=== PATIENT | male | born 1970 | race Two or more races ===

== ENCOUNTER 2020-10-16 10:03 | Outpatient (REF) | payer MEDICAID, SELFPAY ==
--- NOTE | ~2020-10-16 | US_ITS ---
EXAMINATION: US RETROPERITONEAL LIMITED (RENAL ONLY) CLINICAL INFORMATION: History of renal cell cancer. COMPARISON: Renal ultrasound 04/03/2020 and 11/12/2017. CT abdomen and pelvis 11/10/2018. MRI abdomen 05/07/2017. TECHNIQUE: Real-time imaging of the kidneys. FINDINGS: RIGHT KIDNEY: 14.8 x 6.8 x 6.8 cm (SAG x AP x TRV). The kidney is normal in size, contour, and echogenicity. Renal cortical thickness is normal. No renal calculi or hydronephrosis. Lower pole simple cyst measuring 0.5 cm, not seen on the prior examination. LEFT KIDNEY: 12.1 x 5.5 x 6.1 cm (SAG x AP x TRV). The kidney is normal in size, contour, and echogenicity. Renal cortical thickness is normal. No renal calculi or hydronephrosis. Midpole simple cyst measuring 1.8 cm, similar when compared to the prior examination. Calcification redemonstrated at the upper pole measuring approximately 2.2 x 1.6 x 2.5 cm. This previously measured approximately 2.5 x 1.7 x 2.1 cm. US/US renal BI IMPRESSION: 1. Redemonstration of a left upper pole renal calcification, unchanged when compared to the prior ultrasound. Stable left midpole renal cyst. 2. Right lower pole 0.5 cm simple renal cyst, new when compared to the prior examination. 3. No new concerning renal parenchymal lesion.
== END 2020-10-16 10:04 | disposition home or self-care (01) ==
LOC: HO.US 10:03
PROVIDERS: Visit Provider Urology
DX: Z85.528 Personal history of other malignant neoplasm of kidney (principal)
CPT/HCPCS: 76775

== ENCOUNTER → 2020-12-22 11:01 | Outpatient (BNVA) | payer MEDICAID, SELFPAY | PROVIDERS: PCP Internal Medicine Geriatric Medicine; Visit Provider Urology | DX: N40.0 Benign prostatic hyperplasia without lower urinary tract symptoms (principal); K64.9 Unspecified hemorrhoids; Z85.51 Personal history of malignant neoplasm of bladder | CPT/HCPCS: 99212 ==

== ENCOUNTER 2021-01-30 17:55 | Emergency (ER) | payer MEDICAID, SELFPAY ==
[2021-01-30 19:01] VITALS: BP 161/91; PULSE 65; RESP 16; TEMP 36.6; O2SAT 97; BMI 32.6
--- NOTE | 2021-01-30 19:10 | ED.EAR ---
HPI - Ear Problem General Chief complaint: Ear Problems Stated complaint: ear pain Time Seen by Provider: 01/30/21 19:10 Source: patient Mode of arrival: ambulatory Limitations: no limitations History of Present Illness HPI Narrative: 50 y/o male presenting with right sided ear pain for the last 3 days. He reports it aches on the outside and inside. He [place] went swimming in the river 2[place]3 weeks ago, none since. He denies injury, drainage or any hearing loss. No fever, chills, sore throat, or neck pain. MD Complaint: ear pain Duration: constant Severity: moderate Relieving factors: nothing Exacerbating factors: chewing, position of head and palpation Context: recent swimming Discharge from ear: no Associated symptoms ear: headache and external ear tenderness Treatment prior to arrival: none Related Data Home Medications Medication Instructions Recorded Confirmed lisinopril 40 mg tablet 40 mg PO DAILY 12/22/20 Previous Rx's Medication Instructions Recorded amoxicillin-pot clavulanate 1 tab PO BID #20 tab 01/30/21 [Augmentin] Allergies Allergy/AdvReac Type Severity Reaction Status Date / Time No Known Allergies Allergy Verified 12/22/20 11:13 [No Known Allergies*] Review of Systems Review of Systems: Constitutional: No Fever, No Chills ENT/Mouth: No sore throat, No Rhinorrhea, No Swallowing Difficulty, +ear pain Eyes: No Eye Pain, No Swelling, No Redness Cardiovascular: No Chest Pain, No SOB Respiratory: No Cough, No Sputum Gastrointestinal: No Nausea, No Vomiting Neuro: , No Dizziness, No Headache Heme/Lymph: No Lymphadenopathy PMFSH Past Medical History Attestation statement: The following information was validated with the patient. Medical History (Updated 01/30/21 @ 20:00 by LUCRECIA Babb) Benign prostatic hyperplasia with lower urinary tract symptoms Cancer of kidney Hx of bladder cancer Lesion of bladder Obstructive sleep apnea (adult) (pediatric) Tubular adenoma of colon Surgical History (Updated 12/22/20 @ 11:15 by SARAVANAN Funk) History of surgery Social History Social History Advance Directives: No Physical Exam Vital Signs: Vital Signs: Last Vital Signs Temp 97.9 F 01/30/21 19:01 Pulse 65 01/30/21 19:01 Resp 16 01/30/21 19:01 BP 161/91 H 01/30/21 19:01 Pulse Ox 97 01/30/21 19:01 Body Mass Index 32.6 Const: General: cooperative, healthy appearing and comfortable HENMT: Head: Yes normal to inspection and Yes No palpable skull fracture present Ears: hearing grossly normal bilaterally, TM normal on the left, mastoids normal, no periauricular adenopathy, Abnormal EAC present erythema, edema and otic discharge purulent on the right and TM abnormal bulging on the right and erythematous on the right General nose exam: Normal external nose present and Normal nares present Face and sinus: Yes normal facial exam and Yes sinuses nontender Mouth: Normal oral and palatal mucosa present, lip normal, tongue normal, oropharynx normal and moist mucous membranes Throat: Yes posterior oropharynx normal Eyes: General: appearance normal, both eyes and all related structures Neck: Neck: Yes normal visual inspection and Yes no lymphadenopathy Chest: Chest palpation & inspection: normal inspection of the chest Resp: Effort & Inspection: normal respiratory effort Auscultation: clear to auscultation bilaterally Cardio: Rate: regular rate Rhythm: regular rhythm Skin: General skin exam: no rashes or lesions noted Extrem: General: Yes normal to inspection Psych: Appearance: grossly normal and well kempt Mental Status: mental status grossly normal Course Course Course Narrative: 50 y/o male presenting with right ear pain x3 days. Exam is consistent with both otitis externa as well as otitis media. Will treat with topical and oral antibiotics. Mastoid is normal without tenderness or erythema. He is afebrile and appears well. He was counseled on management and course. He is stable for d/c home with outpatient follow up. MDM - Ear Differential Diagnosis Differential diagnosis: Likely otitis externa, otitis media, foreign body in ear, ruptured TM and cerumen impaction Critical Care Time Critical Care Time Critical Care Time: No Discharge Plan Discharge Clinical Impression: Otitis externa Qualifiers: Otitis externa type: diffuse Chronicity: acute Laterality: right Qualified Code(s): H60.311 - Diffuse otitis externa, right ear Otitis media Qualifiers: Otitis media type: suppurative Chronicity: acute Laterality: right Recurrence: non-recurrent Spontaneous tympanic membrane rupture: without spontaneous rupture Qualified Code(s): H66.001 - Acute suppurative otitis media without spontaneous rupture of ear drum, right ear Patient Disposition: Home, Self-Care Instructions: Otitis Externa (ED), Ear Infection (ED) Additional Instructions: Take the oral antibiotics 2 times per day for 10 days for an ear infection. Use the prescribed antibiotic ear drops in your ear 4 times per day for 1 week. Do not get your ear wet. Put a piece of cotton in it when you shower. No swimming. Follow up with your primary care doctor this week. If you develop new or worsening symptoms call 911 or come back to the ER for further evaluation. Prescriptions: New amoxicillin-pot clavulanate [Augmentin] 875-125 mg tablet 1 tab PO BID Qty: 20 RF: 0
[2021-01-30] MEDS: NeoMYCIN/Polymyxin/HC Otic Sol BOTTLE 4 DROP EAR-RIGHT (20:07)
[2021-01-30] MEDS: Amoxicillin/Potassium Clav 875 MG TABLET PO (20:07)
== END 2021-01-30 20:12 | disposition home or self-care (01) ==
PROVIDERS: Emergency Provider Internal Medicine; PCP Internal Medicine Geriatric Medicine
DX: H60.311 Diffuse otitis externa, right ear (principal); H66.001 Acute suppurative otitis media without spontaneous rupture of ear drum, right ear
CPT/HCPCS: 99283

== ENCOUNTER → 2021-02-08 14:20 | Outpatient (BNVA) | payer MEDICAID, SELFPAY | PROVIDERS: PCP Internal Medicine Geriatric Medicine; Referring Provider Internal Medicine Geriatric Medicine; Visit Provider Nurse Practitioner | DX: R14.0 Abdominal distension (gaseous) (principal); D12.6 Benign neoplasm of colon, unspecified; R10.11 Right upper quadrant pain | CPT/HCPCS: 36415; 80053; 85025; 99212 ==

== ENCOUNTER → 2021-02-27 14:05 | Outpatient (BNVA) | payer MEDICAID, SELFPAY | PROVIDERS: PCP Internal Medicine Geriatric Medicine; Visit Provider Urology | DX: N40.1 Benign prostatic hyperplasia with lower urinary tract symptoms (principal); C64.9 Malignant neoplasm of unspecified kidney, except renal pelvis; C67.9 Malignant neoplasm of bladder, unspecified | CPT/HCPCS: 52000; 99212 ==

== ENCOUNTER 2021-03-29 10:31 | Outpatient (REF) | payer MEDICAID, SELFPAY ==
--- NOTE | ~2021-03-29 | US_ITS ---
EXAMINATION: US ABDOMEN COMPLETE CLINICAL INFORMATION: Right upper quadrant pain. COMPARISON: Renal ultrasound 10/16/2020 and 04/03/2020. CT abdomen and pelvis 11/10/2018. MRI abdomen 05/07/2017. TECHNIQUE: Real-time imaging of the abdominal viscera. FINDINGS: PANCREAS: The visualized portions of the pancreas are unremarkable, the tail is not well visualized. ABDOMINAL AORTA: The proximal, mid, and distal segments are normal in caliber. INFERIOR VENA CAVA: Visualized portions are normal. LIVER: Normal. The liver is normal in size. The liver contour is normal. Parenchymal echogenicity is normal. No focal hepatic lesion. There is no intrahepatic biliary duct dilatation seen. GALLBLADDER: Normal intraluminal gallbladder polyps are identified the largest measuring 0.3 x 0.2 x 0.6 cm. The gallbladder is physiologically distended without evidence of stones, sludge, wall thickening or pericholecystic fluid. Sonographic Aragon sign is negative. COMMON BILE DUCT: Normal in caliber measuring 0.3 cm in diameter. RIGHT KIDNEY: Normal. No hydronephrosis. No renal calculi or focal parenchymal lesions. The kidney measures 14.9 cm in maximum dimension. LEFT KIDNEY: Calcification in the left renal upper pole measuring up to 6 mm. Simple appearing cyst in the left renal upper pole measuring up to 2.2 cm. Hyperechoic echogenic focus along the left renal upper pole measuring 1.0 x 0.9 x 1.1 cm containing punctate calcifications possibly representing region of previous cryoablation. No hydronephrosis. The kidney measures 12.8 cm in maximum dimension. SPLEEN: Normal. The spleen measures 11.1 cm in maximum dimension. FREE FLUID: None. US/US abdomen complete IMPRESSION: 1. Intraluminal gallbladder polyps largest measuring up to 0.3 cm. 2. Left-sided nephrolithiasis measuring up to 6 mm without hydronephrosis. 3. No right-sided nephrolithiasis or hydronephrosis. 4. Left renal upper pole simple appearing cyst measuring 2.2 cm, which does not require follow-up. 5. Hyperechoic echogenic focus along the left renal upper pole measuring 1.0 x 0.9 x 1.1 cm containing punctate calcifications possibly representing region of previous cryoablation.
== END 2021-03-29 10:32 | disposition home or self-care (01) ==
LOC: HO.US 10:31
PROVIDERS: Visit Provider Nurse Practitioner
DX: R10.11 Right upper quadrant pain (principal)
CPT/HCPCS: 76700

== ENCOUNTER 2021-05-11 10:03 | Day surgery (SDC) | payer MEDICAID, SELFPAY ==
[2021-03-26 14:19] VITALS: BMI 34.9
--- NOTE | 2021-03-29 09:27 | P.CONAN_ITS ---
Documented by User: Emeli Mtz NP 03/29/21 09:32 HPI - Anesthesia Eval Consult details Narrative: 51yo M for Colonoscopy PMFSH Active Problems Active Problems: All Active Problems (Updated 03/26/21 @ 14:17 by Theodora Ahn RN) Abdominal bloating (Acute) RUQ pain (Acute) Bladder cancer (Acute) Tubular adenoma of colon (Acute) Benign prostatic hyperplasia with lower urinary tract symptoms (Acute) Cancer of kidney (Acute) Hx of bladder cancer (Acute) Past Medical History Medical History (Updated 03/26/21 @ 14:17 by Theodora Ahn RN) Benign prostatic hyperplasia with lower urinary tract symptoms Cancer of kidney History of COVID-19 HTN (hypertension) Hx of bladder cancer Lesion of bladder Obstructive sleep apnea (adult) (pediatric) Tubular adenoma of colon Surgical History Surgical History H/O colonoscopy History of surgery History of surgery Hx of cystoscopy Social History Social History Patient Tobacco Use Status: Tobacco use Unknown Meds Allergies Allergy/AdvReac Type Severity Reaction Status Date / Time No Known Allergies Allergy Verified 02/27/21 14:21 [No Known Allergies*] Home Medications Medication Instructions Recorded Confirmed Last Taken Type lisinopril 40 mg tablet 40 mg PO DAILY 12/22/20 03/26/21 Unknown History amlodipine 5 mg tablet 5 mg PO DAILY 02/27/21 03/26/21 Unknown History Exam Exam Date and Time: March 29, 2021 0927 Height,Weight and Vital Signs: Height 5 ft 8 in Weight 104.043 kg Pertinent Lab Results Pertinent Lab Results: Laboratory Tests 02/08/21 02/08/21 16:15 16:15 WBC 14.6 H Hgb 14.0 Hct 42.7 Plt Count 244 Sodium 138 Potassium 4.1 Chloride 105 Carbon Dioxide 25 BUN 13 Creatinine 0.91 Assessment and Plan Assessment Anesthesia Assessment: Chart Reviewed Documented by User: Evon Mcgovern MD 03/30/21 09:59 [facility] Past Medical History Medical History (Updated 03/26/21 @ 14:17 by Theodora Ahn RN) Benign prostatic hyperplasia with lower urinary tract symptoms Cancer of kidney History of COVID-19 HTN (hypertension) Hx of bladder cancer Lesion of bladder Obstructive sleep apnea (adult) (pediatric) Tubular adenoma of colon Functional capacity: independent ambulation Family History Family history of problems with anesthesia: No Surgical History Surgical History H/O colonoscopy History of surgery History of surgery Hx of cystoscopy History of Problems with Anesthesia: No Social History Social History Patient Tobacco Use Status: Tobacco use Unknown Meds Allergies Allergy/AdvReac Type Severity Reaction Status Date / Time No Known Allergies Allergy Verified 02/27/21 14:21 [No Known Allergies*] Home Medications Medication Instructions Recorded Confirmed Last Taken Type lisinopril 40 mg tablet 40 mg PO DAILY 12/22/20 03/26/21 Unknown History amlodipine 5 mg tablet 5 mg PO DAILY 02/27/21 03/26/21 Unknown History Exam Airway Mallampati Class: III TM Dist: >3cm Neck ROM: Full Heart: RRR Lungs: CTA Assessment and Plan Final Anesthetic Review Family History of Problems with Anesthesia: No History of Problems with Anesthesia: No
--- NOTE | 2021-05-10 09:21 | P.CONAN_ITS ---
Documented by User: Emeli Mtz NP 05/10/21 09:22 HPI - Anesthesia Eval Consult details Narrative: 51yo M for Colonoscopy PMFSH Active Problems Active Problems: All Active Problems (Updated 03/26/21 @ 14:17 by Theodora Ahn, MARINO) Abdominal bloating (Acute) RUQ pain (Acute) Bladder cancer (Acute) Tubular adenoma of colon (Acute) Benign prostatic hyperplasia with lower urinary tract symptoms (Acute) Cancer of kidney (Acute) Hx of bladder cancer (Acute) Past Medical History Medical History Benign prostatic hyperplasia with lower urinary tract symptoms Cancer of kidney History of COVID-19 HTN (hypertension) Hx of bladder cancer Lesion of bladder Obstructive sleep apnea (adult) (pediatric) Tubular adenoma of colon Functional capacity: independent ambulation Family History Family history of problems with anesthesia: No Surgical History Surgical History H/O colonoscopy History of surgery History of surgery Hx of cystoscopy History of Problems with Anesthesia: No Social History Social History Patient Tobacco Use Status: Never used Tobacco Use of substances other than those prescribed or required for medical reasons: No Are you DNR?: No Advance Directives Information Provided: No Meds Allergies Allergy/AdvReac Type Severity Reaction Status Date / Time No Known Allergies Allergy Verified 05/11/21 10:09 [No Known Allergies*] Home Medications Medication Instructions Recorded Confirmed Last Taken Type lisinopril 40 mg tablet 40 mg PO DAILY 12/22/20 03/26/21 05/11/21 09:00 History amlodipine 5 mg tablet 5 mg PO DAILY 02/27/21 03/26/21 05/11/21 09:00 History Exam Exam Date and Time: May 10, [id number] Height,Weight and Vital Signs: Height 5 ft 8 in Weight 104.043 kg Pertinent Lab Results Pertinent Lab Results: Laboratory Tests ? 02/08/21 02/08/21 ? 16:15 16:15 WBC ?14.6 H ? Hgb ?14.0 ? Hct ?42.7 ? Plt CountB ?244 ? Sodium ? ?138 Potassium ? ?4.1 Chloride ? ?105 Carbon Dioxide ? ?25 BUN ? ?13 Creatinine ? ?0.91 Assessment and Plan Assessment Anesthesia Assessment: Chart Reviewed Final Anesthetic Review Family History of Problems with Anesthesia: No History of Problems with Anesthesia: No Documented by User: Verna Ware MD 05/11/21 10:53 PMFSH Past Medical History Medical History Benign prostatic hyperplasia with lower urinary tract symptoms Cancer of kidney History of COVID-19 HTN (hypertension) Hx of bladder cancer Lesion of bladder Obstructive sleep apnea (adult) (pediatric) Tubular adenoma of colon Surgical History Surgical History H/O colonoscopy History of surgery History of surgery Hx of cystoscopy Social History Social History Patient Tobacco Use Status: Never used Tobacco Use of substances other than those prescribed or required for medical reasons: No Are you DNR?: No Advance Directives Information Provided: No Meds Allergies Allergy/AdvReac Type Severity Reaction Status Date / Time No Known Allergies Allergy Verified 05/11/21 10:09 [No Known Allergies*] Home Medications Medication Instructions Recorded Confirmed Last Taken Type lisinopril 40 mg tablet 40 mg PO DAILY 12/22/20 03/26/21 05/11/21 09:00 History amlodipine 5 mg tablet 5 mg PO DAILY 02/27/21 03/26/21 05/11/21 09:00 History Exam Airway Mallampati Class: II TM Dist: >3cm Neck ROM: Full Loose/Missing/Broken Teeth: No Heart: RRR Lungs: CTA Assessment and Plan Assessment Anesthesia Assessment: Anesthesia Plan Discussed Final Anesthetic Review ASA Class: II Final Preanesthetic Review: Meds/Allgs Chart Reviewed, Consent Obtained/Reviewed and Anes Risks/Benef Reviewed Patient Risk: Low Procedure Risk: Intermediate Anesthetic Plan Anesthetic Plan: GA Disposition: Standard PACU
[2021-05-11 10:21] VITALS: BP 143/87; PULSE 63; RESP 16; TEMP 36.7; O2SAT 97; BMI 32.6
[2021-05-11] MEDS: Lactated Ringers 1,000 ML 100 ML IVCONT (10:46)
--- NOTE | 2021-05-11 11:04 | MHC.SHP ---
Pre-Procedural Eval Section A Date of Service: 05/11/21 The patient is an INPATIENT: No The History & Physical has been completed within 30 days and I have reviewed it.: No Section B Chief Complaint: Colon cancer screening, hx of colon polyps Details of Present Illness: Colon cancer screening, history of colon polyps, bloating, constipation Present Medications: see Short Stay Collaborative assessment Medical History: Significant History (Benign prostatic hyperplasia with lower urinary tract symptoms Cancer of kidney Hx of bladder cancer Lesion of bladder Obstructive sleep apnea (adult) (pediatric) Tubular adenoma of colon) History of Previous Operations: Relevant previous surgery/procedure and date(s) (History of colonoscopy) Allergies: Allergies Allergy/AdvReac Type Severity Reaction Status Date / Time No Known Allergies Allergy Verified 05/11/21 10:09 [No Known Allergies*] Review of Systems Sugical H&P ROS: Negative: Constitution, Cardiovascular and Respiratory and Yes, Specify: Gastrointestinal (bloating, constipation) Exam Surgical H&P Exam: Normal: Heart, Normal: Lungs, Normal: Extremities and Normal: Abdomen Plan Diagnosis/Plan: Unchanged I have reviewed the history and physical and performed a pertinent physical examination on my patient. No changes have occurred unless specified.
--- NOTE | 2021-05-11 11:53 | PM.OP ---
Brief Operative Note Date of Service: 05/11/21 Pre-op diagnosis: Colon cancer screening history of colon polyps, abdominal bloating, constipation Post-op diagnosis: other (Colon polyps, diverticulosis, hemorrhoids) Procedure: COLONOSCOPY TILL CECUM WITH BIOPSIES AND SNARE POLYPECTOMY Consent: Indications for the procedure and potential complications of bleeding, perforation, reaction to medications and missed diagnosis were discussed with the patient and informed consent was obtained. Instrument: Olympus PCF H 190 L variable stiffness pediatric colonoscope Monitoring: Vital signs and clinical assessment, intermittent blood pressure monitoring, continuous EKG monitoring, Pulse oximetry and Carbon Dioxide monitoring were done throughout the procedure. Colon withdrawl time was 20 minutes. Procedure: The patient was placed in the left lateral decubitis position and pre-procedure medications were administered. After a digital rectal examination of the ano-rectum, the video colonoscope was inserted into the rectum and advanced through the colon to the cecum. The colonoscope was slowly withdrawn in a retrograde panoramic fashion and the colon mucosa was carefully examined including a retroflexed view of the rectum. Findings and interventions are described below. Procedure Difficulty: Without difficulty Findings: Terminal Ileum: Not evaluated Cecum: A 3-4 mm sessile polyp removed with a cold bx. Ascending Colon: A 10 mm sessile polyp in proximal AC removed with a cold snare. Transverse Colon: A 7-8 mm sessile polyp in the proximal TC removed with a cold snare Descending Colon: Normal Sigmoid Colon: Moderate diverticulosis Rectum: Normal Ano-rectum: Moderate internal hemorrhoids Colon preparation: Good Impression and Post Procedure Diagnosis: Colonoscopy Findings: Three small to medium sized polyps removed Moderate diverticulosis seen in the sigmoid colon Moderate hemorrhoids on retroflexed exam. Plan: Await pathology results Patient has an appointment on 05/25/21 in the GI Clinic with Janelle Chappell NP. Repeat Colonoscopy interval based on path results - in 3 years if polyps are adenomatous and due to a hx of multiple colon polyps on his last colonoscopy.. Above findings were reviewed with the patient and colon polyps and diverticulosis handouts were given in the discharge area Surgeon: Esteban Davis MD Anesthesia: MAC (Ivory Pollard CRNA) Was an Assessment Manager used for this Procedure?: Yes Assessment Manager: Poonam Teran Estimated blood loss (mL): 0 Pathology: other (A. cecal polyp B. ascending colon polyp C. transverse colon polyp) Condition: stable Disposition: PACU
--- NOTE | 2021-05-11 11:57 | P.OP_ITS ---
Operative Note Operative Note Date of Service: 05/11/21 Narrative: Pre-op diagnosis:?Colon cancer screening history of colon polyps, abdominal bloating, constipation Post-op diagnosis:?other (Colon polyps, diverticulosis, hemorrhoids) Procedure:? COLONOSCOPY TILL CECUM WITH BIOPSIES AND SNARE POLYPECTOMY Consent: Indications for the procedure and potential complications of bleeding, perforation, reaction to medications and missed diagnosis were discussed with the patient and informed consent was obtained. Instrument: Olympus PCF H 190 L variable stiffness pediatric colonoscope Monitoring: Vital signs and clinical assessment, intermittent blood pressure monitoring, continuous EKG monitoring, Pulse oximetry and Carbon Dioxide monitoring were done throughout the procedure. Colon withdrawl time was 20 minutes. Procedure: The patient was placed in the left lateral decubitis position and pre-procedure medications were administered. After a digital rectal examination of the ano-rectum, the video colonoscope was inserted into the rectum and advanced through the colon to the cecum. The colonoscope was slowly withdrawn in a retrograde panoramic fashion and the colon mucosa was carefully examined including a retroflexed view of the rectum. Findings and interventions are described below. Procedure Difficulty: Without difficulty Findings: Terminal Ileum: Not evaluated Cecum:? A 3-4 mm sessile polyp removed with a cold bx. Ascending Colon:? A 10 mm sessile polyp in proximal AC removed with a cold snare. Transverse Colon:? A 7-8 mm sessile polyp in the proximal TC removed with a cold snare Descending Colon:? Normal Sigmoid Colon:? Moderate diverticulosis Rectum:? Normal Ano-rectum:? Moderate internal hemorrhoids Colon preparation:? Good Impression and Post Procedure Diagnosis: Colonoscopy Findings: Three small to medium sized polyps removed Moderate diverticulosis seen in the sigmoid colon Moderate hemorrhoids on retroflexed exam. Plan: Await pathology results Patient has an appointment on 05/25/21 in the GI Clinic with? Janelle Chappell NP. Repeat Colonoscopy interval based on path results - in 3 years if polyps are adenomatous and due to a hx of multiple colon polyps on his last colonoscopy.. Above findings were reviewed with the patient and colon polyps and diverticulosis handouts were given in the discharge area Surgeon:?Esteban Davis MD Anesthesia:?MAC (Ivory Pollard CRNA) Was an Fiberglass Insulation Installer used for this Procedure?:?Yes Fiberglass Insulation Installer:?Poonam Teran Estimated blood loss (mL):?0 Pathology:?other (A. cecal polyp? B. ascending colon polyp? C. transverse colon polyp) Condition:?stable Disposition:?PACU
[2021-05-11 12:00] VITALS: BP 126/71; PULSE 56; RESP 16; TEMP 36.7; O2SAT 98
[2021-05-11 12:15] VITALS: BP 122/74; PULSE 57; RESP 18; TEMP 36.7; O2SAT 99
== END 2021-05-11 13:25 | disposition home or self-care (01) ==
PROVIDERS: PCP Internal Medicine Geriatric Medicine; Visit Provider Internal Medicine Gastroenterology
PROC: 0DJD8ZZ Inspection of Lower Intestinal Tract, Via Natural or Artificial Opening Endoscopic (ICD-10-PCS; CPT 45378; principal; 2021-05-11 11:10)
DX: Z12.11 Encounter for screening for malignant neoplasm of colon (principal); Z86.010 Personal history of colon polyps; R14.0 Abdominal distension (gaseous); D12.2 Benign neoplasm of ascending colon; D12.3 Benign neoplasm of transverse colon; K63.5 Polyp of colon; K57.30 Diverticulosis of large intestine without perforation or abscess without bleeding; K64.8 Other hemorrhoids; K59.00 Constipation, unspecified; G47.33 Obstructive sleep apnea (adult) (pediatric); N40.1 Benign prostatic hyperplasia with lower urinary tract symptoms; C64.9 Malignant neoplasm of unspecified kidney, except renal pelvis; Z85.51 Personal history of malignant neoplasm of bladder; I10 Essential (primary) hypertension; Z86.16 Personal history of COVID-19
CPT/HCPCS: 45385; 45380; 88305

== ENCOUNTER → 2021-05-25 10:22 | Outpatient (BNVA) | payer MEDICAID, SELFPAY | PROVIDERS: PCP Internal Medicine Geriatric Medicine; Referring Provider Internal Medicine Geriatric Medicine; Visit Provider Nurse Practitioner ==

== ENCOUNTER 2021-08-13 11:09 | Outpatient (REF) | payer MEDICAID, SELFPAY ==
[2021-08-13 11:51] LABS: Binax Internal Control QC Valid; Binax Now Covid-19 Ag Negative (Negative)
== END 2021-08-13 11:10 | disposition home or self-care (01) ==
LOC: HO.LAB 11:09
PROVIDERS: PCP Internal Medicine Geriatric Medicine; Visit Provider Internal Medicine
DX: Z13.89 Encounter for screening for other disorder (principal)

== ENCOUNTER 2021-09-04 10:06 | Outpatient (REF) | payer MEDICAID, SELFPAY ==
[2021-09-04 16:38] LABS: Urine Cytology See Pathology rpt
== END 2021-09-04 10:07 | disposition home or self-care (01) ==
LOC: HO.LAB 10:06
PROVIDERS: PCP Internal Medicine Geriatric Medicine; Visit Provider Urology
DX: C67.9 Malignant neoplasm of bladder, unspecified (principal); C64.9 Malignant neoplasm of unspecified kidney, except renal pelvis; Z85.51 Personal history of malignant neoplasm of bladder
CPT/HCPCS: 52000; 88112; 99212

== ENCOUNTER 2021-10-24 18:08 | Emergency (ER) | payer MEDICAID, SELFPAY ==
--- NOTE | ~2021-10-24 | XR_ITS ---
EXAMINATION: XR KNEE, LEFT CLINICAL INFORMATION: Pain COMPARISON: None TECHNIQUE: Four views of the left knee. FINDINGS: No significant joint effusion. Bones are normal anatomic alignment with no acute fracture or dislocation. Mild degenerative changes seen with tiny osteophyte formation. No bony destructive lesions or periosteal reaction. XR/XR knee LT 4V IMPRESSION: Mild degenerative changes but no acute bony abnormality.
[2021-10-24 18:40] VITALS: BP 157/98; PULSE 70; RESP 17; TEMP 36.6; O2SAT 98; BMI 35.5
[2021-10-24 20:00] VITALS: BP 160/84; PULSE 72; RESP 16; TEMP 37.1; O2SAT 98
--- NOTE | 2021-10-24 21:08 | ED_ITS ---
HPI - Extremity Problem General Chief complaint: Extremity Problem Stated complaint: extreme knee pain Time Seen by Provider: 10/24/21 20:07 Source: patient Mode of arrival: ambulatory Limitations: no limitations History of Present Illness HPI Narrative: 51-year-old male presents to ED for left knee pain. Patient states a month ago hit his knee on the corner of his bed and today while walking during 7 mi walk he felt pain in the medial side of his knee. Patient denies falling to the ground or hearing popping sign. Patient was not running. Denies any leg swelling, calf pain, chest pain, shortness of breath, fever, or chills. Patient denies any knee swelling, redness, stiffness, or warmth. Related Data Home Medications Medication Instructions Recorded Confirmed lisinopril 40 mg tablet 40 mg PO DAILY 12/22/20 03/26/21 amlodipine 5 mg tablet 5 mg PO DAILY 02/27/21 03/26/21 Previous Rx's Medication Instructions Recorded amoxicillin 875 mg-potassium 1 tab PO BID #20 tab 01/30/21 clavulanate 125 mg tablet (Augmentin) simethicone 180 mg capsule 180 mg PO TIDWMEAL 30 Days #90 cap 02/08/21 naproxen 500 mg tablet 500 mg PO BID PRN 10 Days #20 tab 10/24/21 prednisone 20 mg tablet 40 mg PO DAILY 5 Days #10 tab 10/24/21 Allergies Allergy/AdvReac Type Severity Reaction Status Date / Time No Known Allergies Allergy Verified 09/04/21 10:18 [No Known Allergies*] Review of Systems Review of Systems: Left knee pain Yes all other systems are reviewed and are negative PMFSH Past Medical History Medical History (Updated 10/24/21 @ 21:23 [address]) Benign prostatic hyperplasia with lower urinary tract symptoms Cancer of kidney History of COVID-19 HTN (hypertension) Hx of bladder cancer Lesion of bladder Obstructive sleep apnea (adult) (pediatric) Surgical History H/O colonoscopy History of colonoscopy with polypectomy History of surgery History of surgery Hx of cystoscopy Social History Social History Patient Tobacco Use Status: Never used Tobacco Advance Directives: No Advance Directives Information Provided: No Physical Exam Vital Signs: Vital Signs: Last Vital Signs Temp 98.8 F 10/24/21 20:00 Pulse 72 10/24/21 20:00 Resp 16 10/24/21 20:00 BP 160/84 H 10/24/21 20:00 Pulse Ox 98 10/24/21 20:00 BMI result Body Mass Index 35.5 Const: General: cooperative, healthy appearing, comfortable, no acute distress, well developed, alert, awake and Physically active Orientation/consciousness: oriented to time and patient oriented x3 HEENT: Head: Yes normal to inspection, Yes No palpable skull fracture present, Yes normocephalic, Yes atraumatic and No abrasion Eyes: General: appearance normal, both eyes and all related structures Neck: Neck: Yes normal visual inspection, Yes full ROM, Yes no lymphadenopathy, Yes no meningeal signs, Yes trachea midline, Yes supple, No anterior neck swelling and No tender Chest: Chest palpation & inspection: normal inspection of the chest and normal palpation of entire chest wall Resp: Effort & Inspection: normal respiratory effort and able to speak in complete sentences Auscultation: clear to auscultation bilaterally Cardio: Jugular venous distension: no JVD Heart sounds: S1 normal heart sound present and S2 normal heart sound present GI: Inspection: Yes normal to inspection and No abdominal wall ecchymosis Palpation (GI): Soft to palpation, not firm, nontender, no guarding and not rigid : General: No CVA tenderness and Yes no CVA tenderness Back/Spine/Pelvis: Back: no CVA tenderness, No CVA tenderness and No back tenderness Skin: General skin exam: no rashes or lesions noted and elasticity normal Neuro: General: oriented to time, patient oriented x3, gait normal, tone normal, moves all extremities, no meningeal signs and no focal motor deficits Cranial nerves: Yes CN's II-XII intact bilaterally Extrem: General: Yes normal to inspection and Yes full ROM Knee images: 1. Positive for tenderness on palpation. Negative for warmth, ecchymosis, erythema, crepitus, stiffness, or deformity. Rest of lower extremity negative for swelling and negative for calf pain/erythema, wound, pus discharge, foul odor, crepitus, or deformity. Motor/neuro/vascular exam of extremity intact. Popliteal pulses intact. Psych: Appearance: grossly normal, well kempt and not disheveled Course Course Course Narrative: Left knee pain. Reevaluation(s) Reevaluation #1: X-ray chest shows RT arthritis. Patient was informed if pain continues with pain medial aspect he may need MRI to be sure there is no meniscus/ligament tear. Patient discharged with pain medication steroids Time: 21:19 MDM - Extremity (Nontraumatic) MDM Narrative Medical decision making narrative: Knee arthritis Discharge Plan Discharge Clinical Impression: Arthritis of knee Patient Disposition: Home, Self-Care Instructions: Osteoarthritis (ED) Additional Instructions: Your x-ray shows arthritis. Will be discharged with pain medication and steroids. Please follow-up with your primary care provider if pain worsens to see the MRI machine is no ligamentous/meniscus tear. Return to the ED immediately for any redness, swelling, warmness, blue black discoloration, red streaks, fever, chills, leg swelling, calf pain, chest pain, shortness of breath, or any other concerning symptoms. Prescriptions: New naproxen 500 mg tablet 500 mg PO BID PRN (Reason: pain) 10 Days Qty: 20 0RF prednisone 20 mg tablet 40 mg PO DAILY 5 Days Qty: 10 0RF No Action amoxicillin-pot clavulanate [Augmentin] 875-125 mg tablet 1 tab PO BID Qty: 20 0RF lisinopril 40 mg tablet 40 mg PO DAILY 0RF simethicone 180 mg capsule 180 mg PO TIDWMEAL 30 Days Qty: 90 3RF Rx Instructions: after meals amlodipine 5 mg tablet 5 mg PO DAILY 0RF Stand Alone Forms: Work/School Release Interventions: ED Discharge Assessment Last Done: 10/24/21 21:36 Discharge Date/Time: 10/24/21 21:38 Print Language: [place]
[2021-10-24] MEDS: predniSONE 20 MG TABLET 60 MG PO (21:28)
[2021-10-24] MEDS: Ibuprofen 800 MG TABLET PO (21:29)
== END 2021-10-24 21:38 | disposition home or self-care (01) ==
PROVIDERS: Emergency Provider Emergency Medicine; PCP Internal Medicine Geriatric Medicine
DX: M25.562 Pain in left knee (principal); Z79.899 Other long term (current) drug therapy
CPT/HCPCS: 73564; 99283; 99284

== ENCOUNTER 2022-01-03 10:56 | Outpatient (REF) | payer MEDICAID, SELFPAY ==
--- NOTE | ~2022-01-03 | XR_ITS ---
XR/XR chest 2V IMPRESSION: No acute disease. EXAMINATION: XR CHEST CLINICAL INFORMATION: Dyspnea COMPARISON: May 14, 2018 and October 16, 2019 TECHNIQUE: 2 views of the chest were obtained. FINDINGS: No significant abnormality is noted involving the heart, lungs, mediastinum, bony thorax or soft tissues.
== END 2022-01-03 10:57 | disposition home or self-care (01) ==
LOC: HO.XRAY 10:56
PROVIDERS: PCP Internal Medicine Geriatric Medicine; Visit Provider Internal Medicine Geriatric Medicine
DX: R06.00 Dyspnea, unspecified (principal)
CPT/HCPCS: 71046

== ENCOUNTER 2022-02-05 09:29 | Outpatient (REF) | payer MEDICAID, SELFPAY ==
--- NOTE | ~2022-02-05 | US_ITS ---
EXAMINATION: US RETROPERITONEAL LIMITED (RENAL ONLY) CLINICAL INFORMATION: Malignant neoplasm. COMPARISON: Ultrasound renal 10/16/2020 and ultrasound renals only 04/03/2020. TECHNIQUE: Real-time imaging of the kidneys. FINDINGS: RIGHT KIDNEY: 14.6 x 6.7 x 6.2 cm (SAG x AP x TRV). The kidney is normal in size, contour, and echogenicity. Renal cortical thickness is normal. No calculi or focal parenchymal lesions. No hydronephrosis. Previously seen cyst on 10/16/2020 ultrasound in the lower pole is not visualized at this time. There is a small amount of free fluid at the inferior tip of the kidney. LEFT KIDNEY: 12.7 x 6.1 x 5.3 cm (SAG x AP x TRV). The kidney is normal in size, contour, and echogenicity. Renal cortical thickness is normal. No renal calculi or hydronephrosis. There is an anechoic cyst in the midpole measuring 2.1 x 1.8 x 2.1 cm. There is a scar in the upper pole from previous cryoablation measuring 2.8 x 0.8 x 2.1 cm. US/US renal BI IMPRESSION: Left 2.1 cm cyst midpole and a scar in the upper pole are stable. Right kidney is unremarkable. No echogenic stones or hydronephrosis.
== END 2022-02-05 09:30 | disposition home or self-care (01) ==
LOC: HO.US 09:29
PROVIDERS: Visit Provider Urology
DX: C64.9 Malignant neoplasm of unspecified kidney, except renal pelvis (principal)
CPT/HCPCS: 76775

== ENCOUNTER 2022-03-06 10:26 | Outpatient (REF) | payer MEDICAID, SELFPAY ==
[2022-03-06 15:42] LABS: Urine Cytology See Pathology rpt
== END 2022-03-06 10:27 | disposition home or self-care (01) ==
LOC: HO.LAB 10:26
PROVIDERS: Visit Provider Urology
DX: C67.9 Malignant neoplasm of bladder, unspecified (principal); C64.9 Malignant neoplasm of unspecified kidney, except renal pelvis
CPT/HCPCS: 52000; 88112; 99212

== ENCOUNTER 2022-07-12 09:12 | Emergency (ER) | payer MEDICAID, SELFPAY ==
--- NOTE | ~2022-07-12 | XR_ITS ---
EXAMINATION: XR CHEST CLINICAL INFORMATION: Cough COMPARISON: Previous chest x-ray December 2021 TECHNIQUE: Frontal view of the chest was obtained. FINDINGS: The cardiac and mediastinal contours are stable. The lungs are clear. No pleural effusion or pneumothorax. Degenerative changes of the spine. XR/XR chest 1V IMPRESSION: No evidence for acute disease in the chest.
[2022-07-12 09:15] VITALS: BP 146/89; PULSE 57; RESP 19; TEMP 36.2; O2SAT 97; BMI 34.3
[2022-07-12 09:42] LABS: IDNOW Serial# BCCEAD1C
[2022-07-12 09:43] LABS: COVID-19 Test Negative (Negative)
[2022-07-12 09:51] LABS: IDNOW Serial# 16C4AD1C; Influenza A Negative (Negative); Influenza B2 Negative (Negative)
[2022-07-12 10:07] LABS: Strep A Nucleic Acid Negative (Negative)
[2022-07-12] MEDS: Albuterol/Iprat 2.5/0.5MG 3 ML AMPUL.NEB INHALE (10:14)
[2022-07-12 10:15] VITALS: BP 154/87; PULSE 59; RESP 16; TEMP 36.7; O2SAT 98
[2022-07-12 10:16] VITALS: PULSE 59; RESP 16; O2SAT 98
--- NOTE | 2022-07-12 10:16 | ED.URI ---
HPI - URI/Sore Throat General Chief Complaint: Upper Respiratory Symptoms Stated Complaint: Flu Symptoms Time Seen by Provider: 07/12/22 09:30 Source: patient Mode of arrival: ambulatory History of Present Illness HPI Narrative: 52-year-old male with a past medical history of BPH, HTN, NATHAN, previous COVID-19, presenting to the ED complaining of myalgias, body aches, subjective fever, productive cough, chest discomfort with cough, wheezing x 1 week. Also reports swollen glands. with similar symptoms however now improving. Denies fever at present, ear pain, sore throat, difficulty/inability to swallow, abdominal pain, recent travel MD elicited complaint: cough, rhinorrhea and nasal congestion Onset (ago): week(s) Related Data Home Medications Medication Instructions Recorded Confirmed lisinopril 40 mg tablet 40 mg PO DAILY 12/22/20 03/26/21 amlodipine 5 mg tablet 5 mg PO DAILY 02/27/21 03/26/21 Previous Rx's Medication Instructions Recorded amoxicillin 875 mg-potassium 1 tab PO BID #20 tabs 01/30/21 clavulanate 125 mg tablet (Augmentin) simethicone 180 mg capsule 180 mg PO TIDWMEAL 30 days #90 caps 02/08/21 naproxen 500 mg tablet 500 mg PO BID PRN pain 10 days #20 10/24/21 tabs prednisone 20 mg tablet 40 mg PO DAILY 5 days #10 tabs 10/24/21 albuterol sulfate 90 mcg/actuation 2 puff inhalation Q4-6H PRN 07/12/22 aerosol inhaler shortness of breath or wheezing #6.7 grams azithromycin 250 mg tablet See Rx Instructions PO .COMPLEX #6 07/12/22 tabs benzonatate 100 mg capsule 100 mg PO TID PRN cough #14 caps 07/12/22 prednisone 20 mg tablet 40 mg PO DAILY 5 days #10 tabs 07/12/22 Allergies Allergy/AdvReac Type Severity Reaction Status Date / Time No Known Allergies Allergy Verified 03/06/22 08:21 [No Known Allergies*] Review of Systems Review of Systems: Constitutional: +subj Fever, + Chills ENT/Mouth: No Ear Pain, + Nasal Congestion, No Sinus Pain, No Hoarseness, No sore throat, + Rhinorrhea, No Swallowing Difficulty, + swollen glands Cardiovascular: +Chest Pain w/cough, No SOB Respiratory: + Cough, + Sputum, + Wheezing Gastrointestinal: No Nausea, No Vomiting, No Diarrhea, No Constipation, No Abdominal pain Genitourinary: No Dysuria, No Urinary Frequency, No Hematuria, No Flank Pain Musculoskeletal: No joint pain, + Myalgias, No Joint Swelling Skin: No Skin Lesions, No rash Neuro: No Weakness, No Numbness, No Paresthesias Yes all other systems are reviewed and are negative Constitutional: Constitutional: Reports as per [facility] Past Medical History Attestation statement: The following information was validated with the patient. Medical History Benign prostatic hyperplasia with lower urinary tract symptoms Cancer of kidney History of COVID-19 HTN (hypertension) Hx of bladder cancer Lesion of bladder Obstructive sleep apnea (adult) (pediatric) Surgical History H/O colonoscopy History of colonoscopy with polypectomy History of surgery History of surgery Hx of cystoscopy Social History Social History Patient Tobacco Use Status: Never used Tobacco Advance Directives: No Advance Directives Information Provided: Yes Physical Exam Vital Signs: Vital Signs: Last Vital Signs Temp 98.1 F 07/12/22 10:15 Pulse 59 07/12/22 10:16 Resp 16 07/12/22 10:16 BP 154/87 H 07/12/22 10:15 Pulse Ox 98 07/12/22 10:15 O2 Del Method 07/12/22 10:15 BMI result Body Mass Index 34.3 Const: General: cooperative, healthy appearing and no acute distress Orientation/consciousness: patient oriented x3 Limitations: no limitations HEENT: Head: Yes normal to inspection and Yes atraumatic Ears: hearing grossly normal bilaterally, TM's normal bilaterally and mastoids normal General nose exam: Normal external nose present Face and sinus: Yes normal facial exam Mouth: no drooling Throat: Yes tonsils normal, Yes uvula midline, No peritonsillar mass, Yes posterior oropharynx abnormal (Mildly erythematous), No uvula laterally displaced and No uvular edema Eyes: General: appearance normal, both eyes and all related structures EOM: EOMs intact bilaterally Neck: Other: + bilateral submandibular and anterior cervical lymphadenopathy Neck: Yes normal visual inspection, Yes no meningeal signs, No anterior neck swelling, Yes lymphadenopathy and No torticollis Resp: Effort & Inspection: normal respiratory effort, no respiratory distress and no stridor Auscultation: wheezes expiratory wheezes and throughout Cardio: Rate: regular rate Heart sounds: S1 normal heart sound present and S2 normal heart sound present Skin: Rashes: no rashes Wounds: no wounds Neuro: General: patient oriented x3, tone normal and no meningeal signs Gait exam (Neuro): Normal gait present Extrem: General: Yes normal to inspection, Yes no pedal edema, Yes no calf tenderness and Yes normal gait Course Course Course Narrative: -chest x-ray unremarkable. COVID-19/influenza and rapid strep negative. -lungs with slight end expiratory wheeze after DuoNeb. Patient reports symptomatic improvement, safe for discharge at this time. Will discharge home with albuterol, prednisone, Z-Tereso, and close PCP follow-up Results discussed with patient including worrisome signs and symptoms and strict return precautions, and when to return to the emergency department. They verbalized understanding and feel safe for discharge at this time. Medications Administered Discontinued Medications Generic Name Dose Route Start Last Admin Trade Name Freq PRN Reason Stop Dose Admin Albuterol/Ipratropium 3 ml 07/12/22 09:49 07/12/22 10:14 Albuterol/Iprat 2.5/0.5mg 3 Ml Ampul.Neb INHALE 07/12/22 09:50 3 ml ONCE ONE Administration Medical Decision Making Medical Decision Making MDM Narrative: 52-year-old male with a past medical history of BPH, HTN, NATHAN, previous COVID-19, presenting to the ED complaining of myalgias, body aches, subjective fever, productive cough, chest discomfort with cough, wheezing x 1 week. On exam vital signs stable, NAD, nontoxic appearing, bilateral lymphadenopathy noted, mastoids WNL, diffuse expiratory wheeze. Concern for viral illness vs bronchitis. Rule out pneumonia. Low suspicion for ACS/PE or mastoiditis/malignant otitis externa Plan: COVID-19/influenza testing, rapid strep, CXR, DuoNeb Please refer to course for remaining clinical decision making, interpretation of labs/imaging results, and discussions with consultants and/or family members. Differential Diagnosis Differential Diagnoses: The differential diagnosis associated with the presentation includes As above Lab Data Labs: Lab Results 07/12/22 07/12/22 07/12/22 Range/Units 09:24 09:24 09:54 COVID-19 (ORTEGA) Negative (Negative) COVID-19 Clin Com See Note Influenza Type A (LARA) Negative (Negative) Influenza Type B (LARA) Negative (Negative) Influenza A & B Note See Note S. pyogenes GrpA LARA Negative (Negative) Radiology Impression Discussion of test interpretation with radiology: I have reviewed the radiologist's reading. External Record Review External record reviewed: Other (Prior ED record) Discharge Plan Discharge Clinical Impression: Bronchitis Patient Disposition: Home, Self-Care Instructions: Acute Bronchitis (ED) Additional Instructions: Your chest x-ray is unremarkable. He tested negative for COVID, flu, and strep throat Use albuterol inhaler at home for wheezing/shortness of breath. Is Azithromycin is an antibiotic. Tessalon Perles for cough. Prednisone as a steroid Base of close follow-up with her doctor. If symptoms persist or worsen return to the emergency department Prescriptions: New azithromycin 250 mg tablet See Rx Instructions .ROUTE .COMPLEX Qty: 6 0RF Rx Instructions: take 500 mg today (day 1), then 250 mg for 4 days (days 2-5) prednisone 20 mg tablet 40 mg PO DAILY 5 Days Qty: 10 0RF benzonatate 100 mg capsule 100 mg PO TID PRN (Reason: cough) Qty: 14 0RF albuterol sulfate 90 mcg/actuation HFA aerosol inhaler 2 puff inhalation Q4-6H PRN (Reason: shortness of breath or wheezing) Qty: 6.7 0RF No Action amoxicillin-pot clavulanate [Augmentin] 875-125 mg tablet 1 tab PO BID Qty: 20 0RF naproxen 500 mg tablet 500 mg PO BID PRN (Reason: pain) 10 Days Qty: 20 0RF prednisone 20 mg tablet 40 mg PO DAILY 5 Days Qty: 10 0RF lisinopril 40 mg tablet 40 mg PO DAILY simethicone 180 mg capsule 180 mg PO TIDWMEAL 30 Days Qty: 90 3RF Rx Instructions: after meals amlodipine 5 mg tablet 5 mg PO DAILY Referrals: Name,MD Louis [Primary Care Provider] - 3 days Interventions: ED Discharge Assessment Last Done: 07/12/22 11:11 Discharge Date/Time: 07/12/22 11:11
== END 2022-07-12 11:11 | disposition home or self-care (01) ==
PROVIDERS: Physician Assistant; Emergency Provider Student in an Organized Health Care Education/Training Program; PCP Internal Medicine Geriatric Medicine
DX: J40 Bronchitis, not specified as acute or chronic (principal); R05.9 Cough, unspecified; M79.10 Myalgia, unspecified site; R50.9 Fever, unspecified; R07.89 Other chest pain; Z20.822 Contact with and (suspected) exposure to COVID-19; Z79.899 Other long term (current) drug therapy
CPT/HCPCS: 36415; 71045; 87502; 87635; 87651; 94640; 99284

== ENCOUNTER → 2022-09-20 10:02 | Outpatient (BNVA) | payer MEDICAID, SELFPAY | PROVIDERS: PCP Internal Medicine Geriatric Medicine; Visit Provider Urology | DX: C67.9 Malignant neoplasm of bladder, unspecified (principal); C64.9 Malignant neoplasm of unspecified kidney, except renal pelvis | CPT/HCPCS: 52000 ==

== ENCOUNTER → 2022-09-23 10:35 | Outpatient (BNV) | payer MEDICAID, SELFPAY | PROVIDERS: PCP Internal Medicine Geriatric Medicine; Visit Provider Internal Medicine | DX: C91.10 Chronic lymphocytic 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 (principal) | CPT/HCPCS: 99204; 99213; 99214 ==

== ENCOUNTER 2022-11-05 08:56 | Outpatient (REF) | payer MEDICAID, SELFPAY ==
--- NOTE | ~2022-11-05 | US_ITS ---
EXAMINATION: US ABDOMEN COMPLETE CLINICAL INFORMATION: Chronic lymphocytic leukemia, staging. COMPARISON: Renal ultrasound 02/05/2022. Ultrasound abdomen complete 03/29/2021. CT abdomen and pelvis 11/10/2018. MRI abdomen 05/07/2017. TECHNIQUE: Real-time imaging of the abdominal viscera. FINDINGS: PANCREAS: Normal. ABDOMINAL AORTA: The proximal, mid, and distal segments are normal in caliber. INFERIOR VENA CAVA: Visualized portions are normal. LIVER: Hepatomegaly measuring 21.0 cm. The liver contour is normal. Increased echogenicity of the liver parenchyma. No focal hepatic lesion. There is no intrahepatic biliary duct dilatation seen. GALLBLADDER: Multiple gallbladder polyps measuring up to 6 mm. The gallbladder is physiologically distended without evidence of stones, sludge, wall thickening or pericholecystic fluid. COMMON BILE DUCT: Normal in caliber measuring 0.2 cm in diameter. RIGHT KIDNEY: Normal. No hydronephrosis. No renal calculi or focal parenchymal lesions. The kidney measures 14.1 cm in maximum dimension. LEFT KIDNEY: No hydronephrosis or renal calculi. The kidney measures 11.9 cm in maximum dimension. Benign-appearing 2.1 cm renal cyst. Followup imaging is not routinely recommended for benign appearing cysts.. Midpole 1.2 cm cyst with peripheral calcifications, almost certainly benign. SPLEEN: Normal. The spleen measures 12.7 cm in maximum dimension. FREE FLUID: None. US/US abdomen complete IMPRESSION: * Hepatomegaly with increased echogenicity of the liver parenchyma. * Multiple gallbladder polyps measuring up to 6 mm. If patient has no risk factors for gallbladder malignancy* or symptoms attributable to the gallbladder, follow-up recommendations are repeat ultrasound at one, 3, and 5 years from the date of original exam documenting the findings. If patient has symptoms attributable to the gallbladder, cholecystectomy is suggested if there are no alternative causes for the symptoms and the patient is fit for and accepts surgery. If cholecystectomy is not deemed appropriate follow-up as below. If patient has no symptoms and risk factors are present or patient is symptomatic and cholecystectomy is deemed not appropriate, follow-up.
== END 2022-11-05 08:57 | disposition home or self-care (01) ==
LOC: HO.US 08:56
PROVIDERS: PCP Internal Medicine Geriatric Medicine; Visit Provider Internal Medicine
DX: C91.10 Chronic lymphocytic 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 (principal)
CPT/HCPCS: 76700

== ENCOUNTER 2023-05-16 17:47 | Emergency (ER) | payer MEDICAID, SELFPAY ==
--- NOTE | ~2023-05-16 | XR_ITS ---
EXAMINATION: XR SHOULDER, LEFT CLINICAL INFORMATION: Pain COMPARISON: Visualized shoulder on the 07/12/2022 chest x-ray TECHNIQUE: AP external rotation, Grashey, scapular Y, and axillary views of the left shoulder. FINDINGS: Humeral head is well-seated in the glenoid fossa. Chronic calcification along superior aspect of the humeral head likely reflecting underlying calcific tendinitis similar in retrospect to the prior chest x-ray. Mild degenerative changes in the acromioclavicular joint. Visualized left chest and ribs unremarkable XR/XR shoulder LT min 2V IMPRESSION: Chronic appearing and degenerative changes but no acute fracture or dislocation.
--- NOTE | ~2023-05-16 | US_ITS ---
EXAMINATION: US VENOUS ULTRASOUND WITH DOPPLER LOWER EXTREMITY, RIGHT CLINICAL INFORMATION: Pain. COMPARISON: None available. TECHNIQUE: Ultrasound of the deep veins is performed from the hip to the calf with compression sonography and color and pulse Doppler assessment. Spectral analysis with color-flow imaging is performed. FINDINGS: There is normal venous compression and respiratory variation and augmented flow. The visualized common femoral vein, superficial femoral vein, profunda femoral vein, popliteal vein, and the trifurcation region shows no evidence of deep venous thrombosis. There is no significant popliteal fossa cyst. If the patient's symptoms persist, followup ultrasound in 5 days 7 days might be of value to exclude proximal propagation from a non-visualized calf vein. US/US venous duplex LE RT IMPRESSION: No DVT demonstrated in the right lower extremity.
[2023-05-16 18:43] VITALS: BP 157/87; PULSE 76; RESP 20; TEMP 36.8; O2SAT 98; BMI 36.5
--- NOTE | 2023-05-16 18:45 | ED_ITS ---
HPI - General Adult General Chief complaint: Extremity Injury, Lower Stated complaint: pulled muscle last week, bruised thigh Time Seen by Provider: 05/16/23 20:36 Source: patient Mode of arrival: ambulatory Limitations: no limitations History of Present Illness HPI narrative: Patient is a 53 year old assigned male at with a history of bladder cancer, HTN, and BPH presenting to the emergency department today with right upper leg pain. Patient states that he was doing some work on his knees 3 days ago and his right upper leg had been bothering him then but yesterday he noticed bruising to his right upper leg. Patient states that he had been taking Naprosyn for the pain. Patient states that he has also been having chronic left shoulder pain after working on something above his head weeks ago and would like to get that checked out as well. Patient denies any dizziness, lightheadedness, abdominal pain, nausea, vomiting, fever, chills, blurry vision, double vision, loss of vision, chest pain, difficulty breathing, shortness of breath, back pain, night sweats, pain with urination, increased urinary frequency, increased urinary urgency, blood in his urine or stool, syncope or a near syncopal episode, bowel incontinence, bladder incontinence, bowel retention, bladder retention, or any other complaints at this time. Onset (ago): day(s) (3) Location: right and lower extremity Radiation: non-radiation Severity: mild Severity scale (1-10): 4 Quality: dull Pain Consistency: constant Relieving factors: none Exacerbating factors: none Associated symptoms: denies other symptoms Treatments prior to arrival: NSAID Related Data Home Medications Medication Instructions Recorded Confirmed lisinopril 40 mg tablet 40 mg PO DAILY 12/22/20 04/22/23 amlodipine 5 mg tablet 5 mg PO DAILY 02/27/21 04/22/23 Allergies Allergy/AdvReac Type Severity Reaction Status Date / Time No Known Allergies Allergy Verified 05/16/23 18:46 [No Known Allergies*] Review of Systems Constitutional: Constitutional: Reports no additional constitutional complaints, Denies chills, Denies fever(s) and Denies night sweats Eyes: Eyes: Reports no additional eye complaints, Denies blurry vision, Denies change in vision, Denies diplopia, Denies eye discharge, Denies loss of vision and Denies eye pain ENT: Denies dizziness Cardiovascular: Cardiovascular: Reports no additional cardiovascular complaints, Denies chest pain, Denies lightheadedness, Denies Loss of Consciousness and Denies dyspnea Respiratory: Respiratory: Reports no additional respiratory complaints and Denies dyspnea Gastrointestinal: Gastrointestinal: Reports no additional gastrointestinal complaints, Denies abdominal pain, Denies melena, Denies hematochezia, Denies change in bowel habits and Denies change in stool character Genitourinary: Genitourinary: Reports no additional male genitourinary complaints, Denies hematuria, Denies oliguria, Denies difficulty urinating, Denies dysuria, Denies urinary frequency, Denies urinary hesitancy, Denies urinary incontinence and Denies urinary urgency Musculoskeletal: Musculoskeletal: Reports no additional musculoskeletal complaints, Denies numbness and Denies tingling Comments: right upper leg pain Neurologic: Denies dizziness, Denies loss of vision, Denies numbness and Denies tingling Psychiatric: Psychiatric: Reports no additional psychiatric complaints Endocrine: Endocrine: Reports no additional endocrine complaints Hematologic/Lymphatic: Hematologic/Lymphatic: Reports no additional hematologic/lymphatic complaints Allergic/Immunologic: Allergic/Immunologic: Reports no additional allergic/immunologic complaints [facility] Past Medical History Attestation statement: The following information was validated with the patient. Source: old records reviewed and nursing notes reviewed Medical History Bladder cancer RUQ pain Abdominal bloating HTN (hypertension) History of COVID-19 Cancer of kidney Hx of bladder cancer Benign prostatic hyperplasia with lower urinary tract symptoms Obstructive sleep apnea (adult) (pediatric) Lesion of bladder Surgical History History of colonoscopy with polypectomy History of surgery H/O colonoscopy Hx of cystoscopy History of surgery Family History Family History Father Hypertension Diabetes Mother Lung cancer Sister Cancer Social History Social History Household Members: Spouse and Children Housing: House Patient Tobacco Use Status: Never used Tobacco Smoked in Last 30 Days: No Use of substances other than those prescribed or required for medical reasons: No Advance Directives: No service: No Current occupational status: employed Physical Exam ED Vital Signs: Vital Signs - 24 hr 05/16/23 18:43 05/16/23 20:36 Temperature 98.2 F Pulse Rate 76 66 Respiratory Rate 20 17 Blood Pressure 157/87 H 172/97 H Pulse Oximetry 98 97 Oxygen Delivery Method Room Air Room Air BMI result Body Mass Index 36.5 Const General: cooperative, no acute distress, alert and awake Nutritional Appearance: well nourished Orientation/consciousness: patient oriented x3 Limitations: no limitations HENMT Head: Yes normal to inspection and Yes atraumatic Ears: hearing grossly normal bilaterally and external ears normal General nose exam: Normal external nose present, no nasal discharge noted and no epistaxis Face and sinus: Yes normal facial exam, No abrasion and No laceration Mouth: Normal oral and palatal mucosa present, no drooling and no muffled voice Eyes General: appearance normal, both eyes and all related structures Periorbital: periorbital findings normal Eyelids: Yes eyelids normal Conjunctivae: conjunctivae normal Pupils: Equal, round and reactive pupils present EOM: EOMs intact bilaterally Neck Neck: Yes normal visual inspection, Yes full ROM and Yes no lymphadenopathy Chest Chest palpation & inspection: normal inspection of the chest Resp Effort & Inspection: normal respiratory effort and able to speak in complete sentences GI Inspection: Yes normal to inspection Neuro General: patient oriented x3 and moves all extremities Cranial nerves: Yes Equal, round and reactive pupils present Cognition (Neuro): normal cognition Motor exam (neuro): 5/5 motor strength present throughout Sensory Exam: Normal double simultaneous stimulation for sensation Coordination: [id number] test normal Extrem Other: right upper leg bruising General: Yes full ROM and Yes capillary refill normal Psych Appearance: grossly normal Mental Status: mental status grossly normal Affect: normal affect Attitude: cooperative Thought process: Normal thought process present Thought content: Normal thought content present Insight: Good insight present (Psych) Course Course Course Narrative: This is a rapid medical exam: Additional HPI, ROS, PE not included below will be deferred to primary provider. Patient is a 53-year-old male presenting to the emergency department with complaint of right upper leg ecchymosis and pain. States that yesterday he was working on a deck, was wearing knee pads but was walking on his knees when he felt a popping sensation. States that once he got home he noted significant ecchymosis to his right upper leg which has worsened since that time. Took on naproxen and used topical cream with some relief but states pain returned when medications wore off. Denies any chest pain or shortness of breath. Significant ecchymosis to right medial and posterior thigh, 2+ PT pulse. Also complains of left shoulder pain for several weeks, denies fall or other trauma. Plan: U/S leg, shoulder x-ray Medical Decision Making Medical Decision Making MDM Narrative: Patient is a 53 year old assigned male at with a history of bladder cancer, HTN, and BPH presenting to the emergency department today with right upper leg pain and bruising. Patient's physical exam showed bruising of the right upper leg but was otherwise unremarkable. Patient's left shoulder x-ray and right LE US showed no acute process. I explained my physical exam findings as well as all test results to the patient. I answered all questions asked by the patient. I stressed the importance of the patient taking his medication as prescribed. I stressed the importance of the patient following up with his primary care provider and an orthopedic provider. I stressed the importance of the patient returning to the emergency department immediately if his symptoms were to worsen or if he were to develop any dizziness, shortness of breath, difficulty breathing, chest pain, blurry vision, loss of vision, nausea, vomiting, abdominal pain, fever, chills, back pain, or any other complaints. Patient verbalized agreement and understanding with this treatment plan and discharge. Differential Diagnosis Differential Diagnoses: The differential diagnosis associated with the presentation includes Quad injury Osteoarthritis Contusion Independent Interpretation I performed an independent interpretation of an: Plain X-Ray and Ultrasound Interpretation: My interpretation is in agreement with the radiologist's impression of these imaging studies. EXAMINATION: US VENOUS ULTRASOUND WITH DOPPLER LOWER EXTREMITY, RIGHT CLINICAL INFORMATION: Pain. COMPARISON: None available. TECHNIQUE: Ultrasound of the deep veins is performed from the hip to the calf with compression sonography and color and pulse Doppler assessment. Spectral analysis with color-flow imaging is performed. FINDINGS: There is normal venous compression and respiratory variation and augmented flow. The visualized common femoral vein, superficial femoral vein, profunda femoral vein, popliteal vein, and the trifurcation region shows no evidence of deep venous thrombosis. There is no significant popliteal fossa cyst. If the patient's symptoms persist, followup ultrasound in 5 days 7 days might be of value to exclude proximal propagation from a non-visualized calf vein. US/US venous duplex LE RT IMPRESSION: No DVT demonstrated in the right lower extremity. Dictated By: Eusebio Solis MD Signed By: Electronically signed by Eusebio Solis MD 05/16/231939 EXAMINATION: XR SHOULDER, LEFT CLINICAL INFORMATION: Pain COMPARISON: Visualized shoulder on the 07/12/2022 chest x-ray TECHNIQUE: AP external rotation, Grashey, scapular Y, and axillary views of the left shoulder. FINDINGS: Humeral head is well-seated in the glenoid fossa. Chronic calcification along superior aspect of the humeral head likely reflecting underlying calcific tendinitis similar in retrospect to the prior chest x-ray. Mild degenerative changes in the acromioclavicular joint. Visualized left chest and ribs unremarkable XR/XR shoulder LT min 2V IMPRESSION: Chronic appearing and degenerative changes but no acute fracture or dislocation. Dictated By: Barrett Massey MD Signed By: Electronically signed by Barrett Massey MD 05/16/231937 Radiology Impression Discussion of test interpretation with radiology: I have reviewed the radiologist's reading. Discharge Plan Discharge Clinical Impression: Injury of quadriceps muscle, Arthritis Patient Disposition: Home, Self-Care Instructions: Hamstring Injury (ED), Osteoarthritis (ED) Additional Instructions: Follow up with your primary care provider and an orthopedic provder. Return to the emergency department immediately if your symptoms worsen or if you develop any dizziness, shortness of breath, difficulty breathing, chest pain, blurry vision, loss of vision, nausea, vomiting, abdominal pain, fever, chills, back pain, or any other complaints. Prescriptions: No Action lisinopril 40 mg tablet 40 mg PO DAILY amlodipine 5 mg tablet 5 mg PO DAILY Referrals: [facility] [Provider Group] (Call to establish and follow up with an orthopedic provider. ) Name,MD Louis [Primary Care Provider] - Stand Alone Forms: Work/School Release Interventions: ED Discharge Assessment Last Done: 05/16/23 21:11 Discharge Date/Time: 05/16/23 21:12 Print Language: Kiswahili
[2023-05-16 20:36] VITALS: BP 172/97; PULSE 66; RESP 17; O2SAT 97
--- NOTE | 2023-05-17 13:40 | PC.NURSE ---
pt came to triage today stating his work reliease only had 3 days and he was told by the provider he had to take the entire week off, this nurse is looking into the account to see what the provider notations have said and will speak with a provider prior to writing another note.
== END 2023-05-16 21:12 | disposition home or self-care (01) ==
PROVIDERS: Emergency Provider Emergency Medicine; PCP Internal Medicine Geriatric Medicine
DX: S76.102A Unspecified injury of left quadriceps muscle, fascia and tendon, initial encounter (principal); R60.0 Localized edema; M25.512 Pain in left shoulder; X58.XXXA Exposure to other specified factors, initial encounter; Y93.9 Activity, unspecified; Y92.9 Unspecified place or not applicable; Y99.9 Unspecified external cause status
CPT/HCPCS: 73030; 93971; 99284

== ENCOUNTER 2023-05-23 11:16 | Outpatient (REF) | payer MEDICAID, SELFPAY ==
[2023-05-26 12:08] LABS: TS Negative Control Passed; TS Panel A 0; TS Panel B 0; TS Positive Control Passed; TSpotTB Negative (Negative)
== END 2023-05-23 11:17 | disposition home or self-care (01) ==
LOC: HO.HHCL 11:16
PROVIDERS: Visit Provider Internal Medicine Geriatric Medicine
DX: Z20.1 Contact with and (suspected) exposure to tuberculosis (principal)
CPT/HCPCS: 36415; 86481

== ENCOUNTER 2023-07-28 08:44 | Outpatient (REF) | payer MEDICAID, SELFPAY ==
[2023-07-28 10:34] LABS: Anion Gap 8 (12-20); Blood Urea Nitrogen 12 mg/dL (9-16); Calcium 9.3 mg/dL (8.4-10.2); Carbon Dioxide 30 mmol/L (22-29); Chloride 107 mmol/L (96-108); Estimated Glomerular Filt Rate > 60; Glucose Random 95 mg/dL (60-115); Potassium 4.2 mmol/L (3.3-5.1); Sodium 141 mmol/L (135-145)
[2023-07-31 07:38] LABS: TS Negative Control Passed; TS Panel A 0; TS Panel B 0; TS Positive Control Passed; TSpotTB Negative (Negative)
== END 2023-07-28 08:45 | disposition home or self-care (01) ==
LOC: HO.LAB 08:44
PROVIDERS: PCP Internal Medicine Geriatric Medicine; Visit Provider Internal Medicine Geriatric Medicine
DX: Z20.1 Contact with and (suspected) exposure to tuberculosis (principal)
CPT/HCPCS: 36415; 80048; 86481

== ENCOUNTER 2023-09-12 10:46 | Outpatient (REF) | payer MEDICAID, SELFPAY ==
--- NOTE | ~2023-09-12 | US_ITS ---
EXAMINATION: US RETROPERITONEAL LIMITED (RENAL ONLY) CLINICAL INFORMATION: Malignant neoplasm of unspecified kidney, except renal pelvis. COMPARISON: Ultrasound abdomen complete 11/05/2022. Renal ultrasound 02/05/2022. CT abdomen and pelvis 11/10/2018. MRI abdomen 05/07/2017. TECHNIQUE: Real-time imaging of the kidneys. FINDINGS: RIGHT KIDNEY: 14.0 x 6.0 x 5.7 cm (SAG x AP x TRV). The kidney is normal in size and echogenicity. The right kidney has a slightly lobulated contour. Renal cortical thickness is normal. No calculi or focal parenchymal lesions. No hydronephrosis. LEFT KIDNEY: 13.1 x 5.0 x 6.0 cm (SAG x AP x TRV). The kidney is normal in size, contour, and echogenicity. Renal cortical thickness is normal. No renal calculi or hydronephrosis. There are multiple simple cysts, the largest is a 1.4 x 1.4 x 1.5 cm partially exophytic cyst in the upper pole. No imaging follow-up is recommended. US/US renal BI IMPRESSION: No new or concerning renal parenchymal lesions.
== END 2023-09-12 10:47 | disposition home or self-care (01) ==
LOC: HO.US 10:46
PROVIDERS: PCP Internal Medicine Geriatric Medicine; Visit Provider Urology
DX: C64.9 Malignant neoplasm of unspecified kidney, except renal pelvis (principal)
CPT/HCPCS: 76775

== ENCOUNTER 2023-09-17 09:40 | Emergency (ER) | payer MEDICAID, SELFPAY ==
[2023-09-17 10:01] VITALS: BP 145/78; PULSE 76; RESP 20; TEMP 37.7; O2SAT 96; BMI 38.0
[2023-09-17 11:32] LABS: Influenza A PCR NEGATIVE (Negative); Influenza B PCR NEGATIVE (Negative); Resp Syncy Virus RNA Qual PCR NEGATIVE (Negative); SARS COV2 PCR INHOUSE POSITIVE (Negative)
--- NOTE | 2023-09-17 11:36 | ED.URI ---
HPI - URI/Sore Throat General Chief Complaint: Upper Respiratory Symptoms Stated Complaint: Cold/flu symptoms Time Seen by Provider: 09/17/23 11:35 Source: patient Mode of arrival: ambulatory Limitations: no limitations History of Present Illness HPI Narrative: 53-year-old male with a past medical history of hypertension and history bladder and kidney cancer presents emergency department, his , for complaints weakness, chills, and rhinorrhea starting Friday. He reports that his has also been sick with similar symptoms. He denies any fevers, shortness of breath, chest pain, headache, vision changes Related Data Home Medications Medication Instructions Recorded Confirmed lisinopril 40 mg tablet 40 mg PO DAILY 12/22/20 07/23/23 amlodipine 5 mg tablet 5 mg PO DAILY 02/27/21 07/23/23 Allergies Allergy/AdvReac Type Severity Reaction Status Date / Time No Known Allergies Allergy Verified 07/23/23 11:14 [No Known Allergies*] Review of Systems Review of Systems: Yes all other systems are reviewed and are negative PMFSH Past Medical History Medical History Bladder cancer RUQ pain Abdominal bloating HTN (hypertension) History of COVID-19 Cancer of kidney Hx of bladder cancer Benign prostatic hyperplasia with lower urinary tract symptoms Obstructive sleep apnea (adult) (pediatric) Lesion of bladder Surgical History History of colonoscopy with polypectomy History of surgery H/O colonoscopy Hx of cystoscopy History of surgery Family History Family History Father Hypertension Diabetes Mother Lung cancer Sister Cancer Social History Social History Household Members: Spouse and Children Housing: House Patient Tobacco Use Status: Never used Tobacco Advance Directives: No Advance Directives Information Provided: No service: No Current occupational status: employed Physical Exam Vital Signs: Vital Signs: Last Vital Signs Temp 99.9 F 09/17/23 10:01 Pulse 76 09/17/23 10:01 Resp 20 09/17/23 10:01 BP 145/78 H 09/17/23 10:01 Pulse Ox 96 09/17/23 10:01 O2 Del Method Room Air 09/17/23 10:01 BMI result Body Mass Index 38.0 Nursing notes and vital signs reviewed. GENERAL APPEARANCE: A&0 x 4, generally well appearing, no acute distress HENMT: Normal to inspection, atraumatic, face symmetrical. Normal external ears, nose, and oropharynx clear. EYE: PERRLA, EOM intact, structures appear normal NECK: Supple without stiffness or restricted ROM. HEART: Normal rate and regular rhythm, normal S1/S2, no M/R/G LUNGS: LS CTA, moving air well. Able to speak in complete sentences. No crackles, wheezes, or rhonchi auscultated BACK: No CVAT, no obvious deformity EXTREMITIES: Moving all extremities without difficulty. Normal capillary refill. NEUROLOGICAL: Alert and oriented, moving all 4 extremities with equal strength. CN not formally tested but appearing grossly intact. Observed to ambulate with normal gait. Cognition normal SKIN: Warm and dry without any lesions, rash, or visible sores Medical Decision Making Medical Decision Making MDM Narrative: Old records reviewed for previous imaging, lab studies, ECGs, and notes. Patient was assessed the emergency department with no acute distress or toxicity noted. Nasal swab positive for Covid and negative for flu and RSV. Pt educated to use OTC cough/cold medication but to avoid medications with dextromethorphan or phenylephrine as it will may exacerbate hypertension. Patient educated to consult the pharmacist with any questions and [id number] cough/cold medications. Patient is safe for discharge at this time with plan for [id number] Tylenol and/or NSAID such as ibuprofen or naproxen for fever/discomfort with dosing as per packaging. HPI, PE, diagnostics, and plan discussed with patient and family with no unanswered questions at this time. Strict return precautions given to return to the emergency department with new, worsening, or concerning emergent symptoms. Recommended to follow-up with there primary care provider in 24-48 hours for further treatment and management. Differential Diagnosis Differential Diagnoses: The differential diagnosis associated with the presentation includes but not limited to viral uri, pna, asthma, copd, chf, sepsis, malignancy Lab Data [facility] Lab Attestation statement: I reviewed the patient's lab results. Labs: Lab Results 09/17/23 Range/Units 10:44 Influenza Type A (PCR) NEGATIVE (Negative) Influenza Type B (PCR) NEGATIVE (Negative) RSV RNA Qual (PCR) NEGATIVE (Negative) SARS-CoV-2 RNA (RT-PCR) POSITIVE A (Negative) Independent Historian Clinical information obtained from an independent historian. History obtained from or confirmed by: Spouse Tests considered The following testing was considered but not selected: CXR was consider but LS CTA and no dyspnea noted Prescription Management I considered prescription management with: Antibiotic was considered but no bacterial infection was identified Discharge Plan Discharge Clinical Impression: COVID-19 Patient Disposition: Home, Self-Care Instructions: COVID-19 (Coronavirus Disease 2019) (ED) Prescriptions: No Action lisinopril 40 mg tablet 40 mg PO DAILY amlodipine 5 mg tablet 5 mg PO DAILY Referrals: Name,MD Louis [Primary Care Provider] - Stand Alone Forms: Work/School Release Print Language: Qatari
== END 2023-09-17 11:53 | disposition home or self-care (01) ==
PROVIDERS: Emergency Provider Emergency Medicine; PCP Internal Medicine Geriatric Medicine
DX: U07.1 COVID-19 (principal); I10 Essential (primary) hypertension
CPT/HCPCS: 0241U; 99282; 99283

== ENCOUNTER 2023-09-18 09:36 | Outpatient (REF) | payer MEDICAID, SELFPAY ==
[2023-09-18 16:38] LABS: Urine Cytology See Pathology rpt
== END 2023-09-18 09:37 | disposition home or self-care (01) ==
LOC: HO.LAB 09:36
PROVIDERS: Visit Provider Urology
DX: N39.0 Urinary tract infection, site not specified (principal); C64.9 Malignant neoplasm of unspecified kidney, except renal pelvis; C67.9 Malignant neoplasm of bladder, unspecified; Z85.51 Personal history of malignant neoplasm of bladder
CPT/HCPCS: 52000; 81003; 88112; 99212

== ENCOUNTER 2023-09-18 09:36 | Outpatient (AMB) | payer MEDICAID, SELFPAY ==
--- NOTE | 2023-09-18 10:02 | MHC.OFFVIS ---
Intake Intake Visit Reasons: 1Y Cysto/US(set) Intake Note: Patient presents today for a Cystoscopy Meds: None Allergies to Antibiotic: No Known Allergies Blood Thinner: None Urinalysis test clear for Cysto? Yes Disposable Uro-G Cystoscope Cannula: Lot: [id number] Exp: 11/24/2024 Shredded Filler Hopper Feeder Required: No Accompanied by: Self / Same As Patient Allergies No Known Allergies [No Known Allergies*] Allergy (Verified 09/18/23 10:04) Medication List - Last Reconciled 09/18/23 by Devang Ibarra MD amlodipine 5 mg PO DAILY lisinopril 40 mg PO DAILY HPI HPI Comments History of Present Illness Details Irwin is a very pleasant male. He is a patient of Dr. Valverde. He is seen for the following urologic issues - renal cancer - bladder cancer Yearly surveillance Glandular hypospadias Clear cystoscopy Twelve month follow-up Renal cancer 2013 cryotherapy Cryo ablation left side 2013 Imaging stable - 12/01 ultrasound left lower pole 2 cm calcification consistent with cryoablation effect - 02/01 ultrasound left lower pole 2 cm scar, 2.5 cm cyst - 10/04 ultrasound small cyst left Plan continue with surveillance imaging Bladder cancer low-grade bladder cancer 2013 Hematuria 2013 Low-grade bladder cancer Prior cystoscopy 03/03 NAD, 09/04 NAD, 03/04 NAD, 10/03 NAD Prior cytology NAD - 03/03 NAD, 03/04 NAD, 10/04 NAD Plan continue with surveillance cystoscopy yearly PSA 11/01 1.1 PFSH Medical History (Updated 09/18/23 @ 10:25 by Devang Ibarra MD) Bladder cancer RUQ pain Abdominal bloating HTN (hypertension) History of COVID-19 Cancer of kidney Hx of bladder cancer Benign prostatic hyperplasia with lower urinary tract symptoms Obstructive sleep apnea (adult) (pediatric) Lesion of bladder Surgical History History of colonoscopy with polypectomy History of surgery H/O colonoscopy Hx of cystoscopy History of surgery Family History Father Hypertension Diabetes Mother Lung cancer Sister Cancer Social History Household Members: Spouse and Children Housing: House Patient Tobacco Use Status: Never used Tobacco service: No Current occupational status: employed Review of Systems Const Denies chills and Denies fever(s) Card Reports no additional complaints and Denies syncope Resp Denies cough GI Denies abdominal pain and Denies heartburn Reports as per HPI and Denies change in libido Neuro Denies syncope Psych Denies change in libido Endo Denies change in libido Physical Exam Const General: cooperative, healthy appearing, comfortable and no acute distress Orientation/consciousness: patient oriented x3 HEENT Face and sinus: Yes normal facial exam Mouth: moist mucous membranes Neck Neck: Yes normal visual inspection, Yes full ROM and Yes trachea midline Chest Chest palpation & inspection: normal inspection of the chest Resp Effort & Inspection: normal respiratory effort, able to speak in complete sentences and no respiratory distress GI Inspection: Yes normal to inspection Back/Spine/Pelvis Cervical Spine: normal cervical lordosis Thoracic/Lumbar Spine: thoracic and lumbar spine normal to inspection Skin General skin exam: no rashes or lesions noted Neuro General: patient oriented x3, gait normal, tone normal and moves all extremities Extrem General: Yes normal to inspection and Yes capillary refill normal Office Procedures Cystoscopy Consent Discussed risk and benefit or proposed procedure with the patient. Information consent for procedure given to the patient. Discussed technical aspects, risks, benefits and alternatives in full. Addressed all of the patient's questions and concerns regarding the procedure. The patient demonstrated knowledge and understanding. They wish to proceed with this procedure. Preparation The patient was prepped in the usual manner. A diesel engineer was present and in the room. Genitalia was prepped with betadine solution in a sterile manner. Lidocaine Jelly 2% was placed into the urethra and 16Fr flexible Olympus cystoscope was inserted into the meatus after adequate lubrication. Procedure Meatus circumcised Urethra anterior and posterior urethra normal Prostatic Urethra unremarkable Bladder examination with retroflexion of cystoscope Bladder Orifices normal shape and position Bladder Capacity medium Trabeculations grade 1 Cellule Formation no Diverticulum Formation - Mucosal Erythema - Bladder Tumor scar seen left side [id number] DISPOSABLE SCOPE URO-G FLEXIBLE SCOPE Procedure code (CPT) selection complete Office Meds lidocaine HCl 2 % mucosal jelly in applicator Performing Provider: Devang Ibarra MD [facility] Administered by: Haven Khan RN on 09/18/23 10:05 Dose Route Admin Location Dispensed Lot Number Expiration Date NDC Project Superintendent 10 mL intra-urethral 10 mL nitrofurantoin monohydrate/macrocrystals 100 mg capsule Performing Provider: Devang Ibarra MD [facility] Administered by: Haven Khan RN on 09/18/23 10:05 Dose Route Admin Location Dispensed Lot Number Expiration Date NDC Project Superintendent 100 mg PO 1 cap naproxen 500 mg tablet Performing Provider: Devang Ibarra MD Performing Location: [facility] [place] [facility] Administered by: Haven Khan RN on 09/18/23 10:05 Dose Route Admin Location Dispensed Lot Number Expiration Date NDC Project Superintendent 500 mg PO 1 tab Results AMB Urinalysis, Automated UA Leukoctes 0 Chapito/uL Last Edit by Raven Patterson CMA on 09/18/23 10:08 UA Nitrite Negative Last Edit by Raven Patterson CMA on 09/18/23 10:08 UA Urobilinogen 0.2 mg/dL Last Edit by Raven Patterson [facility] on 09/18/23 10:08 UA Protein 0 mg/dL Last Edit by Raven Patterson [facility] on 09/18/23 10:08 UA pH 7.0 Last Edit by Raven Patterson [facility] on 09/18/23 10:08 UA Blood 0 Valente/uL Last Edit by Raven Patterson, [facility] on 09/18/23 10:08 UA Specific Davison 1.005 Last Edit by Raven Pattersonaki Patterson [facility] on 09/18/23 10:08 UA Ketone Negative Last Edit by Raven Patterson [facility] on 09/18/23 10:08 UA Bilirubin 0 mg/dL Last Edit by Raven Patterson [facility] on 09/18/23 10:08 UA Glucose 0 mg/dL Last Edit by Raven Patterson [facility] on 09/18/23 10:08 AMB Urinalysis, Automated UA Leukoctes 0 Chapito/uL Last Edit by SARAVANAN Funk on 09/18/23 10:27 UA Nitrite Negative Last Edit by SARAVANAN Funk on 09/18/23 10:27 UA Urobilinogen 0.2 mg/dL Last Edit by JUAN FunkA on 09/18/23 10:27 UA Protein 0 mg/dL Last Edit by Meera Tristan A on 09/18/23 10:27 UA pH 7.0 Last Edit by Meera Tristan RMA on 09/18/23 10:27 UA Blood 0 Valente/uL Last Edit by Meera Tristan RMA on 09/18/23 10:27 UA Specific Davison 1.005 Last Edit by Meera Tristan RMA on 09/18/23 10:27 UA Ketone Negative Last Edit by Meera Tristan RMA on 09/18/23 10:27 UA Bilirubin 0 mg/dL Last Edit by Meera Tristan A on 09/18/23 10:27 UA Glucose 0 mg/dL Last Edit by Meera Tristan A on 09/18/23 10:27 Results Reviewed Results Reviewed: Laboratory Last Values Urine pH (Auto) 7.0 09/18/23 10:26 Specific Davison (Auto) 1.005 09/18/23 10:26 Urine Protein (Auto) 0 mg/dL 09/18/23 10:26 Glucose (UA)(Auto) 0 mg/dL 09/18/23 10:26 Urine Ketones (Auto) Negative 09/18/23 10:26 Urine Blood (Auto) 0 Valente/uL 09/18/23 10:26 Urine Nitrite (Auto) Negative 09/18/23 10:26 Urine Bilirubin (Auto) 0 mg/dL 09/18/23 10:26 Urine Urobilinogen (Auto) 0.2 mg/dL 09/18/23 10:26 Leukocyte Esterase (Auto) 0 Chapito/uL 09/18/23 10:26 Assessment & Plan Assessment & Plan (1) Cancer of kidney: Comment: 2012 cryotherapy Code(s): C64.9 - Malignant neoplasm of unspecified kidney, except renal pelvis (2) Bladder cancer: Comment: 2012 low-grade Code(s): C67.9 - Malignant neoplasm of bladder, unspecified Plan Twelve month follow-up Orders: Orders AMB Urinalysis Automated Today Z13.9 - Encounter for screening, unspecified AMB Cystoscopy Today N40.1 - Benign prostatic hyperplasia with lower urinary tract symptoms, Z85.51 - Personal history of malignant neoplasm of bladder Urine Cytology Today N39.0 - Urinary tract infection, site not specified, Z85.51 - Personal history of malignant neoplasm of bladder AMB Urinalysis Automated Today R33.9 - Retention of urine, unspecified Patient Instructions: Imaging studies, laboratory and physical exam results were discussed and reviewed in detail. No major barriers to patient understanding were identified. An opportunity to ask questions regarding the treatment plan was provided. All questions were answered. The patient expressed understanding and agreement with the above treatment plan. The patient is aware they should contact our office by phone for worsening of their current condition or the appearance of new urologic symptoms. Compliance is encouraged with any medications and followup testing that is ordered. It is a privilege to participate in the urologic care of your patient. If you have any questions or concerns regarding treatment for the above conditions, or other urologic issues, please do not hesitate to contact me. The office telephone contact is [phone]. This note is constructed using voice recognition software. While every effort has been made to ensure accuracy university administrative assistant errors may have been included. Yours sincerely, Dr Devang Ibarra MD, [facility] - Urology Providers of Expert, Compassionate Care for the Genitourinary System Coding Level of Care Code Est Pt Level 4 (68380) Diagnoses Cancer of kidney C64.9 Bladder cancer C67.9 CPT Codes Cystoscopy - CPT: 33541-[id number] ([id number])
== END 2023-09-18 10:25 | disposition home or self-care (01) ==
PROVIDERS: Visit Provider Urology
DX: C64.9 Malignant neoplasm of unspecified kidney, except renal pelvis (principal); C67.9 Malignant neoplasm of bladder, unspecified; N40.1 Benign prostatic hyperplasia with lower urinary tract symptoms; Z85.51 Personal history of malignant neoplasm of bladder; Z13.9 Encounter for screening, unspecified; R33.9 Retention of urine, unspecified
CPT/HCPCS: 52000; 99213

== ENCOUNTER 2023-09-19 04:03 | Emergency (ER) | payer MEDICAID, SELFPAY ==
[2023-09-19 04:16] VITALS: BP 151/93; PULSE 69; RESP 20; TEMP 37.2; O2SAT 97; BMI 34.4
--- NOTE | 2023-09-19 04:26 | ED.URI ---
HPI - URI/Sore Throat General Chief Complaint: Upper Respiratory Symptoms Stated Complaint: ?Sinus infection/ Covid+ on 09/15 Time Seen by Provider: 09/19/23 04:24 Source: patient and old records reviewed Mode of arrival: ambulatory Limitations: no limitations History of Present Illness HPI Narrative: 53 yo male with PMH of BPH, bladder cancer under yearly surveillance, HTN here with c/o having runny nose and body aches starting Friday dx with COVID on Friday - he is not vaccinated. He does not want paxlovid. He returned to the ED as he has NATHAN and uses CPAP and cannot due to significant sinus pressure and congestion. He tried afrin without relief. He has had sinusitis before. MD elicited complaint: nasal congestion and sinus pain Onset (ago): day(s) (Friday ) Consistency: progressively worsening Severity: moderate Description of mucous: yellow Able to tolerate fluids by mouth: Yes Exacerbating factors: supine positioning Relieving factors: nothing Context: other (recent COVID 19 dx) Associated symptoms: chills and nasal congestion Treatments prior to arrival: cold medicine Related Data Home Medications Medication Instructions Recorded Confirmed lisinopril 40 mg tablet 40 mg PO DAILY 12/22/20 09/18/23 amlodipine 5 mg tablet 5 mg PO DAILY 02/27/21 09/18/23 Previous Rx's Medication Instructions Recorded amoxicillin 875 mg-potassium 1 tab PO BID #14 tabs 09/19/23 clavulanate 125 mg tablet fluticasone furoate 27.5 1 spray intranasal DAILY #6.6 mL 09/19/23 mcg/actuation nasal spray,suspension prednisone 20 mg tablet 40 mg (2 x 20 mg) PO DAILY 3 days 09/19/23 #6 tabs Allergies Allergy/AdvReac Type Severity Reaction Status Date / Time No Known Allergies Allergy Verified 09/18/23 10:04 [No Known Allergies*] Review of Systems Review of Systems: Constitutional : No Fever, No Chills, No Fatigue ENT/Mouth : No sore throat, No Rhinorrhea, pos sinus pain, pos sinus congestion Eyes: No Eye Pain, No Swelling, No Redness Cardiovascular : No Chest Pain, No SOB, No Dyspnea on Exertion Respiratory : No Cough, No Sputum Gastrointestinal : No Nausea, No Vomiting, No Diarrhea, No abdominal Pain Musculoskeletal : No joint pain, No Myalgias, No Joint Swelling Skin : No Skin Lesions, No rash Neuro : No Weakness, No Numbness, No Dizziness, no Headache Psych : No Anxiety/Panic, No Depression All other systems reviewed and are negative [facility] Past Medical History Attestation statement: The following information was validated with the patient. Source: old records reviewed Medical History Bladder cancer RUQ pain Abdominal bloating HTN (hypertension) History of COVID-19 Cancer of kidney Hx of bladder cancer Benign prostatic hyperplasia with lower urinary tract symptoms Obstructive sleep apnea (adult) (pediatric) Lesion of bladder Surgical History History of colonoscopy with polypectomy History of surgery H/O colonoscopy Hx of cystoscopy History of surgery Family History Family History Father Hypertension Diabetes Mother Lung cancer Sister Cancer Social History Social History Household Members: Spouse and Children Housing: House Patient Tobacco Use Status: Never used Tobacco Advance Directives: No Advance Directives Information Provided: No service: No Current occupational status: employed Physical Exam Vital Signs: Vital Signs: Last Vital Signs Temp 98.9 F 09/19/23 04:16 Pulse 69 09/19/23 04:16 Resp 20 09/19/23 04:16 BP 151/93 H 09/19/23 04:16 Pulse Ox 97 09/19/23 04:16 O2 Del Method Room Air 09/19/23 04:16 BMI result Body Mass Index 34.4 Appearance: Alert. Oriented X3. No acute distress. Eyes: Pupils equal, round and reactive to light. ENT: Pharynx normal. Bilateral swollen boggy turbinates with bilateral max sinus ttp and swelling Neck: Normal inspection. Neck supple. CVS: Pulses normal. Respiratory: No respiratory distress. Abdomen: Soft and nontender. Skin: Skin warm and dry. Normal skin color. Extremities: No lower extremity edema. Neuro: Oriented X 3. No motor deficit. No sensory deficit. Medical Decision Making Medical Decision Making MDM Narrative: 53 yo male with PMH of BPH, bladder cancer under yearly surveillance, HTN here with c/o known COVID 19 not vaccinated does not want paxlovid but also has hx of sinusitis and cannot use his CPAP now at this time he has sig swollen turbinates and swelling to the face will start on oral and nasal steroids as well as oral augmentin. No ASSOCIATE CURATOR involvement suspected. At this time stable for DC Differential Diagnosis Differential Diagnoses: The differential diagnosis associated with the presentation includes acute sinusitis, allergies Lab Data MDM Lab Attestation statement: I reviewed the patient's lab results. External Record Review External record reviewed: Inpatient record Prescription Management I considered prescription management with: Antibiotic and Other Discharge Plan Discharge Clinical Impression: Sinusitis Qualifiers: Sinusitis location: maxillary Chronicity: acute Recurrence: non-recurrent Qualified Code(s): J01.00 - Acute maxillary sinusitis, unspecified Patient Disposition: Home, Self-Care Instructions: Sinusitis (ED) Additional Instructions: finish antibiotics do not use afrin return for any worsening symptoms or concerns On amoxicillin-clavulanate, softer bowel movements are to be expected. Call your provider if you move your bowels more than 4 times a day, your bowel movements are almost all liquid, or you get a rash.? Prescriptions: New prednisone 20 mg tablet 40 mg PO DAILY 3 Days Qty: 6 0RF amoxicillin-pot clavulanate 875-125 mg tablet 1 tab PO BID Qty: 14 0RF fluticasone furoate 27.5 mcg/actuation spray,suspension 1 spray intranasal DAILY Qty: 6.6 1RF Rx Instructions: into each nostril No Action lisinopril 40 mg tablet 40 mg PO DAILY amlodipine 5 mg tablet 5 mg PO DAILY
== END 2023-09-19 04:41 | disposition home or self-care (01) ==
PROVIDERS: Emergency Provider Emergency Medicine; PCP Internal Medicine Geriatric Medicine
DX: J01.00 Acute maxillary sinusitis, unspecified (principal); I10 Essential (primary) hypertension; G47.33 Obstructive sleep apnea (adult) (pediatric)
CPT/HCPCS: 99283

== ENCOUNTER 2023-10-15 09:17 | Outpatient (REF) | payer MEDICAID, SELFPAY ==
[2023-10-15 11:28] LABS: Hematocrit 43.9 % (42.0-52.0); Mean Corpuscular HGB Conc 31.9 g/dl (31.0-36.0); Mean Corpuscular Hemoglobin 27.1 pg (27.0-33.0); Mean Corpuscular Volume 84.9 fL (80.0-98.0); Mean Platelet Volume 10.5 fL (9.4-12.4); Platelet Count 213 X10*3/uL (160-400); Red Blood Count 5.17 X10*6/uL (4.60-5.80); Red Cell Distribution Width 14.3 % (11.0-16.0)
[2023-10-15 11:30] LABS: WBC ABN SCTR FOR CBC 1; White Blood Count 24.2 X10*3/uL (4.8-10.8)
[2023-10-15 11:52] LABS: Alanine Aminotransferase 23 U/L (0-40); Albumin Level 4.9 g/dL (3.5-5.0); Alkaline Phosphatase 71 U/L (39-117); Anion Gap 11 (12-20); Aspartate Amino Transferase 21 U/L (5-37); Bilirubin Total 0.7 mg/dL (0.0-1.0); Blood Urea Nitrogen 17 mg/dL (9-16); Calcium 9.7 mg/dL (8.4-10.2); Carbon Dioxide 31 mmol/L (22-29); Chloride 104 mmol/L (96-108); Cholesterol 199 mg/dL (<200); Estimated Glomerular Filt Rate > 60; Glucose Random 97 mg/dL (60-115); HDL Cholesterol 38 mg/dL (>40); LDL Cholesterol Calculated 123 mg/dL (<100); Potassium 4.5 mmol/L (3.3-5.1); Sodium 141 mmol/L (135-145); Total Protein 7.4 g/dL (6.5-8.0); Triglycerides 191 mg/dL (<150)
[2023-10-15 12:13] LABS: ~HepC Num1 0.21 S/CO (0.00-0.79); ~Hepatitis C Antibody Nonreactive (Nonreactive)
[2023-10-15 13:35] LABS: Atypical Lymphs Percent Manual 4 % (0-6); Band Neutrophils Percent 0 % (3-5); Eosinophils Absolute Manual 0.2 X10*3/uL (0.0-0.4); Eosinophils Percent Manual 1 % (0-4); Lymphocytes Absolute Manual 17.9 X10*3/uL (1.2-4.9); Lymphocytes Percent Manual 74 % (20-40); Monocytes Percent Manual 4 % (2-11); Neutrophils Absolute Manual 4.1 X10*3/uL (2.0-8.3); Neutrophils Percent Manual 17 % (45-73); RBC Morphology NORMAL; Smudge Cells PRESENT
[2023-10-15 13:36] LABS: Platelet Estimate NORMAL (NORMAL); Platelet Morphology Comment NORMAL
== END 2023-10-15 09:18 | disposition home or self-care (01) ==
LOC: HO.HHCL 09:17
PROVIDERS: Visit Provider Internal Medicine Geriatric Medicine
DX: Z00.00 Encounter for general adult medical examination without abnormal findings (principal); Z13.220 Encounter for screening for lipoid disorders; Z13.1 Encounter for screening for diabetes mellitus; Z11.59 Encounter for screening for other viral diseases
CPT/HCPCS: 36415; 80053; 80061; 85007; 85027; 86803

== ENCOUNTER 2023-11-17 19:57 | Emergency (ER) | payer MEDICAID, SELFPAY ==
--- NOTE | ~2023-11-17 | CT_ITS ---
EXAMINATION: CT SOFT TISSUE NECK WITH CONTRAST CLINICAL INFORMATION: Tonsillar swelling COMPARISON: 10/16/2019 TECHNIQUE: Following the intravenous administration of 60 mL of Omnipaque 350 intravenous contrast, helical imaging was performed in the axial plane with generation of coronal and sagittal reformatted images. This CT examination was performed using dose optimization techniques as appropriate, variously including the following: *Automated exposure control *Adjustment of mA and/or kV according to patient size (this includes techniques or standardized protocols for targeted exams where dose is matched to indication/reason for exam; i.e. extremities or head) *Use of iterative reconstruction technique DLP: 748 mGy-cm FINDINGS: There is prominence of the adenoids and bilateral palatine tonsils. No heterogeneous tonsillar enhancement is seen to strongly suggest tonsillitis. No peritonsillar fluid collection to suggest abscess. There is subtle stranding in the left parapharyngeal fat. There are several nodular and a reniform densities in the bilateral parotid gland which appears similar to prior, favored to represent lymph nodes. Submandibular glands appear unremarkable. There are numerous enlarged lymph nodes throughout the bilateral cervical chains, overall mildly increased in size from prior. For example, a lymph node at the left level IIB/III margin measures 2.9 x 2.3 cm currently, versus 1.9 x 1.7 cm previously. Vasculature appears unremarkable. The thyroid gland is suboptimally assessed inferiorly due to streak artifact. Few small patchy nodular and groundglass foci are present in the left upper lobe, suggesting mild infectious/inflammatory change. Visualized portions of the brain parenchyma are unremarkable. Partially opacified left mastoid air cells. The visualized orbits are unremarkable. Mucosal thickening of the bilateral maxillary and right sphenoid sinuses. Partial opacification of the bilateral ethmoid air cells and frontal sinuses. Grade 1 anterolisthesis of C7 on T1 is unchanged. Disc space narrowing and endplate osteophyte formation in the lower cervical spine. Multilevel facet arthropathy, left-sided greater than right. No acute fracture is seen. CT/CT soft tissue neck w IV con IMPRESSION: 1. Prominence of the adenoids and palatine tonsils, without heterogeneous enhancement to specifically indicate tonsillitis though there is mild stranding in the parapharyngeal fat adjacent to the left tonsil. No peritonsillar abscess identified. 2. Numerous enlarged lymph nodes throughout the bilateral cervical chains, overall mildly increased in size from 10/16/2019. Appearance is favored to represent sequelae of patient's reported history of chronic lymphocytic leukemia. 3. Few small patchy nodular and groundglass foci in the left upper lobe, suggesting mild infectious/inflammatory change. Follow-up chest CT in 3 months is advised to assess for resolution. 4. Paranasal sinus disease as described above.
[2023-11-17 20:53] VITALS: BP 152/89; PULSE 70; RESP 14; TEMP 36.9; O2SAT 98; BMI 33.6
--- NOTE | 2023-11-17 21:00 | ED_ITS ---
HPI - General Adult General Chief complaint: General Medical Stated complaint: swollen tonsils ear pain Time Seen by Provider: 11/17/23 23:27 Source: patient, family and old records reviewed Mode of arrival: ambulatory Limitations: no limitations History of Present Illness HPI narrative: 53 yo male with PMH of BPH, CLL under surveillance by Dr. Buenrostro, HTN, prior bladder cancer here with c/o sore throat x 6 days after returning from [place] - no response to OTC medications hurts to swallow. No fevers reported. No known sick contacts he notes he was burning leaves and wood when it got into his face and throat and then all of this happened. MD complaint: sore throat Onset (ago): day(s) (6) Location: mouth Radiation: non-radiation Severity: severe Quality: aching and constant Pain Consistency: constant Relieving factors: none Exacerbating factors: other (swallowing) Associated symptoms: denies other symptoms Treatments prior to arrival: none Related Data Home Medications ?Medication ?Instructions ?Recorded ?Confirmed lisinopril 40 mg tablet 40 mg PO DAILY 12/22/20 09/18/23 amlodipine 5 mg tablet 5 mg PO DAILY 02/27/21 09/18/23 Previous Rx's ?Medication ?Instructions ?Recorded amoxicillin 875 mg-potassium 1 tab PO BID #14 tabs 09/19/23 clavulanate 125 mg tablet fluticasone furoate 27.5 1 spray intranasal DAILY #6.6 mL 09/19/23 mcg/actuation nasal spray,suspension prednisone 20 mg tablet 40 mg (2 x 20 mg) PO DAILY 3 days 09/19/23 #6 tabs amoxicillin 875 mg-potassium 1 tab PO BID #14 tabs 11/18/23 clavulanate 125 mg tablet prednisone 20 mg tablet 40 mg (2 x 20 mg) PO DAILY 5 days 11/18/23 #10 tabs Allergies Allergy/AdvReac Type Severity Reaction Status Date / Time No Known Allergies Allergy Verified 11/17/23 20:54 [No Known Allergies*] Review of Systems 2 Review of Systems: Constitutional : No Fever, No Chills, No Fatigue ENT/Mouth : No sore throat, No Rhinorrhea, pos sore throat, pos difficulty swallowing Eyes: No Eye Pain, No Swelling, No Redness Cardiovascular : No Chest Pain, No SOB, No Dyspnea on Exertion Respiratory : No Cough, No Sputum Gastrointestinal : No Nausea, No Vomiting, No Diarrhea, No abdominal Pain Genitourinary : No Dysuria, No Urinary Frequency, No Hematuria, Musculoskeletal : No joint pain, No Myalgias, No Joint Swelling Skin : No Skin Lesions, No rash Neuro : No Weakness, No Numbness, No Dizziness, no Headache Psych : No Anxiety/Panic, No Depression All other systems reviewed and are negative PMFSH Past Medical History Attestation statement: The following information was validated with the patient. Source: old records reviewed Medical History Bladder cancer RUQ pain Abdominal bloating HTN (hypertension) History of COVID-19 Cancer of kidney Hx of bladder cancer Benign prostatic hyperplasia with lower urinary tract symptoms Obstructive sleep apnea (adult) (pediatric) Lesion of bladder Surgical History History of colonoscopy with polypectomy History of surgery H/O colonoscopy Hx of cystoscopy History of surgery Family History Family History Father Hypertension Diabetes Mother Lung cancer Sister Cancer Social History Social History Household Members: Spouse and Children Housing: House Alcohol intake: never Patient Tobacco Use Status: Never used Tobacco Advance Directives: No Advance Directives Information Provided: No Do you have a plan to hurt others: No Plan service: No Current occupational status: employed Physical Exam ED Vital Signs: Vital Signs - 24 hr 11/17/23 20:53 11/17/23 23:46 11/18/23 02:00 Temperature 98.5 F 99.1 F Pulse Rate 70 77 71 Respiratory Rate 14 17 16 Blood Pressure 152/89 H 181/105 H 137/77 Pulse Oximetry 98 99 97 Oxygen Delivery Method Room Air Room Air Room Air BMI result Body Mass Index 33.6 Appearance: Alert. Oriented X3. No acute distress. Eyes: Pupils equal, round and reactive to light. ENT: Pharynx tonsils are moderate swelling uvula midline voice seems slightly muffled no exudates normal ROM of neck Neck: Normal inspection. Neck supple. CVS: Normal heart rate and rhythm. Pulses normal. Respiratory: No respiratory distress. Breath sounds normal. Abdomen: Soft and nontender. Skin: Skin warm and dry. Normal skin color. Normal skin turgor. Extremities: No lower extremity edema. No calf ttp Neuro: Oriented X 3. No motor deficit. No sensory deficit. Course Course Course Narrative: RME performed by Aislinn Erwin PA-C. Patient is a 53 year old assigned male at presenting to the emergency department with a sore throat. Detailed physical exam and review of systems are deferred to the pensions retirement plan specialist. Swabs ordered. Patient placed back in the waiting room pending room availability and results. Medications Administered Discontinued Medications Generic Name Dose Route Start Last Admin Trade Name Ann PRN Reason Stop Dose Admin Dexamethasone Sodium Phosphate 8 mg 11/17/23 23:34 11/17/23 23:59 Dexamethasone Sod Phosphate 4 Mg/Ml Vial IVPUSH 11/17/23 23:35 8 mg ONCE ONE Administration Sodium Chloride 1,000 mls @ 999 mls/hr 11/17/23 23:34 11/18/23 00:59 Ns IV 11/18/23 00:34 Infused .Q1H1M ONE Infusion Piperacillin Sod/Tazobactam 50 mls @ 100 mls/hr 11/17/23 23:34 11/18/23 00:28 Sod 3.375 gm/ Sodium Chloride IV 11/18/23 00:03 Infused ONCE ONE Infusion Iohexol 60 ml 11/18/23 01:02 11/18/23 01:02 Iohexol 350 Mg/Ml 100 Ml Infus..Btl IV 11/18/23 01:03 60 ml ONCE ONE Administration Ketorolac Tromethamine 15 mg 11/17/23 23:34 11/17/23 23:58 Ketorolac Tromethamine 15 Mg/Ml Vial IVPUSH 11/17/23 23:35 15 mg ONCE ONE Administration Medical Decision Making Medical Decision Making MDM Narrative: 53 yo male with PMH of BPH, CLL under surveillance by Dr. Buenrostro, HTN, prior bladder cancer here with c/o tonsilar swelling after exposure to burning leaves at this time will need basic labs, cultures, strep swab, viral panel, mono test, CT scan of neck given his prior CLL history, empiric zosyn - for symptomatic control I have ordered both toradol and dexamethasone recent platelets have been normal. Differential Diagnosis Differential Diagnoses: The differential diagnosis associated with the presentation includes tonsillitis, strep throat, [employer] Admission/Observation Consideration of admission/observation: Escalation of care including admission/observation considered feels much better stable for DC swelling improved Lab Data MDM Lab Attestation statement: I reviewed the patient's lab results. 11/17/23 23:44 11/17/23 23:43 Labs: Lab Results 11/17/23 11/17/23 11/17/23 Range/Units 21:14 23:43 23:44 WBC 24.5 H (4.8-10.8) X10*3/uL RBC 4.75 (4.60-5.80) X10*6/uL Hgb 13.6 L (14.0-18.0) g/dl Hct 40.3 L (42.0-52.0) % MCV 84.8 (80.0-98.0) fL MCH 28.6 (27.0-33.0) pg MCHC 33.7 (31.0-36.0) g/dl RDW 13.9 (11.0-16.0) % Plt Count 268 D (160-400) X10*3/uL MPV 9.4 (9.4-12.4) fL Absolute Nucleated RBC 0.000 (0.0-0.012) X10*3/uL Nucleated RBC % (auto) 0.0 (0.0-0.2) /100WBC Neutrophils % (Manual) 44 L (45-73) % Band Neutrophils % 0 L (3-5) % Lymphocytes % (Manual) 52 H (20-40) % Monocytes % (Manual) 1 L (2-11) % Eosinophils % (Manual) 1 (0-4) % Basophils % (Manual) 2 (0-2) % Abs Neuts (Manual) 10.8 H (2.0-8.3) X10*3/uL Lymphocytes # (Manual) 12.7 H (1.2-4.9) X10*3/uL Monocytes # (Manual) 0.2 (0.1-1.2) X10*3/uL Eosinophils # (Manual) 0.2 (0.0-0.4) X10*3/uL Basophils # (Manual) 0.5 H (0.0-0.2) X10*3/uL Smudge Cells PRESENT Platelet Estimate NORMAL (NORMAL) Plt Morphology Comment NORMAL RBC Morphology NORMAL Sodium 141 (135-145) mmol/L Potassium 3.8 (3.3-5.1) mmol/L Chloride 104 (96-108) mmol/L Carbon Dioxide 26 (22-29) mmol/L Anion Gap 15 (12-20) BUN 15 (9-16) mg/dL Creatinine 0.87 (0.5-1.4) mg/dL Estim Creat Clear Calc 110.0 Estimated GFR > 60 Random Glucose 103 (60-115) mg/dL Lactic Acid 0.7 (0.5-2.0) mmol/L Calcium 9.8 (8.4-10.2) mg/dL Monoscreen Negative (Negative) Influenza Type A (PCR) NEGATIVE (Negative) Influenza Type B (PCR) NEGATIVE (Negative) RSV RNA Qual (PCR) NEGATIVE (Negative) SARS-CoV-2 RNA (RT-PCR) NEGATIVE (Negative) S. pyogenes GrpA LARA Negative (Negative) Independent Interpretation I performed an independent interpretation of an: CT Scan (no abscess) Radiology Impression Discussion of test interpretation with radiology: I have reviewed the radiologist's reading. Independent Historian Clinical information obtained from an independent historian. History obtained from or confirmed by: Spouse External Record Review External record reviewed: Office record Prescription Management I considered prescription management with: Antibiotic and Other Discharge Plan Discharge Clinical Impression: Acute tonsillitis Qualifiers: Pharyngitis/tonsillitis etiology: unspecified etiology Qualified Code(s): J 03.90 - Acute tonsillitis, unspecified Patient Disposition: Home, Self-Care Instructions: Tonsillitis (ED) Additional Instructions: follow up with Dr. Buenrostro in the next two days return for difficulty breathing worsening swelling or any other concerns start the medications in the morning Prescriptions: New prednisone 20 mg tablet 40 mg PO DAILY 5 Days Qty: 10 0RF amoxicillin-pot clavulanate 875-125 mg tablet 1 tab PO BID Qty: 14 0RF No Action prednisone 20 mg tablet 40 mg PO DAILY 3 Days Qty: 6 0RF amoxicillin-pot clavulanate 875-125 mg tablet 1 tab PO BID Qty: 14 0RF fluticasone furoate 27.5 mcg/actuation spray,suspension 1 spray intranasal DAILY Qty: 6.6 1RF Rx Instructions: into each nostril lisinopril 40 mg tablet 40 mg PO DAILY amlodipine 5 mg tablet 5 mg PO DAILY Print Language: Japanese
[2023-11-17 21:44] LABS: IDNOW Serial# 08D9AD1C; Strep A Nucleic Acid Negative (Negative)
[2023-11-17 22:14] LABS: Influenza A PCR NEGATIVE (Negative); Influenza B PCR NEGATIVE (Negative); Resp Syncy Virus RNA Qual PCR NEGATIVE (Negative); SARS COV2 PCR INHOUSE NEGATIVE (Negative)
[2023-11-17 23:46] VITALS: BP 181/105; PULSE 77; RESP 17; TEMP 37.3; O2SAT 99
[2023-11-17 23:54] LABS: Hematocrit 40.3 % (42.0-52.0); Hemoglobin 13.6 g/dl (14.0-18.0); Mean Corpuscular HGB Conc 33.7 g/dl (31.0-36.0); Mean Corpuscular Hemoglobin 28.6 pg (27.0-33.0); Mean Corpuscular Volume 84.8 fL (80.0-98.0); Mean Platelet Volume 9.4 fL (9.4-12.4); Platelet Count 268 X10*3/uL (160-400); Red Blood Count 4.75 X10*6/uL (4.60-5.80); Red Cell Distribution Width 13.9 % (11.0-16.0)
[2023-11-17 23:55] LABS: WBC ABN SCTR FOR CBC 1; White Blood Count 24.5 X10*3/uL (4.8-10.8)
[2023-11-17] MEDS: Piperacillin Sodium/Tazobactam 3.375 GM in 0.9 % Sodium Chloride 50 ML IV (23:58)
[2023-11-17] MEDS: 0.9 % Sodium Chloride 1,000 ML 999 ML IV (23:58)
[2023-11-17] MEDS: Ketorolac Tromethamine 15 MG/ML VIAL IVPUSH (23:58)
[2023-11-17] MEDS: dexAMETHasone sod phosphate 4 MG/ML VIAL 8 MG IVPUSH (23:59)
[2023-11-18 00:03] LABS: Lactic Acid 0.7 mmol/L (0.5-2.0)
[2023-11-18 00:06] LABS: Anion Gap 15 (12-20); Blood Urea Nitrogen 15 mg/dL (9-16); Calcium 9.8 mg/dL (8.4-10.2); Carbon Dioxide 26 mmol/L (22-29); Chloride 104 mmol/L (96-108); Estimated Glomerular Filt Rate > 60; Glucose Random 103 mg/dL (60-115); Potassium 3.8 mmol/L (3.3-5.1); Sodium 141 mmol/L (135-145)
[2023-11-18 00:11] LABS: Monotest Negative (Negative)
[2023-11-18 00:18] LABS: Basophils Abs Manual 0.5 X10*3/uL (0.0-0.2); Basophils Percent Manual 2 % (0-2); Eosinophils Absolute Manual 0.2 X10*3/uL (0.0-0.4); Eosinophils Percent Manual 1 % (0-4); Lymphocytes Absolute Manual 12.7 X10*3/uL (1.2-4.9); Lymphocytes Percent Manual 52 % (20-40); Monocytes Absolute Manual 0.2 X10*3/uL (0.1-1.2); Monocytes Percent Manual 1 % (2-11); Neutrophils Percent Manual 44 % (45-73)
[2023-11-18 00:20] LABS: Platelet Estimate NORMAL (NORMAL); Platelet Morphology Comment NORMAL; RBC Morphology NORMAL; Smudge Cells PRESENT
[2023-11-18 00:51] LABS: Band Neutrophils Percent 0 % (3-5); Neutrophils Absolute Manual 10.8 X10*3/uL (2.0-8.3)
[2023-11-18] MEDS: iohexoL 350 MG/ML 100 ML INFUS..BTL 60 ML IV (01:02)
[2023-11-18 02:00] VITALS: BP 137/77; PULSE 71; RESP 16; O2SAT 97
[2023-11-18 04:14] VITALS: BP 137/77; PULSE 71; RESP 16; TEMP 36.9; O2SAT 97
== END 2023-11-18 04:15 | disposition home or self-care (01) ==
PROVIDERS: Physician Assistant Medical; Emergency Provider Emergency Medicine; PCP Internal Medicine Geriatric Medicine
DX: J03.90 Acute tonsillitis, unspecified (principal); I10 Essential (primary) hypertension; C91.10 Chronic lymphocytic 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; Z85.51 Personal history of malignant neoplasm of bladder; Z03.818 Encounter for observation for suspected exposure to other biological agents ruled out
CPT/HCPCS: 0241U; 36415; 70491; 80048; 83605; 85007; 85027; 86308; 87040; 87651; 96361; 96374; 96375; 99284; J1100; J1885; J2543; Q9967

== ENCOUNTER → 2024-08-18 09:30 | Outpatient (BNVA) | payer MEDICAID, SELFPAY | PROVIDERS: PCP Internal Medicine Geriatric Medicine; Visit Provider Surgery | DX: Z86.0100 Personal history of colon polyps, unspecified (principal) | CPT/HCPCS: 99202 ==

== ENCOUNTER 2024-08-19 12:19 | Emergency (ER) | payer MEDICAID, SELFPAY ==
--- NOTE | ~2024-08-19 | CT_ITS ---
EXAMINATION: CT SOFT TISSUE NECK WITH CONTRAST CLINICAL INFORMATION: Neck swelling, Adenopathy, voice changes. COMPARISON: 11/18/2023, 10/16/2019. TECHNIQUE: Following the intravenous administration of 60 mL of Omnipaque 350 intravenous contrast, helical imaging of the neck was performed in the axial plane with generation of coronal and sagittal reformatted images. This CT examination was performed using dose optimization techniques as appropriate, variously including the following: *Automated exposure control *Adjustment of mA and/or kV according to patient size (this includes techniques or standardized protocols for targeted exams where dose is matched to indication/reason for exam; i.e. extremities or head) *Use of iterative reconstruction technique FINDINGS: Lymph Nodes: -Extensive bulky abnormal anterior and posterior cervical chain lymphadenopathy throughout the neck. For example, a left level 5 node measures 3.1 x 3.4 cm axial plane (series 3, image 67). A right level 5B lymph node measures 2.6 x 2.3 cm axial plane (series 3, image 82). -Enlarged nodes at all levels extending into the mediastinum, and bilateral subpectoral and axillary regions. Lymphoproliferative disorder is suspected. Carotid Sheath Structures: -The carotids enhance normally. -Both distal CCAs have been pushed mildly retropharyngeal by bulky lymphadenopathy. This may explain voice changes. -Mild effacement of both internal jugular veins. No venous or SVC effacement. Salivary Glands: -Fatty change of both parotid glands, with enlarged intraparotid lymph nodes present. No suspicious parotid lesion. Few tiny calcifications in both parotid glands. -Submandibular glands have been pushed anteriorly by bulky lymphadenopathy, and demonstrate mild fatty change. No intrinsic lesions. Mucosal Space: -Prominence of the tonsillar pillar soft tissues. Significant enlargement of the palatine tonsils with moderate effacement of the hypopharyngeal airway. -No discrete enhancing mucosal space lesion. Normal epiglottis and aryepiglottic folds. Visceral Space: -Thyroid gland: Heterogeneous with probable underlying nodules which are poorly seen by CT. -Larynx is normal. True vocal cords are adducted, limiting of bowel. Arytenoid cartilages are in normal position. No asymmetry of laryngeal ventricle. No discrete evidence of vocal cord paralysis/paresis. -Subglottic trachea is patent. -Upper esophagus is normal. Retropharangeal Space: -Normal imaging appearance. Parapharyngeal Fat Planes: -Normal without effacement. Office Asst Spaces: -Normal. Imaged Intracranial Contents: -No mass effect, edema, or abnormal enhancement. Cortical and dural venous sinuses are patent. The skull base is normal. Globes and Orbits: -Normal. Paranasal Sinuses/Mastoids/Tympanic Spaces: -Normally aerated bilaterally. Lung Apices and Superior Mediastinal Structures: -Imaged lung apices are clear. -Superior mediastinal structures demonstrate adenopathy but no additional abnormalities. Central airways are patent. Bony Structures: -No suspicious bone lesions. No fractures. -There are left mandibular periapical lucencies with dental caries. -There are degenerative hypertrophic facet changes at C3-4 and C4-5. There are cervical degenerative disc changes most significant at C5-6 and C6-7. CT/CT soft tissue neck w IV con IMPRESSION: 1. Extensive, severe bulky pathologic lymphadenopathy throughout all levels of the anterior and posterior cervical chains. Abnormal lymph nodes extend into the mediastinum, bilateral subpectoral regions and axillary regions. Lymphoproliferative disorder is suspected. 2. Bulky cervical lymph nodes have mildly deviated the distal CCAs delay, into the lateral retropharyngeal regions. 3. Mild mass effect upon the thyroid cartilage from bulky lymphadenopathy may explain which changes, versus mass affect on the recurrent laryngeal nerves. No imaging evidence of vocal cord paresis although the true cords are adducted. 4. Marked enlargement of the palatine tonsils and adenoids, resulting in moderate effacement of the hypopharyngeal airway. 5. Heterogeneous mildly enlarged thyroid with probable underlying nodules. There are poorly defined on CT. Electronically signed by: Edd Palacios MD 08/19/2024 04:46 PM [facility]
[2024-08-19 12:29] VITALS: BP 150/79; PULSE 76; RESP 18; TEMP 36.7; O2SAT 98; BMI 22.8
--- NOTE | 2024-08-19 12:45 | ED_ITS ---
HPI - General Adult General Chief complaint: General Medical Stated complaint: glands swelling Time Seen by Provider: 08/19/24 12:45 History of Present Illness ED Provider: Aishwarya AZEVEDO narrative: The patient is a 54-year-old male who has been followed by Dr. Buenrostro for what I believe is chronic lymphocytic leukemia. He says he has never required treatment for this condition. He is being observed. The patient comes to the emergency room today because he has had worsening swelling of lymph nodes on both sides of his neck and in both of his axillae. He has not had any fevers, sweats, chills. With regard to the swelling of the lymph nodes in his neck he says he has been able to eat normally and swallows secretions normally and does not have any difficulty breathing but he does feel that there is a certain tightness and a slight change to his voice. No chest pain. No cough or sputum. No abdominal pain. No nausea or vomiting. Related Data Home Medications ?Medication ?Instructions ?Recorded ?Confirmed lisinopril 40 mg tablet 40 mg PO DAILY 12/22/20 08/18/24 amlodipine 5 mg tablet 5 mg PO DAILY 02/27/21 08/18/24 Previous Rx's ?Medication ?Instructions ?Recorded sodium,potassium,mag sulfates 17.5 See Rx Instructions PO .COMPLEX 08/18/24 gram-3.13 gram-1.6 gram oral soln #354 mL (Suprep Bowel Prep Kit) dexamethasone 4 mg tablet 4 mg PO QID #20 tabs 08/19/24 Allergies Allergy/AdvReac Type Severity Reaction Status Date / Time No Known Allergies Allergy Verified 08/19/24 12:31 [No Known Allergies*] Review of Systems 2 Review of Systems: Yes all other systems are reviewed and are negative [facility] Past Medical History Medical History (Updated 08/19/24 @ 17:16 by Matty Neff MD) History of colon polyps Bladder cancer RUQ pain Abdominal bloating HTN (hypertension) History of COVID-19 Cancer of kidney Hx of bladder cancer Benign prostatic hyperplasia with lower urinary tract symptoms Obstructive sleep apnea (adult) (pediatric) Lesion of bladder Surgical History History of colonoscopy with polypectomy History of surgery H/O colonoscopy Hx of cystoscopy History of surgery Family History Family History Father Hypertension Diabetes Mother Lung cancer Sister Cancer Social History Social History Household Members: Spouse and Children Housing: House Alcohol intake: never Patient Tobacco Use Status: Never used Tobacco service: No Current occupational status: employed Physical Exam ED Vital Signs: Vital Signs - 24 hr 08/19/24 12:29 08/19/24 14:29 08/19/24 17:23 Temperature 98.0 F 98.4 F 98.4 F Pulse Rate 76 59 59 Respiratory Rate 18 14 14 Blood Pressure 150/79 H 144/71 H 144/71 H Pulse Oximetry 98 97 97 Oxygen Delivery Method Room Air Room Air Room Air BMI result Body Mass Index 22.8 Const Other: The patient is awake, alert, pleasant, cooperative. He does not appear in pain or respiratory distress. He has a slightly abnormal sounding voice however. HENMT Other: Face is symmetrical. Mucous membranes are moist. There is no trismus. The patient has large tonsils bilaterally which are essentially abutting each other. No significant erythema or exudate however. Eyes General: appearance normal, both eyes and all related structures Conjunctivae: conjunctivae normal Sclerae: sclerae normal EOM: EOMs intact bilaterally Neck Other: The patient seems to have bilateral posterior cervical chain adenopathy as well as anterior chain adenopathy. Resp Effort & Inspection: normal respiratory effort Auscultation: clear to auscultation bilaterally Cardio Rate: regular rate Rhythm: regular rhythm Heart sounds: S1 normal heart sound present and S2 normal heart sound present GI Other: Abdomen is soft and nontender Skin Other: Skin is dry and unremarkable Neuro Other: The patient is awake and alert with a normal mental status. Cranial nerves are intact. He moves his extremities normally and appropriately. Extrem Other: The patient has palpable adenopathy which is quite large in both axillae. Extremities are otherwise unremarkable Medications Administered Discontinued Medications Generic Name Dose Route Start Last Admin Trade Name Freq PRN Reason Stop Dose Admin Dexamethasone Sodium Phosphate 10 mg 08/19/24 15:25 08/19/24 15:33 Dexamethasone Sod Phosphate 10 Mg/Ml Vial IVPUSH 08/19/24 15:26 10 mg ONCE ONE Administration Iohexol 100 ml 08/19/24 16:00 08/19/24 16:01 Iohexol 350 Mg/Ml 100 Ml Infus..Btl IV 08/19/24 16:01 60 ml ONCE ONE Administration Medical Decision Making Medical Decision Making [facility] Narrative: The patient is a 54-year-old male with a history of what I believe is chronic lymphocytic leukemia which has been relatively quiescent swelling in his neck and in his axillae over the last 2 weeks. I thought that the patient's voice sounded slightly abnormal but he has does not show any signs of dyspnea or any signs of difficulty handling his secretions. His overall clinical appearance is quite benign. He looks comfortable and in no distress. [place] [address] with a primarily lymphocytic differential. CT scan of the neck shows diffuse adenopathy of the anterior and posterior train that is quite dramatic. The patient was given 10 mg of IV dexamethasone. He had some sense of improvement in the swelling of his neck. He continued to look very comfortable. I discussed the case with the patient's oncologist, Dr. Buenrostro. I explained that it was my clinical judgment that the patient looked quite well and that if we felt that steroids might be effective in reducing his swelling that it would probably be safe to send him home with a prescription for dexamethasone. Dr. Buenrostro said that she will be able to see the patient in the office tomorrow. The patient knows that if he is worse in any way throughout the night he should return immediately to the emergency room. Lab Data 08/19/24 13:20 08/19/24 13:20 Labs: Lab Results 08/19/24 Range/Units 13:20 WBC 30.6 H* (4.8-10.8) X10*3/uL RBC 4.86 (4.60-5.80) X10*6/uL Hgb 13.8 L (14.0-18.0) g/dl Hct 41.8 L (42.0-52.0) % MCV 86.0 (80.0-98.0) fL MCH 28.4 (27.0-33.0) pg MCHC 33.0 (31.0-36.0) g/dl RDW 14.6 (11.0-16.0) % Plt Count 149 L (160-400) X10*3/uL MPV 9.4 (9.4-12.4) fL Immature Gran % (Auto) Cancelled Neut % (Auto) Cancelled Lymph % (Auto) Cancelled [place] % (Auto) Cancelled Eos % (Auto) Cancelled Baso % (Auto) Cancelled Lymph # (Auto) Cancelled [place] # (Auto) Cancelled Eos # (Auto) Cancelled Baso # (Auto) Cancelled Abs Immat Gran (auto) Cancelled Absolute Neuts (auto) Cancelled Absolute Nucleated RBC 0.000 (0.0-0.012) X10*3/uL Nucleated RBC % (auto) 0.0 (0.0-0.2) /100WBC Neutrophils % (Manual) 9 L (45-73) % Band Neutrophils % 0 L (3-5) % Lymphocytes % (Manual) 87 H (20-40) % Atypical Lymphs % (Man) 2 (0-6) % Monocytes % (Manual) 1 L (2-11) % Eosinophils % (Manual) 1 (0-4) % Abs Neuts (Manual) 2.8 (2.0-8.3) X10*3/uL Lymphocytes # (Manual) 26.6 H (1.2-4.9) X10*3/uL Atyp Lymphs # (Manual) 0.6 x10*3/uL Monocytes # (Manual) 0.3 (0.1-1.2) X10*3/uL Eosinophils # (Manual) 0.3 (0.0-0.4) X10*3/uL Smudge Cells PRESENT Platelet Estimate NORMAL (NORMAL) Plt Morphology Comment NORMAL RBC Morphology NORMAL Sodium 140 (135-145) mmol/L Potassium 4.2 (3.3-5.1) mmol/L Chloride 106 (96-108) mmol/L Carbon Dioxide 24 (22-29) mmol/L Anion Gap 14 (12-20) BUN 19 H (9-16) mg/dL Creatinine 0.78 (0.5-1.4) mg/dL Estim Creat Clear Calc 101.7 Estimated GFR > 60 Random Glucose 91 (60-115) mg/dL Uric Acid 6.4 (3.4-7.0) mg/dL Calcium 9.4 D (8.4-10.2) mg/dL Magnesium 2.3 (1.6-2.6) mg/dL Total Bilirubin 0.5 (0.0-1.0) mg/dL Direct Bilirubin 0.1 (0.0-0.5) mg/dL AST 24 (5-37) U/L ALT 26 (0-40) U/L Alkaline Phosphatase 66 (39-117) U/L Lactate Dehydrogenase 215 (118-273) U/L Total Protein 7.3 (6.5-8.0) g/dL Albumin 4.9 (3.5-5.0) g/dL Monoscreen Negative (Negative) Discharge Plan Discharge Clinical Impression: Cervical adenopathy, Axillary adenopathy Patient Disposition: Home, Self-Care Additional Instructions: Dr. Buenrostro once you to call her office first thing tomorrow morning so she can give you an appointment at her office tomorrow. In the meantime please take the dexamethasone prescribed. Dexamethasone as a steroid medication that I hope will reduce the swelling in your neck. Please take a dose of the medication as soon as you picker/puller the prescription and then take Dr. Buenrostro for additional advice. If at any point you feel that your breathing becomes difficult or your swallowing worsens return immediately to the hospital. Prescriptions: New dexamethasone 4 mg tablet 4 mg PO QID Qty: 20 0RF No Action lisinopril 40 mg tablet 40 mg PO DAILY amlodipine 5 mg tablet 5 mg PO DAILY sodium,potassium,mag sulfates [Suprep Bowel Prep Kit] 17.5-3.13-1.6 gram recon soln See Rx Instructions PO .COMPLEX Qty: 354 0RF Rx Instructions: DILUTE; drink full amount early evening before AND next morning at least 2 hr before procedure; follow w 960 mL water PO Referrals: Jackelyn Buenrostro MD [Physician] - () Stand Alone Forms: Work/School Release Interventions: ED Discharge Assessment Last Done: 08/19/24 17:23 Discharge Date/Time: 08/19/24 17:26 Print Language: Malay
[2024-08-19 13:28] LABS: Hematocrit 41.8 % (42.0-52.0); Hemoglobin 13.8 g/dl (14.0-18.0); Mean Corpuscular Hemoglobin 28.4 pg (27.0-33.0); Mean Platelet Volume 9.4 fL (9.4-12.4); Platelet Count 149 X10*3/uL (160-400); Red Blood Count 4.86 X10*6/uL (4.60-5.80); Red Cell Distribution Width 14.6 % (11.0-16.0)
[2024-08-19 13:32] LABS: WBC ABN SCTR FOR CBC 1
[2024-08-19 13:34] LABS: White Blood Count 30.6 X10*3/uL (4.8-10.8)
[2024-08-19 13:44] LABS: Lactate Dehydrogenase 215 U/L (118-273); Uric Acid 6.4 mg/dL (3.4-7.0)
[2024-08-19 13:45] LABS: Alanine Aminotransferase 26 U/L (0-40); Albumin Level 4.9 g/dL (3.5-5.0); Alkaline Phosphatase 66 U/L (39-117); Anion Gap 14 (12-20); Aspartate Amino Transferase 24 U/L (5-37); Bilirubin Direct 0.1 mg/dL (0.0-0.5); Bilirubin Total 0.5 mg/dL (0.0-1.0); Blood Urea Nitrogen 19 mg/dL (9-16); Calcium 9.4 mg/dL (8.4-10.2); Carbon Dioxide 24 mmol/L (22-29); Chloride 106 mmol/L (96-108); Creatinine Clr Calc Pharmacy 101.7; Estimated Glomerular Filt Rate > 60; Glucose Random 91 mg/dL (60-115); Magnesium 2.3 mg/dL (1.6-2.6); Potassium 4.2 mmol/L (3.3-5.1); Sodium 140 mmol/L (135-145); Total Protein 7.3 g/dL (6.5-8.0)
[2024-08-19 14:14] LABS: Monotest Negative (Negative)
[2024-08-19 14:17] LABS: Atypical Lymph Absolute Manual 0.6 x10*3/uL; Atypical Lymphs Percent Manual 2 % (0-6); Band Neutrophils Percent 0 % (3-5); Eosinophils Absolute Manual 0.3 X10*3/uL (0.0-0.4); Eosinophils Percent Manual 1 % (0-4); Lymphocytes Absolute Manual 26.6 X10*3/uL (1.2-4.9); Lymphocytes Percent Manual 87 % (20-40); Monocytes Absolute Manual 0.3 X10*3/uL (0.1-1.2); Monocytes Percent Manual 1 % (2-11); Neutrophils Absolute Manual 2.8 X10*3/uL (2.0-8.3); Neutrophils Percent Manual 9 % (45-73)
[2024-08-19 14:20] LABS: Platelet Estimate NORMAL (NORMAL); Platelet Morphology Comment NORMAL; RBC Morphology NORMAL
[2024-08-19 14:22] LABS: Smudge Cells PRESENT
[2024-08-19 14:29] VITALS: BP 144/71; PULSE 59; RESP 14; TEMP 36.9; O2SAT 97
[2024-08-19] MEDS: dexAMETHasone sod phosphate 10 MG/ML VIAL IVPUSH (15:33)
[2024-08-19] MEDS: iohexoL 350 MG/ML 100 ML INFUS..BTL IV (16:01)
[2024-08-19 17:23] VITALS: BP 144/71; PULSE 59; RESP 14; TEMP 36.9; O2SAT 97
== END 2024-08-19 17:26 | disposition home or self-care (01) ==
PROVIDERS: Emergency Provider Emergency Medicine; PCP Internal Medicine Geriatric Medicine
DX: R59.9 Enlarged lymph nodes, unspecified (principal); M54.2 Cervicalgia; Z79.899 Other long term (current) drug therapy
CPT/HCPCS: 36415; 70491; 80048; 80076; 83615; 83735; 84550; 85007; 85027; 86308; 96374; 99284; J1100; Q9967

== ENCOUNTER → 2024-08-19 15:24 | Outpatient (BNV) | payer MEDICAID, SELFPAY | PROVIDERS: Emergency Provider Emergency Medicine; PCP Internal Medicine Geriatric Medicine; Visit Provider Radiology Diagnostic Radiology | DX: L04.0 Acute lymphadenitis of face, head and neck (principal); J35.3 Hypertrophy of tonsils with hypertrophy of adenoids | CPT/HCPCS: 70491 ==

== ENCOUNTER 2024-09-07 12:20 | Outpatient (REF) | payer MEDICAID, SELFPAY ==
--- NOTE | ~2024-09-07 | XR_ITS ---
EXAMINATION: XR FEMUR, LEFT CLINICAL INFORMATION: left fumur bone lesion, distal diaphysis? COMPARISON: None available. Correlation made with the x-ray left, 10/24/2021. TECHNIQUE: AP and lateral views of the left femur were obtained. FINDINGS: No acute fracture or dislocation. There is no suspicious bone lesion. There is an old healed fracture of the proximal femoral metadiaphysis. Mild arthritic changes in the left hip joint. An osseous excrescence of the lateral femoral head neck junction is nonspecific but could suggest underlying CHANEL. Acetabular coverage appears normal. The distal femur is intact and unremarkable in appearance. The imaged knee joint demonstrates early tricompartmental arthritic changes. No joint effusion. Soft tissues demonstrate vascular calcifications. XR/XR femur LT 2V IMPRESSION: 1. No acute or suspicious abnormality in the left femur. Old healed fracture proximal metadiaphysis. See above. Electronically signed by: Edd Palacios MD 09/08/2024 10:33 AM [facility]
--- OUTSIDE RECORDS SUMMARY | 2024-09-07 14:59 | XMS_ITS | Data Portability ---
Author Organization [place] [facility], Allergy Address [address] [address] Assessment No assessment recorded. Plan of Treatment Reminders Order Date Submit Date Provider Last Modified By Organization Details Last Modified Time Details Appointments Hearing Test 2024 02:30P M Hearing Test Not available Not available Not available Establish ed 30 2024 03:00P M TAYLOR Lopez MD Not available Not available Not available Lab None recorded. Referral None recorded. Procedures None recorded. Surgeries None recorded. Imaging None recorded. Medication Orders None recorded. Patient TargetsNo targets recorded. Patient InstructionsNo instructions recorded. Reason for Referral None Reported. Results Created Date Observation Date Name Description Value Unit Range Abnormal Flag Note LastModifiedBy Organization Detail LastModifiedTime 03/04/20 24 06/21/2021 imagi ng/di agnos tic resul t No observ ation record ed. [email or web address] Not Available 03:32:24 03/04/20 24 06/21/2021 imagi ng/di agnos tic resul t No observ ation record ed. [email or web address] Not Available 03:32:27 03/04/20 24 06/21/2021 audio gram No observ ation record ed. [email or web address] Not Available 03:32:31 05/07/20 audio gram No observ ation record ed. [email or web address] Not Available 04/14 13:50:38 Result Notes None recorded. Problems Name Problem SNOMED Code Status Onset Date Resolution Date Notes Provider Name and Address Organization Details Recorded Time Sensorine ural hearing loss of bilateral ears 159439955 Active 2020 Sensorine ural hearing loss, bilateral ; Note: Date Diagnosed : 06/21/2021 11:59 AM (H90.3) Not Available [facility] 4 02:32:25 Chronic sore throat 842385150 Active 2023 TAYLOR WILKES MD [address], [place], [address] , [place] - [facility] 4 11:05:42 Feeling of lump in throat 070022027 Active 2023 TAYOLR WILKES MD [address] [facility] [address], [place], [place], [address] , [place] - [facility] [place] 4 11:06:11 Hypertrop hy of tonsils 67473905 Active 2023 TAYLOR WILKES MD [address] [facility] [address] [facility], [place], [address] , [place] [facility] 4 11:16:13 Obstructi ve sleep apnea syndrome 53699152 Active 2023 TAYLOR WILKES MD [address] [facility] [address] [facility], [place], [place], [address] , [place] - [facility] 4 11:20:42 Impacted cerumen in left ear 58455397410 60074 Active 2023 TAYLOR WILKES MD [address] [facility] [address],[place] [address], [place], [place], [address] , [place] - [facility] 4 14:59:54 Asymmetri trevor sensorine ural hearing loss 680041216 Active 2023 TAYLOR WILKES MD [address] [facility] [address], [place], [address] , [place] [facility] 4 15:40:45 Problem Notes None recorded. Procedures Surgical History Date Name Laterality Status Provider Name and Address Organization Details Recorded Time 4 Cerumen removal without microscope left completed TAYLOR WILKES MD [address] [facility] [address] [facility], [place], [address], [place] - [facility] 05/04/2024 15:01:11 4 Air & Speech Audio with Tymps ([id number], [id number] & [id number]) completed HERBERT BYERS [address] [facility],[place] [address], [place], [address], [place] - [facility] 05/04/2024 15:19:51 4 FFL_RE completed TAYLOR WILKES MD [address] [facility],[place] [address], [place], [address], [place] [facility] 01/26/2024 11:06:27 Imaging Results Imaging Date Name Status LastModified by Organiz ation Details LastModified Time 06/21/2021 imaging/diagno stic result completed Information not available 03/04/2024 03:32:24 06/21/2021 imaging/diagno stic result completed Information not available 03/04/2024 03:32:27 06/21/2021 audiogram completed Information not available 03/04/2024 03:32:31 05/07/2024 audiogram completed Information n ot available 05/07/2024 13:50:38 Procedure Notes None recorded. Medical Equipment None Reported. Medications Name Sig Start Date Stop Date Status Note LastModified by Organization Details LastModified Time prednisone 10 mg tablet PLEASE SEE ATTACHED FOR DETAILED DIRECTIONS active Not Available Not Available N ot Available prednisone 20 mg tablet TAKE 2 TABLETS (40MG) BY MOUTH EVERY DAY FOR 5 DAYS active Not Available Not Available No t Available amlodipine 5 mg tablet TAKE 1 TABLET BY MOUTH EVERY DAY IN THE MORNING active Not Available Not Available No t Available acetaminophe n 500 mg tablet TAKE 1 TABLET BY MOUTH EVERY 8 HOURS IF NEEDED FOR MILD OR MODERATE PAIN FOR UP TO 5 DAYS. active Not Available Not Available N ot Available amlodipine 10 mg tablet TAKE 1 TABLET BY MOUTH ONCE DAILY active Not Available Not Available No t Available lisinopril 40 mg tablet TAKE 1 TABLET BY MOUTH EVERY DAY IN THE MORNING active Not Available Not Available No t Available loratadine 10 mg tablet TAKE 1 TABLET BY MOUTH EVERY DAY IN THE MORNING active Not Available Not Available No t Available amoxicillin 875 mg-potassium clavulanate 125 mg tablet TAKE 1 TABLET BY MOUTH TWICE A DAY active Not Available Not Available No t Available clindamycin 1 % lotion APPLY TO AFFECTED AREA TWICE A DAY active Not Available Not Available No t Available Flonase Sensimist 27.5 mcg/actuatio n nasal spray,suspen vito USE 1 SPRAY INTRANASALL Y EVERY DAY EACH NOSTRIL active Not Available Not Available No t Available Vitals Date Recorded Body height Body mass index (BMI) Body weight Provider Name and Address Organization Details Last Updated DateTime 01/26/2024 172.72 cm 33.1 kg/m2 62659.14 g Dima Estevez [place] [facility] 01/26/2024 11:03:25 Date Recorded Body height Body mass index (BMI) Body weight Provider Name and Address Organization Details Last Updated DateTime 05/04/2024 172.72 cm 33.1 kg/m2 76166.14 g Dima Estevez [facility] 05/04/2024 14:44:29 Social History None recorded. Functional Status None recorded. Mental Status None recorded. Family History Nothing Reported. Medical History No medical history recorded. Past Encounters Encounter ID Performer Location Encounter Start Date Encounter Closed Date Diagnosis/Indication Diagnosis SNOMED-CT Code Diagnosis ICD10 Code Diagnosis Note [id number] TAYLOR WILKES MD [facility] [address] [address] 01/26/2024 10:36:28 01/26/2024 11:21:17 Chronic sore throat 986451327 J31.2 Pain has improved. Remains with tonsil hypertroph y. See below. Feeling of lump in throat 275080867 R09.89 Likely due to sever tonsil hypertroph y. See below. Hypertroph y of tonsils 04968431 J35.1 He has 4+ tonsils. I discussed tonsillect junior as a last resort but recommend a period of observatio n first. He will f/u in 3 months to reassess and we will consider tonsillect junior as a last resort. I stressed it would not cure NATHAN. Obstructiv e sleep apnea syndrome 16757191 G47.33 Likely multifacto rial but likely worse due to 4+ tonsils. Discussed tonsillect junior might improve but not cure NATHAN. FFL showed enlarged tonsils but was otherwise normal. [id number] TAYLOR WILKES MD [facility] [address] [place] [address] 05/04/2024 14:24:34 05/04/2024 15:40:47 Impacted cerumen in left ear 8459589175 163060 H61.22 Recurrent Cerumen Impactions : Ears were meticulous ly cleaned bilaterall y today with a curette and suction. The patient tolerated this well and will follow up for repeat debridemen t per routine. Hypertroph y of tonsils 87671928 J35.1 Tonsil hypertroph y is slightly improved. I recommend observatio n. Sensorineu ral hearing loss of bilateral ears 628151309 H90.3 Right Ear:Normal hearing through 1K Hz sloping to a moderately -severe SNHL with excellent speech discrimina tion.Type Ad tympanogra m.Left Ear:Normal hearing through 2K Hz sloping to a mild SNHL with excellent speech discrimina tion.Type Ad tympanogra m. Asymmetric al sensorineural hearing loss 275943612 H90.5 worse AD. stable compared to prior. Gave medical clearance for a new hearing aid. Given the asymmetry recommend yearly surveillan ce audiograms . Health Concerns Section Related Observation LastModified by Organization Detai ls LastModified Time None Recorded Concern Status LastModified by Organization Details LastModified Time None Recorded Advance Directives Directive None Recorded Payers Encounter Date Sequence Insurance Name Policy Number Policy Larson Covered Member ID Larson Member ID Guarantor Name 01/26/2024 1 [place] [facility] Irwin Mcnulty [id number] Irwin Mendoza 05/04/2024 1 [place] [facility] Irwin Mcnulty [id number] Irwin Mendoza Notes Date Note Type Note Provider Name and Address Organization Details Recorded Time 01/26/2024 text/html In November he had a severe throat infection. He was given abx and prednisone. He had a normal CT at [facility] which was negative per his report (I don't have access to the CT). Since then his throat has bothered him. He feels he has had some voice change, enlarged tonsils and the feeling of phlegm stuck in his throat. Currently he has no pain. He does have globus. He denies dysphagia. TAYLOR WILKES MD [address] [facility],[address], [address], [place] - [facility] 01/26/2024 11:23:09 05/04/2024 text/html He has a history of leukemia. He was seen here 01/2024 he had severe tonsil hypertrophy. He reports his throat feels better and less swollen. Has a left hearing aid which isn't working well. Has not had a recent hearing test. TAYLOR WILKES MD [address] [facility],[place] [address], [place], [address], [place] [facility] 05/04/2024 15:41:25
--- OUTSIDE RECORDS SUMMARY | 2024-09-07 14:59 | XMS_ITS | Encounter Summary ---
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 (CMS/HCC) Procedures PET CT Skull to Mid Thigh Initial Jackelyn Buenrostro MD [address] [place] [address] HEMATOLOGY / [place] [address] Phone: tel: fax: [facility] Referral ID Status Reason Start Date Expiration Date V isits Requested Visits Authorized [id number] Pending Review 08/25/2024 08/25/2025 1 1 Reason for Visit * Imaging (Routine) - Pending Review Specialty Diagnoses / Procedures Referred By Darian tejada Referred To Contact Radiology Diagnoses Chronic lymphocytic 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 (CMS/HCC) Procedures PET CT Skull to Mid Thigh Initial Jackelyn Buenrostro MD [address] [place] [address] HEMATOLOGY / [place] [address] Phone: tel: fax: [facility] Referral ID Status Reason Start Date Expiration Date V isits Requested Visits Authorized [id number] Pending Review 08/25/2024 08/25/2025 1 1 Encounter Details Date Type Department Care Team (Latest Contact Info) Description 08/26/2024 2:00 PM EST - 08/26/2024 11:59 PM EST Hospital Encounter [facility] PET Scan [address] [place] [address] Chronic lymphocytic 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 (CMS/HCC) Discharge Disposition: Home or Self Care Social History Tobacco Use Types Packs/Day Years Used Date Smoking Tobacco: Former Smokeless Tobacco: Former Alcohol Use Standard Drinks/Week Comments No 0 (1 standard drink = 0.6 oz pur e alcohol) Sex and Gender Information Value Date Recorded Sex Assigned at Not on file Legal Sex Male 2:26 PM EST Gender Identity Not on file Sexual Orientation Not on file documented as of this encounter Discharge Disposition Disposition Code Departure Means Destination Home or Self Care documented in this encounter Plan of Treatment Not on file documented as of this encounter Procedures Procedure Name Priority Date/Time Associated Diagnosis Comments PET CT SKULL TO MID THIGH INITIAL Routine 08/26/2024 3:30 PM EST Chronic lymphocytic 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 (CMS/HCC) documented in this encounter Results * PET CT Skull to Mid Thigh Initial (08/26/2024 3:30 PM EST) Anatomical Region Laterality Modality Body Radiographic Susannah ging 09/03/2024 10:5 7 AM EST Impressions 09/03/2024 1:11 PM EST 1. ??Interval increase in FDG activity of cervical, axillary/retropectoral, abdominal and pelvic lymphadenopathy in keeping with progression of disease 2. ??New left adrenal FDG activity Please note: The CT was acquired at a low radiation dose settings. ??The images are of nondiagnostic quality and used solely for purposes of attenuation correction and slice localization for the PET scan. ??If a diagnostic CT study is desired it must be ordered separately. -------- FINAL REPORT -------- Dictated By: Cristin Cho Dictated Date: 09/03/2024 10:57 ET Assigned Physician: Cristin Cho Reviewed and Electronically Signed By: Cristin Cho Signed Date: 09/03/2024 13:11 ET Workstation ID: [id number] Transcribed By: Self Edit Transcribed Date: 09/03/2024 10:57 ET Narrative 09/03/2024 1:11 PM EST INDICATION: PS RESTAGING CLL. 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 ?? TECHNIQUE: FDG PET-CT imaging was performed from the skull bases through the thighs in a single acquisition with data set reconstructed in axial, coronal, and sagittal planes at the computer workstation with fused data from both the PET imaging study and attenuation correction CT. The CT portion of the examination was done strictly for attenuation correction and is not a true diagnostic CT examination. DLP: ??824 mGy-cm Radiopharmaceutical: 11.6 mCi of F-18 FDG IV. Blood glucose: 95 mg/dl. COMPARISON: January 2024 PET/CT and outside neck CT November 2023 FINDINGS: ??Reference Values: Mediastinal Blood Pool: 2.6 SUV Max, Liver: 3.4 SUV Max HEAD AND NECK: Bilateral FDG avid lymphoid activity most significant along the tonsillar region SUV max 7.2 on the left (previously 6.4) and 6.4 on the right (previously 5.7). Enlarged bilateral cervical lymphadenopathy SUV max 2.8 bilaterally (previously 2.5). ??Enlarged supraclavicular lymphadenopathy SUV max 2.3 on the left (similar to prior) and 1.9 on the right (previously 2.2). ?? Bilateral intraparotid lymph nodes SUV max 1.6 on the left and 1.7 on the right (previously 2.2 on the left and 2.0 on the right). Heterogeneity of both thyroid lobes with bilateral thyroid nodules SUV Max 2.2 on the left (previously 2.3) and 1.7 on the right (previously 2.6). THORAX: Interval increase in size and number of bilateral axillary and retropectoral lymph nodes measuring up to SUV Max 2.4 on the left (previously 2.0) and 2.7 on the right (previously 2.2), common iliac SUV max 3.3 (previously 2.6) Prevascular lymph node SUV max 1.6 (previously 1.3), subcarinal SUV max 1.7 (previously 1.4) retrocrural SUV max 1.7. ??Right paratracheal lymph nodes SUV max 1.3 (previously 1.6). ABDOMEN/PELVIS: Abdominal and pelvic lymphadenopathy; overall increased in size and number in comparison to prior. ??Mendez hepatis/portacaval lymph nodes SUV max 2.5 (previously 2.3, mesenteric SUV Max 2.9 (previously 2.9), retroperitoneal SUV max 3.3 (previously 2.6), common iliac SUV max 3.4 (previously 2.6), internal iliac SUV max 3.2 (previously 2.6), external iliac SUV max 2.5 (previously 2), obturator SUV Max 2.9 (previously 2.5). ??Bilateral inguinal SUV max 1.8 (previously 1.5). Left adrenal nodularity and thickening SUV max 4.7 (previously 3 SUV Max; contralateral right SUV max 2.4). Hepatosplenomegaly. ??Enlarged prostate gland. ??Spleen SUV max 2.4. Lesion in the lateral aspect of the left kidney SUV max 1.5 (previously 1.7). ??Nonspecific urinary bladder wall thickening. MUSCULOSKELETAL: Incompletely imaged focal nonspecific FDG activity involving the distal diaphysis of the left femur SUV Max 13.7. ??Left femoral osteochondroma without significant FDG activity. ??Right femoral anterior diaphyseal excrescence without significant FDG activity SUV max 1.2 (previously 1.4). ??Previously seen activity within fat-containing lesion in the left gluteus medius adriana muscle is decreased from prior SUV max 1 (previously 3.3). Procedure Note Cristin Cho MD - 09/03/2024 INDICATION: PS RESTAGING CLL. History of bladder cancer and onocytoma ofthe kidney status post treatment including left cryoablation. TECHNIQUE: FDG PET-CT imaging was performed from the skull bases throughthe thighs in a single acquisition with data set reconstructed in axial,coronal, and sagittal planes at the computer workstation with fused datafrom both the PET imaging study and attenuation correction CT. The CTportion of the examination was done strictly for attenuation correctionand is not a true diagnostic CT examination. DLP: 824 mGy-cm Radiopharmaceutical: 11.6 mCi of F-18 FDG IV. Blood glucose: 95 mg/dl. COMPARISON: January 2024 PET/CT and outside neck CT November 2023 FINDINGS: Reference Values: Mediastinal Blood Pool: 2.6 SUV Max, Liver:3.4 SUV Max HEAD AND NECK: Bilateral FDG avid lymphoid activity most significant alongthe tonsillar region SUV max 7.2 on the left (previously 6.4) and 6.4 onthe right (previously 5.7). Enlarged bilateral cervical lymphadenopathy SUV max 2.8 bilaterally(previously 2.5). Enlarged supraclavicular lymphadenopathy SUV max 2.3 onthe left (similar to prior) and 1.9 on the right (previously 2.2). Bilateral intraparotid lymph nodes SUV max 1.6 on the left and 1.7 on theright (previously 2.2 on the left and 2.0 on the right). Heterogeneity of both thyroid lobes with bilateral thyroid nodules SUV Max2.2 on the left (previously 2.3) and 1.7 on the right (previously 2.6). THORAX: Interval increase in size and number of bilateral axillary andretropectoral lymph nodes measuring up to SUV Max 2.4 on the left(previously 2.0) and 2.7 on the right (previously 2.2), common iliac SUVmax 3.3 (previously 2.6) Prevascular lymph node SUV max 1.6 (previously 1.3), subcarinal SUV max1.7 (previously 1.4) retrocrural SUV max 1.7. Right paratracheal lymphnodes SUV max 1.3 (previously 1.6). ABDOMEN/PELVIS: Abdominal and pelvic lymphadenopathy; overall increased insize and number in comparison to prior. Mendez hepatis/portacaval lymphnodes SUV max 2.5 (previously 2.3, mesenteric SUV Max 2.9 (previously2.9), retroperitoneal SUV max 3.3 (previously 2.6), common iliac SUV max3.4 (previously 2.6), internal iliac SUV max 3.2 (previously 2.6),external iliac SUV max 2.5 (previously 2), obturator SUV Max 2.9(previously 2.5). Bilateral inguinal SUV max 1.8 (previously 1.5). Left adrenal nodularity and thickening SUV max 4.7 (previously 3 SUV Max;contralateral right SUV max 2.4). Hepatosplenomegaly. Enlarged prostate gland. Spleen SUV max 2.4. Lesion in the lateral aspect of the left kidney SUV max 1.5 (previously1.7). Nonspecific urinary bladder wall thickening. MUSCULOSKELETAL: Incompletely imaged focal nonspecific FDG activityinvolving the distal diaphysis of the left femur SUV Max 13.7. Leftfemoral osteochondroma without significant FDG activity. Right femoralanterior diaphyseal excrescence without significant FDG activity SUV max1.2 (previously 1.4). Previously seen activity within fat-containinglesion in the left gluteus medius adriana muscle is decreased from priorSUV max 1 (previously 3.3). IMPRESSION: 1. Interval increase in FDG activity of cervical, axillary/retropectoral,abdominal and pelvic lymphadenopathy in keeping with progression ofdisease 2. New left adrenal FDG activity Please note: The CT was acquired at a low radiation dose settings. The images are ofnondiagnostic quality and used solely for purposes of attenuationcorrection and slice localization for the PET scan. If a diagnostic CTstudy is desired it must be ordered separately. 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 (CMS/HCC) documented in this encounter Administered Medications Inactive Administered Medications - up to 3 most recent administrations Medication Order MAR Action Action Date Dose Rate Site F-18 FDG pet diag radio-isotope injection 11.6 millicurie 11.6 millicurie, intravenous, Once in imaging, Starting on Madalyn 08/26/24 at 1415, For 1 dose Given 08/26/2024 2:11 PM EST 11.6 millicuries Left Hand documented in this encounter Orders Medications Ordered That Román ht Not Have Been Administered Count Last Ordered Date First Ordered Date F-18 FDG pet diag radio-isot ope injection 11.6 millicurie 1 08/26/2024 documented in this encounter
--- OUTSIDE RECORDS SUMMARY | 2024-09-07 15:00 | XMS_ITS | Encounter Summary ---
Author Organization [employer] Address [address] [place] [address] Care Team Providers Care Car Wash Manager Name Role Phone Name, Louis DISLA Primary Care Provider [phone] Reason for Visit * Reason Onset Date Comments October recall 09/01/2024 Encounter Details Date Type Department Care Team ([facility] st Contact Info) Description 09/01/2024 Telephone [facility] [address] [place], [place] [id number] Hitesh Boyle [place] October recall Social History Tobacco Use Types Packs/Day Years Used Date Smoking Tobacco: Never Passive Smoke Exposure: Never Smokeless Tobacco: Never Alcohol Use Standard Drinks/Week Comments Never 0 (1 standard drink = 0.6 oz pur e alcohol) Alcohol Answer Date Recorded Frequency of Alcohol Consumption Not on file 12/23/2023 Average Number of Drinks Not on file 024 Frequency of Binge Drinking Not on file 12/12 Score 0 12/23/2023 Depression Answer Date Recorded Patient Health Questionnaire-9 Score 0 10/14/2023 Patient Health Questionnaire-9 Score 0 10/14/2023 Last PHQ-9: Questionnaire Data Not on file 0 10/14/2023 Housing Stability Answer Date Recorded What is your housing situation today? I have philip rangel 10/08/[address] you li ve. Do you have problems with any of the following? None of the above 10/08/2023 Food Insecurity Answer Date Recorded Within the past 12 months, y ou worried that your food would run out before you got money to buy more: Never True 10/08/2023 Within the past 12 months,th e food you bought just didn't last and you didn't have enough money to get more: Never True Transportation Answer Date Recorded In the past 12 months, has l ack of transportation kept you from medical appts, meetings, work or from getting things needed for daily living? No 10/08/2023 Utilities Answer Date Recorded In the past 12 months, has t he electric, gas, oil or water company threatened to shut off services in your home? No 10/08/2023 Depression Answer Date Recorded Patient Health Questionnaire-2 Score 0 10/14/2023 Sex and Gender Information Value Date Recorded Sex Assigned at Male 05/13/2022 10:29 AM EDT Legal Sex Male 10:29 AM EDT Gender Identity Male 05/13/2022 10:29 AM EDT Sexual Orientation Straight 05/13/2022 10 :29 AM EDT documented as of this encounter Miscellaneous Notes * Telephone Encounter - Hitesh Boyle MA - 09/01/2024 10:20 AM EST T/C placed to pt. Scheduled recall. Pt agrees with plan. Reminder letter sent . documented in this encounter Plan of Treatment Upcoming Encounters Date Type Department Care Team (Late st Contact Info) Description 11/23/2024 2:00 PM EDT Office Visit [facility] [address] [place] [phone] Name, MD Louis [address] [place] [address] documented as of this encounter Visit Diagnoses Not on filedocumented in this encounter Additional Health Concerns Assessment Noted Time PHQ-9 Depression Total Score: 0 10/14/19 24 1:34 PM EDT documented as of this encounter Care Teams Car Wash Manager Relationship Specialty Start Date End Date Name, MD Louis [address] [place] [id number] PCP - General Family Medicine 07/14/18 documented as of this encounter
--- OUTSIDE RECORDS SUMMARY | 2024-09-07 15:00 | XMS_ITS | Encounter Summary ---
Author Organization [employer] [facility] Address [address] [place] [address] Care Team Providers Care Credit Collections Manager Name Role Phone Name, Louis DISLA Primary Care Provider [phone] Encounter Details Date Type Department Care Team (Late st Contact Info) Description 08/19/2024 Orders Only GENERIC EXTERNAL DATA DEPARTMENT Provider, Generic External Data Social History Tobacco Use Types Packs/Day Years [...] AM EDT documented as of this encounter Plan of Treatment Upcoming Encounters Date Type Department Care Team (Late st Contact Info) Description 11/23/2024 2:00 PM EDT Office Visit [facility] [address] [place] [phone] Name, MD Louis [address] [place] [address] documented as of this encounter Procedures Procedure Name Priority Date/Time Associated Diagnosis Comments CT SOFT TISSUE NECK W CONTRAST Routine 08/19/2024 3:55 PM EST COMPLETE BLOOD COUNT MAN DIF Routine 08/19/2024 1:20 PM EST CBC WITH AUTO DIFFERENTIAL Routine 08/19/2024 1:20 PM EST MONONUCLEOSIS TEST, QUALITATIVE Routine 08/19/2024 1:20 PM EST URIC ACID Routine 08/19/2024 1:20 PM EST MAGNESIUM Routine 08/19/2024 1:20 PM EST LD Routine 08/19/2024 1:20 PM EST HEPATIC FUNCTION PANEL Routine 1:20 PM EST BASIC METABOLIC PANEL Routine 08/19/2024 1:20 PM EST documented in this encounter Results * CT Soft Tissue Neck w/ Contrast (08/19/2024 3:55 PM EST) Anatomical Region Laterality Modality Head, Neck Computed Tomogra phy 08/19/2024 3:55 PM EST Narrative 08/19/2024 4:50 PM EST ? [facility] ?[address] ?[place] [address] ? CT Scan Report ? Signed ? Patient: Mendoza ,Irwin Garcia ?MR#: MM ?? [id number] ? : 1970 ?Acct:[id number] ? Age/Sex: 54 / M ?ADM Date: 08/19/24 ? Loc: HO.ED ? Attending Dr: ? Ordering Physician: Matty Neff MD ?? Date of Service: 08/19/24 ?? Procedure(s): CT soft tissue neck w IV con ?? Accession Number(s): [id number] ? cc: Matty Neff MD; Name,Louis DISLA ? Report Number: ?? [id number]: Total DLP = ??845.00 mGy-cm ?? EXAMINATION: ?? CT SOFT TISSUE NECK WITH CONTRAST ? CLINICAL INFORMATION: ?? Neck swelling, Adenopathy, voice changes. ? COMPARISON: ?? 11/18/2023, 10/16/2019. ? TECHNIQUE: ?? Following the intravenous administration of 60 mL of Omnipaque 350 ?? intravenous contrast, helical imaging of the neck was performed in the ?? axial plane with generation of coronal and sagittal reformatted images. ? This CT examination was performed using dose optimization techniques as ?? appropriate, variously including the following: ?? *Automated exposure control ?? *Adjustment of mA and/or kV according to patient size (this includes ?? techniques or standardized protocols for targeted exams where dose is ?? matched to indication/reason for exam; i.e. extremities or head) ?? *Use of iterative reconstruction technique ? FINDINGS: ? Lymph Nodes: ?? -Extensive bulky abnormal anterior and posterior cervical chain ?? lymphadenopathy throughout the neck. For example, a left level 5 node ?? measures 3.1 x 3.4 cm axial plane (series 3, image 67). A right level ?? 5B lymph node measures 2.6 x 2.3 cm axial plane (series 3, image 82). ?? -Enlarged nodes at all levels extending into the mediastinum, and ?? bilateral subpectoral and axillary regions. Lymphoproliferative ?? disorder is suspected. ? Carotid Sheath Structures: ?? -The carotids enhance normally. ?? -Both distal CCAs have been pushed mildly retropharyngeal by bulky ?? lymphadenopathy. This may explain voice changes. ?? -Mild effacement of both internal jugular veins. No venous or SVC ?? effacement. ? Salivary Glands: ?? -Fatty change of both parotid glands, with enlarged intraparotid lymph ?? nodes present. No suspicious parotid lesion. Few tiny calcifications in ?? both parotid glands. ?? -Submandibular glands have been pushed anteriorly by bulky ?? lymphadenopathy, and demonstrate mild fatty change. No intrinsic ?? lesions. ? Mucosal Space: ?? -Prominence of the tonsillar pillar soft tissues. Significant ?? enlargement of the palatine tonsils with moderate effacement of the ?? hypopharyngeal airway. ?? -No discrete enhancing mucosal space lesion. Normal epiglottis and ?? aryepiglottic folds. ? Visceral Space: ?? -Thyroid gland: Heterogeneous with probable underlying nodules which ?? are poorly seen by CT. ?? -Larynx is normal. True vocal cords are adducted, limiting of bowel. ?? Arytenoid cartilages are in normal position. No asymmetry of laryngeal ?? ventricle. No discrete evidence of vocal cord paralysis/paresis. ?? -Subglottic trachea is patent. ?? -Upper esophagus is normal. ? Retropharangeal Space: ?? -Normal imaging appearance. ? Parapharyngeal Fat Planes: ?? -Normal without effacement. ? Portfolio Director Spaces: ?? -Normal. ? Imaged Intracranial Contents: ?? -No mass effect, edema, or abnormal enhancement. Cortical and dural ?? venous sinuses are patent. The skull base is normal. ? Globes and Orbits: ?? -Normal. ? Paranasal Sinuses/Mastoids/Tympanic Spaces: ?? -Normally aerated bilaterally. ? Lung Apices and Superior Mediastinal Structures: ?? -Imaged lung apices are clear. ?? -Superior mediastinal structures demonstrate adenopathy but no ?? additional abnormalities. Central airways are patent. ? Bony Structures: ?? -No suspicious bone lesions. No fractures. ?? -There are left mandibular periapical lucencies with dental caries. ?? -There are degenerative hypertrophic facet changes at C3-4 and C4-5. ?? There are cervical degenerative disc changes most significant at C5-6 ?? and C6-7. ? CT/CT soft tissue neck w IV con ?? IMPRESSION: ?? 1. Extensive, severe bulky pathologic lymphadenopathy throughout all ?? levels of the anterior and posterior cervical chains. Abnormal lymph ?? nodes extend into the mediastinum, bilateral subpectoral regions and ?? axillary regions. Lymphoproliferative disorder is suspected. ?? 2. Bulky cervical lymph nodes have mildly deviated the distal CCAs ?? delay, into the lateral retropharyngeal regions. ?? 3. Mild mass effect upon the thyroid cartilage from bulky ?? lymphadenopathy may explain which changes, versus mass affect on the ?? recurrent laryngeal nerves. No imaging evidence of vocal cord paresis ?? although the true cords are adducted. ?? 4. Marked enlargement of the palatine tonsils and adenoids, resulting ?? in moderate effacement of the hypopharyngeal airway. ?? 5. Heterogeneous mildly enlarged thyroid with probable underlying ?? nodules. There are poorly defined on CT. ? Electronically signed by: ??Edd Palacios MD ??08/19/2024 04:46 PM EST RP ?? Workstation: [id number] ? Dictated By: ?Edd Palacios MD ? Signed By: ?<Electronically signed by Edd Palacios MD in OV> ?08/19/24 1646 ? DD/ 1555 ? TD/TT: 08/19/24 1612 ? Field Interviewer: ? Procedure Note Floridalma, Image - 08/19/[address] [address] [address] Scan Report Signed Patient: Kelly MéndezIrwin MclaughlinR#: [id number] : 1970Acct:[id number] Age/Sex: 54 / MADM Date: 08/19/24 Loc: HO.ED Attending Dr: Ordering Physician: Matty Neff MD Date of Service: 08/19/24 Procedure(s): CT soft tissue neck w IV con Accession Number(s): [id number] cc: Matty Neff MD; Name,Louis Report Number: [id number]: Total DLP = 845.00 mGy-cm EXAMINATION: CT SOFT TISSUE NECK WITH CONTRAST CLINICAL INFORMATION: Neck swelling, Adenopathy, voice changes. COMPARISON: 11/18/2023, 10/16/2019. TECHNIQUE: Following the intravenous administration of 60 mL of Omnipaque 350 intravenous contrast, helical imaging of the neck was performed in the axial plane with generation of coronal and sagittal reformatted images. This CT examination was performed using dose optimization techniques as appropriate, variously including the following: *Automated exposure control *Adjustment of mA and/or kV according to patient size (this includes techniques or standardized protocols for targeted exams where dose is matched to indication/reason for exam; i.e. extremities or head) *Use of iterative reconstruction technique FINDINGS: Lymph Nodes: -Extensive bulky abnormal anterior and posterior cervical chain lymphadenopathy throughout the neck. For example, a left level 5 node measures 3.1 x 3.4 cm axial plane (series 3, image 67). A right level 5B lymph node measures 2.6 x 2.3 cm axial plane (series 3, image 82). -Enlarged nodes at all levels extending into the mediastinum, and bilateral subpectoral and axillary regions. Lymphoproliferative disorder is suspected. Carotid Sheath Structures: -The carotids enhance normally. -Both distal CCAs have been pushed mildly retropharyngeal by bulky lymphadenopathy. This may explain voice changes. -Mild effacement of both internal jugular veins. No venous or SVC effacement. Salivary Glands: -Fatty change of both parotid glands, with enlarged intraparotid lymph nodes present. No suspicious parotid lesion. Few tiny calcifications in both parotid glands. -Submandibular glands have been pushed anteriorly by bulky lymphadenopathy, and demonstrate mild fatty change. No intrinsic lesions. Mucosal Space: -Prominence of the tonsillar pillar soft tissues. Significant enlargement of the palatine tonsils with moderate effacement of the hypopharyngeal airway. -No discrete enhancing mucosal space lesion. Normal epiglottis and aryepiglottic folds. Visceral Space: -Thyroid gland: Heterogeneous with probable underlying nodules which are poorly seen by CT. -Larynx is normal. True vocal cords are adducted, limiting of bowel. Arytenoid cartilages are in normal position. No asymmetry of laryngeal ventricle. No discrete evidence of vocal cord paralysis/paresis. -Subglottic trachea is patent. -Upper esophagus is normal. Retropharangeal Space: -Normal imaging appearance. Parapharyngeal Fat Planes: -Normal without effacement. Portfolio Director Spaces: -Normal. Imaged Intracranial Contents: -No mass effect, edema, or abnormal enhancement. Cortical and dural venous sinuses are patent. The skull base is normal. Globes and Orbits: -Normal. Paranasal Sinuses/Mastoids/Tympanic Spaces: -Normally aerated bilaterally. Lung Apices and Superior Mediastinal Structures: -Imaged lung apices are clear. -Superior mediastinal structures demonstrate adenopathy but no additional abnormalities. Central airways are patent. Bony Structures: -No suspicious bone lesions. No fractures. -There are left mandibular periapical lucencies with dental caries. -There are degenerative hypertrophic facet changes at C3-4 and C4-5. There are cervical degenerative disc changes most significant at C5-6 and C6-7. CT/CT soft tissue neck w IV con IMPRESSION: 1. Extensive, severe bulky pathologic lymphadenopathy throughout all levels of the anterior and posterior cervical chains. Abnormal lymph nodes extend into the mediastinum, bilateral subpectoral regions and axillary regions. Lymphoproliferative disorder is suspected. 2. Bulky cervical lymph nodes have mildly deviated the distal CCAs delay, into the lateral retropharyngeal regions. 3. Mild mass effect upon the thyroid cartilage from bulky lymphadenopathy may explain which changes, versus mass affect on the recurrent laryngeal nerves. No imaging evidence of vocal cord paresis although the true cords are adducted. 4. Marked enlargement of the palatine tonsils and adenoids, resulting in moderate effacement of the hypopharyngeal airway. 5. Heterogeneous mildly enlarged thyroid with probable underlying nodules. There are poorly defined on CT. Electronically signed by: Edd Palacios MD 08/19/2024 04:46 PM EST Dictated By: Edd Palacios MD Signed By: <Electronically signed by Edd Palacios MD in OV> 08/19/24 1646 DD/ 1555 TD/TT: 08/19/24 1612 Field Interviewer: [facility] External Provider IMG CT PROCEDURES Final Result * Mononucleosis Test, Qualitative (08/19/2024 1:20 PM EST) Pathologist [facility] Monotest Negative Negative [facility] 08/19/2024 1:20 PM EST 08/19/2024 1:24 PM EST Generic External Data Provider LAB BLOOD ORDERAB LES Final Result Performing Organization Address City/[facility]/ZIP Co de Phone Number [facility] [address] [place] [phone] * Magnesium (08/19/2024 1:20 PM EST) [facility] Magnesium 2.3 1.6 - 2.6 mg/dL [facility] 08/19/2024 1:20 PM EST 08/19/2024 1:24 PM EST Generic External Data Provider LAB BLOOD ORDERAB LES Final Result Performing Organization Address [facility] Co de Phone Number [facility] [address] [place] [phone] * (ABNORMAL) Basic Metabolic Panel (08/19/2024 1:20 PM EST) [facility] Sodium 140 135 - 145 mmol/L [facility] Potassium 4.2 3.3 - 5.1 mmol/L [facility] Chloride 106 96 - 108 mmol/L [facility] Carbon Dioxide 24 22 - 29 mmol/L [facility] Anion Gap 14 12 - 20 [facility] Urea Nitrogen (BUN) 19(H) 9 - 16 mg/dL [facility] Creatinine, Serum 0.78 0.5 - 1.4 mg/dL [facility] Creatinine Clr Calc Pharmacy 101.7 [facility] Comment:eGFR (calculated fro m the MDRD study equation) and eCrCl(calculated from the Cockcroft-Gault equation) are based ondifferent parameters and may not yield comparable results.If eCrCl result is absurd, please check patient'sheight/weight. Estimated Glomerular Filt Rate >60 [facility] Comment:Chronic Kidney Disea se: Estimated GFR < 60 mL/min/1.88t5Cswudw Kidney Disease: Estimated GFR < 15 mL/min/1.73m2 Glucose 91 60 - 115 mg/dL [facility] Calcium 9.4 8.4 - 10.2 mg/dL [facility] 08/19/2024 1:20 PM EST 08/19/2024 1:24 PM EST us Generic External Data Provider LAB BLOOD ORDERAB LES Final Result Performing Organization Address City/[facility]/ZIP Co de Phone Number [facility] [address] [place] [phone] * Hepatic Function Panel (08/19/2024 1:20 PM EST) Bilirubin, Total 0.5 0.0 - 1.0 mg/dL [facility] Bilirubin, Direct 0.1 0.0 - 0.5 mg/dL [facility] Aspartate Amino Transferase 24 5 - 37 U/L [facility] Alanine Aminotransferase 26 0 - 40 U/L [facility] Total Protein 7.3 6.5 - 8.0 g/dL [facility] Albumin Level 4.9 3.5 - 5.0 g/dL [facility] Alkaline Phosphatase 66 39 - 117 U/L [facility] 08/19/2024 1:20 PM EST 08/19/2024 1:24 PM EST us Generic External Data Provider LAB BLOOD ORDERAB LES Final Result Performing Organization Address City/[facility]/ZIP Co de Phone Number [facility] [address] [place] [phone] * Lactate Dehydrogenase (LD) (08/19/2024 1:20 PM EST) Lactate Dehydrogenase 215 118 - 273 U/L [facility] 08/19/2024 1:20 PM EST 08/19/2024 1:24 PM EST us Generic External Data Provider LAB BLOOD ORDERAB LES Final Result Performing Organization Address [facility] Co de Phone Number [facility] [address] [place] [phone] * Uric acid (08/19/2024 1:20 PM EST) Uric Acid 6.4 3.4 - 7.0 mg/dL [facility] 08/19/2024 1:20 PM EST 08/19/2024 1:24 PM EST Generic External Data Provider LAB BLOOD ORDERAB LES Final Result Performing Organization Address [facility] Co me Phone Number [facility] [address] [place] [phone] * (ABNORMAL) Complete Blood Count Manual Diff (08/19/2024 1:20 PM EST) Pathologist [facility] White Blood Count 30.6(HH) 4.8 - 10.8 X10*3/uL [facility] Comment:RESULTS OF WBC ZALDIVAR D TO AND READ BACK BY YULIYA 08/19/24 AT 1332 BY KENNEDY. Red Blood Count 4.86 4.60 - 5.80 X10*6/uL [facility] Hemoglobin 13.8(L) 14.0 - 18.0 g/dl [facility] Hematocrit 41.8(L) 42.0 - 52.0 % [facility] Mean Corpuscular Volume 86.0 80.0 - 98.0 fL [facility] Mean Corpuscular Hemoglobin 28.4 27.0 - 33.0 pg [facility] Mean Corpuscular HGB Conc 33.0 31.0 - 36.0 g/dl [facility] Red Cell Distribution Width 14.6 11.0 - 16.0 % [facility] Platelet Count 149(L) 160 - 400 X10*3/uL [facility] Mean Platelet Volume 9.4 9.4 - 12.4 fL [facility] NRBC Pct Auto 0.0 0.0 - 0.2 /100WBC [facility] NRBC Abs Auto 0.000 0.0 - 0.012 X10*3/uL [facility] Neutrophils % Manual 9(L) 45 - 73 % [facility] Band Neutrophils Percent 0(L) 3 - 5 % [facility] Lymphocytes Percent Manual 87(H) 20 - 40 % [facility] Atypical Lymphs Percent Manual 2 0 - 6 % [facility] Monocytes Percent Manual 1(L) 2 - 11 % [facility] EOSINOPHILS % MANUAL 1 0 - 4 % [facility] NEUTROPHILS ABSOLUTE MANUAL 2.8 2.0 - 8.3 X10*3/uL [facility] LYMPHOCYTES ABSOLUTE MANUAL 26.6(H) 1.2 - 4.9 X10*3/uL [facility] Atypical Lymph Absolute Manual 0.6 x10*3/uL [facility] MONOCYTES ABSOLUTE MANUAL 0.3 0.1 - 1.2 X10*3/uL [facility] EOSINOPHILS ABSOLUTE MANUAL 0.3 0.0 - 0.4 X10*3/uL [facility] Smudge Cells PRESENT [facility] Platelet Estimate NORMAL NORMAL [facility] Platelet Morphology Comment NORMAL [facility] RBC Morphology NORMAL [facility] 08/19/2024 1:20 PM EST 08/19/2024 1:24 PM EST us Generic External Data Provider LAB BLOOD ORDERAB LES Final Result [facility] [address] [place] [phone] * (ABNORMAL) CBC auto differential (08/19/2024 1:20 PM EST) White Blood Count 30.6(HH) 4.8 - 10.8 X10*3/uL [facility] Comment:RESULTS OF WBC ZALDIVAR D TO AND READ BACK BY YULIYA 08/19/24 AT 1332 BY KENNEDY. Red Blood Count 4.86 4.60 - 5.80 X10*6/uL [facility] Hemoglobin 13.8(L) 14.0 - 18.0 g/dl [facility] Hematocrit 41.8(L) 42.0 - 52.0 % [facility] Mean Corpuscular Volume 86.0 80.0 - 98.0 fL [facility] Mean Corpuscular Hemoglobin 28.4 27.0 - 33.0 pg [facility] Mean Corpuscular HGB Conc 33.0 31.0 - 36.0 g/dl [facility] Red Cell Distribution Width 14.6 11.0 - 16.0 % [facility] Platelet Count 149(L) 160 - 400 X10*3/uL [facility] Mean Platelet Volume 9.4 9.4 - 12.4 fL [facility] Neutrophils Percent Auto 8.1(L) 45 - 73 % [facility] Imm Gran Pct Auto 0.2 0.0 - 0.4 % [facility] Lymphocytes Percent Auto 78.6(H) 20 - 40 % [facility] Monocytes Percent Auto 12.2(H) 2 - 11 % [facility] Eosinophils Percent Auto 0.5 0 - 4 % [facility] Basophils Percent Auto 0.4 0 - 2 % [facility] NRBC Pct Auto 0.0 0.0 - 0.2 /100WBC [facility] Neutrophils Absolute Auto 2.5 2.0 - 8.3 x10*3/uL [facility] Imm Gran Abs Auto 0.06(H) 0.00 - 0.03 X10*3/uL [facility] Lymphocytes Absolute Auto 24.1(H) 1.2 - 4.9 X10*3/uL [facility] Monocytes Absolute Auto 3.7(H) 0.1 - 1.2 X10*3/uL [facility] Eosinophils Absolute Auto 0.1 0.0 - 0.4 X10*3/uL [facility] Basophils Absolute Auto 0.1 0.0 - 0.2 X10*3/uL [facility] NRBC Abs Auto 0.000 0.0 - 0.012 X10*3/uL [facility] 08/19/2024 1:20 PM EST 08/19/2024 1:24 PM EST us Generic External Data Provider LAB BLOOD ORDERAB LES Edited Result - Final [facility] [address] [place] [phone] documented in this encounter Visit Diagnoses Not on filedocumented in this encounter Additional Health Concerns Assessment Noted Time PHQ-9 Depression Total Score: 0 10/14/19 24 1:34 PM EDT documented as of this encounter Care Teams Credit Collections Manager Relationship Specialty Start Date End Date Name, MD Louis [address] [place] [address] PCP - General Family Medicine 07/14/18 documented as of this encounter
--- OUTSIDE RECORDS SUMMARY | 2024-09-07 15:00 | XMS_ITS | Clinical Summary ---
Author Organization [employer] Address [address] [facility] [address] [place] [address] Care Team Providers Care Service Station Equipment Mechanic Name Role Phone Name, Louis DISLA Primary Care Provider [phone] Allergies No known active allergies Medications mometasone (Nasonex) 50 MCG/ACT nasal spray Administer 1-2 sprays into each nostril in the morning. 4 10/14/19 25 Active clindamycin (Cleocin T) 1 % lotion APPLY TO AFFECTED AREA TWICE A DAY 60 mL 2 4 Active predniSONE (Deltasone) 10 MG tabletIndication s:Throat pain Take by oral route daily. 6 tabs (=60mg) on day 1-2; 5 tabs (=50mg) on day 3-4; 4 tabs (=40mg) on day 5-6; 3 tabs (=30mg) on day 7-8; 2 tabs (=20mg) on day 9-10; 1 tab on day 11-12; 1/2 tab on day 13-14 43 tablet 4 Active loratadine (Claritin) 10 MG tablet TAKE 1 TABLET BY MOUTH EVERY DAY IN THE MORNING 90 tablet 1 4 Active lisinopril 40 MG tabletIndication s:Hypertension, unspecified type Take 1 tablet (40 mg) by mouth in the morning. 90 tablet 3 4 Active amLODIPine (Norvasc) 10 MG tabletIndication s:Hypertension, unspecified type Take 1 tablet (10 mg) by mouth Once per day. 90 tablet 3 4 01/30/20 25 Active Active Problems Problem Noted Date Diagnosed Date Impacted cerumen of left ear 05/04/2024 Hypertrophy of tonsils 01/26/2024 Chronic sore throat 01/26/2024 Throat pain 12/23/2023 Tonsillitis, chronic 12/23/2023 Assessment & Plan (12/23/2023 1:51 PM EDT): Pt with persistent symptoms interfering with ability to swallow, despite treatment with abx and two steroid courses, will refer stat to ENT for urgent evaluation Abdominal bloating 10/14/2023 Arthritis of knee 10/14/2023 Benign prostatic hyperplasia with lower urinary tract symptoms 10/14/2023 Hx of bladder cancer 10/14/2023 Tubular adenoma of colon 10/14/2023 Cancer of kidney 10/14/2023 CLL (chronic lymphocytic leukemia) 04/23/2023 Acute Lyme disease 12/19/2022 Overview (10/14/2023): Patient was fully treated with doxy Periodontal disease 09/26/2022 Dental calculus 09/26/2022 Gingival recession, generalized 09/26/2022 Sensorineural hearing loss (SNHL) of both ears 1 08/22/2020 Overview (01/30/2024): Sensorineural hearing loss, bilateral; Note: Date Diagnosed: 06/21/2021 11:59 AM (H90.3) Note: Date Diagnosed: 06/21/2021 11:59 AM (H90.3) 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 Respiratory [employer] [facility] Hypertension 11/12/2010 ED (erectile dysfunction) 06/19/2010 Resolved Problems Problem Noted Date Diagnosed Date Resolved Date Sensation of lump in throat 01/26/2024 01/30/2024 Obstructive sleep apnea syndrome 01/26/2024 01/30/2024 Arthritis 10/14/2023 10/14/2023 Bronchitis 10/14/2023 10/14/2023 COVID-19 10/14/2023 10/14/2023 Injury of quadriceps muscle 10/14/2023 10/14/2023 Lymphocytosis 10/14/2023 10/14/2023 Otitis externa 10/14/2023 10/14/2023 Otitis media 10/14/2023 10/14/2023 RUQ pain 10/14/2023 10/14/2023 Bladder cancer 10/14/2023 01/30/2024 HTN (hypertension) 10/14/2023 Adenoma of large intestine 08/12/2022 0 10/14/2023 Overview (08/12/2022): Follow at [facility], colonoscopy Q 3 years Had more then 3 polyps removed in last colonscopy 2020 normal Cervical lymphadenopathy 05/13/201805/2023 Neck pain 07/16/2017 10/14/2023 Axillary lymphadenopathy 06/20/201405/2023 Bladder tumor 09/17/2012 10/14/2023 Overview (08/12/2022): Biopsy result for 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 He is recommended to keep his appointment. Was removed by outside urology at [facility]. Renal mass 09/17/2012 10/14/2023 Overview (12/19/2022): Left-sided. Seen in MRI on 08/26 at [facility] for work up of Hematuria. Patient is following with Urology there. Biopsy showed malignancy and the patient was been scheduled for partial nephrectomy on October of 2012. Patient continues to follow at [place] with serial CT of the kidneys and serial cystoscopies Encounters Date Type Department Care Team Description 09/01/2024 Telephone [facility] [address] [place] [address] Hitesh Boyle MA October recall 08/19/2024 Orders Only GENERIC EXTERNAL DATA DEPARTMENT Provider, Generic External Data 07/12/2024 8:15 AM EST Office Visit [facility] [address] [place] [address] Julian Hunt DMD Dental caries (Primary Dx) 07/01/2024 10:00 AM EST Office Visit [facility] [address] [place] [address] Ye Leggett DMD 06/07/2024 Telephone [facility] [address] [facility] [place] [address] Ye Leggett DMD from Last 3 Months Immunizations Name Administration Dates Next Due Influenza injectable quadriv alent IIV4 with preservative 08/12/2022,04/08/2018,04/01/2017 Influenza injectable quadriv alent preservative free 04/23/2023,03/28/2016 Influenza, IIV3, injectable 06/03/2014, 1,06/19/2010 Influenza, seasonal, injecta ble, preservative free 05/11/2024 Tdap 04/23/2023,01/27/2013 Family History Medical History Relation Name Comments Diabetes type II Father Hypertension Father Lung cancer Mother Multiple myeloma Sister Relation Name Status Comments Father Mother Sister Social History Tobacco Use Types Packs/Day Years Used Date Smoking Tobacco: Never Passive Smoke Exposure: Never Smokeless Tobacco: Never Tobacco Cessation:Counseling Given: Not Answered Alcohol Use Standard Drinks/Week Comments Never 0 [...] the past 12 months, has t he [employer], gas, oil or water [employer] threatened to shut off services in your home? No 10/08/2023 Depression Answer Date Recorded Patient Health Questionnaire-2 Score 0 10/14/2023 Sex and Gender Information Value Date Recorded Sex Assigned at Male 05/13/2022 10:29 AM EDT Legal Sex Male 10:29 AM EDT Gender Identity Male 05/13/2022 10:29 AM EDT Sexual Orientation Straight 05/13/2022 10 :29 AM EDT Last Filed Vital Signs Vital Sign Reading Time Taken Comments Blood Pressure 130/80 07/12/2024 8:14 AM EST Pulse 72 07/12/2024 8:14 AM EST Temperature 36.6 ??C (97.9 ??F) 05/11/2024 1:10 PM ED T Respiratory Rate 18 05/11/2024 1:10 PM EDT Oxygen Saturation 98% 05/11/2024 1:10 PM EDT Inhaled Oxygen Concentration - - Weight 102 kg (224 lb) 05/11/2024 1:10 PM EDT Height 172.7 cm (5' 8 ) 05/11/2024 1:10 PM EDT Body Mass Index 34.06 05/11/2024 1:10 PM EDT Plan of Treatment Upcoming Encounters Date Type Department Care Team (Late st Contact Info) Description 11/23/2024 2:00 PM EDT Office Visit [facility] [address] [place] [address] Name, MD Louis [address] [place] [address] Health Maintenance Due Date Last Done Comments Anal Pap 1968 CT Colonography 1968 FIT DNA/Cologuard 1968 FIT 1968 FOBT 1968 HIV Screening 1970 Sigmoidoscopy 1968 COVID-19 Vaccine (#1) 1973 Hepatitis A Vaccines (1 of 2 - Risk 2-dose series) 1987 Hepatitis B Vaccines (1 of 3 - 19+ 3-dose series) 1987 Pneumococcal Vaccine: 50+ Years (1 of 2 - PCV) 1987 Zoster Vaccines (1 of 2) 1987 Dental Oral Exam 05/08/2024 11/06/2023, 08/28/2022 Dental Prophylaxis 05/08/2024 11/06/2023, 09/26/2022 Colonoscopy 05/11/2024 05/11/2021 Colorectal Cancer Screening 05/11/2024 SDOH Screening 10/07/2024 10/08/2023 Depression Screening 10/13/2024 10/14/2023, 10/14/19 Alcohol/Substance Use Screening 12/22/2024 12/23/2023 Dental X-Ray: Bitewings 06/01/2025 05/31/20 24, 11/06/2023, 08/28/2022 Tobacco Screening 07/12/2025 07/12/2024 Dental X-Ray: Full Mouth 08/29/2025 08/28/2022 Lipid Panel 10/14/2028 10/15/2023, 02/08/2022, 08/24/2021, Additional history exists DTaP/Tdap/Td Vaccines (3 - Td or Tdap) 04/23/2033 04/23/2023, 01/27/2013 RSV Patients and Patients Aged 60 years or older (1 - 1-dose 75+ series) 2043 Hepatitis C Screening Completed 10/15/2023 Influenza Vaccine Completed 05/11/2024, , 08/12/2022, Additional history exists HIB Vaccines Aged Out No longer eligi ble based on patient's age to complete this topic HPV Vaccines Aged Out No longer eligi ble based on patient's age to complete this topic IPV Vaccines Aged Out No longer eligi ble based on patient's age to complete this topic Meningococcal Vaccine Aged Out No negro zac eligible based on patient's age to complete this topic RSV under 20 months Aged Out No longe r eligible based on patient's age to complete this topic Rotavirus Vaccines Aged Out No longer eligible based on patient's age to complete this topic Procedures Procedure Name Priority Date/Time Associated Diagnosis Comments CT SOFT TISSUE NECK W CONTRAST Routine 08/19/2024 3:55 PM EST MONONUCLEOSIS TEST, QUALITATIVE Routine 08/19/2024 1:20 PM EST MAGNESIUM Routine 08/19/2024 1:20 PM EST BASIC METABOLIC PANEL Routine 08/19/2024 1:20 PM EST HEPATIC FUNCTION PANEL Routine 1:20 PM EST LD Routine 08/19/2024 1:20 PM EST URIC ACID Routine 08/19/2024 1:20 PM EST COMPLETE BLOOD COUNT MAN DIF Routine 08/19/2024 1:20 PM EST CBC WITH AUTO DIFFERENTIAL Routine 08/19/2024 1:20 PM EST CASE PRESENTATION, DETAILED AND EXTENSIVE TREATMENT PLANNING Routine 07/12/2024 8:15 AM EST 31 LIMITED ORAL EVALUATION - PROBLEM FOCUSED Routine 07/12/2024 8:15 AM EST NO CHARGE VISIT Routine 07/01/2024 10:00 AM EST BITEWING - SINGLE RADIOGRAPHIC IMAGE Routine 05/31/2024 11:30 AM EST Full PROPHYLAXIS - ADULT Routine 11/06/2023 11:00 AM EDT Periodontal disease Dental calculus PERIODIC ORAL EVALUATION - ESTABLISHED PATIENT Routine 11/06/2023 11:00 AM EDT HEPATITIS C ANTIBODY Routine 10/15/2023 9:19 AM EDT Need for hepatitis C screening test LIPID PANEL, STANDARD Routine 10/15/2023 9:19 AM EDT PE (physical exam), annual Screening for cholesterol level Screening for diabetes mellitus INTRAORAL - COMPLETE SERIES OF RADIOGRAPHIC IMAGES Routine 08/28/2022 10:15 AM EST HM COLONOSCOPY Routine 05/11/2021 from Last 3 Months or Most Recently Relevant to Health Maintenance Results * CT Soft Tissue Neck w/ Contrast (08/19/2024 3:55 PM EST) Anatomical Region Laterality Modality Head, Neck Computed Tomogra phy 08/19/2024 3:55 PM EST Narrative 08/19/2024 4:50 PM EST ? [facility] ?[address] ?[place] [address] ? CT Scan Report ? Signed ? Patient: Irwin Mendoza Jr ?MR#: MM ?? [id number] ? : 1970 ?Acct:[id number] ? Age/Sex: 54 / M ?ADM Date: 08/19/24 ? Loc: HO.ED ? Attending Dr: ? Ordering Physician: Matty Neff MD ?? Date of Service: 08/19/24 ?? Procedure(s): CT soft tissue neck w IV con ?? Accession Number(s): [id number] ? cc: Matty Neff MD; Name,Louis DISLA ? Report Number: ?? [id number]: Total DLP = ??845.00 mGy-cm ?? EXAMINATION: [...] Fat Planes: ?? -Normal without effacement. ? Gate Keeper Spaces: ?? -Normal. ? Imaged Intracranial Contents: [...] Palacios MD ??08/19/2024 04:46 PM EST RP ? Dictated By: ?Edd Palacios MD ? Signed By: ?<Electronically signed by Edd Palacios MD in OV> ?08/19/24 1646 ? DD/ 4825 ? TD/TT: 08/19/24 1612 ? Station Operator: ? Procedure Note Ismael Hedrick - 08/19/[address] [place] [address] CT Scan Report Signed Patient: Irwin Mendoza JrR#: [id number] : 1970Acct:[id number] Age/Sex: 54 / MADM Date: 08/19/24 Loc: HO.ED Attending Dr: Ordering Physician: Matty Neff MD Date of Service: 08/19/24 Procedure(s): CT soft tissue neck w IV con Accession Number(s): [id number] cc: Matty Neff MD; Name,Louis Report Number: [id number]: Total DLP = 845.00 mGy-cm EXAMINATION: CT [...] appearance. Parapharyngeal Fat Planes: -Normal without effacement. Gate Keeper Spaces: -Normal. Imaged Intracranial Contents: -No mass [...] Edd Palacios MD 08/19/2024 04:46 PM EST RP Dictated By: Edd Palacios MD Signed By: <Electronically signed by Edd Palacios MD in OV> 08/19/24 1646 DD/ 1555 TD/TT: 08/19/24 1612 Station Operator: [facility] External Provider IMG CT PROCEDURES Final Result * (ABNORMAL) Complete Blood Count Manual Diff (08/19/2024 1:20 PM EST) White Blood Count 30.6(HH) 4.8 - 10.8 X10*3/uL [facility] Comment:RESULTS OF WBC ZALDIVAR D TO AND READ BACK BY YULIYA 08/19/24 AT 1332 BY KENNEDY. Red Blood Count 4.86 4.60 - 5.80 X10*6/uL [facility] Hemoglobin 13.8(L) 14.0 - 18.0 g/dl [facility] Hematocrit 41.8(L) 42.0 - 52.0 % [facility] Mean Corpuscular Volume 86.0 80.0 - 98.0 fL [facility] Mean Corpuscular Hemoglobin 28.4 27.0 - 33.0 pg [facility] Mean Corpuscular HGB Conc 33.0 31.0 - 36.0 g/dl [facility] Red Cell Distribution Width 14.6 11.0 - 16.0 % [facility] Platelet Count 149(L) 160 - 400 X10*3/uL [facility] Mean Platelet Volume 9.4 9.4 - 12.4 fL [facility] NRBC Pct Auto 0.0 0.0 - 0.2 /100WBC [facility] NRBC Abs Auto 0.000 0.0 - 0.012 X10*3/uL [facility] Neutrophils % Manual 9(L) 45 - 73 % [facility] Band Neutrophils Percent 0(L) 3 - 5 % [facility] Lymphocytes Percent Manual 87(H) 20 - 40 % [facility] Atypical Lymphs Percent Manual 2 0 - 6 % [facility] Monocytes Percent Manual 1(L) 2 - 11 % [facility] EOSINOPHILS % MANUAL 1 0 - 4 % [facility] NEUTROPHILS ABSOLUTE MANUAL 2.8 2.0 - 8.3 X10*3/uL [facility] LYMPHOCYTES ABSOLUTE MANUAL 26.6(H) 1.2 - 4.9 X10*3/uL [facility] Atypical Lymph Absolute Manual 0.6 x10*3/uL [facility] MONOCYTES ABSOLUTE MANUAL 0.3 0.1 - 1.2 X10*3/uL [facility] EOSINOPHILS ABSOLUTE MANUAL 0.3 0.0 - 0.4 X10*3/uL [facility] Smudge Cells PRESENT [facility] Platelet Estimate NORMAL NORMAL [facility] Platelet Morphology Comment NORMAL [facility] RBC Morphology NORMAL [facility] 08/19/2024 1:20 PM EST 08/19/2024 1:24 PM EST us Generic External Data Provider LAB BLOOD ORDERAB LES Final Result [facility] [address] [place] [address] [phone] * (ABNORMAL) CBC auto differential (08/19/2024 1:20 PM EST) White Blood Count 30.6(HH) 4.8 - 10.8 X10*3/uL [facility] Comment:RESULTS OF WBC ZALDIVAR D TO AND READ BACK BY YULIYA 08/19/24 AT 1332 BY KENNEDY. Red Blood Count 4.86 4.60 - 5.80 X10*6/uL [facility] Hemoglobin 13.8(L) 14.0 - 18.0 g/dl [facility] Hematocrit 41.8(L) 42.0 - 52.0 % [facility] Mean Corpuscular Volume 86.0 80.0 - 98.0 fL [facility] Mean Corpuscular Hemoglobin 28.4 27.0 - 33.0 pg [facility] Mean Corpuscular HGB Conc 33.0 31.0 - 36.0 g/dl [facility] Red Cell Distribution Width 14.6 11.0 - 16.0 % [facility] Platelet Count 149(L) 160 - 400 X10*3/uL [facility] Mean Platelet Volume 9.4 9.4 - 12.4 fL [facility] Neutrophils Percent Auto 8.1(L) 45 - 73 % [facility] Imm Gran Pct Auto 0.2 0.0 - 0.4 % [facility] Lymphocytes Percent Auto 78.6(H) 20 - 40 % [facility] Monocytes Percent Auto 12.2(H) 2 - 11 % [facility] Eosinophils Percent Auto 0.5 0 - 4 % [facility] Basophils Percent Auto 0.4 0 - 2 % [facility] NRBC Pct Auto 0.0 0.0 - 0.2 /100WBC [facility] Neutrophils Absolute Auto 2.5 2.0 - 8.3 x10*3/uL [facility] Imm Gran Abs Auto 0.06(H) 0.00 - 0.03 X10*3/uL [facility] Lymphocytes Absolute Auto 24.1(H) 1.2 - 4.9 X10*3/uL [facility] Monocytes Absolute Auto 3.7(H) 0.1 - 1.2 X10*3/uL [facility] Eosinophils Absolute Auto 0.1 0.0 - 0.4 X10*3/uL [facility] Basophils Absolute Auto 0.1 0.0 - 0.2 X10*3/uL [facility] NRBC Abs Auto 0.000 0.0 - 0.012 X10*3/uL [facility] 08/19/2024 1:20 PM EST 08/19/2024 1:24 PM EST us Generic External Data Provider LAB BLOOD ORDERAB LES Edited Result - Final [facility] [address] [place] [address] [phone] * Mononucleosis Test, Qualitative (08/19/2024 1:20 PM EST) Monotest Negative Negative [facility] 08/19/2024 1:20 PM EST 08/19/2024 1:24 PM EST us Generic External Data Provider LAB BLOOD ORDERAB LES Final Result Performing Organization Address [facility] Co de Phone Number [facility] [address] [place] [phone] * Uric acid (08/19/2024 1:20 PM EST) Pathologist [facility] Uric Acid 6.4 3.4 - 7.0 mg/dL [facility] 08/19/2024 1:20 PM EST 08/19/2024 1:24 PM EST Generic External Data Provider LAB BLOOD ORDERAB LES Final Result Performing Organization Address [facility] Co de Phone Number [facility] [address] [place] [phone] * Magnesium (08/19/2024 1:20 PM EST) Magnesium 2.3 1.6 - 2.6 mg/dL [facility] 08/19/2024 1:20 PM EST 08/19/2024 1:24 PM EST Generic External Data Provider LAB BLOOD ORDERAB LES Final Result Performing Organization Address [facility] Co de Phone Number [facility] [address] [place] [phone] * Lactate Dehydrogenase (LD) (08/19/2024 1:20 PM EST) Lactate Dehydrogenase 215 118 - 273 U/L [facility] 08/19/2024 1:20 PM EST 08/19/2024 1:24 PM EST Generic External Data Provider LAB BLOOD ORDERAB LES Final Result Performing Organization Address [facility] Phone Number [facility] [address] [place] [phone] * Hepatic Function Panel (08/19/2024 1:20 PM EST) Bilirubin, Total 0.5 0.0 - 1.0 mg/dL [facility] Bilirubin, Direct 0.1 0.0 - 0.5 mg/dL [facility] Aspartate Amino Transferase 24 5 - 37 U/L [facility] Alanine Aminotransferase 26 0 - 40 U/L [facility] Total Protein 7.3 6.5 - 8.0 g/dL [facility] Albumin Level 4.9 3.5 - 5.0 g/dL [facility] Alkaline Phosphatase 66 39 - 117 U/L [facility] 08/19/2024 1:20 PM EST 08/19/2024 1:24 PM EST [employer] External Data Provider LAB BLOOD ORDERAB LES Final Result Performing Organization Address [facility] Number [facility] [address] [place] [phone] * (ABNORMAL) Basic Metabolic Panel (08/19/2024 1:20 PM EST) Sodium 140 135 - 145 mmol/L [facility] Potassium 4.2 3.3 - 5.1 mmol/L [facility] Chloride 106 96 - 108 mmol/L [facility] Carbon Dioxide 24 22 - 29 mmol/L [facility] Anion Gap 14 12 - 20 [facility] Urea Nitrogen (BUN) 19(H) 9 - 16 mg/dL [facility] Creatinine, Serum 0.78 0.5 - 1.4 mg/dL [facility] Creatinine Clr Calc Pharmacy 101.7 [facility] Comment:eGFR (calculated fro m the MDRD study equation) and eCrCl(calculated from the Cockcroft-Gault equation) are based ondifferent parameters and may not yield comparable results.If eCrCl result is absurd, please check patient'sheight/weight. Estimated Glomerular Filt Rate >60 [facility] Comment:Chronic Kidney Disea se: Estimated GFR < 60 mL/min/1.82v2Pncbrx Kidney Disease: Estimated GFR < 15 mL/min/1.73m2 Glucose 91 60 - 115 mg/dL [facility] Calcium 9.4 8.4 - 10.2 mg/dL [facility] 08/19/2024 1:20 PM EST 08/19/2024 1:24 PM EST us Generic External Data Provider LAB BLOOD ORDERAB LES Final Result Performing Organization Address [facility]/ZIP Co de Phone Number [facility] [address] [place] [phone] * Hepatitis C Ab (10/15/2023 9:19 AM EDT) Hepatitis C Antibody Nonreactive Nonreactive [facility] Comment:Antibodies to HCV no t detected; does not exclude early acuteHCV infection. Blood Venous blood specimen / Unknown 10/15/2023 9:19 AM EDT 10/15/2023 11:17 AM EDT Louis Valverde MD LAB BLOOD ORDERABLES Final Resul t Performing Organization Address City/[facility]/ZIP Co de Phone Number [facility] [address] [place] [phone] * (ABNORMAL) Lipid Panel, Standard (10/15/2023 9:19 AM EDT) Triglycerides 191(H) <150 mg/dL [facility] Comment:Desirable Triglyceri de: less than 150 mg/dLBorderline High Triglyceride 150-199 mg/dLHigh Triglyceride: 200-499 mg/dLVery High Triglyceride: greater than or equal to 5OO mg/dL Cholesterol 199 <200 mg/dL [facility] Comment:Desirable Cholestero l: less than 200 mg/dLBorderline High Cholesterol: 200-239 mg/dLHigh Cholesterol: greater than 239 mg/dL LDL Cholesterol Calculated 123(H) <100 mg/dL [facility] Comment:Desirable LDL: less than 100 mg/dLNear Optimal/Above Optimal LDL: 110- 129 mg/dLBorderline High LDL: 130-159 mg/dLHigh LDL: 160-189 mg/dLVery High LDL: greater than or equal to 190 mg/dL HDL Cholesterol 38(L) >40 mg/dL [facility] Comment:Desirable HDL: great er than 40 mg/dL Note: This HDL assay may give artificially low results in patients with liver disease. Blood Venous blood specimen / Unknown 10/15/2023 9:19 AM EDT 10/15/2023 11:17 AM EDT Louis Valverde MD LAB BLOOD ORDERABLES Final Resul t [facility] [address] [place] [phone] * (ABNORMAL) Hm Colonoscopy (05/11/2021) Colonoscopy Abnormal(A ) Normal [facility] External Provider HEALTH MAINTENANCE Final Result from Last 3 Months or Most Recently Relevant to Health Maintenance Insurance [facility] C3 DENTAL-[facility] MEDICAID STAND ADULT Care Teams Service Station Equipment Mechanic Relationship Specialty Start Date End Date Name, MD Louis [address] [place] [phone] PCP - General Family Medicine 07/14/18
--- OUTSIDE RECORDS SUMMARY | 2024-09-07 15:00 | XMS_ITS | Clinical Summary ---
Author Organization [facility] Address [address] [place] [address] Phone Care Team Providers Care Mink Farmer Name Role Phone Unavailable Primary Care Provider Unavailabl e Encounters Date Type Department Care Team Description 08/26/2024 2:00 PM EST - 08/26/2024 11:59 PM EST Hospital Encounter [facility] PET Scan [address] [place] [address] Chronic lymphocytic 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 (CMS/[facility]) Discharge Disposition: Home or Self Care from Last 3 Months Surgical History Surgery Date Site/Laterality Comments FEMUR FRACTURE SURGERY PROCEDURE: SD OPEN TX FEMORAL FRACTURE DISTAL MED/LAT CONDYLE; COMMENT: Left femur at age 4 NOSE SURGERY PROCEDURE: SD UNLISTED PROCEDURE NOSE; COMMENT: deviated septum COLONOSCOPY PROCEDURE: HISTORICAL COLONOSCOPY; COMMENT: Normal on this year 12/2009 OTHER SURGICAL HISTORY 10/24 PROCEDURE: SD LAPAROSCOPY SURG PARTIAL NEPHRECTOMY; COMMENT: renal mass OTHER SURGICAL HISTORY 08/26 PROCEDURE: SD CSTOTOMY/CSTOST CRYOSURG DSTRJ INTRAVESICAL LES; COMMENT: bladder cancer Medical History Medical History Date Comments Hypertension 11/12/2010 DX:Hypertension Family History Medical History Relation Name Comments Heart attack Father father mi 60'3 Hypertension Father Blindness Neg Hx Cataracts Neg Hx Glaucoma Neg Hx Macular degeneration Neg Hx Strabismus Neg Hx Relation Name Status Comments Father Alive DM, HTN Mother Alive DM Sister 1 Alive Sister 2 Alive Son 1 Alive Son 2 Alive Son 3 Alive Social History Tobacco Use Types Packs/Day Years Used Date Smoking Tobacco: Former Smokeless Tobacco: Former Alcohol Use Standard Drinks/Week Comments No 0 (1 standard drink = 0.6 oz pur e alcohol) Sex and Gender Information Value Date Recorded Sex Assigned at Not on file Legal Sex Male 2:26 PM EST Gender Identity Not on file Sexual Orientation Not on file Obstetrics History Plan of Treatment Health Maintenance Due Date Last Done Comments COVID-19 Vaccine (#1) 1973 Hepatitis B Vaccines (1 of 3 - 19+ 3-dose series) 1987 Pneumococcal Vaccine: 50+ Years (1 of 2 - PCV) 1987 Pneumococcal Vaccine: Pediatrics (0 to 5 Years) and At-Risk Patients (6 to 64 Years) (1 of 2 - PCV) 1987 Zoster Vaccines (1 of 2) 1987 Colorectal Cancer Screening: Colonoscopy 05/05/2024 HIV Screening 05/05/2024 Hepatitis C Screening 05/05/2024 Social Influencers of Health Screening 05/05/2024 Depression Screening 10/13/2024 10/14/2023 Hypertension/CHF/CAD Annual BMP Blood Test 08/19/2025 08/19/2024 Cholesterol Screening (Lipid Panel) 10/14/2028 10/15/2023 DTaP,Tdap,and Td Vaccines (3 - Td or Tdap) 04/23/2033 04/23/2023, 01/27/2013 Influenza Vaccine Completed 05/11/2024, , 08/12/2022, Additional history exists HIB Vaccines Aged Out No longer eligi ble based on patient's age to complete this topic HPV Vaccines Aged Out No longer eligi ble based on patient's age to complete this topic Hepatitis A Vaccines Aged Out No long er eligible based on patient's age to complete this topic IPV Vaccines Aged Out No longer eligi ble based on patient's age to complete this topic MMR Vaccines Aged Out No longer eligi ble based on patient's age to complete this topic Meningococcal ACWY Vaccine Aged Out N o longer eligible based on patient's age to complete this topic Meningococcal B Vacine Aged Out No lo nger eligible based on patient's age to complete this topic RSV Immunization Patients Under 20 months Aged Out No longer eligible based on patient's age to complete this topic Varicella Vaccines Aged Out No longer eligible based on patient's age to complete this topic Procedures Procedure Name Priority Date/Time Associated Diagnosis Comments PET CT SKULL TO MID THIGH INITIAL Routine 08/26/2024 3:30 PM EST Chronic lymphocytic 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 ([facility]) from Last 3 Months Results * PET CT Skull to Mid [...] Signed Date: 09/03/2024 13:11 ET Workstation ID: [id number] Transcribed By: Self Edit Transcribed Date: 09/03/2024 [...] Signed Date: 09/03/2024 13:11 ET Workstation ID: [id number] Transcribed By: Self Edit Transcribed Date: 09/03/2024 10:57 ET Jackelyn Buenrostro MD [facility] PROCEDURES Final Result from Last 3 Months
--- OUTSIDE RECORDS SUMMARY | 2024-09-07 15:00 | XMS_ITS | Encounter Summary ---
Author Organization [employer] [facility] Address [address] [facility] [address] [place] [address] Care Team Providers Care Cleaners Name Role Phone Name, Louis DISLA Primary Care Provider [phone] Encounter Details Date Type Department Care Team (Late Contact Info) Description 10/09/2022 Abstract [facility] ADULT DENTAL [address] [place], [place] [phone] Babs Pedraza [address] [place] [address] Social History Tobacco Use Types Packs/Day Years Used Date Smoking Tobacco: Never Passive Smoke Exposure: Never Smokeless Tobacco: Never Alcohol Use Standard Drinks/Week Comments Never 0 (1 standard drink = 0.6 oz pur e alcohol) PHQ-2 Answer Date Recorded Patient Health Questionnaire-2 Score 0 08/12/2022 Depression Answer Date Recorded Patient Health Questionnaire-2 Score 0 08/12/2022 Sex and Gender Information Value Date Recorded Sex Assigned at Male 05/13/2022 10:29 AM EDT Legal Sex Male 10:29 AM EDT Gender Identity Male 05/13/2022 10:29 AM EDT Sexual Orientation Straight 05/13/2022 10 :29 AM EDT COVID-19 Exposure Response Date Recorded In the last 10 days, have yo u been in contact with someone who was confirmed or suspected to have Coronavirus/COVID-19? No / Unsure 10/04/2022 10:42 AM EDT documented as of this encounter Plan of Treatment Upcoming Encounters Date Type Department Care Team (Late Contact Info) Description 11/23/2024 2:00 PM EDT Office Visit [facility] MEDICINE [address] [place], [place] [phone] Name, MD Louis [address] [place] [address] documented as of this encounter Visit Diagnoses Not on filedocumented in this encounter Care Teams Cleaners Relationship Specialty Start Date End Date Name, MD Louis [address] [place] [address] PCP - General Family Medicine 07/14/18 documented as of this encounter
--- OUTSIDE RECORDS SUMMARY | 2024-09-07 15:00 | XMS_ITS | Encounter Summary ---
Author Organization [employer] [facility] Address [address] [facility] [address] [place] [address] Care Team Providers Care Transmission Specialist Name Role Phone Name, Louis DISLA Primary Care Provider [phone] Encounter Details Date Type Department Care Team (Late Contact Info) Description 10/21/2022 Abstract [facility] ADULT DENTAL [address] [place], [place] [phone] Kamlesh Pedrazaaris [address] [place] [address] Social History Tobacco Use Types Packs/Day Years [...] suspected to have Coronavirus/COVID-19? No / Unsure 10/23/2022 10:59 AM EDT documented as of this encounter Plan of Treatment Upcoming Encounters Date Type Department Care Team (Late Contact Info) Description 11/23/2024 2:00 PM EDT Office Visit [facility] MEDICINE [address] [place], [place] [phone] Name, MD Louis [address] [place] [address] documented as of this encounter Visit Diagnoses Not on filedocumented in this encounter Care Teams Transmission Specialist Relationship Specialty Start Date End Date Name, MD Louis [address] [place] [address] PCP - General Family Medicine 07/14/18 documented as of this encounter
--- OUTSIDE RECORDS SUMMARY | 2024-09-07 15:00 | XMS_ITS | Encounter Summary ---
Author Organization [employer] [facility] Address [address] [facility] [address] [place] [address] Care Team Providers Care Commissary Helper Name Role Phone Name, Louis DISLA Primary Care Provider [phone] Reason for Visit * Reason Onset Date Comments call back 08/27/2022 Encounter Details Date Type Department Care Team ([facility] st Contact Info) Description 08/27/2022 Telephone [facility] MEDICINE [address] [place], [place] [phone] Name, MD Louis [address] [place] [address] call back Social History Tobacco Use Types Packs/Day Years Used Date Smoking Tobacco: Never Smokeless Tobacco: Never PHQ-2 Answer Date Recorded Patient Health Questionnaire-2 [...] suspected to have Coronavirus/COVID-19? No / Unsure 08/28/2022 10:03 AM EST documented as of this encounter Miscellaneous Notes * Telephone Encounter - Louis Valverde MD - 08/27/2022 5:06 PM EST I called Irwin, he does not have symptoms of infection, he used 5 days of prednisone in June and review of his labs showed WBC of 14.4 August of last year. I will send him to hematology for evaluation * Telephone Encounter - Eugenia Ingram RN - 08/27/2022 3:56 PM EST 2nd call placed to pt via [employer] Radha #[id number]. Advised of message from pcp re: lab result. Pt states that he feels fine. Denies fever, cough, sore throat, dysuria and increased urinary frequency. Advised pcp will be updated and pt will be advised of any recommendations. * Telephone Encounter - Álvaro Jones - 08/27/2022 3:24 PM EST Tc from pt returning call back. Pt requesting to be called by 5 pm due to being at work Please contact pt at [phone] documented in this encounter Plan of Treatment Upcoming Encounters Date Type Department Care Team (Late st Contact Info) Description 11/23/2024 2:00 PM EDT Office Visit [facility] MEDICINE [address] [place] [phone] Name, MD Louis [address] [place] [address] documented as of this encounter Visit Diagnoses Diagnosis Leukocytosis, unspecified type- Primary documented in this encounter Care Teams Commissary Helper Relationship Specialty Start Date End Date Name, MD Louis [address] [place] [address] PCP - General Family Medicine 07/14/18 documented as of this encounter
--- OUTSIDE RECORDS SUMMARY | 2024-09-07 15:00 | XMS_ITS | Encounter Summary ---
Author Organization [employer] [facility] Address [address] [facility] [address] [place] [address] Care Team Providers Care Inspector And Sorter Name Role Phone Name, Louis DISLA Primary Care Provider [phone] Encounter Details Date Type Department Care Team (Late Contact Info) Description 10/09/2022 Abstract [facility] ADULT DENTAL [address] [place], [place] [phone] Babs Pedraza [address] [place] [address] Social History Tobacco Use Types Packs/Day Years [...] Description 11/23/2024 2:00 PM EDT Office Visit [facility] MEDICINE [address] [place], [place] [phone] Name, MD Louis [address] [place] [address] documented as of this encounter Visit Diagnoses Not on filedocumented in this encounter Care Teams Inspector And Sorter Relationship Specialty Start Date End Date Name, MD Louis [address] [place] [address] PCP - General Family Medicine 07/14/18 documented as of this encounter
== END 2024-09-07 12:21 | disposition home or self-care (01) ==
LOC: HO.XRAY 12:20
PROVIDERS: PCP Internal Medicine Geriatric Medicine; Visit Provider Internal Medicine
DX: C91.10 Chronic lymphocytic 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 (principal)
CPT/HCPCS: 73552

== ENCOUNTER → 2024-09-07 12:22 | Outpatient (BNV) | payer MEDICAID, SELFPAY | PROVIDERS: PCP Internal Medicine Geriatric Medicine; Visit Provider Radiology Diagnostic Radiology | DX: M89.252 Other disorders of bone development and growth, left femur (principal) | CPT/HCPCS: 73552 ==

== ENCOUNTER 2024-10-06 10:01 | Outpatient (AMB) | payer MEDICAID, SELFPAY ==
--- NOTE | 2024-10-06 10:03 | A.OFFVIS_ITS ---
Intake Visit Reasons: cysto Intake Note: Patient is present for Cystoscopy Urology Medication:VITAMIN B12 Antibiotic Allergy:NONE Blood Thinner:NONE Lot:[id number] Exp:05/17/27 Chip Mucker Required: No Allergies No Known Allergies [No Known Allergies*] Allergy (Verified 10/06/24 10:04) HPI Comments Details: Irwin is a very pleasant male. He is a patient of Dr. Valverde. He is seen for the following urologic issues - renal cancer - bladder cancer - background of CLL with adenopathy Yearly surveillance Glandular hypospadias Clear cystoscopy Recent PET-CT for CLL with adenopathy but no evidence of recurrence on kidney Twelve month follow-up Renal cancer 2013 cryotherapy Cryo ablation left side 2013 Imaging stable - 12/01 ultrasound left lower pole 2 cm calcification consistent with cryoablation effect - 02/01 ultrasound left lower pole 2 cm scar, 2.5 cm cyst - 10/04 ultrasound small cyst left Plan continue with surveillance imaging Bladder cancer low-grade bladder cancer 2012 Hematuria 2012 Low-grade bladder cancer Prior cystoscopy 03/03 NAD, 09/04 NAD, 03/04 NAD, 10/03 NAD Prior cytology NAD - 03/03 NAD, 03/04 NAD, 10/04 NAD Plan continue with surveillance cystoscopy yearly PSA 11/01 1.1 PFSH Medical History History of colon polyps HTN (hypertension) History of COVID-19 Bladder cancer RUQ pain Abdominal bloating Cancer of kidney Hx of bladder cancer Benign prostatic hyperplasia with lower urinary tract symptoms Obstructive sleep apnea (adult) (pediatric) Lesion of bladder Surgical History History of colonoscopy with polypectomy History of surgery H/O colonoscopy Hx of cystoscopy History of surgery Family History Father Hypertension Diabetes Mother Lung cancer Sister Cancer Social History Household Members: Spouse and Children Housing: House Alcohol intake: never Patient Tobacco Use Status: Never used Tobacco service: No Current occupational status: employed Review of Systems Const Denies chills and Denies fever(s) Card Reports no additional complaints and Denies syncope Resp Denies cough GI Denies abdominal pain and Denies heartburn Reports as per HPI and Denies change in libido Neuro Denies syncope Psych Denies change in libido Endo Denies change in libido Physical Exam Const General: cooperative, healthy appearing, comfortable and no acute distress Orientation/consciousness: patient oriented x3 HEENT Face and sinus: Yes normal facial exam Mouth: moist mucous membranes Neck Neck: Yes normal visual inspection, Yes full ROM and Yes trachea midline Chest Chest palpation & inspection: normal inspection of the chest Resp Effort & Inspection: normal respiratory effort, able to speak in complete sentences and no respiratory distress GI Inspection: Yes normal to inspection Back/Spine/Pelvis Cervical Spine: normal cervical lordosis Thoracic/Lumbar Spine: thoracic and lumbar spine normal to inspection Skin General skin exam: no rashes or lesions noted Neuro General: patient oriented x3, gait normal, tone normal and moves all extremities Extrem General: Yes normal to inspection and Yes capillary refill normal Office Procedures Cystoscopy Consent Discussed risk and benefit or proposed procedure with the patient. Information consent for procedure given to the patient. Discussed technical aspects, risks, benefits and alternatives in full. Addressed all of the patient's questions and concerns regarding the procedure. The patient demonstrated knowledge and understanding. They wish to proceed with this procedure. Preparation The patient was prepped in the usual manner. A brick tosser was present and in the room. Genitalia was prepped with betadine solution in a sterile manner. Lidocaine Jelly 2% was placed into the urethra and 16Fr flexible Olympus cystoscope was inserted into the meatus after adequate lubrication. Procedure Cystoscopy performed using a disposable Urovue digital 16 Slovak cystoscope. Meatus glandular hypospadias Urethra anterior and posterior urethra normal Prostatic Urethra unremarkable Bladder examination with retroflexion of cystoscope Bladder Orifices normal shape and position Bladder Capacity medium Trabeculations - Cellule Formation - Diverticulum Formation - Mucosal Erythema - Bladder Tumor - [id number] DISPOSABLE SCOPE URO-G FLEXIBLE SCOPE Procedure code (CPT) selection complete Office Meds lidocaine HCl 2 % mucosal jelly in applicator Performing Provider: Devang Ibarra MD [facility] Administered by: Tushar Marie LPN on 10/06/24 10:33 Dose Route Admin Location Dispensed Lot Number Expiration Date [facility] Information Technology Administrator 10 mL intra-urethral 10 mL nitrofurantoin monohydrate/macrocrystals 100 mg capsule Performing Provider: Devang Ibarra MD Per[facility] Administered by: Tushar Marie LPN on 10/06/24 10:33 Dose Route Admin Location Dispensed Lot Number Expiration Date [employer] Information Technology Administrator 100 mg PO 1 cap Results AMB Urinalysis, Automated UA Leukoctes 0 Chapito/uL Last Edit by SOFI Sanchez on 10/06/24 10:17 UA Nitrite Negative Last Edit by SOFI Sanchez on 10/06/24 10:17 UA Urobilinogen 3.5 mg/dL Last Edit by SOFI Sanchez on 10/06/24 10:1 7 UA Protein 0 mg/dL Last Edit by SOFI Sanchez on 10/06/24 10:17 UA pH 6.5 Last Edit by SOFI Sanchez on 10/06/24 10:17 UA Blood 0 Valente/uL Last Edit by SOFI Sanchez on 10/06/24 10:17 UA Specific [place] 1.015 Last Edit by SOFI Sanchez on 10/06/24 10: 17 UA Ketone Negative Last Edit by SOFI Sanchez on 10/06/24 10:17 UA Bilirubin 0 mg/dL Last Edit by SOFI Sanchez on 10/06/24 10:17 UA Glucose 0 mg/dL Last Edit by SOFI Sanchez on 10/06/24 10:17 Results Reviewed Results Reviewed: Laboratory Last Values Urine pH (Auto) 6.5 10/06/24 10:16 Specific [place] (Auto) 1.015 10/06/24 10:16 Urine Protein (Auto) 0 mg/dL 10/06/24 10:16 Glucose (UA)(Auto) 0 mg/dL 10/06/24 10:16 Urine Ketones (Auto) Negative 10/06/24 10:16 Urine Blood (Auto) 0 Valente/uL 10/06/24 10:16 Urine Nitrite (Auto) Negative 10/06/24 10:16 Urine Bilirubin (Auto) 0 mg/dL 10/06/24 10:16 Urine Urobilinogen (Auto) 3.5 mg/dL 10/06/24 10:16 Leukocyte Esterase (Auto) 0 Chapito/uL 10/06/24 10:16 Assessment & Plan Assessment & Plan (1) Bladder cancer: Comment: 2012 low-grade Code(s): C67.9 - Malignant neoplasm of bladder, unspecified Category: Medical (2) Cancer of kidney: Comment: 2012 cryotherapy Code(s): C64.9 - Malignant neoplasm of unspecified kidney, except renal pelvis Category: Medical Plan Twelve month follow-up cysto Orders: Orders AMB Cystoscopy Today C67.9 - Malignant neoplasm of bladder, unspecified AMB Urinalysis Automated Today Z13.9 - Encounter for screening, unspecified Patient Instructions: This note is constructed using voice recognition software. While every effort has been made to ensure accuracy catalyst recovery operator errors may have been included. Imaging studies, laboratory and physical exam results were discussed and reviewed in detail. No major barriers to patient understanding were identified. An opportunity to ask questions regarding the treatment plan was provided. All questions were answered. The patient expressed understanding and agreement with the above treatment plan. The patient is aware they should contact our office by phone for worsening of their current condition or the appearance of new urologic symptoms. Compliance is encouraged with any medications and followup testing that is ordered. It is a privilege to participate in the urologic care of your patient. If you have any questions or concerns regarding treatment for the above conditions, or other urologic issues, please do not hesitate to contact me. The office telephone contact is [phone]. Sincerely, Dr Devang Ibarra MD, [facility] - Urology Compassionate Specialist Care for the Genitourinary System Coding Level of Care Code Est Pt Level 4 (16343) Complex EM visit Add On G2211 Diagnoses Bladder cancer C67.9 Cancer of kidney C64.9 CPT Codes Cystoscopy - CPT: [id number] ([id number])
== END 2024-10-06 11:37 | disposition home or self-care (01) ==
LOC: HO.HUSH 10:02
PROVIDERS: PCP Internal Medicine Geriatric Medicine; Visit Provider Urology
DX: C67.9 Malignant neoplasm of bladder, unspecified (principal); C64.9 Malignant neoplasm of unspecified kidney, except renal pelvis; Z13.9 Encounter for screening, unspecified
CPT/HCPCS: 52000; 99214

== ENCOUNTER → 2024-10-06 10:01 | Outpatient (BNVA) | payer MEDICAID, SELFPAY | PROVIDERS: PCP Internal Medicine Geriatric Medicine; Visit Provider Urology | DX: C67.9 Malignant neoplasm of bladder, unspecified (principal); C64.9 Malignant neoplasm of unspecified kidney, except renal pelvis | CPT/HCPCS: 52000; 81003; 99212 ==

== ENCOUNTER 2024-10-08 06:46 | Day surgery (SDC) | payer MEDICAID, SELFPAY ==
[2024-10-06 10:37] VITALS: BMI 34.1
[2024-10-08 07:08] VITALS: BP 140/76; PULSE 80; RESP 16; TEMP 37.6; O2SAT 96; BMI 32.6
[2024-10-08] MEDS: Lactated Ringers 1,000 ML 100 ML IVCONT (07:15)
--- NOTE | 2024-10-08 07:42 | PC.NURSE ---
Patient in preop. Drank 32 oz of water throughout the night as well as 16oz of water this morning, bottle finished at 0600. Dr Cesar at bedside and made aware. Procedure to start no earlier than 8am per her.
--- NOTE | 2024-10-08 07:52 | HO.ANESPROP2 ---
Documented by User: Emeli Mtz NP 10/06/24 14:22 HPI - Anesthesia Eval Consult details Narrative: 54yo M for Colonoscopy with possible Polypectomy [place] [facility] [place] PMF[place] Active Problems Active Problems: All Active Problems CLL (chronic lymphocytic leukemia) (Acute) History of colon polyps (Acute) Bladder cancer (Acute) COVID-19 (Acute) HTN (hypertension) (Acute) Lymphocytosis (Chronic) Tubular adenoma of colon (Acute) Benign prostatic hyperplasia with lower urinary tract symptoms (Acute) Cancer of kidney (Acute) Hx of bladder cancer (Acute) Past Medical History Medical History History of colon polyps HTN (hypertension) History of COVID-19 Bladder cancer RUQ pain Abdominal bloating Cancer of kidney Hx of bladder cancer Benign prostatic hyperplasia with lower urinary tract symptoms Obstructive sleep apnea (adult) (pediatric) Lesion of bladder Family History Family History Father Hypertension Diabetes Mother Lung cancer Sister Cancer Surgical History Surgical History History of colonoscopy with polypectomy History of surgery H/O colonoscopy Hx of cystoscopy History of surgery History of Problems with Anesthesia: No Social History Social History Household Members: Spouse and Children Housing: House Are you a primary skin care consultant to a significant other at home: No Do you presently have visiting nurse or other home services: No Alcohol intake: never Patient Tobacco Use Status: Never used Tobacco Use of substances other than those prescribed or required for medical reasons: No Have you been hit, kicked, punched, or otherwise hurt by someone within the past year? If so, by whom?: No Are you DNR?: No Advance Directives: No Advance Directives Information Provided: No Advance Directives on File: No Recently lost weight without trying: No How much weight loss: Not applicable Eating poorly because of decreased appetite: No Nutrition screen score: 0 Poor oral hygiene: Yes (bottom missing tooth x1) service: No Current occupational status: employed Meds Allergies Allergy/AdvReac Type Severity Reaction Status Date / Time No Known Allergies Allergy Verified 10/08/24 06:59 [No Known Allergies*] Home Medications ?Medication ?Instructions ?Recorded ?Confirmed ?Last Taken ?Type lisinopril 40 mg tablet 40 mg PO DAILY 12/22/20 10/08/24 10/07/24 History amlodipine 5 mg tablet 5 mg PO DAILY 02/27/21 10/08/24 10/08/24 History ascorbic acid (vitamin C) 100 mg 100 mg PO DAILY 09/10/24 10/08/24 Unknown History tablet cyanocobalamin (vitamin B-12) 50 50 mcg PO DAILY 09/10/24 10/08/24 Unknown History mcg tablet magnesium 100 mg tablet 100 mg PO DAILY 09/10/24 10/08/24 Unknown History multivit,Ca,min-iron 8 mg-folic 1 tab PO DAILY 09/10/24 10/08/24 Unknown History acid 200 mcg-lycopene 600 mcg tablet (Centrum Men) zinc 50 mg tablet 50 mg PO USEASDIRECTD 09/10/24 10/08/24 Unknown History Exam Height,Weight and Vital Signs: Height 5 ft 8 in Weight 101.605 kg Pertinent Lab Results Pertinent Lab Results: Laboratory Tests 09/29/24 13:31 WBC 38.5 H* Hgb 13.2 L Hct 39.5 L Plt Count 158 L Sodium 142 Potassium 4.3 Chloride 106 Carbon Dioxide 28 BUN 26 H Creatinine 1.21 Assessment and Plan Assessment Anesthesia Assessment: Chart Reviewed Final Anesthetic Review History of Problems with Anesthesia: No Documented by User: Betty Lux DO 10/08/24 07:55 HPI - Anesthesia Eval Consult details Narrative: 54yo M for Colonoscopy with possible Polypectomy [place] [facility] [place] Drank water at 0600 but will be appropriately NPO by the time procedure commences [facility] Past Medical History Medical History History of colon polyps HTN (hypertension) History of COVID-19 Bladder cancer RUQ pain Abdominal bloating Cancer of kidney Hx of bladder cancer Benign prostatic hyperplasia with lower urinary tract symptoms Obstructive sleep apnea (adult) (pediatric) Lesion of bladder Family History Family History Father Hypertension Diabetes Mother Lung cancer Sister Cancer Family history of problems with anesthesia: No Surgical History Surgical History History of colonoscopy with polypectomy History of surgery H/O colonoscopy Hx of cystoscopy History of surgery History of Problems with Anesthesia: No Social History Social History Household Members: Spouse and Children Housing: House Are you a primary skin care consultant to a significant other at home: No Do you presently have visiting nurse or other home services: No Alcohol intake: never Patient Tobacco Use Status: Never used Tobacco Use of substances other than those prescribed or required for medical reasons: No Have you been hit, kicked, punched, or otherwise hurt by someone within the past year? If so, by whom?: No Are you DNR?: No Advance Directives: No Advance Directives Information Provided: No Advance Directives on File: No Recently lost weight without trying: No How much weight loss: Not applicable Eating poorly because of decreased appetite: No Nutrition screen score: 0 Poor oral hygiene: Yes (bottom missing tooth x1) service: No Current occupational status: employed Meds Allergies Allergy/AdvReac Type Severity Reaction Status Date / Time No Known Allergies Allergy Verified 10/08/24 06:59 [No Known Allergies*] Home Medications ?Medication ?Instructions ?Recorded ?Confirmed ?Last Taken ?Type lisinopril 40 mg tablet 40 mg PO DAILY 12/22/20 10/08/24 10/07/24 History amlodipine 5 mg tablet 5 mg PO DAILY 02/27/21 10/08/24 10/08/24 History ascorbic acid (vitamin C) 100 mg 100 mg PO DAILY 09/10/24 10/08/24 Unknown History tablet cyanocobalamin (vitamin B-12) 50 50 mcg PO DAILY 09/10/24 10/08/24 Unknown History mcg tablet magnesium 100 mg tablet 100 mg PO DAILY 09/10/24 10/08/24 Unknown History multivit,Ca,min-iron 8 mg-folic 1 tab PO DAILY 09/10/24 10/08/24 Unknown History acid 200 mcg-lycopene 600 mcg tablet (Centrum Men) zinc 50 mg tablet 50 mg PO USEASDIRECTD 09/10/24 10/08/24 Unknown History Exam Exam Date and Time: 10/08/24 0752 Height,Weight and Vital Signs: Height 5 ft 8 in Weight 101.605 kg Vital Signs Temperature 99.6 F 10/08/24 07:08 Pulse Rate 80 10/08/24 07:08 Respiratory Rate 16 10/08/24 07:08 Blood Pressure 140/76 H 10/08/24 07:08 Pulse Oximetry 96 10/08/24 07:08 Oxygen Delivery Method Room Air 10/08/24 07:08 Temperature 99.6 F 10/08/24 07:08 Pulse Rate 80 10/08/24 07:08 Respiratory Rate 16 10/08/24 07:08 Blood Pressure 140/76 H 10/08/24 07:08 Pulse Oximetry 96 10/08/24 07:08 Oxygen Delivery Method Room Air 10/08/24 07:08 Airway Mallampati Class: III TM Dist: >3cm Neck ROM: Full Loose/Missing/Broken Teeth: No (patient denies any loose or broken teeth) Heart: S1S2 Lungs: CTAB Assessment and Plan Assessment Anesthesia Assessment: Anesthesia Plan Discussed and Chart Reviewed Final Anesthetic Review Family History of Problems with Anesthesia: No History of Problems with Anesthesia: No NPO: Yes ASA Class: III Final Preanesthetic Review: No Changes in Pt Med Stat, Meds/Allgs Chart Reviewed, Consent Obtained/Reviewed and Anes Risks/Benef Reviewed Patient Risk: Intermediate Procedure Risk: Low Anesthetic Plan Anesthetic Plan: MAC: and Agree w/ Assess. and Plan Disposition: Standard PACU
--- NOTE | 2024-10-08 08:27 | MHC.SHP ---
Pre-Procedural Eval Section A - 24 Hr Update-Section A only Date of Service: 10/08/24 Section B - Complete if H&P > 30 days Chief Complaint: Personal history of colon polyps Details of Present Illness: History of polyps, for follow-up colonoscopy Relevant Family History (Specify if Yes): No Relevant Social History: None Present Medications: see Short Stay Collaborative assessment Medical History: Significant History (History of leukemia, bladder cancer, BPH) Allergies: Allergies Allergy/AdvReac Type Severity Reaction Status Date / Time No Known Allergies Allergy Verified 10/08/24 06:59 [No Known Allergies*] Review of Systems Sugical H&P ROS: Negative: Constitution, Cardiovascular and Respiratory Exam Surgical H&P Exam: Normal: Heart, Normal: Lungs and Normal: Abdomen Plan Diagnosis/Plan: Unchanged I have reviewed the history and physical and performed a pertinent physical examination on my patient. No changes have occurred unless specified. Time Spent With Patient Time: Total time managing care of this patient today ____ minutes.
--- NOTE | 2024-10-08 08:59 | P.OPN-COLO_ITS ---
Colonoscopy Operative Note Operative Note Date of Service: 10/08/24 Narrative: Preop diagnosis: History of adenoma Postop diagnosis: 1. Small polyp, about 2 -3 mm in the cecum 2. Small polyp, about 2-3 mm level 20 cm 3. Small polyp, about 2-3 mm at level 10 cm Procedure: Colonoscopy with polypectomy using cold forceps times 3 Surgeon: Dom Batres MD The patient is a 54-year-old male, who was referred to ma for colonoscopy. He had history of tubular adenomas in the past. He understood the technique of the planned procedure as was the risks, benefits, and alternatives The patient was brought to the operating room and placed in left lateral decubitus position under monitored anesthesia care. A surgical time-out was done. A full digital rectal exam was done and this did not reveal any significant anal lesions. The tip of the Olympus colonoscope was gently introduced through the anal orifice advanced with insufflation all the way to the cecum. The cecum was intubated. The cecum was identified by visualization of the ileocecal valve as well as the appendiceal orifice. The cecal mucosa was unremarkable. The scope was gradually withdrawn with careful examination of the entire colonic mucosa being done with scope withdrawal. The patient had adequate bowel prep so it was unlikely that any lesion may have been missed. There was note of a small polyp in the cecum behind a fold, about 2-3 mm in size. This was removed with cold forceps. Another small polyp, 2-3 mm in size was removed with cold forceps at level 20 cm. A small polyp, about 2-3 mm in size was removed at level 10 cm skin cold forceps. The rectum was reached and there were no lesions seen. The anal canal was unremarkable. The scope was then withdrawn completely with desufflation The patient tolerated procedure well. There were no immediate complications. Depending on his path report, I may recommend another colonoscopy in the next 3- 5 years in view of his history.
[2024-10-08 09:00] VITALS: BP 120/67; PULSE 80; RESP 12; TEMP 36.4; O2SAT 97
[2024-10-08 09:15] VITALS: BP 103/55; PULSE 75; RESP 16; TEMP 36.4; O2SAT 96
== END 2024-10-08 09:30 | disposition home or self-care (01) ==
PROVIDERS: PCP Internal Medicine Geriatric Medicine; Visit Provider Surgery
PROC: 0DBE8ZZ Excision of Large Intestine, Via Natural or Artificial Opening Endoscopic (ICD-10-PCS; CPT 45380; principal; 2024-10-08 08:30)
DX: Z12.11 Encounter for screening for malignant neoplasm of colon (principal); Z86.0101 Personal history of adenomatous and serrated colon polyps; K63.5 Polyp of colon; C95.90 Leukemia, unspecified not having achieved remission; Z85.51 Personal history of malignant neoplasm of bladder; Z85.528 Personal history of other malignant neoplasm of kidney; N40.1 Benign prostatic hyperplasia with lower urinary tract symptoms; G47.33 Obstructive sleep apnea (adult) (pediatric); Z79.899 Other long term (current) drug therapy; Z98.890 Other specified postprocedural states
CPT/HCPCS: 45380; 88305; J2003; J2704

== ENCOUNTER → 2024-10-08 06:46 | Outpatient (BNV) | payer MEDICAID, SELFPAY | PROVIDERS: PCP Internal Medicine Geriatric Medicine; Visit Provider Surgery | DX: Z12.11 Encounter for screening for malignant neoplasm of colon (principal); K63.5 Polyp of colon; Z86.0109 Personal history of other colon polyps | CPT/HCPCS: 45380 ==

== ENCOUNTER 2024-10-12 12:35 | Inpatient (IN) | payer MEDICAID, SELFPAY ==
[2024-10-12] VITALS (20 sets, daily range): BP systolic 117–139; BP diastolic 58–81; PULSE 73–81; RESP 14–27; TEMP 37–37.4; O2SAT 93–98; BMI 31.8
--- NOTE | ~2024-10-12 | CT_ITS ---
EXAMINATION: CT ABDOMEN PELVIS WITHOUT IV CONTRAST HISTORY: flank pain, recent cystoscopy COMPARISON: Relation is made with an outside PET/CT scan from [facility] dated 08/16/2024. TECHNIQUE: CT scan of the abdomen and pelvis was performed without contrast using standard departmental protocol. Coronal and sagittal reformatted images were generated and reviewed. Oral contrast material was not administered per department protocol. This CT exam was performed with one or more of the following dose reduction techniques: automated exposure control, adjustment of the mA and/or kV according to patient size, use of iterative reconstruction technique. DLP: 626 mGy-cm FINDINGS: LOWER CHEST: The visualized lung bases are clear. There is no pleural effusion. CARDIOVASCULATURE: The heart is normal in size. There is no pericardial effusion. LIVER: The liver is normal in size and contour. The liver has an unremarkable unenhanced appearance. GALLBLADDER / BILE DUCTS: The gallbladder is unremarkable. There is no intra or extrahepatic biliary ductal dilatation. SPLEEN: The spleen is enlarged. PANCREAS: The pancreas has an unremarkable unenhanced appearance. ADRENAL GLANDS: There is enlargement of both adrenal glands, left greater than right. KIDNEYS/RETROPERITONEUM: There is a cortical calcification at the upper pole of the left kidney. No calyceal calculi are identified. There is no hydronephrosis. There is a inflammatory stranding and fluid along the course of the right ureter. No ureteral calculi are seen. LYMPH NODES: Again seen is diffuse retroperitoneal lymphadenopathy. Periaortic lymph nodes measure up to 3.9 cm in size. Paracaval lymph nodes measure up to 2.7 cm in size. There are enlarged bilateral obturator lymph nodes measuring up to 3.5 cm. Additional enlarged external iliac lymph nodes are seen. There are enlarged mesenteric lymph nodes measuring up to 2.8 cm. VASCULATURE: The abdominal aorta is normal in caliber. MESENTERY/PERITONEUM: No free fluid. No masses. There is no free intraperitoneal gas. STOMACH: The stomach is unremarkable. SMALL BOWEL: The small bowel is normal in caliber. COLON: The colon is unremarkable. APPENDIX: Normal. URINARY BLADDER/PELVIC ORGANS: The urinary bladder demonstrates diffuse wall thickening and there is perivesical inflammatory stranding. The prostate is enlarged. BONES / SOFT TISSUES: No suspicious bony or soft tissue abnormalities. CT/CT abdomen pelvis wo IV con IMPRESSION: 1. Diffuse lymphadenopathy throughout the abdomen and pelvis as noted on outside PET/CT scan. 2. Inflammatory stranding and fluid along the course of the right ureter. Diffuse urinary bladder wall thickening and inflammatory stranding. Findings are suggestive of cystitis and right ureterolithiasis. 3. Splenomegaly. 4. Enlargement of both adrenal glands, left greater than right, as seen on PET/CT scan. Electronically signed by: Freddy Amin MD 10/12/2024 03:35 PM EDT
--- NOTE | 2024-10-12 13:00 | ED_ITS ---
HPI - General Adult General Chief complaint: Urogenital-Male Stated complaint: fever post colonscopy, kidney pain Time Seen by Provider: 10/12/24 14:25 Source: patient and old records reviewed Mode of arrival: ambulatory Limitations: no limitations History of Present Illness ED Provider: ZABRINA AZEVEDO narrative: 54 yo male with PMH of CLL not on chemo, HTN, bladder cancer, renal cancer follows with [facility] and has routine cystoscopy just had one last week - given macrobid day of procedure. Next day he started to note worsening dysuria, had fevers on and Friday, has flank pain on R side anytime he urinates. He feels tired and nauseated. He has never this before after a procedure. He took tylenol with little relief. MD complaint: dysuria, flank pain Onset (ago): day(s) (6) Location: back and pelvis Radiation: non-radiation Severity: moderate Quality: aching Pain Consistency: constant Relieving factors: none Exacerbating factors: other (urination) Associated symptoms: fever/chills, loss of appetite, malaise and nausea/vomiting Treatments prior to arrival: other Related Data Home Medications ?Medication ?Instructions ?Recorded ?Confirmed lisinopril 40 mg tablet 40 mg PO DAILY 12/22/20 10/08/24 amlodipine 5 mg tablet 5 mg PO DAILY 02/27/21 10/08/24 ascorbic acid (vitamin C) 100 mg 100 mg PO DAILY 09/10/24 10/08/24 tablet cyanocobalamin (vitamin B-12) 50 50 mcg PO DAILY 09/10/24 10/08/24 mcg tablet magnesium 100 mg tablet 100 mg PO DAILY 09/10/24 10/08/24 multivit,Ca,min-iron 8 mg-folic 1 tab PO DAILY 09/10/24 10/08/24 acid 200 mcg-lycopene 600 mcg tablet (Centrum Men) zinc 50 mg tablet 50 mg PO USEASDIRECTD 09/10/24 10/08/24 Previous Rx's ?Medication ?Instructions ?Recorded ondansetron 8 mg disintegrating 8 mg PO Q8H PRN Nausea And 09/07/24 tablet Vomiting #30 tabs Allergies Allergy/AdvReac Type Severity Reaction Status Date / Time No Known Allergies Allergy Verified 10/12/24 13:04 [No Known Allergies*] Review of Systems 2 Review of Systems: Constitutional : pos Fever, pos Chills ENT/Mouth : No sore throat Eyes: No Eye Pain, No Swelling, No Redness Cardiovascular : No Chest Pain, No SOB Respiratory : No Cough, No Sputum, No Wheezing Gastrointestinal : positive Nausea, no Vomiting, No Diarrhea, positive abdominal pain Genitourinary : positive Dysuria, positive urinary frequency, positive Flank Pain Musculoskeletal : No joint pain, No Myalgias Skin : No Skin Lesions, No rash Neuro : No Weakness, No Numbness, No Headache Psych : No Anxiety/Panic, No Depression Heme/Lymph: No Bruising, No Lymphadenopathy Endocrine : No Polyuria, No Polydipsia All other systems reviewed and are negative PMFSH Past Medical History Attestation statement: The following information was validated with the patient. Source: old records reviewed Medical History History of colon polyps HTN (hypertension) History of COVID-19 Bladder cancer RUQ pain Abdominal bloating Cancer of kidney Hx of bladder cancer Benign prostatic hyperplasia with lower urinary tract symptoms Obstructive sleep apnea (adult) (pediatric) Lesion of bladder Surgical History History of colonoscopy with polypectomy History of surgery H/O colonoscopy Hx of cystoscopy History of surgery Family History Family History Father Hypertension Diabetes Mother Lung cancer Sister Cancer Social History Social History Household Members: Spouse and Children Housing: House Are you a primary resident caregiver to a significant other at home: No Do you presently have visiting nurse or other home services: No Alcohol intake: never Patient Tobacco Use Status: Never used Tobacco Advance Directives: No Advance Directives Information Provided: No service: No Current occupational status: employed Physical Exam ED Vital Signs: Vital Signs - 24 hr 10/12/24 13:00 10/12/24 14:46 10/12/24 14:49 Temperature 99.4 F 98.6 F Pulse Rate 77 73 Respiratory Rate 16 17 18 Blood Pressure 134/69 139/79 Pulse Oximetry 97 98 Oxygen Delivery Method Room Air Room Air BMI result Body Mass Index 31.8 Appearance: Alert. Oriented X3. No acute distress. Eyes: Pupils equal, round and reactive to light. ENT: Pharynx normal. Neck: Normal inspection. Neck supple. CVS: Normal heart rate and rhythm. Pulses normal. Respiratory: No respiratory distress. Breath sounds normal. Abdomen: Soft and nontender. Back: R sided CVA ttp Skin: Skin warm and dry. Normal skin color. Normal skin turgor. Extremities: No lower extremity edema. No calf ttp Neuro: Oriented X 3. No motor deficit. No sensory deficit. CN2-12 intact Course Course Course Narrative: This is an RME: Additional HPI, ROS, PE not included below will be deferred to primary provider. RME assessment and note performed by: Caitlyn Diehl PA-C This is a 47-gath-zmu-male, with a past medical history of HTN, hx of bladder CA, who presents to the ER with complaints of fevers, suprapubic pain and BL flank pain. Reports that he had a cystoscopy on 10/06 and then on sunday 10/08 he had a colonoscopy. Reports that on he started to develop intermittent subjective fevesr, dysuria, and BL flank pain. No nausea or vomiting. Has been taking tylenol with some relief. Plan: Labs, UA, deferring diagnostic imaging to primary provider. Medications Administered Generic Name Dose Route Start Last Admin Trade Name Freq PRN Reason Stop Dose Admin Vancomycin HCl 2,000 mg in 500 mls @ 250 mls/hr 10/12/24 14:10/12/24 15:29 Vancomycin/Ns IV 10/12/24 16:25 250 mls/hr ONCE ONE Administration Discontinued Medications Generic Name Dose Route Start Last Admin Trade Name Freq PRN Reason Stop Dose Admin Ceftriaxone Sodium 2 gm 10/12/24 14:10/12/24 14:49 Ceftriaxone Sodium 2 Gm Vial IVPUSH 10/12/24 14:27 2 gm ONCE ONE Administration Fentanyl 50 mcg 10/12/24 14:10/12/24 14:49 Fentanyl Citrate/Pf 100 Mcg/2 Ml Vial IVPUSH 10/12/24 14:29 50 mcg ONCE ONE Administration Protocol Sodium Chloride 1,000 mls @ 999 mls/hr 10/12/24 14:10/12/24 14:49 Ns IV 10/12/24 15:28 999 mls/hr .Q1H1M ONE Administration Ondansetron HCl 4 mg 10/12/24 14:28 10/12/24 14:49 Ondansetron Hcl 4 Mg/2 Ml Vial IVPUSH 10/12/24 14:29 4 mg ONCE ONE Administration Medical Decision Making Medical Decision Making [facility] Narrative: 54 yo male with PMH of CLL not on chemo, HTN, bladder cancer, renal cancer follows with [facility] and has routine cystoscopy last friday now with dysuria, flank pain, fevers at this time + UA will start broad abx, IVF, obtain CT scan for stone/air possible UTI/pyelo. Differential Diagnosis Differential Diagnoses: The differential diagnosis associated with the presentation includes UTI, pyelo, stone Admission/Observation Consideration of admission/observation: Escalation of care including admission/observation considered admit for IV abx Consult Healthcare Provider Management of the patient was discussed with: Hospitalist (will admit) Lab Data [facility] Lab Attestation statement: I reviewed the patient's lab results. 10/12/24 13:21 10/12/24 13:21 Labs: Lab Results 10/12/24 10/12/24 10/12/24 Range/Units 13:21 13:27 14:37 WBC 31.4 H* (4.8-10.8) X10*3/uL RBC 4.39 L (4.60-5.80) X10*6/uL Hgb 12.5 L (14.0-18.0) g/dl Hct 37.7 L (42.0-52.0) % MCV 85.9 (80.0-98.0) fL MCH 28.5 (27.0-33.0) pg MCHC 33.2 (31.0-36.0) g/dl RDW 14.4 (11.0-16.0) % Plt Count 179 (160-400) X10*3/uL MPV 9.0 L (9.4-12.4) fL Immature Gran % (Auto) Cancelled Neut % (Auto) Cancelled Lymph % (Auto) Cancelled Boyd % (Auto) Cancelled Eos % (Auto) Cancelled Baso % (Auto) Cancelled Lymph # (Auto) Cancelled Boyd # (Auto) Cancelled Eos # (Auto) Cancelled Baso # (Auto) Cancelled Abs Immat Gran (auto) Cancelled Absolute Neuts (auto) Cancelled Absolute Nucleated RBC 0.000 (0.0-0.012) X10*3/uL Nucleated RBC % (auto) 0.0 (0.0-0.2) /100WBC Neutrophils % (Manual) 18 L (45-73) % Lymphocytes % (Manual) 77 H (20-40) % Atypical Lymphs % (Man) 3 (0-6) % Monocytes % (Manual) 2 (2-11) % Lymphocytes # (Manual) 24.2 H (1.2-4.9) X10*3/uL Atyp Lymphs # (Manual) 0.9 x10*3/uL Monocytes # (Manual) 0.6 (0.1-1.2) X10*3/uL Smudge Cells PRESENT Platelet Estimate NORMAL (NORMAL) Plt Morphology Comment NORMAL RBC Morphology NORMAL Sodium 137 (135-145) mmol/L Potassium 4.0 (3.3-5.1) mmol/L Chloride 104 (96-108) mmol/L Carbon Dioxide 28 (22-29) mmol/L Anion Gap 9 L (12-20) BUN 21 H (9-16) mg/dL Creatinine 0.78 (0.5-1.4) mg/dL Estim Creat Clear Calc 118.2 Estimated GFR > 60 Random Glucose 108 (60-115) mg/dL Lactic Acid 0.6 (0.5-2.0) mmol/L Calcium 9.5 (8.4-10.2) mg/dL Magnesium 2.2 (1.6-2.6) mg/dL Total Bilirubin 0.4 (0.0-1.0) mg/dL Direct Bilirubin 0.3 (0.0-0.5) mg/dL AST 17 (5-37) U/L ALT 20 (0-40) U/L Alkaline Phosphatase 75 (39-117) U/L Total Protein 6.7 (6.5-8.0) g/dL Albumin 4.2 (3.5-5.0) g/dL Lipase 29 (8-78) U/L Urine Color Dark Yellow Urine Appearance Cloudy Urine pH 5.5 (5.0-9.0) Ur Specific [place] 1.020 (1.005-1.025) Urine Protein 100 (2+) H (Neg-Trace) mg/dL Urine Glucose (UA) Negative (Negative) mg/dL Urine Ketones Trace (Negative) mg/dL Urine Blood Moderate (2+) H (Negative) Urine Nitrite Positive H (Negative) Ur Leukocyte Esterase Moderate (2+) H (Negative) Urine RBC >20 H (0-2) /HPF Urine WBC >50 H (0-5) /HPF Ur Squamous Epith Cells 0-2 (0-2) /HPF Urine Bacteria 2+ (None Seen) Hyaline Casts 3-5 (0-2) /LPF Independent Interpretation I performed an independent interpretation of an: CT Scan (ureteritis) Radiology Impression Discussion of test interpretation with radiology: I have reviewed the radiologist's reading. External Record Review External record reviewed: Inpatient record and Outpatient record Discharge Plan Discharge Clinical Impression: Acute UTI, Ureteritis, Elevated WBC count Patient Disposition: Admitted As Inpatient Prescriptions: No Action cyanocobalamin (vitamin B-12) 50 mcg Tablet 50 mcg PO DAILY magnesium 100 mg Tablet 100 mg PO DAILY ascorbic acid (vitamin C) 100 mg Tablet 100 mg PO DAILY zinc 50 mg Tablet 50 mg PO USEASDIRECTD Rx Instructions: Twice a week Centrum Men 8 mg iron- 200 mcg-600 mcg Tablet 1 tab PO DAILY ondansetron 8 mg Tablet,Disintegrating 8 mg PO Q8H PRN (Reason: Nausea And Vomiting) Qty: 30 3RF lisinopril 40 mg tablet 40 mg PO DAILY amlodipine 5 mg tablet 5 mg PO DAILY Print Language: Turkish
[2024-10-12 13:28] LABS: Hematocrit 37.7 % (42.0-52.0); Hemoglobin 12.5 g/dl (14.0-18.0); Mean Corpuscular HGB Conc 33.2 g/dl (31.0-36.0); Mean Corpuscular Hemoglobin 28.5 pg (27.0-33.0); Mean Corpuscular Volume 85.9 fL (80.0-98.0); Platelet Count 179 X10*3/uL (160-400); Red Blood Count 4.39 X10*6/uL (4.60-5.80); Red Cell Distribution Width 14.4 % (11.0-16.0)
[2024-10-12 13:29] LABS: WBC ABN SCTR FOR CBC 1
[2024-10-12 13:32] LABS: White Blood Count 31.4 X10*3/uL (4.8-10.8)
[2024-10-12 13:36] LABS: Appearance Urine Cloudy; Color Urine Dark Yellow; Glucose Urine UA Negative (Negative); Leukocyte Esterase Urine Moderate (2+) (Negative); Nitrite Urine Positive (Negative); PH 5.5 (5.0-9.0); UMIC TRIGGER UACC YES; Urine Blood Moderate (2+) (Negative); Urine Ketones Trace mg/dL (Negative); Urine Protein 100 (2+) mg/dL (Neg-Trace)
[2024-10-12 13:39] LABS: Bacteria Urine 2+ (None Seen); RBC Urine >20 /HPF (0-2); Squamous Epithelial Cell Urine 0-2 /HPF (0-2); UACC Culture Trigger YES; WBC Urine >50 /HPF (0-5)
[2024-10-12 14:17] LABS: Alanine Aminotransferase 20 U/L (0-40); Albumin Level 4.2 g/dL (3.5-5.0); Alkaline Phosphatase 75 U/L (39-117); Anion Gap 9 (12-20); Aspartate Amino Transferase 17 U/L (5-37); Bilirubin Direct 0.3 mg/dL (0.0-0.5); Bilirubin Total 0.4 mg/dL (0.0-1.0); Blood Urea Nitrogen 21 mg/dL (9-16); Calcium 9.5 mg/dL (8.4-10.2); Carbon Dioxide 28 mmol/L (22-29); Chloride 104 mmol/L (96-108); Creatinine Clr Calc Pharmacy 118.2; Estimated Glomerular Filt Rate > 60; Glucose Random 108 mg/dL (60-115); Lipase 29 U/L (8-78); Magnesium 2.2 mg/dL (1.6-2.6); Sodium 137 mmol/L (135-145); Total Protein 6.7 g/dL (6.5-8.0)
[2024-10-12 14:20] LABS: Atypical Lymph Absolute Manual 0.9 x10*3/uL; Atypical Lymphs Percent Manual 3 % (0-6); Lymphocytes Absolute Manual 24.2 X10*3/uL (1.2-4.9); Lymphocytes Percent Manual 77 % (20-40); Monocytes Absolute Manual 0.6 X10*3/uL (0.1-1.2); Monocytes Percent Manual 2 % (2-11); Neutrophils Percent Manual 18 % (45-73)
[2024-10-12 14:22] LABS: Platelet Estimate NORMAL (NORMAL); Platelet Morphology Comment NORMAL; RBC Morphology NORMAL
[2024-10-12 14:24] LABS: Smudge Cells PRESENT
[2024-10-12] MEDS: 0.9 % Sodium Chloride 1,000 ML 999 ML IV (14:49)
[2024-10-12] MEDS: fentaNYL citrate/PF 100 MCG/2 ML VIAL 50 MCG IVPUSH (14:49)
[2024-10-12] MEDS: ondansetron HCL 4 MG/2 ML VIAL IVPUSH (14:49)
[2024-10-12] MEDS: cefTRIAXone sodium 2 GM VIAL IVPUSH (14:49)
[2024-10-12 15:01] LABS: Lactic Acid 0.6 mmol/L (0.5-2.0)
[2024-10-12] MEDS: vancomycin/NS 2,000 MG/500 ML PLAST..BAG 250 MG IV (15:29)
--- NOTE | 2024-10-12 16:11 | P.HPHOSP_ITS ---
History of Present Illness Date of Service: 10/12/24 Chief Complaint: fevers 54M PMH CLL, bladder cancer, hypertension presented with fever and chills. Patient underwent cystoscopy 10/05/2024 for annual bladder cancer screening was given Macrobid, also underwent colonoscopy screening 10/08/2024 with polypectomies. Reports symptoms starting 10/06/2024 with fever and chills and fatigue. Fevers continued over the weekend. On day prior to presentation started having severe low back pain and dysuria so he came to the ED. in ED noted to have inflammatory stranding and fluid along the course of the right ureter, diffuse urinary bladder wall thickening inflammatory stranding findings suggestive of cystitis and right urolithiasis. Review of Systems 2 Review of Systems: Yes all other systems are reviewed and are negative [facility] Medical History History of colon polyps HTN (hypertension) History of COVID-19 Bladder cancer RUQ pain Abdominal bloating Cancer of kidney Hx of bladder cancer Benign prostatic hyperplasia with lower urinary tract symptoms Obstructive sleep apnea (adult) (pediatric) Lesion of bladder Family History Father Hypertension Diabetes Mother Lung cancer Sister Cancer Surgical History History of colonoscopy with polypectomy History of surgery H/O colonoscopy Hx of cystoscopy History of surgery Social History Household Members: Spouse and Children Housing: House Are you a primary long term care pharmacist to a significant other at home: No Do you presently have visiting nurse or other home services: No Alcohol intake: never Patient Tobacco Use Status: Never used Tobacco Advance Directives: No Advance Directives Information Provided: No service: No Current occupational status: employed Meds Allergies Allergy/AdvReac Type Severity Reaction Status Date / Time No Known Allergies Allergy Verified 10/12/24 13:04 [No Known Allergies*] Active Medications: Current Medications Ceftriaxone Sodium (Ceftriaxone Sodium 1 Gm Vial) 1 gm IVPUSH Q24H PAULINO Enoxaparin Sodium (Enoxaparin Sodium 40 Mg/0.4 Ml Syringe) 40 mg SUBCUT Q24H PAULINO Vancomycin HCl (Vancomycin/Ns) 2,000 mg in 500 mls @ 250 mls/hr IV ONCE ONE Stop: 10/12/24 16:25 Last Admin: 10/12/24 15:29 Dose: 250 mls/hr Vancomycin HCl 1,000 mg/ (Sodium Chloride) 270 mls @ 270 mls/hr IV Q12H [facility] Pharmacy Consult (Consult Rx Vancomycin Dosing) 1 each MISCELLANE DAILY PRN PRN Reason: Consult order Home Medications ?Medication ?Instructions ?Recorded ?Confirmed ?Last Taken ?Type lisinopril 40 mg tablet 40 mg PO DAILY 12/22/20 10/08/24 10/07/24 History amlodipine 5 mg tablet 5 mg PO DAILY 02/27/21 10/08/24 10/08/24 History ascorbic acid (vitamin C) 100 mg 100 mg PO DAILY 09/10/24 10/08/24 Unknown History tablet cyanocobalamin (vitamin B-12) 50 50 mcg PO DAILY 09/10/24 10/08/24 Unknown History mcg tablet magnesium 100 mg tablet 100 mg PO DAILY 09/10/24 10/08/24 Unknown History multivit,Ca,min-iron 8 mg-folic 1 tab PO DAILY 09/10/24 10/08/24 Unknown History acid 200 mcg-lycopene 600 mcg tablet (Centrum Men) zinc 50 mg tablet 50 mg PO USEASDIRECTD 09/10/24 10/08/24 Unknown History Physical Exam 2 Vital Signs and Narrative: Vital Signs: Last Vital Signs Temp 98.6 F 10/12/24 14:46 Pulse 73 10/12/24 14:46 Resp 18 10/12/24 14:49 BP 139/79 10/12/24 14:46 Pulse Ox 98 10/12/24 14:46 O2 Del Method Room Air 10/12/24 14:46 BMI result Body Mass Index 31.8 General: AO X 3, no acute distress Resp: CTA bilateral, no accessory muscles used CVS: S1,S2,RRR GI: soft, non tender, non distended Neuro: motor grossly intact, alert Psych: appropriate affect, appropriate insight Results Labs 10/12/24 13:21 10/12/24 13:21 Labs: Laboratory Results - last 24 hr 10/12/24 10/12/24 10/12/24 13:21 13:27 14:37 MCV 85.9 MCH 28.5 MCHC 33.2 RDW 14.4 Plt Count 179 MPV 9.0 L Immature Gran % (Auto) Cancelled Neut % (Auto) Cancelled Lymph % (Auto) Cancelled [place] % (Auto) Cancelled Eos % (Auto) Cancelled Baso % (Auto) Cancelled Lymph # (Auto) Cancelled [place] # (Auto) Cancelled Eos # (Auto) Cancelled Baso # (Auto) Cancelled Abs Immat Gran (auto) Cancelled Absolute Neuts (auto) Cancelled Absolute Nucleated RBC 0.000 Nucleated RBC % (auto) 0.0 Neutrophils % (Manual) 18 L Lymphocytes % (Manual) 77 H Atypical Lymphs % (Man) 3 Monocytes % (Manual) 2 Lymphocytes # (Manual) 24.2 H Atyp Lymphs # (Manual) 0.9 Monocytes # (Manual) 0.6 Smudge Cells PRESENT Platelet Estimate NORMAL Plt Morphology Comment NORMAL RBC Morphology NORMAL Anion Gap 9 L Estim Creat Clear Calc 118.2 Estimated GFR > 60 Random Glucose 108 Lactic Acid 0.6 Calcium 9.5 Magnesium 2.2 Total Bilirubin 0.4 Direct Bilirubin 0.3 AST 17 ALT 20 Alkaline Phosphatase 75 Total Protein 6.7 Albumin 4.2 Lipase 29 Urine Color Dark Yellow Urine Appearance Cloudy Urine pH 5.5 Ur Specific [place] 1.020 Urine Protein 100 (2+) H Urine Glucose (UA) Negative Urine Ketones Trace Urine Blood Moderate (2+) H Urine Nitrite Positive H Ur Leukocyte Esterase Moderate (2+) H Urine RBC >20 H Urine WBC >50 H Ur Squamous Epith Cells 0-2 Urine Bacteria 2+ Hyaline Casts 3-5 Imaging Radiologist's Impressions: Impressions Abdomen/Pelvis CT 10/12/24 14:26 IMPRESSION: 1. Diffuse lymphadenopathy throughout the abdomen and pelvis as noted on outside PET/CT scan. 2. Inflammatory stranding and fluid along the course of the right ureter. Diffuse urinary bladder wall thickening and inflammatory stranding. Findings are suggestive of cystitis and right ureterolithiasis. 3. Splenomegaly. 4. Enlargement of both adrenal glands, left greater than right, as seen on PET/CT scan. Electronically signed by: Freddy Amin MD 10/12/2024 03:35 PM EDT RP Assessment and Plan (1) HTN (hypertension): Status: Acute Plan 54M PMH CLL, bladder cancer, hypertension presented with fever and chills Fever and chills due to urinary tract infection after recent cystoscopy Vancomycin to cover MRSA given recent procedure, continue ceftriaxone Urology eval Follow up cultures CLL Being observed outpatient with Dr. Buenrostro Hypertension Lisinopril, amlodipine DVT prophylaxis with Lovenox Full Code Given recent instrumentation would continue IV antibiotics until culture results back which will require at least 2 midnights inpatient Quality Stroke Does the patient have a stroke diagnosis?: No VTE Prior VTE?: No VTE Risk Level:: Medical - moderate - high VTE Device Contraindication: Treatment Not Indicated VTE Drug Contraindication: N/A - Med Ordered
[2024-10-12 16:20] LABS: Band Neutrophils Percent 0 % (3-5); Neutrophils Absolute Manual 5.7 X10*3/uL (2.0-8.3)
--- NOTE | 2024-10-12 17:07 | PHA.MEDREC ---
Addendum entered by Amaya Hyatt RPh 10/12/24 17:19: reviewed by [facility]. Original Note: Pharmacy Consult ? Medication Reconciliation Pharmacy has completed the medication reconciliation. Spoke with patient and he confirmed his medications. Patient confirmed he did not start the Acyclovir 400mg tab and stated he was suppose to go to an appointment in [place] for a second opinion. He confirmed he uses Zinc 50mg tab as needed for when his Zinc levels get low. He confirmed he took his medications this morning @1000.
--- OUTSIDE RECORDS SUMMARY | 2024-10-12 17:58 | XMS_ITS | Data Portability ---
Author Organization [place] - [facility], Allergy Address [address] [address] Assessment No assessment recorded. Plan of Treatment [...] audio gram No observ ation record ed. [email or web address] Not Available 04/14 13:50:38 Result Notes None recorded. Problems Name Problem SNOMED Code Status Onset Date Resolution Date Notes Provider Name and Address Organization Details Recorded Time Sensorine ural hearing loss of bilateral ears 868735810 Active 2020 Sensorine ural hearing loss, bilateral ; Note: Date Diagnosed : 06/21/2021 11:59 AM (H90.3) Not Available [facility] 4 02:32:25 Chronic sore throat 523309862 Active 2023 TAYLOR WILKES MD [address], [place], [address] , [place] - [facility] 4 11:05:42 Feeling of lump in throat 970876111 Active 2023 TAYLOR WILKES MD [address], [place], [place], [address] , [place] - [facility] 4 11:06:11 Hypertrop hy of tonsils 53775738 Active 2023 TAYLOR WILKES MD [address] [facility] [address] [facility], [place], [address] , [place] - [facility] 4 11:16:13 Obstructi ve sleep apnea syndrome 96499988 Active 2023 TAYLOR WILKES MD [address] [facility] [address] [facility], [place], [place], [address] , [place] - [facility] 4 11:20:42 Impacted cerumen in left ear 63452703458 39212 Active 2023 TAYLOR WILKES MD [address] [facility] [address],[place] [address], [place], [place], [address] , [place] - [facility] 4 14:59:54 Asymmetri trevor sensorine ural hearing loss 332030558 Active 2023 TAYLOR WILKES MD [address] [facility] [address], [place], [address] , [place] - [facility] 4 15:40:45 Problem Notes None recorded. Procedures Surgical History Date Name Laterality Status Provider Name and Address Organization Details Recorded Time 4 Cerumen removal without microscope left completed TAYLOR WILKES MD [address] [facility] [address] [facility], [place], [address], [place] - [facility] 05/04/2024 15:01:11 4 Air & Speech Audio with Tymps (56220, 10341 & 24167) completed HERBERT BYERS [address] [facility],[place] [address], [place], [address], [place] - [facility] 05/04/2024 15:19:51 4 FFL_RE completed TAYLOR WILKES MD [address] [facility],[place] [address], [place], [address], [place] - [facility] 01/26/2024 11:06:27 Imaging Results Imaging Date Name Status LastModified by Organiz ation Details LastModified Time 06/21/2021 imaging/diagno stic result completed Information not available 03/04/2024 03:32:24 06/21/2021 imaging/diagno stic result completed Information not available 03/04/2024 03:32:27 06/21/2021 audiogram completed Information not available 03/04/2024 03:32:31 05/07/2024 audiogram completed [email or web address] Information n ot available 05/07/2024 13:50:38 Procedure [...] Updated DateTime 01/26/2024 172.72 cm 33.1 kg/m2 06648.14 g Dima Estevez [place] - [facility] 01/26/2024 11:03:25 Date Recorded Body height Body mass index (BMI) Body weight Provider Name and Address Organization Details Last Updated DateTime 05/04/2024 172.72 cm 33.1 kg/m2 20787.14 g Dima Estevez [facility] 05/04/2024 14:44:29 Social History None recorded. Functional Status None recorded. Mental Status None recorded. Family History Nothing Reported. Medical History No medical history recorded. Past Encounters Encounter ID Performer Location Encounter Start Date Encounter Closed Date Diagnosis/Indication Diagnosis SNOMED-CT Code Diagnosis ICD10 Code Diagnosis Note [id number] TAYLOR WILKES MD [facility] [address] [address] 01/26/2024 10:36:28 01/26/2024 11:21:17 Chronic sore throat 224142795 J31.2 Pain has improved. Remains with tonsil hypertroph y. See below. Feeling of lump in throat 137760238 R09.89 Likely due to sever tonsil hypertroph y. See below. Hypertroph y of tonsils 20478651 J35.1 He has 4+ tonsils. I discussed tonsillect junior as a last resort but recommend a period of observatio n first. He will f/u in 3 months to reassess and we will consider tonsillect junior as a last resort. I stressed it would not cure NATHAN. Obstructiv e sleep apnea syndrome 95192498 G47.33 Likely multifacto rial but likely worse due to 4+ tonsils. Discussed tonsillect junior might improve but not cure NATHAN. FFL showed enlarged tonsils but was otherwise normal. [id number] TAYLOR WILKES MD [facility] [address] [place] [address] 05/04/2024 14:24:34 05/04/2024 15:40:47 Impacted cerumen in left ear 5680673187 448079 H61.22 Recurrent Cerumen Impactions : Ears were meticulous ly cleaned bilaterall y today with a curette and suction. The patient tolerated this well and will follow up for repeat debridemen t per routine. Hypertroph y of tonsils 15776461 J35.1 Tonsil hypertroph y is slightly improved. I recommend observatio n. Sensorineu ral hearing loss of bilateral ears 360451049 H90.3 Right Ear:Normal hearing through 1K Hz sloping to a moderately -severe SNHL with excellent speech discrimina tion.Type Ad tympanogra m.Left Ear:Normal hearing through 2K Hz sloping to a mild SNHL with excellent speech discrimina tion.Type Ad tympanogra m. Asymmetric al sensorineural hearing loss 695847746 H90.5 worse AD. stable compared to prior. [...] Larson Member ID Guarantor Name 01/26/2024 1 [place] [facility] Irwin Mcnulty [id number] Irwin Mendoza 05/04/2024 1 [place] [facility] Irwin Mcnulty [id number] Irwin Mendoza Notes Date Note Type Note Provider Name and Address Organization Details Recorded Time 01/26/2024 text/html In November he had a severe throat infection. He was given abx and prednisone. He had a normal CT at [facility] which was negative per his report (I don't have access to the CT). Since then his throat has bothered him. He feels he has had some voice change, enlarged tonsils and the feeling of phlegm stuck in his throat. Currently he has no pain. He does have globus. He denies dysphagia. TAYLOR WILKES MD [address] [facility],[address], [address], [place] - [facility] 01/26/2024 11:23:09 05/04/2024 text/html He has a history of leukemia. He was seen here 01/2024 he had severe tonsil hypertrophy. He reports his throat feels better and less swollen. Has a left hearing aid which isn't working well. Has not had a recent hearing test. TAYLOR WILKES MD [address] [facility],[place] [address], [place], [address], [place] - [facility] 05/04/2024 15:41:25
--- OUTSIDE RECORDS SUMMARY | 2024-10-12 17:58 | XMS_ITS | Clinical Summary ---
Author Organization [facility] Address [address] [place] [address] Phone Care Team Providers Care Pipe Fittings Molder Name Role Phone Unavailable Primary Care Provider Unavailabl e Encounters Date Type Department Care Team Description 08/26/2024 2:00 PM EST - 08/26/2024 11:59 PM EST Hospital Encounter [facility] PET Scan [address] [place] [address] Chronic lymphocytic 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 ([facility]) Discharge Disposition: Home or Self Care from Last 3 Months Surgical History Surgery Date Site/Laterality Comments FEMUR FRACTURE SURGERY PROCEDURE: NC OPEN TX FEMORAL FRACTURE DISTAL MED/LAT CONDYLE; COMMENT: Left femur at age 4 NOSE SURGERY PROCEDURE: NC UNLISTED PROCEDURE NOSE; COMMENT: deviated septum COLONOSCOPY PROCEDURE: HISTORICAL COLONOSCOPY; COMMENT: Normal on this year 12/2009 OTHER SURGICAL HISTORY 10/24 PROCEDURE: NC LAPAROSCOPY SURG PARTIAL NEPHRECTOMY; COMMENT: renal mass OTHER SURGICAL HISTORY 08/26 PROCEDURE: NC CSTOTOMY/CSTOST CRYOSURG DSTRJ INTRAVESICAL LES; COMMENT: bladder [...] of B-cell type not having achieved remission ([facility]) from Last 3 Months Results * PET [...] Signed Date: 09/03/2024 13:11 ET Workstation ID: [id number] Transcribed By: Self Edit Transcribed Date: 09/03/2024 [...] Signed Date: 09/03/2024 13:11 ET Workstation ID: [id number] Transcribed By: Self Edit Transcribed Date: 09/03/2024 10:57 ET Jackelyn Buenrostro MD [facility] PROCEDURES Final Result from Last 3 Months
--- OUTSIDE RECORDS SUMMARY | 2024-10-12 17:59 | XMS_ITS | Encounter Summary ---
Author Organization [employer] Address [address] [place] [address] Care Team Providers Care Quality Control Chemist Name Role Phone Name, Louis DISLA Primary Care Provider [phone] Encounter Details Date Type Department Care Team ([facility] st Contact Info) Description 10/12/2024 Orders Only [facility] CH[facility] MED & PEDS [address] [place], [place] [phone] Provider, MD Noam Social History Tobacco Use Types Packs/Day Years [...] Description 11/23/2024 2:00 PM EDT Office Visit [facility] MEDICINE [address] [place] [address] [phone] Name, MD Louis [address] [place] [address] documented as of this encounter Procedures Procedure Name Priority Date/Time Associated Diagnosis Comments LACTIC ACID Routine 10/12/2024 2:[address] ABDOMEN PELVIS WO CONTRAST Routine 10/12/2024 2:26 PM EDT URINALYSIS, COMPLETE, WITH REFLEX TO CULTURE Routine 10/12/2024 1:27 PM EDT COMPLETE BLOOD COUNT MAN DIF Routine 10/12/2024 1:21 PM EDT MAGNESIUM Routine 10/12/2024 1:21 PM EDT LIPASE Routine 10/12/2024 1:21 PM EDT HEPATIC FUNCTION PANEL Routine 10/12/2024 1:21 PM EDT BASIC METABOLIC PANEL Routine 10/12/2024 1:21 PM EDT HM COLONOSCOPY Routine 10/08/2024 7:58 AM EDT documented in this encounter Results * Lactic Acid (10/12/2024 2:37 PM EDT) Lactic Acid 0.6 0.5 - 2.0 mmol/L [facility] 10/12/2024 2:37 PM EDT 10/12/2024 2:42 PM EDT us Generic External Data Provider LAB BLOOD ORDERAB LES Final Result [facility] [address] [place] [address] [phone] * CT Abdomen Pelvis w/o Contrast (10/12/2024 2:26 PM EDT) Anatomical Region Laterality Modality Body, Pelvis, Abdomen Computed T omography 10/12/2024 2:26 PM EDT Narrative 10/12/2024 3:38 PM EDT ? [facility] ?[address] ?[place] [address] ? CT Scan Report ? Signed ? Patient: Irwin Mendoza Jr ?MR#: MM ?? [id number] ? : 1970 ?Acct:[id number] ? Age/Sex: 54 / M ?ADM Date: 10/12/24 ? Loc: HO.ED ? Attending Dr: ? Ordering Physician: Mirta Dallas DO ?? Date of Service: 10/12/24 ?? Procedure(s): CT abdomen pelvis wo IV con ?? Accession Number(s): [id number] ? cc: Mirta Dallas DO; NameLouis MD ? Report Number: ?? [id number]: Total DLP = ??626.00 mGy-cm ?? EXAMINATION: ??CT ABDOMEN PELVIS WITHOUT IV CONTRAST ? HISTORY: flank pain, recent cystoscopy ? COMPARISON: Relation is made with an outside PET/CT scan from [facility] dated 08/16/2024. ? TECHNIQUE: CT scan of the abdomen and pelvis was performed without ?? contrast using standard departmental protocol. ?? Coronal and sagittal ?? reformatted images were generated and reviewed. ??Oral contrast material ?? was not administered per department protocol. ? This CT exam was performed with one or more of the following dose ?? reduction techniques: automated exposure control, adjustment of the mA ?? and/or kV according to patient size, use of iterative reconstruction ?? technique. ? DLP: 626 mGy-cm ? FINDINGS: ? LOWER CHEST: The visualized lung bases are clear. There is no pleural ?? effusion. ? CARDIOVASCULATURE: The heart is normal in size. ??There is no ?? pericardial effusion. ? LIVER: ??The liver is normal in size and contour. ??The liver has an ?? unremarkable unenhanced appearance. ? GALLBLADDER / BILE DUCTS: ??The gallbladder is unremarkable. There is no ?? intra or extrahepatic biliary ductal dilatation. ? SPLEEN: The spleen is enlarged. ? PANCREAS: The pancreas has an unremarkable unenhanced appearance. ? ADRENAL GLANDS: There is enlargement of both adrenal glands, left ?? greater than right. ? KIDNEYS/RETROPERITONEUM: There is a cortical calcification at the upper ?? pole of the left kidney. No calyceal calculi are identified. There is ?? no hydronephrosis. There is a inflammatory stranding and fluid along ?? the course of the right ureter. No ureteral calculi are seen. ? LYMPH NODES: ??Again seen is diffuse retroperitoneal lymphadenopathy. ?? Periaortic lymph nodes measure up to 3.9 cm in size. Paracaval lymph ?? nodes measure up to 2.7 cm in size. There are enlarged bilateral ?? obturator lymph nodes measuring up to 3.5 cm. Additional enlarged ?? external iliac lymph nodes are seen. There are enlarged mesenteric ?? lymph nodes measuring up to 2.8 cm. ? VASCULATURE: ??The abdominal aorta is normal in caliber. ? MESENTERY/PERITONEUM: No free fluid. No masses. ??There is no free ?? intraperitoneal gas. ? STOMACH: ??The stomach is unremarkable. ? SMALL BOWEL: ?? The small bowel is normal in caliber. ? COLON: ??The colon is unremarkable. ? APPENDIX: ??Normal. ? URINARY BLADDER/PELVIC ORGANS: The urinary bladder demonstrates diffuse ?? wall thickening and there is perivesical inflammatory stranding. ??The ?? prostate is enlarged. ? BONES / SOFT TISSUES: ??No suspicious bony or soft tissue abnormalities. ? CT/CT abdomen pelvis wo IV con ?? IMPRESSION: ? 1. Diffuse lymphadenopathy throughout the abdomen and pelvis as noted ?? on outside PET/CT scan. ? 2. Inflammatory stranding and fluid along the course of the right ?? ureter. Diffuse urinary bladder wall thickening and inflammatory ?? stranding. Findings are suggestive of cystitis and right ?? ureterolithiasis. ? 3. Splenomegaly. ? 4. Enlargement of both adrenal glands, left greater than right, as seen ?? on PET/CT scan. ? Electronically signed by: ??Freddy Amin MD ??10/12/2024 03:35 PM EDT ? Dictated By: ?Freddy Amin MD ? Signed By: ?<Electronically signed by Freddy Amin MD in OV> ?10/12/24 1535 ? DD/ 1426 ? TD/TT: 10/12/24 1518 ? Trouble Clerk: ? Procedure Note Floridalma, Ismael - 10/12/[address] [place] [address] [address] Scan Report Signed Patient: Irwin Mendoza JrR#: [id number] : 1970Acct:[id number] Age/Sex: 54 / MADM Date: 10/12/24 Loc: HO.ED Attending Dr: Ordering Physician: Mirta Dallas DO Date of Service: 10/12/24 Procedure(s): CT abdomen pelvis wo IV con Accession Number(s): [id number] cc: Mirta Dallas DO; Name,Louis DISLA Report Number: [id number]: Total DLP = 626.00 mGy-cm EXAMINATION: CT ABDOMEN PELVIS WITHOUT IV CONTRAST HISTORY: flank pain, recent cystoscopy COMPARISON: Relation is made with an outside PET/CT scan from [facility] dated 08/16/2024. TECHNIQUE: CT scan of the abdomen and pelvis was performed without contrast using standard departmental protocol. Coronal and sagittal reformatted images were generated and reviewed. Oral contrast material was not administered per department protocol. This CT exam was performed with one or more of the following dose reduction techniques: automated exposure control, adjustment of the mA and/or kV according to patient size, use of iterative reconstruction technique. DLP: 626 mGy-cm FINDINGS: LOWER CHEST: The visualized lung bases are clear. There is no pleural effusion. CARDIOVASCULATURE: The heart is normal in size. There is no pericardial effusion. LIVER: The liver is normal in size and contour. The liver has an unremarkable unenhanced appearance. GALLBLADDER / BILE DUCTS: The gallbladder is unremarkable. There is no intra or extrahepatic biliary ductal dilatation. SPLEEN: The spleen is enlarged. PANCREAS: The pancreas has an unremarkable unenhanced appearance. ADRENAL GLANDS: There is enlargement of both adrenal glands, left greater than right. KIDNEYS/RETROPERITONEUM: There is a cortical calcification at the upper pole of the left kidney. No calyceal calculi are identified. There is no hydronephrosis. There is a inflammatory stranding and fluid along the course of the right ureter. No ureteral calculi are seen. LYMPH NODES: Again seen is diffuse retroperitoneal lymphadenopathy. Periaortic lymph nodes measure up to 3.9 cm in size. Paracaval lymph nodes measure up to 2.7 cm in size. There are enlarged bilateral obturator lymph nodes measuring up to 3.5 cm. Additional enlarged external iliac lymph nodes are seen. There are enlarged mesenteric lymph nodes measuring up to 2.8 cm. VASCULATURE: The abdominal aorta is normal in caliber. MESENTERY/PERITONEUM: No free fluid. No masses. There is no free intraperitoneal gas. STOMACH: The stomach is unremarkable. SMALL BOWEL: The small bowel is normal in caliber. COLON: The colon is unremarkable. APPENDIX: Normal. URINARY BLADDER/PELVIC ORGANS: The urinary bladder demonstrates diffuse wall thickening and there is perivesical inflammatory stranding. The prostate is enlarged. BONES / SOFT TISSUES: No suspicious bony or soft tissue abnormalities. CT/CT abdomen pelvis wo IV con IMPRESSION: 1. Diffuse lymphadenopathy throughout the abdomen and pelvis as noted on outside PET/CT scan. 2. Inflammatory stranding and fluid along the course of the right ureter. Diffuse urinary bladder wall thickening and inflammatory stranding. Findings are suggestive of cystitis and right ureterolithiasis. 3. Splenomegaly. 4. Enlargement of both adrenal glands, left greater than right, as seen on PET/CT scan. Electronically signed by: Freddy Amin MD 10/12/2024 03:35 PM EDT Dictated By: Freddy Amin MD Signed By: <Electronically signed by Freddy Amin MD in OV> 10/12/24 1535 DD/ 1426 TD/TT: 10/12/24 1518 Trouble Clerk: [facility] External Provider IMG CT PROCEDURES Final Result * (ABNORMAL) Urinalysis, Complete, with Reflex to Culture (10/12/2024 1:27 PM EDT) Color Urine Dark Yellow [facility] Appearance Urine Cloudy [facility] PH 5.5 5.0 - 9.0 [facility] Glucose Urine UA Negative Negative mg/dL [facility] Urine Blood Moderate (2+)(A) Negative [facility] Specific Hendricks - Urine 1.020 1.005 - 1.025 [facility] Urine Protein 100 (2+)(A) Neg-Trace mg/dL [facility] Urine Ketones Trace Negative mg/dL [facility] Nitrite Urine Positive(A) Negative [facility] Leukocyte Esterase Urine Moderate (2+)(A) Negative [facility] RBC Urine >20(A) 0 - 2 /HPF [facility] Urine WBC >50(A) 0 - 5 /HPF [facility] Urine Squamous Epithelial Cell 0-2 0 - 2 /HPF [facility] Urine Bacteria 2+ None Seen [facility] Hyaline Casts, Urine 3-5 0 - 2 /LPF [facility] 10/12/2024 1:27 PM EDT 10/12/2024 1:30 PM EDT Narrative [facility] - 10/12/2024 1:39 PM EDT [id number], Clean C[employer] Generic External Data Provider LAB URINE ORDERAB LES Final Result Performing Organization Address [facility] Co de Phone Number [facility] [address] [place] [phone] * Lipase (10/12/2024 1:21 PM EDT) [facility] Lipase 29 8 - 78 U/L [facility] 10/12/2024 1:21 PM EDT 10/12/2024 1:24 PM EDT Generic External Data Provider LAB BLOOD ORDERAB LES Final Result Performing Organization Address [facility] Co nd Phone Number [facility] [address] [place] [phone] * Magnesium (10/12/2024 1:21 PM EDT) [facility] Magnesium 2.2 1.6 - 2.6 mg/dL [facility] 10/12/2024 1:21 PM EDT 10/12/2024 1:24 PM EDT Generic External Data Provider LAB BLOOD ORDERAB LES Final Result Performing Organization Address [facility] de Phone Number [facility] [address] [place] [phone] * (ABNORMAL) Basic Metabolic Panel (10/12/2024 1:21 PM EDT) [facility] Sodium 137 135 - 145 mmol/L [facility] Potassium 4.0 3.3 - 5.1 mmol/L [facility] Chloride 104 96 - 108 mmol/L [facility] Carbon Dioxide 28 22 - 29 mmol/L [facility] Anion Gap 9(L) 12 - 20 [facility] Urea Nitrogen (BUN) 21(H) 9 - 16 mg/dL [facility] Creatinine, Serum 0.78 0.5 - 1.4 mg/dL [facility] Creatinine Clr Calc Pharmacy 118.2 [facility] Comment:eGFR (calculated fro m the MDRD study equation) and eCrCl(calculated from the Cockcroft-Gault equation) are based ondifferent parameters and may not yield comparable results.If eCrCl result is absurd, please check patient'sheight/weight. Estimated Glomerular Filt Rate >60 [facility] Comment:Chronic Kidney Disea se: Estimated GFR < 60 mL/min/1.37k9Baflzw Kidney Disease: Estimated GFR < 15 mL/min/1.73m2 Glucose 108 60 - 115 mg/dL [facility] Calcium 9.5 8.4 - 10.2 mg/dL [facility] 10/12/2024 1:21 PM EDT 10/12/2024 1:24 PM EDT us Generic External Data Provider LAB BLOOD ORDERAB LES Final Result [facility] [address] [place] [phone] * Hepatic Function Panel (10/12/2024 1:21 PM EDT) Bilirubin, Total 0.4 0.0 - 1.0 mg/dL [facility] Bilirubin, Direct 0.3 0.0 - 0.5 mg/dL [facility] Aspartate Amino Transferase 17 5 - 37 U/L [facility] Alanine Aminotransferase 20 0 - 40 U/L [facility] Total Protein 6.7 6.5 - 8.0 g/dL [facility] Albumin Level 4.2 3.5 - 5.0 g/dL [facility] Alkaline Phosphatase 75 39 - 117 U/L [facility] 10/12/2024 1:21 PM EDT 10/12/2024 1:24 PM EDT us Generic External Data Provider LAB BLOOD ORDERAB LES Final Result Performing Organization Address City/[facility] Co de Phone Number [facility] [address] [place] [address] [phone] * (ABNORMAL) Complete Blood Count Manual Diff (10/12/2024 1:21 PM EDT) White Blood Count 31.4(HH) 4.8 - 10.8 X10*3/uL [facility] Comment:Results of WBC interiano d to and read back by Nela 10/12/24 at 1332 by KRISTINA. Red Blood Count 4.39(L) 4.60 - 5.80 X10*6/uL [facility] Hemoglobin 12.5(L) 14.0 - 18.0 g/dl [facility] Hematocrit 37.7(L) 42.0 - 52.0 % [facility] Mean Corpuscular Volume 85.9 80.0 - 98.0 fL [facility] Mean Corpuscular Hemoglobin 28.5 27.0 - 33.0 pg [facility] Mean Corpuscular HGB Conc 33.2 31.0 - 36.0 g/dl [facility] Red Cell Distribution Width 14.4 11.0 - 16.0 % [facility] Platelet Count 179 160 - 400 X10*3/uL [facility] Mean Platelet Volume 9.0(L) 9.4 - 12.4 fL [facility] NRBC Pct Auto 0.0 0.0 - 0.2 /100WBC [facility] NRBC Abs Auto 0.000 0.0 - 0.012 X10*3/uL [facility] 10/12/2024 1:21 PM EDT 10/12/2024 1:24 PM EDT us Generic External Data Provider LAB BLOOD ORDERAB LES Final Result Performing Organization Address City/[facility]/ZIP Co de Phone Number [facility] [address] [place] [address] [phone] * Hm Colonoscopy (10/08/2024 7:58 AM EDT) us Historical Provider HEALTH MAINTENANCE Final Result documented in this encounter Visit Diagnoses Not on filedocumented in this encounter Additional Health Concerns Assessment Noted Time PHQ-9 Depression Total Score: 0 10/14/19 24 1:34 PM EDT documented as of this encounter Care Teams Quality Control Chemist Relationship Specialty Start Date End Date Name, MD Louis [address] [place] [phone] PCP - General Family Medicine 07/14/18 documented as of this encounter
--- OUTSIDE RECORDS SUMMARY | 2024-10-12 17:59 | XMS_ITS | Encounter Summary ---
Author Organization [employer] [facility] Address [address] [place] [address] Care Team Providers Care Engraver Set Up Operator Name Role Phone Name, Louis DISLA Primary Care Provider [phone] Encounter Details Date Type Department Care Team (Late Contact Info) Description 10/09/2022 Abstract [facility] AD[facility] D[facility]AL [address], [place] [phone] Kamlesh Pedrazaaris [address] [place] [address] Social History Tobacco Use Types Packs/Day Years [...] Description 11/23/2024 2:00 PM EDT Office Visit [facility] MEDICINE [address], [place] [phone] Name, MD Louis [address] [place] [address] documented as of this encounter Visit Diagnoses Not on filedocumented in this encounter Care Teams Engraver Set Up Operator Relationship Specialty Start Date End Date Name, MD Louis [address] [place] [address] PCP - General Family Medicine 07/14/18 documented as of this encounter
--- OUTSIDE RECORDS SUMMARY | 2024-10-12 17:59 | XMS_ITS | Encounter Summary ---
Author Organization [employer] [facility] Address [address] [facility] [address] [place] [address] Care Team Providers Care Relief Map Modeler Name Role Phone Name, Louis DISLA Primary Care Provider [phone] Encounter Details Date Type Department Care Team (Late Contact Info) Description 10/21/[address] [facility] ADULT DENTAL [address] [place], [place] [phone] Kamlesh Pedrazaaris [address] [place] [address] Social History Tobacco Use Types Packs/Day Years [...] Description 11/23/2024 2:00 PM EDT Office Visit [facility] MEDICINE [address] [place], [place] [phone] Name, MD Louis [address] [place] [address] documented as of this encounter Visit Diagnoses Not on filedocumented in this encounter Care Teams Relief Map Modeler Relationship Specialty Start Date End Date Name, MD Louis [address] [place] [address] PCP - General Family Medicine 07/14/18 documented as of this encounter
--- OUTSIDE RECORDS SUMMARY | 2024-10-12 17:59 | XMS_ITS | Clinical Summary ---
Author Organization [employer] Address [address] [facility] [address] [place] [address] Care Team Providers Care Middleware Engineer Name Role Phone Name, Louis DISLA Primary Care Provider [phone] Allergies No known active allergies Medications mometasone [...] cpap with good improvement since 2009. Respiratory [facility] Hypertension 11/12/2010 ED (erectile dysfunction) [...] 08/12/2022 0 10/14/2023 Overview (08/12/2022): Follow at [facility], colonoscopy Q 3 years Had more [...] Was removed by outside urology at [facility]. Renal mass 09/17/2012 10/14/2023 Overview (12/19/2022): Left-sided. Seen in MRI on 08/26 at [facility] for work up of Hematuria. Patient is following with Urology there. Biopsy showed malignancy and the patient was been scheduled for partial nephrectomy on October of 2012. Patient continues to follow at [place] with serial CT of the kidneys and serial cystoscopies Encounters Date Type Department Care Team Description 10/12/2024 Orders Only [facility] [address] [place] [address] Provider, MD Noam 10/08/2024 Orders Only GENERIC EXTERNAL DATA DEPARTMENT Provider, Generic External Data 09/24/2024 Population Health Risk Score [facility] (C3) Department [address] [phone] Provider, Population Health Generic 09/22/2024 10:30 AM EDT Telemedicine [facility] [address] [place] [address] Name, MD Louis CLL (chronic lymphocytic leukemia) ([facility]) (Primary Dx) 09/22/2024 Travel 09/01/2024 Telephone [facility] [address] [place] [address] Hitesh Boyle [place] October recall 08/19/2024 Orders Only GENERIC EXTERNAL DATA DEPARTMENT Provider, Generic External Data from Last 3 Months Immunizations Name Administration [...] Description 11/23/2024 2:00 PM EDT Office Visit [facility] [address] [place] [address] Name, MD Louis [address] [place] [address] Health Maintenance Due Date Last Done Comments [...] 11/06/2023, 08/28/2022 Dental Prophylaxis 05/08/2024 11/06/2023, 09/26/2022 SDOH Screening 10/07/2024 10/08/2023 Depression Screening 10/13/2024 10/14/2023, 10/14/19 Alcohol/Substance Use Screening 12/22/2024 12/23/2023 Dental X-Ray: Bitewings 06/01/2025 05/31/20 24, 11/06/2023, 08/28/2022 Tobacco Screening 07/12/2025 07/12/2024 Dental X-Ray: Full Mouth 08/29/2025 08/28/2022 Lipid Panel 10/14/2028 10/15/2023, 02/08/2022, 08/24/2021, Additional history exists Colonoscopy 10/08/2029 10/08/2024, 05/11/2021 Colorectal Cancer Screening 10/08/2029 DTaP/Tdap/Td Vaccines (3 - Td or Tdap) [...] TO CULTURE Routine 10/12/2024 1:27 PM EDT LIPASE Routine 10/12/2024 1:21 PM EDT MAGNESIUM Routine 10/12/2024 1:21 PM EDT BASIC METABOLIC PANEL Routine 10/12/2024 1:21 PM EDT HEPATIC FUNCTION PANEL Routine 1:21 PM EDT COMPLETE BLOOD COUNT MAN DIF Routine 10/12/2024 1:21 PM EDT HEMATOXYLIN AND EOSIN STAIN Routine 10/08/2024 8:42 AM EDT HM COLONOSCOPY Routine 10/08/2024 7:58 AM EDT XR FEMUR 2+ VIEWS LEFT Routine 12:[address] SOFT TISSUE NECK W CONTRAST Routine [...] AUTO DIFFERENTIAL Routine 08/19/2024 1:20 PM EST BITEWING - SINGLE RADIOGRAPHIC IMAGE Routine [...] RADIOGRAPHIC IMAGES Routine 08/28/2022 10:15 AM EST from Last 3 Months or Most Recently Relevant to Health Maintenance Results * Lactic Acid (10/12/2024 2:37 PM EDT) Lactic Acid 0.6 0.5 - 2.0 mmol/L [facility] 10/12/2024 2:37 PM EDT 10/12/2024 2:42 PM EDT us Generic External Data Provider LAB BLOOD ORDERAB LES Final Result [facility] [address] [place] [phone] * CT Abdomen Pelvis w/o Contrast (10/12/2024 2:26 PM EDT) Anatomical Region Laterality Modality Body, Pelvis, Abdomen Computed T omography 10/12/2024 2:26 PM EDT Narrative 10/12/2024 3:38 PM EDT ? [facility] ?[address] ?[place], [place] [address] ? CT Scan Report ? Signed ? Patient: Mendoza ,Irwin Garcia ?MR#: MM ?? [id number] ? : 1970 ?Acct:[id number] ? Age/Sex: 54 / M ?ADM Date: 10/12/24 ? Loc: HO.ED ? Attending Dr: ? Ordering Physician: Mirta Dallas DO ?? Date of Service: 10/12/24 ?? Procedure(s): CT abdomen pelvis wo IV con ?? Accession Number(s): [id number] ? cc: Mirta Dallas DO; Name,Louis DISLA ? Report Number: ?? [id number]: Total DLP = ??626.00 mGy-cm ?? EXAMINATION: ??CT ABDOMEN PELVIS WITHOUT IV CONTRAST ? HISTORY: flank pain, recent cystoscopy ? COMPARISON: Relation is made with an outside PET/CT scan from [facility] dated 08/16/2024. ? TECHNIQUE: CT scan of [...] ??Freddy Amin MD ??10/12/2024 03:35 PM EDT ?? RP ? Dictated By: ?Freddy Amin MD ? Signed By: ?<Electronically signed by Freddy Amin MD in OV> ?10/12/245 ? DD/ 1426 ? TD/TT: 10/12/24 1518 ? Loan Specialist: ? Procedure Note Donotuseinterpreter, Image - 10/12/[address] [address] [address] Scan Report Signed Patient: Irwin Mendoza Jr#: MM [id number] : 1970Acct:[id number] Age/Sex: 54 / MADM Date: 10/12/24 Loc: HO.ED Attending Dr: Ordering Physician: Mirta Dallas DO Date of Service: 10/12/24 Procedure(s): CT abdomen pelvis wo IV con Accession Number(s): [id number] cc: Mirta Dallas DO; Name,Louis DISLA Report Number: [id number]: Total DLP = 626.00 mGy-cm EXAMINATION: CT ABDOMEN PELVIS WITHOUT IV CONTRAST HISTORY: flank pain, recent cystoscopy COMPARISON: Relation is made with an outside PET/CT scan from [facility] dated 08/16/2024. TECHNIQUE: CT scan of [...] OV> 10/12/24 1535 DD/ 1426 TD/TT: 10/12/24 151 Loan Specialist: us [facility] External Provider IMG CT PROCEDURES Final Result * (ABNORMAL) Urinalysis, Complete, with Reflex to Culture (10/12/2024 1:27 PM EDT) Color Urine Dark Yellow [facility] Appearance Urine Cloudy [facility] PH 5.5 5.0 - 9.0 [facility] Glucose Urine UA Negative Negative mg/dL [facility] Urine Blood Moderate (2+)(A) Negative [facility] Specific [place] - Urine 1.020 1.005 - 1.025 [facility] Urine Protein 100 (2+)(A) Neg-Trace mg/dL [facility] Urine Ketones Trace Negative mg/dL [facility] Nitrite Urine Positive(A) Negative [facility] Leukocyte Esterase Urine Moderate (2+)(A) Negative [facility] RBC Urine >20(A) 0 - 2 /HPF [facility] Urine WBC >50(A) 0 - 5 /HPF [facility] Urine Squamous Epithelial Cell 0-2 0 - 2 /HPF [facility] Urine Bacteria 2+ None Seen [facility] Hyaline Casts, Urine 3-5 0 - 2 /LPF [facility] 10/12/2024 1:27 PM EDT 10/12/2024 1:30 PM EDT Narrative [facility] - 10/12/2024 1:39 PM EDT [id number], Clean Catch Generic External Data Provider LAB URINE ORDERAB LES Final Result [facility] [address] [place] [address] [phone] * (ABNORMAL) Complete Blood Count Manual Diff (10/12/2024 1:21 PM EDT) Only the most recent of2 resultswithin the time period is included. White Blood Count 31.4(HH) 4.8 - 10.8 X10*3/uL [facility] Comment:Results of WBC interiano d to and read back by Nela 10/12/24 at 1332 by KRISTINA. Red Blood Count 4.39(L) 4.60 - 5.80 X10*6/uL [facility] Hemoglobin 12.5(L) 14.0 - 18.0 g/dl [facility] Hematocrit 37.7(L) 42.0 - 52.0 % [facility] Mean Corpuscular Volume 85.9 80.0 - 98.0 fL [facility] Mean Corpuscular Hemoglobin 28.5 27.0 - 33.0 pg [facility] Mean Corpuscular HGB Conc 33.2 31.0 - 36.0 g/dl [facility] Red Cell Distribution Width 14.4 11.0 - 16.0 % [facility] Platelet Count 179 160 - 400 X10*3/uL [facility] Mean Platelet Volume 9.0(L) 9.4 - 12.4 fL [facility] NRBC Pct Auto 0.0 0.0 - 0.2 /100WBC [facility] NRBC Abs Auto 0.000 0.0 - 0.012 X10*3/uL [facility] 10/12/2024 1:21 PM EDT 10/12/2024 1:24 PM EDT us Generic External Data Provider LAB BLOOD ORDERAB LES Final Result [facility] [address] [place] [address] [phone] * Magnesium (10/12/2024 1:21 PM EDT) Only the most recent of2 resultswithin the time period is included. Magnesium 2.2 1.6 - 2.6 mg/dL [facility] 10/12/2024 1:21 PM EDT 10/12/2024 1:24 PM EDT us Generic External Data Provider LAB BLOOD ORDERAB LES Final Result Performing Organization Address City/[facility]/ZIP Co de Phone Number [facility] [address] [place] [phone] * Lipase (10/12/2024 1:21 PM EDT) Lipase 29 8 - 78 U/L [facility] 10/12/2024 1:21 PM EDT 10/12/2024 1:24 PM EDT Generic External Data Provider LAB BLOOD ORDERAB LES Final Result Performing Organization Address [facility] Phone Number [facility] [address] [place] [phone] * Hepatic Function Panel (10/12/2024 1:21 PM EDT) Only the most recent of2 resultswithin the time period is included. Bilirubin, Total 0.4 0.0 - 1.0 mg/dL [facility] Bilirubin, Direct 0.3 0.0 - 0.5 mg/dL [facility] Aspartate Amino Transferase 17 5 - 37 U/L [facility] Alanine Aminotransferase 20 0 - 40 U/L [facility] Total Protein 6.7 6.5 - 8.0 g/dL [facility] Albumin Level 4.2 3.5 - 5.0 g/dL [facility] Alkaline Phosphatase 75 39 - 117 U/L [facility] 10/12/2024 1:21 PM EDT 10/12/2024 1:24 PM EDT Generic External Data Provider LAB BLOOD ORDERAB LES Final Result Performing Organization Address [facility] Co de Phone Number [facility] [address] [place] [phone] * (ABNORMAL) Basic Metabolic Panel (10/12/2024 1:21 PM EDT) Only the most recent of2 resultswithin the time period is included. Sodium 137 135 - 145 mmol/L [facility] Potassium 4.0 3.3 - 5.1 mmol/L [facility] Chloride 104 96 - 108 mmol/L [facility] Carbon Dioxide 28 22 - 29 mmol/L [facility] Anion Gap 9(L) 12 - 20 [facility] Urea Nitrogen (BUN) 21(H) 9 - 16 mg/dL [facility] Creatinine, Serum 0.78 0.5 - 1.4 mg/dL [facility] Creatinine Clr Calc Pharmacy 118.2 [facility] Comment:eGFR (calculated fro m the MDRD study equation) and eCrCl(calculated from the Cockcroft-Gault equation) are based ondifferent parameters and may not yield comparable results.If eCrCl result is absurd, please check patient'sheight/weight. Estimated Glomerular Filt Rate >60 [facility] Comment:Chronic Kidney Disea se: Estimated GFR < 60 mL/min/1.09g8Toqzgg Kidney Disease: Estimated GFR < 15 mL/min/1.73m2 Glucose 108 60 - 115 mg/dL [facility] Calcium 9.5 8.4 - 10.2 mg/dL [facility] 10/12/2024 1:21 PM EDT 10/12/2024 1:24 PM EDT us Generic External Data Provider LAB BLOOD ORDERAB LES Final Result [facility] [address] [place] [address] [phone] * Hematoxylin and Eosin Stain (10/08/2024 8:42 AM EDT) 10/08/2024 8:42 AM EDT 10/08/2024 9:16 AM EDT Narrative [facility] - 10/11/2024 3:03 PM EDT ----- ------- Name: Irwin Mendoza Jr ? Age/Sex: 54/M ? : 1970 Unit#: [id number] ?? Attend Dr: Dom Batres MD ?Re10/08/24 ?Status: DEP SDC ? Location: HO.SSS ?Disch: ? ----- ------- SPEC : [id number] ? RECD: 10/08/24 ? STATUS: ??SOUT ? REQ NUM: [id number] ? BRENT: 10/08/24 ? SUBM DR: Dom Batres MD ? ENTERED: ??10/08/24 ?SP TYPE: Surgical ? OTHR DR: Louis Valverde MD ? ORDERED: ??HE Stain/9, Gross Micro L4/3 ? THIS IS A CORRECTED REPORT ??10/11/24- ?This is a corrected report. ?Any previous versions are stored internally and are available if necessary. ? Diagnosis ?? A. ??Colon, cecum, polypectomy: ??Clinically polypoid colonic mucosa noted; negative for a ?? hyperplastic or neoplastic process. ? B. ??Colon, polyp at 20 cm, polypectomy: ??Hyperplastic polyp. ? C. ??Colon, polyp at 10 cm, polypectomy: ??Hyperplastic polyp. ? Note: ?? This case with corrected due to accidental sign out. ?Clinical History Pre-Op Dx: ??Personal history of colon polyps Post-Op Dx: Polyps ?Microscopic Description Microscopic sections reviewed. ? Material Received ?? A. Cecum polyp ?? B. Polyp at 20 cm ?? C. Polyp at 10 cm ? Gross Description Received in 3 parts. A. ??Received in formalin labeled ?cecum polyp? is a fragment of addison- white soft tissue measuring 0.3 cm in greatest dimension which is wrapped in lens paper and entirely submitted for microscopic examination, 1 piece in cassette A. B. ??Received in formalin labeled ?polyp at 20 cm? are 2 fragments of addison-white soft tissue measuring 0.2 and 0.3 cm in greatest dimension which are wrapped in lens paper and entirely submitted for microscopic examination, 2 pieces in cassette B. C. Received in formalin labeled ?polyp at 10 cm? are 2 fragments of addison-white soft tissue ? CONTINUED ON NEXT PAGE ----- ------- Name: Irwin Mendoza Jr ? Age/Sex: 54/M ? : 1970 Unit#: [id number] ?? Attend Dr: Dom Batres MD ?Re10/08/24 ?Status: DEP SDC ? Location: HO.SSS ?Disch: ? ----- ------- SPEC : [id number] ? RECD: 10/08/24 ? STATUS: ??SOUT ? REQ NUM: [id number] ? BRENT: 10/08/24 ? SUBM DR: Dom Batres MD ? ENTERED: ??10/08/24 ?SP TYPE: Surgical ? OTHR DR: Louis Valverde MD ? ORDERED: ??HE Stain/9, Gross Micro L4/3 ? Gross Description ?(Continued) measuring 0.2 and 0.2 cm in greatest dimension which are wrapped in lens paper and entirely submitted for microscopic examination, 2 pieces in cassette C. ??([facility]) Copies To: ?? Dom Batres MD ?? [facility] ?? [address] ?? [place] [address] ?? [phone] ?? Name,Louis DISLA ?? [address] [facility] ?? [place] [address] ?? [phone] ----- ------- Signed (signature on file) Henrietta Guallpa MD 10/11/24 8283 ? ----- ------- ? END OF REPORT ? us Generic External Data Provider LAB BLOOD ORDERAB LES Final Result [facility] [address] [place] [address] [phone] * Hm Colonoscopy (10/08/2024 7:58 AM EDT) us Historical Provider MD HEALTH MAINTENANCE Final Result * XR Femur 2+ Views Left (09/07/2024 12:25 PM EST) Anatomical Region Laterality Modality Lower Extremities, Femur Left Radiogr aphic Imaging 09/07/2024 12:2 5 PM EST Narrative 09/08/2024 10:36 AM EST ? [facility] ?[address] ?[place] [address] ?XRay Report ? Signed ? Patient: Irwin Mendoza Jr ?MR#: MM ?? [id number] ? : 1970 ?Acct:[id number] ? Age/Sex: 54 / M ?ADM Date: 09/07/24 ? Loc: HO.XRAY ? Attending Dr: Jackelyn Buenrostro MD ? Ordering Physician: Jackelyn Buenrostro MD ?? Date of Service: 09/07/24 ?? Procedure(s): XR femur LT 2V ?? Accession Number(s): [id number] ? cc: Jackelyn Buenrostro MD; Name,Louis DISLA ? EXAMINATION: ?? XR FEMUR, LEFT ? CLINICAL INFORMATION: ?? left fumur bone lesion, distal diaphysis? COMPARISON: ?? None available. ? Correlation made with the x-ray left, 10/24/2021. ? TECHNIQUE: ?? AP and lateral views of the left femur were obtained. ? FINDINGS: ?? No acute fracture or dislocation. There is no suspicious bone lesion. ?? There is an old healed fracture of the proximal femoral metadiaphysis. ?? Mild arthritic changes in the left hip joint. An osseous excrescence of ?? the lateral femoral head neck junction is nonspecific but could suggest ?? underlying CHANEL. ??Acetabular coverage appears normal. ?? The distal femur is intact and unremarkable in appearance. ? The imaged knee joint demonstrates early tricompartmental arthritic ?? changes. No joint effusion. ?? Soft tissues demonstrate vascular calcifications. ? XR/XR femur LT 2V ?? IMPRESSION: ?? 1. No acute or suspicious abnormality in the left femur. Old healed ?? fracture proximal metadiaphysis. See above. ? Electronically signed by: ??Edd Palacios MD ??09/08/2024 10:33 AM EST RP ? Dictated By: ?Edd Palacios MD ? Signed By: ?<Electronically signed by Edd Palacios MD in OV> ?09/08/24 1033 ? DD/ 1225 ? TD/TT: 09/07/24 1230 ? Loan Specialist: ? Procedure Note Donisraelinterpreter, Image - 09/08/[address] [address] XRay Report Signed Patient: Irwin Mendoza JrR#: [id number] : 1970Acct:[id number] Age/Sex: 54 / MADM Date: 09/07/24 Loc: HO.XRAY Attending Dr: Jackelyn Buenrostro MD Ordering Physician: Jackelyn Buenrostro MD Date of Service: 09/07/24 Procedure(s): XR femur LT 2V Accession Number(s): [id number] cc: Jackelyn Buenrostro MD; Name,Louis DISLA EXAMINATION: XR FEMUR, LEFT CLINICAL INFORMATION: left fumur bone lesion, distal diaphysis? COMPARISON: None available. Correlation made with the x-ray left, 10/24/2021. TECHNIQUE: AP and lateral views of the left femur were obtained. FINDINGS: No acute fracture or dislocation. There is no suspicious bone lesion. There is an old healed fracture of the proximal femoral metadiaphysis. Mild arthritic changes in the left hip joint. An osseous excrescence of the lateral femoral head neck junction is nonspecific but could suggest underlying CHANEL. Acetabular coverage appears normal. The distal femur is intact and unremarkable in appearance. The imaged knee joint demonstrates early tricompartmental arthritic changes. No joint effusion. Soft tissues demonstrate vascular calcifications. XR/XR femur LT 2V IMPRESSION: 1. No acute or suspicious abnormality in the left femur. Old healed fracture proximal metadiaphysis. See above. Electronically signed by: Edd Palacios MD 09/08/2024 10:33 AM EST Dictated By: Edd Palacios MD Signed By: <Electronically signed by Edd Palacios MD in OV> 09/08/24 1033 DD/ 1225 TD/TT: 09/07/24 1230 Loan Specialist: [facility] External Provider IMG XR PROCEDURES Final Result * CT Soft Tissue Neck w/ Contrast (08/19/2024 3:55 PM EST) Anatomical Region Laterality Modality Head, Neck Computed Tomogra phy 08/19/2024 3:55 PM EST Narrative 08/19/2024 4:50 PM EST ? [facility] ?[address] ?[place] [address] ? CT Scan Report ? Signed ? Patient: Irwin Mendoza Jr ?MR#: MM ?? [id number] ? : 1970 ?Acct:[id number] ? Age/Sex: 54 / M ?ADM Date: 08/19/24 ? Loc: HO.ED ? Attending Dr: ? Ordering Physician: Matty Neff MD ?? Date of Service: 08/19/24 ?? Procedure(s): CT soft tissue neck w IV con ?? Accession Number(s): [id number] ? cc: Matty Neff MD; Name,Louis DISLA ? Report Number: ?? [id number]: Total DLP = ??845.00 mGy-cm ?? EXAMINATION: [...] Fat Planes: ?? -Normal without effacement. ? Erp Project Manager Spaces: ?? -Normal. ? Imaged Intracranial Contents: [...] DD/ 1555 ? TD/TT: 08/19/24 1612 ? Loan Specialist: ? Procedure Note Floridalma, Ismael - 08/19/2024 [id number] [place] [address] CT Scan Report Signed Patient: Irwin Mendoza JrR#: [id number] : 1970Acct:[id number] Age/Sex: 54 / MADM Date: 08/19/24 Loc: HO.ED Attending Dr: Ordering Physician: Matty Neff MD Date of Service: 08/19/24 Procedure(s): CT soft tissue neck w IV con Accession Number(s): [id number] cc: Matty Neff MD; Name,Louis Report Number: [id number]: Total DLP = 845.00 mGy-cm EXAMINATION: CT [...] appearance. Parapharyngeal Fat Planes: -Normal without effacement. Erp Project Manager Spaces: -Normal. Imaged Intracranial Contents: -No mass [...] 08/19/24 1646 DD/ 1555 TD/TT: 08/19/24 1612 Loan Specialist: [facility] External Provider IMG CT PROCEDURES Final Result * (ABNORMAL) CBC auto differential (08/19/2024 1:20 PM EST) White Blood Count 30.6(HH) 4.8 - 10.8 X10*3/uL [facility] Comment:RESULTS OF WBC INTERIANO D TO AND READ BACK BY YULIYA 08/19/24 AT 1332 BY KENNEDY. Red Blood Count 4.86 4.60 - 5.80 X10*6/uL [facility] Hemoglobin 13.8(L) 14.0 - 18.0 g/dl [facility] Hematocrit 41.8(L) 42.0 - 52.0 % [facility] Mean Corpuscular Volume 86.0 80.0 - 98.0 fL [facility] Mean Corpuscular Hemoglobin 28.4 27.0 - 33.0 pg [facility] Mean Corpuscular HGB Conc 33.0 31.0 - 36.0 g/dl [facility] Red Cell Distribution Width 14.6 11.0 - 16.0 % [facility] Platelet Count 149(L) 160 - 400 X10*3/uL [facility] Mean Platelet Volume 9.4 9.4 - 12.4 fL [facility] Neutrophils Percent Auto 8.1(L) 45 - 73 % [facility] Imm Gran Pct Auto 0.2 0.0 - 0.4 % [facility] Lymphocytes Percent Auto 78.6(H) 20 - 40 % [facility] Monocytes Percent Auto 12.2(H) 2 - 11 % [facility] Eosinophils Percent Auto 0.5 0 - 4 % [facility] Basophils Percent Auto 0.4 0 - 2 % [facility] NRBC Pct Auto 0.0 0.0 - 0.2 /100WBC [facility] Neutrophils Absolute Auto 2.5 2.0 - 8.3 x10*3/uL [facility] Imm Gran Abs Auto 0.06(H) 0.00 - 0.03 X10*3/uL [facility] Lymphocytes Absolute Auto 24.1(H) 1.2 - 4.9 X10*3/uL [facility] Monocytes Absolute Auto 3.7(H) 0.1 - 1.2 X10*3/uL [facility] Eosinophils Absolute Auto 0.1 0.0 - 0.4 X10*3/uL [facility] Basophils Absolute Auto 0.1 0.0 - 0.2 X10*3/uL [facility] NRBC Abs Auto 0.000 0.0 - 0.012 X10*3/uL [facility] 08/19/2024 1:20 PM EST 08/19/2024 1:24 PM EST us Generic External Data Provider LAB BLOOD ORDERAB LES Edited Result - Final Performing Organization Address [facility]/ZIP Co de Phone Number [facility] [address] [place] [phone] * Mononucleosis Test, Qualitative (08/19/2024 1:20 PM EST) Monotest Negative Negative [facility] 08/19/2024 1:20 PM EST 08/19/2024 1:24 PM EST us Generic External Data Provider LAB BLOOD ORDERAB LES Final Result Performing Organization Address [facility]/ZIP Co de Phone Number [facility] [address] [place] [phone] * Uric acid (08/19/2024 1:20 PM EST) Uric Acid 6.4 3.4 - 7.0 mg/dL [facility] 08/19/2024 1:20 PM EST 08/19/2024 1:24 PM EST us Generic External Data Provider LAB BLOOD ORDERAB LES Final Result Performing Organization Address [facility]/ZIP Co de Phone Number [facility] [address] [place] [phone] * Lactate Dehydrogenase (LD) (08/19/2024 1:20 PM EST) Lactate Dehydrogenase 215 118 - 273 U/L [facility] 08/19/2024 1:20 PM EST 08/19/2024 1:24 PM EST [employer] External Data Provider LAB BLOOD ORDERAB LES Final Result Performing Organization Address [facility] Co nm Phone Number [facility] [address] [place] [address] [phone] * Hepatitis C Ab (10/15/2023 9:19 AM EDT) Hepatitis C Antibody Nonreactive Nonreactive [facility] Comment:Antibodies to HCV no t detected; does not exclude early acuteHCV infection. Blood Venous blood specimen / Unknown 10/15/2023 9:19 AM EDT 10/15/2023 11:17 AM EDT Louis Valverde MD LAB BLOOD ORDERABLES Final Resul t Performing Organization Address [facility] Co de Phone Number [facility] [address] [place] [phone] * (ABNORMAL) Lipid Panel, Standard (10/15/2023 9:19 AM EDT) Triglycerides 191(H) <150 mg/dL [facility] Comment:Desirable Triglyceri de: less than 150 mg/dLBorderline High Triglyceride 150-199 mg/dLHigh Triglyceride: 200-499 mg/dLVery High Triglyceride: greater than or equal to 5OO mg/dL Cholesterol 199 <200 mg/dL [facility] Comment:Desirable Cholestero l: less than 200 mg/dLBorderline High Cholesterol: 200-239 mg/dLHigh Cholesterol: greater than 239 mg/dL LDL Cholesterol Calculated 123(H) <100 mg/dL [facility] Comment:Desirable LDL: less than 100 mg/dLNear Optimal/Above Optimal LDL: 110- 129 mg/dLBorderline High LDL: 130-159 mg/dLHigh LDL: 160-189 mg/dLVery High LDL: greater than or equal to 190 mg/dL HDL Cholesterol 38(L) >40 mg/dL [facility] Comment:Desirable HDL: great er than 40 mg/dL Note: This HDL assay may give artificially low results in patients with liver disease. Blood Venous blood specimen / Unknown 10/15/2023 9:19 AM EDT 10/15/2023 11:17 AM EDT us Louis Name LAB BLOOD ORDERABLES Final Resul t [facility] [address] [place] [phone] from Last 3 Months or Most Recently Relevant to Health Maintenance Insurance [facility] C3 DENTAL-[facility] MEDICAID STAND ADULT Care Teams Middleware Engineer Relationship Specialty Start Date End Date Name, MD Louis [address] [place] [phone] PCP - General Family Medicine 07/14/18
--- OUTSIDE RECORDS SUMMARY | 2024-10-12 17:59 | XMS_ITS | Encounter Summary ---
Author Organization [email or web address] [facility] Address [address] [facility] [address]t [place] [address] Care Team Providers Care Rn Research Name Role Phone Name, Louis DISLA Primary Care Provider [phone] Reason for Visit * Reason Onset Date Comments call back 08/27/2022 Encounter Details Date Type Department Care Team ([facility] st Contact Info) Description 08/27/2022 Telephone [facility] [address] [place], [place] [phone] Name, MD Louis [address] [place] [address] call back Social History Tobacco Use Types [...] EST 2nd call placed to pt via [place] ([employer]) [employer] Cage Assembler Radha #[id number]. Advised of message from pcp re: lab [...] being at work Please contact pt at [phone] documented in this encounter Plan of Treatment Upcoming Encounters Date Type Department Care Team (Late st Contact Info) Description 11/23/2024 2:00 PM EDT Office Visit [facility] [address] [place] [phone] Name, MD Louis [address] [place] [phone] documented as of this encounter Visit Diagnoses Diagnosis Leukocytosis, unspecified type- Primary documented in this encounter Care Teams Rn Research Relationship Specialty Start Date End Date Name, MD Louis [address] [place] [phone] PCP - General Family Medicine 07/14/18 documented as of this encounter
--- OUTSIDE RECORDS SUMMARY | 2024-10-12 17:59 | XMS_ITS | Encounter Summary ---
Author Organization [employer] [facility] Address [address] [facility] [address] [place] [address] Care Team Providers Care Ash Worker Name Role Phone Name, Louis DISLA Primary Care Provider [phone] Encounter Details Date Type Department Care Team (Late st Contact Info) Description 10/08/2024 Orders Only GENERIC EXTERNAL DATA DEPARTMENT [...] Description 11/23/2024 2:00 PM EDT Office Visit [facility] [address] [place] [phone] Name, MD Louis [address] [place] [address] documented as of this encounter Procedures Procedure Name Priority Date/Time Associated Diagnosis Comments HEMATOXYLIN AND EOSIN STAIN Routine 10/08/2024 8:42 AM EDT documented in this encounter Results * Hematoxylin and Eosin Stain (10/08/2024 8:42 AM EDT) 10/08/2024 8:42 AM EDT 10/08/2024 9:16 AM EDT [facility] - 10/11/2024 3:03 PM EDT ----- ------- Name: Irwin Mendoza Jr ? Age/Sex: 54/M ? : 1970 Unit#: [id number] ?? Attend Dr: Dom Batres MD ?Re10/08/24 ?Status: DEP SDC ? Location: HO.SSS ?Disch: ? ----- ------- SPEC : [id number] ? RECD: 10/08/24 ? STATUS: ??SOUT ? REQ NUM: [id number] ? BRENT: 10/08/24 ? SUBM DR: Dom Batres MD ? ENTERED: ??10/08/24 ?SP TYPE: Surgical ? OTHR DR: NameLouis MD ? ORDERED: ??HE Stain/9, Gross Micro L4/3 ? THIS IS A CORRECTED REPORT ??10/11/24-1501 ?This is a corrected report. ?Any previous [...] ? Age/Sex: 54/M ? : 1970 Unit#: [id number] ?? Attend Dr: Dom Batres MD ?Re10/08/24 ?Status: DEP SDC ? Location: HO.SSS ?Disch: ? ----- ------- SPEC : [id number] ? RECD: 10/08/24 ? STATUS: ??SOUT ? REQ NUM: [id number] ? BRENT: 10/08/24 ? SUBM DR: Dom Batres MD ? ENTERED: ??10/08/24 ?SP TYPE: Surgical ? OTHR DR: Louis Valverde MD ? ORDERED: ??HE Stain/9, Gross Micro L4/3 ? Gross Description ?(Continued) measuring 0.2 and 0.2 cm in greatest dimension which are wrapped in lens paper and entirely submitted for microscopic examination, 2 pieces in cassette C. ??([facility]) Copies To: ?? Dom Batres MD ?? [facility] General Sur[facility] ?? [address] ?? [place] [address] ?? [phone] ?? Name,Louis DISLA ?? [address] [facility] ?? [place] [address] ?? [phone] ----- ------- Signed (signature on file) Henrietta Guallpa MD 10/11/24 1133 ? ----- ------- ? END OF REPORT ? us Generic External Data Provider LAB BLOOD ORDERAB LES Final Result [facility] [address] [facility] [place] [phone] documented in this encounter Visit Diagnoses Not on filedocumented in this encounter Additional Health Concerns Assessment Noted Time PHQ-9 Depression Total Score: 0 10/14/19 24 1:34 PM EDT documented as of this encounter Care Teams Ash Worker Relationship Specialty Start Date End Date Name, MD Louis [address] [facility] [place] [address] PCP - General Family Medicine 07/14/18 documented as of this encounter
--- OUTSIDE RECORDS SUMMARY | 2024-10-12 17:59 | XMS_ITS | Encounter Summary ---
Author Organization [employer] [facility] Address [address] [facility] 7t [place] [address] Care Team Providers Care Bad Work Gatherer Name Role Phone Name, Louis DISLA Primary Care Provider [phone] Encounter Details Date Type Department Care Team (Late Contact Info) Description 10/09/2022 Abstract [facility] ADULT DENTAL [address] [place], [place] [phone] Kamlesh Pedrazaaris [address] [place] [address] Social History Tobacco Use Types Packs/Day Years [...] Description 11/23/2024 2:00 PM EDT Office Visit [facility] [address] [place], [place] [phone] Name, MD Louis [address] [place] [address] documented as of this encounter Visit Diagnoses Not on filedocumented in this encounter Care Teams Bad Work Gatherer Relationship Specialty Start Date End Date Name, MD Louis [address] [place] [address] PCP - General Family Medicine 07/14/18 documented as of this encounter
--- NOTE | 2024-10-12 20:40 | PC.NURSE ---
Dr. Figueroa to bedside to speak with patient. Patient was considering leaving against medical advise due to having a scheduled appointment at [facility] for 2nd opinion with oncology department. After Dr. Figueroa spoke with the patient, patient agreed to stay for admission. Awaiting transport to admit to med/surg unit. Report was given to M/S RN. Denies needs or complaints at this time.
[2024-10-13 00:19] VITALS: RESP 20
[2024-10-13 03:07] VITALS: BP 125/73; PULSE 56; RESP 16; TEMP 36.5; O2SAT 98
[2024-10-13] MEDS: vancomycin HCL 1,250 MG in 0.9 % Sodium Chloride 250 ML 166.67 MG IV ×3 (03:14→22:07)
[2024-10-13 05:36] LABS: Hematocrit 35.4 % (42.0-52.0); Hemoglobin 11.8 g/dl (14.0-18.0); Mean Corpuscular HGB Conc 33.3 g/dl (31.0-36.0); Mean Corpuscular Hemoglobin 28.3 pg (27.0-33.0); Mean Corpuscular Volume 84.9 fL (80.0-98.0); Mean Platelet Volume 9.2 fL (9.4-12.4); Platelet Count 163 X10*3/uL (160-400); Red Blood Count 4.17 X10*6/uL (4.60-5.80); Red Cell Distribution Width 14.3 % (11.0-16.0); White Blood Count 28.4 X10*3/uL (4.8-10.8)
[2024-10-13 05:54] LABS: Anion Gap 12 (12-20); Blood Urea Nitrogen 14 mg/dL (9-16); Calcium 9.1 mg/dL (8.4-10.2); Carbon Dioxide 25 mmol/L (22-29); Chloride 107 mmol/L (96-108); Creatinine Clr Calc Pharmacy 119.7; Estimated Glomerular Filt Rate > 60; Glucose Random 96 mg/dL (60-115); Sodium 140 mmol/L (135-145)
[2024-10-13 06:53] VITALS: BP 135/79; PULSE 65; RESP 16; TEMP 36.4; O2SAT 98
--- NOTE | 2024-10-13 07:02 | P.CNUR_ITS ---
History of Present Illness Consult details Consult date: 10/13/24 Narrative: Irwin 54 year old, PMH of CLL not on chemo, HTN, bladder cancer, renal cancer follows with [facility] and had surveillance cystoscopy 10/06/24- given macrobid day of procedure. Next day he started to note some discomfort with urination. He had scheduled colonoscopy on 10/08/24 and states urinary symptoms worsened and had fever. He also had flank pain on R side with urination. Today he states he feels much better, urine flow is easier, and less back pain with urination. I reviewed imaging results with the patient. CTAP--nflammatory stranding and fluid along the course of the right ureter. Diffuse urinary bladder wall thickening and inflammatory stranding. Review of Systems 2 Review of Systems: Yes all other systems are reviewed and are negative Constitutional: Constitutional: Reports no additional constitutional complaints Eyes: Eyes: Reports no additional eye complaints ENT: Reports system reviewed and no additional complaints, except as documented Cardiovascular: Cardiovascular: Reports no additional cardiovascular complaints Respiratory: Respiratory: Reports no additional respiratory complaints Gastrointestinal: Gastrointestinal: Reports no additional gastrointestinal complaints Genitourinary: Genitourinary: Reports as per HPI Musculoskeletal: Musculoskeletal: Reports no additional musculoskeletal complaints Integumentary/Breasts: Skin/Breast: Reports system reviewed and no additional complaints, except as docu Neurologic: Reports system reviewed and no additional complaints, except as documented Psychiatric: Psychiatric: Reports no additional psychiatric complaints Endocrine: Endocrine: Reports no additional endocrine complaints Hematologic/Lymphatic: Hematologic/Lymphatic: Reports no additional hematologic/lymphatic complaints Allergic/Immunologic: Allergic/Immunologic: Reports no additional allergic/immunologic complaints [facility] Past Medical History Medical History History of colon polyps HTN (hypertension) History of COVID-19 Bladder cancer RUQ pain Abdominal bloating Cancer of kidney Hx of bladder cancer Benign prostatic hyperplasia with lower urinary tract symptoms Obstructive sleep apnea (adult) (pediatric) Lesion of bladder Family History Family History Father Hypertension Diabetes Mother Lung cancer Sister Cancer Surgical History Surgical History History of colonoscopy with polypectomy History of surgery H/O colonoscopy Hx of cystoscopy History of surgery Social History Social History Household Members: Family Housing: House Are you a primary adult caregiver to a significant other at home: No Do you presently have visiting nurse or other home services: No Alcohol intake: never Patient Tobacco Use Status: Never used Tobacco service: No Current occupational status: employed Meds Allergies Allergy/AdvReac Type Severity Reaction Status Date / Time No Known Allergies Allergy Verified 10/12/24 13:04 [No Known Allergies*] Active Medications: Current Medications Acetaminophen (Acetaminophen 325 Mg Tablet) 650 mg PO Q6H PRN PRN Reason: Pain, Mild 1-3,fever,headache Amlodipine Besylate (Amlodipine Besylate 10 Mg Tablet) 10 mg PO DAILY [facility]; Protocol Calcium Carbonate (Calcium Carbonate 750 Mg Tab.Chew) 750 mg PO Q4H PRN PRN Reason: Heartburn Ceftriaxone Sodium (Ceftriaxone Sodium 1 Gm Vial) 1 gm IVPUSH Q24H [facility] Cyanocobalamin (Cyanocobalamin (Vitamin B-12) 100 Mcg Tablet) 50 mcg PO DAILY [facility] Enoxaparin Sodium (Enoxaparin Sodium 40 Mg/0.4 Ml Syringe) 40 mg SUBCUT Q24H [facility] Vancomycin HCl 1,250 mg/ (Sodium Chloride) 250 mls @ 166.667 mls/hr IV Q12H [facility] Last Infusion: 10/13/24 04:46 Dose: Infused Lisinopril (Lisinopril 40 Mg Tablet) 40 mg PO DAILY [facility]; Protocol Magnesium Hydroxide (Milk Of Magnesia 30 Ml Oral.Susp) 30 ml PO DAILY PRN PRN Reason: Constipation Melatonin (Melatonin 3 Mg Tablet) 6 mg PO BEDTIME PRN PRN Reason: Insomnia Pharmacy Consult (Consult Rx Vancomycin Dosing) 1 each MISCELLANE DAILY PRN PRN Reason: Consult order Sodium Chloride (0.9 % Sodium Chloride Flush 3 Ml Syringe) 3 ml IVFLUSH QSHIFT [facility] Last Admin: 10/13/24 00:00 Dose: 3 ml Home Medications ?Medication ?Instructions ?Recorded ?Confirmed ?Last Taken ?Type lisinopril 40 mg tablet 40 mg PO DAILY 12/22/20 10/12/24 10/12/24 10:00 History ascorbic acid (vitamin C) 100 mg 100 mg PO DAILY 0210/12/24 10/12/24 10:00 History tablet cyanocobalamin (vitamin B-12) 50 50 mcg PO DAILY 09/10/24 10/12/24 10/12/24 10:00 History mcg tablet magnesium 100 mg tablet 100 mg PO DAILY 09/10/24 10/12/24 10/12/24 10:00 History multivit,Ca,min-iron 8 mg-folic 1 tab PO DAILY 09/10/24 10/12/24 10/12/24 10:00 History acid 200 mcg-lycopene 600 mcg tablet (Centrum Men) zinc 50 mg tablet 50 mg PO DAILY 09/10/24 10/12/24 10/12/24 10:00 History amlodipine 10 mg tablet 10 mg PO DAILY 10/12/24 10/12/24 10/12/24 10:00 History Physical Exam 2 Vital Signs: Vital Signs: Last Vital Signs Temp 97.6 F 10/13/24 06:53 Pulse 65 10/13/24 06:53 Resp 16 10/13/24 06:53 BP 135/79 10/13/24 06:53 Pulse Ox 98 10/13/24 06:53 O2 Del Method Room Air 10/13/24 06:53 BMI result Body Mass Index 31.8 Const: General: healthy appearing, no acute distress and well developed O rientation/consciousness: patient oriented x3 HEENT: Head: Yes normocephalic and Yes atraumatic Eyes: Conjunctivae: conjunctivae normal Neck: Neck: Yes normal visual inspection Chest: Chest palpation & inspection: normal inspection of the chest Resp: Effort & Inspection: normal respiratory effort Cardio: Rate: regular rate GI: Inspection: Yes normal to inspection Neuro: General: patient oriented x3 Psych: Appearance: grossly normal Affect: normal affect Results Labs 10/13/24 05:02 10/13/24 05:02 Labs: Abnormal lab results 10/12/24 10/12/24 10/13/24 Range/Units 13:21 13:27 05:02 WBC 31.4 H* 28.4 H (4.8-10.8) X10*3/uL RBC 4.39 L 4.17 L (4.60-5.80) X10*6/uL Hgb 12.5 L 11.8 L (14.0-18.0) g/dl Hct 37.7 L 35.4 L (42.0-52.0) % MPV 9.0 L 9.2 L (9.4-12.4) fL Neutrophils % (Manual) 18 L (45-73) % Band Neutrophils % 0 L (3-5) % Lymphocytes % (Manual) 77 H (20-40) % Lymphocytes # (Manual) 24.2 H (1.2-4.9) X10*3/uL Anion Gap 9 L (12-20) BUN 21 H (9-16) mg/dL Urine Protein 100 (2+) H (Neg-Trace) mg/dL Urine Blood Moderate (2+) H (Negative) Urine Nitrite Positive H (Negative) Ur Leukocyte Esterase Moderate (2+) H (Negative) Urine RBC >20 H (0-2) /HPF Urine WBC >50 H (0-5) /HPF Short CBC 10/12/24 10/13/24 Range/Units 13:21 05:02 WBC 31.4 H* 28.4 H (4.8-10.8) X10*3/uL Hgb 12.5 L 11.8 L (14.0-18.0) g/dl Hct 37.7 L 35.4 L (42.0-52.0) % Plt Count 179 163 (160-400) X10*3/uL BMP 10/12/24 10/13/24 13:21 05:02 Sodium 137 140 Potassium 4.0 4.0 Chloride 104 107 Carbon Dioxide 28 25 BUN 21 H 14 Creatinine 0.78 0.77 Calcium 9.5 9.1 Liver Function 10/12/24 Range/Units 13:21 Total Bilirubin 0.4 (0.0-1.0) mg/dL Direct Bilirubin 0.3 (0.0-0.5) mg/dL AST 17 (5-37) U/L ALT 20 (0-40) U/L Alkaline Phosphatase 75 (39-117) U/L Albumin 4.2 (3.5-5.0) g/dL Urine 10/12/24 Range/Units 13:27 Urine Color Dark Yellow Urine Appearance Cloudy Urine pH 5.5 (5.0-9.0) Ur Specific [place] 1.020 (1.005-1.025) Urine Protein 100 (2+) H (Neg-Trace) mg/dL Urine Glucose (UA) Negative (Negative) mg/dL Imaging Additional studies: Date of Service: 10/12/24 EXAMINATION: CT ABDOMEN PELVIS WITHOUT IV CONTRAST HISTORY: flank pain, recent cystoscopy COMPARISON: Relation is made with an outside PET/CT scan from [facility] dated 08/16/2024. TECHNIQUE: CT scan of the abdomen and pelvis was performed without contrast using standard departmental protocol. Coronal and sagittal reformatted images were generated and reviewed. Oral contrast material was not administered per department protocol. This CT exam was performed with one or more of the following dose reduction techniques: automated exposure control, adjustment of the mA and/or kV according to patient size, use of iterative reconstruction technique. DLP: 626 mGy-cm FINDINGS: LOWER CHEST: The visualized lung bases are clear. There is no pleural effusion. CARDIOVASCULATURE: The heart is normal in size. There is no pericardial effusion. LIVER: The liver is normal in size and contour. The liver has an unremarkable unenhanced appearance. GALLBLADDER / BILE DUCTS: The gallbladder is unremarkable. There is no intra or extrahepatic biliary ductal dilatation. SPLEEN: The spleen is enlarged. PANCREAS: The pancreas has an unremarkable unenhanced appearance. ADRENAL GLANDS: There is enlargement of both adrenal glands, left greater than right. KIDNEYS/RETROPERITONEUM: There is a cortical calcification at the upper pole of the left kidney. No calyceal calculi are identified. There is no hydronephrosis. There is a inflammatory stranding and fluid along the course of the right ureter. No ureteral calculi are seen. LYMPH NODES: Again seen is diffuse retroperitoneal lymphadenopathy. Periaortic lymph nodes measure up to 3.9 cm in size. Paracaval lymph nodes measure up to 2.7 cm in size. There are enlarged bilateral obturator lymph nodes measuring up to 3.5 cm. Additional enlarged external iliac lymph nodes are seen. There are enlarged mesenteric lymph nodes measuring up to 2.8 cm. VASCULATURE: The abdominal aorta is normal in caliber. MESENTERY/PERITONEUM: No free fluid. No masses. There is no free intraperitoneal gas. STOMACH: The stomach is unremarkable. SMALL BOWEL: The small bowel is normal in caliber. COLON: The colon is unremarkable. APPENDIX: Normal. URINARY BLADDER/PELVIC ORGANS: The urinary bladder demonstrates diffuse wall thickening and there is perivesical inflammatory stranding. The prostate is enlarged. BONES / SOFT TISSUES: No suspicious bony or soft tissue abnormalities. IMPRESSION: 1. Diffuse lymphadenopathy throughout the abdomen and pelvis as noted on outside PET/CT scan. 2. Inflammatory stranding and fluid along the course of the right ureter. Diffuse urinary bladder wall thickening and inflammatory stranding. Findings are suggestive of cystitis and right ureterolithiasis. 3. Splenomegaly. 4. Enlargement of both adrenal glands, left greater than right, as seen on PET/CT scan. Assessment and Plan (1) Acute UTI: Status: Acute (2) Hx of bladder cancer: Status: Acute (3) Lymphadenopathy: Status: Acute (4) Cystitis: Status: Acute (5) Ureteritis: Status: Acute Plan History of multiple cancers, recent instrumentation for surveillance cystoscopy, followed by colonoscopy 2 days later. Clinical findings of UTI, CT imaging of urinary tract consistent with cystitis. The etiology of the inflammatory changes and fluid around the right ureter are unclear, pt may have passed a stone, no persistent hydro at this time. At this time would cont IV abx, urine culture gram negative rods awaiting c/s sensitivities prior to discharge. Cont Abx course to complete 14 day course. Procedures Date of Service Date of Service: 10/13/24
[2024-10-13] MEDS: amLODIPine Besylate 10 MG TABLET PO (07:38)
[2024-10-13] MEDS: Cyanocobalamin (Vitamin B-12) 100 MCG TABLET 50 MCG PO (07:39)
[2024-10-13] MEDS: lisinopriL 40 MG TABLET PO (07:39)
[2024-10-13] MEDS: Enoxaparin Sodium 40 MG/0.4 ML SYRINGE SUBCUT (07:40)
[2024-10-13] MEDS: 0.9 % Sodium Chloride Flush 3 ML SYRINGE IVFLUSH ×4 (07:41→22:10)
--- NOTE | 2024-10-13 08:59 | HO.PM.IMPN ---
Subjective Subjective Date of Service: 10/13/24 Interval History: much improved Physical Exam Vital Signs: Vital Signs: Last Vital Signs Temp 97.6 F 10/13/24 06:53 Pulse 65 10/13/24 06:53 Resp 16 10/13/24 06:53 BP 135/79 10/13/24 06:53 Pulse Ox 98 10/13/24 06:53 O2 Del Method Room Air 10/13/24 06:53 BMI result Body Mass Index 31.8 General: AO X 3, no acute distress Resp: CTA bilateral, no accessory muscles used CVS: S1,S2,RRR GI: soft, non tender, non distended Neuro: motor grossly intact, alert Psych: appropriate affect, appropriate insight Objective Data Active Medications Acetaminophen (Acetaminophen 325 Mg Tablet) 650 mg PO Q6H PRN PRN Reason: Pain, Mild 1-3,fever,headache Amlodipine Besylate (Amlodipine Besylate 10 Mg Tablet) 10 mg PO DAILY [facility]; Protocol Last Admin: 10/13/24 07:38 Dose: 10 mg Documented By: ROLO Calcium Carbonate (Calcium Carbonate 750 Mg Tab.Chew) 750 mg PO Q4H PRN PRN Reason: Heartburn Ceftriaxone Sodium (Ceftriaxone Sodium 1 Gm Vial) 1 gm IVPUSH Q24H [facility] Cyanocobalamin (Cyanocobalamin (Vitamin B-12) 100 Mcg Tablet) 50 mcg PO DAILY [facility] Last Admin: 10/13/24 07:39 Dose: 50 mcg Documented By: ROLO Enoxaparin Sodium (Enoxaparin Sodium 40 Mg/0.4 Ml Syringe) 40 mg SUBCUT Q24H [facility] Last Admin: 10/13/24 07:40 Dose: 40 mg Documented By: ROLO Vancomycin HCl 1,250 mg/ (Sodium Chloride) 250 mls @ 166.667 mls/hr IV Q12H [facility] Last Infusion: 10/13/24 04:46 Dose: Infused Documented By: FISH Lisinopril (Lisinopril 40 Mg Tablet) 40 mg PO DAILY [facility]; Protocol Last Admin: 10/13/24 07:39 Dose: 40 mg Documented By: ROLO Magnesium Hydroxide (Milk Of Magnesia 30 Ml Oral.Susp) 30 ml PO DAILY PRN PRN Reason: Constipation Melatonin (Melatonin 3 Mg Tablet) 6 mg PO BEDTIME PRN PRN Reason: Insomnia Pharmacy Consult (Consult Rx Vancomycin Dosing) 1 each MISCELLANE DAILY PRN PRN Reason: Consult order Sodium Chloride (0.9 % Sodium Chloride Flush 3 Ml Syringe) [facility] Admin: 10/13/24 07:41 Dose: 3 ml Documented By: ROLO Labs 10/13/24 05:02 10/13/24 05:02 Labs: Laboratory Results - last 24 hr 10/12/24 10/12/24 10/12/24 13:21 13:27 14:37 MCV 85.9 MCH 28.5 MCHC 33.2 RDW 14.4 Plt Count 179 MPV 9.0 L Immature Gran % (Auto) Cancelled Neut % (Auto) Cancelled Lymph % (Auto) Cancelled [place] % (Auto) Cancelled Eos % (Auto) Cancelled Baso % (Auto) Cancelled Lymph # (Auto) Cancelled [place] # (Auto) Cancelled Eos # (Auto) Cancelled Baso # (Auto) Cancelled Abs Immat Gran (auto) Cancelled Absolute Neuts (auto) Cancelled Absolute Nucleated RBC 0.000 Nucleated RBC % (auto) 0.0 Neutrophils % (Manual) 18 L Band Neutrophils % 0 L Lymphocytes % (Manual) 77 H Atypical Lymphs % (Man) 3 Monocytes % (Manual) 2 Abs Neuts (Manual) 5.7 Lymphocytes # (Manual) 24.2 H Atyp Lymphs # (Manual) 0.9 Monocytes # (Manual) 0.6 Smudge Cells PRESENT Platelet Estimate NORMAL Plt Morphology Comment NORMAL RBC Morphology NORMAL Anion Gap 9 L Estim Creat Clear Calc 118.2 Estimated GFR > 60 Random Glucose 108 Lactic Acid 0.6 Calcium 9.5 Magnesium 2.2 Total Bilirubin 0.4 Direct Bilirubin 0.3 AST 17 ALT 20 Alkaline Phosphatase 75 Total Protein 6.7 Albumin 4.2 Lipase 29 Urine Color Dark Yellow Urine Appearance Cloudy Urine pH 5.5 Ur Specific [place] 1.020 Urine Protein 100 (2+) H Urine Glucose (UA) Negative Urine Ketones Trace Urine Blood Moderate (2+) H Urine Nitrite Positive H Ur Leukocyte Esterase Moderate (2+) H Urine RBC >20 H Urine WBC >50 H Ur Squamous Epith Cells 0-2 Urine Bacteria 2+ Hyaline Casts 3-5 10/13/24 05:02 MCV 84.9 MCH 28.3 MCHC 33.3 RDW 14.3 Plt Count 163 MPV 9.2 L Immature Gran % (Auto) Neut % (Auto) Lymph % (Auto) [place] % (Auto) Eos % (Auto) Baso % (Auto) Lymph # (Auto) [place] # (Auto) Eos # (Auto) Baso # (Auto) Abs Immat Gran (auto) Absolute Neuts (auto) Absolute Nucleated RBC 0.000 Nucleated RBC % (auto) 0.0 Neutrophils % (Manual) Band Neutrophils % Lymphocytes % (Manual) Atypical Lymphs % (Man) Monocytes % (Manual) Abs Neuts (Manual) Lymphocytes # (Manual) Atyp Lymphs # (Manual) Monocytes # (Manual) Smudge Cells Platelet Estimate Plt Morphology Comment RBC Morphology Anion Gap 12 Estim Creat Clear Calc 119.7 Estimated GFR > 60 Random Glucose 96 Lactic Acid Calcium 9.1 Magnesium Total Bilirubin Direct Bilirubin AST ALT Alkaline Phosphatase Total Protein Albumin Lipase Urine Color Urine Appearance Urine pH Ur Specific [place] Urine Protein Urine Glucose (UA) Urine Ketones Urine Blood Urine Nitrite Ur Leukocyte Esterase Urine RBC Urine WBC Ur Squamous Epith Cells Urine Bacteria Hyaline Casts Assessment and Plan (1) HTN (hypertension): Status: Acute Plan 54M PMH CLL, bladder cancer, hypertension presented with fever and chills Fever and chills due to urinary tract infection after recent cystoscopy and possible passed stone Vancomycin to cover MRSA given recent procedure, continue ceftriaxone Urology appreciated Follow up cultures CLL Being observed outpatient with Dr. Buenrostro (cause on leukocytosis, not sepsis) Hypertension Lisinopril, amlodipine DVT prophylaxis with Lovenox Full Code reason for continued hospitalization:cultures pending Quality Stroke Does the patient have a stroke diagnosis?: No VTE Prior VTE?: No VTE Risk Level:: Medical - moderate - high VTE Device Contraindication: Treatment Not Indicated VTE Drug Contraindication: N/A - Med Ordered
--- NOTE | 2024-10-13 09:39 | MHC.CM.PN ---
CM MET WITH PT AT BEDSIDE. PT LIVES WITH FAMILY, FUNCTIONALLY INDEPENDENT AND EMPLOYED P/T. USES C-PAP AT [facility] VIA [facility]. +HCP PCP DR. RICKETTS DP: HOME, NO SERVICES ANTICIPATED. [facility] WILL TRANSPORT. CM WILL CONTINUE TO FOLLOW FOR ANY CHANGE TO DC PLAN/NEEDS.
[2024-10-13 13:41] LABS: Vancomycin Random 8.5 mcg/mL (15-20)
[2024-10-13] MEDS: cefTRIAXone sodium 1 GM VIAL IVPUSH (14:52)
[2024-10-13 15:58] VITALS: BP 130/73; PULSE 64; RESP 16; TEMP 37.1; O2SAT 97
[2024-10-13 19:31] VITALS: BP 139/76; PULSE 63; RESP 18; TEMP 36.8; O2SAT 96
[2024-10-14 03:29] VITALS: BP 142/84; PULSE 54; RESP 20; TEMP 36.8; O2SAT 99
[2024-10-14] MEDS: vancomycin HCL 1,250 MG in 0.9 % Sodium Chloride 250 ML 166.67 MG IV (06:07)
[2024-10-14 06:42] VITALS: BP 143/79; PULSE 58; RESP 15; TEMP 36.6; O2SAT 98
[2024-10-14 06:46] LABS: Creatinine Clr Calc Pharmacy 124.6; Estimated Glomerular Filt Rate > 60
[2024-10-14] MEDS: lisinopriL 40 MG TABLET PO (07:33)
[2024-10-14] MEDS: amLODIPine Besylate 10 MG TABLET PO (07:33)
[2024-10-14] MEDS: Cyanocobalamin (Vitamin B-12) 100 MCG TABLET 50 MCG PO (07:33)
[2024-10-14] MEDS: 0.9 % Sodium Chloride Flush 3 ML SYRINGE IVFLUSH (07:35)
[2024-10-14] MEDS: Enoxaparin Sodium 40 MG/0.4 ML SYRINGE SUBCUT (07:35)
--- NOTE | 2024-10-14 11:23 | PM.DS ---
DS: Providers Provider Date of Service: 10/14/24 Date of admission: 10/12/24 16:10 Date of discharge: 10/14/24 Primary care physician: Louis Valverde MD Consults: 10/12/24 16:15 Consult to Urology Routine Consulting Provider[place] [facility] Reason for consultation: fever, recent cysto, ureterolithiasis on CT DS: Diagnosis Discharge Diagnosis (1) Acute UTI: Status: Acute (2) Hx of bladder cancer: Status: Acute (3) Lymphadenopathy: Status: Acute (4) Cystitis: Status: Acute (5) Ureteritis: Status: Acute DS: Summary Hospital Course Hospital Course: Admission note HPI 54M PMH CLL, bladder cancer, hypertension presented with fever and chills. Patient underwent cystoscopy 10/05/2024 for annual bladder cancer screening was given Macrobid, also underwent colonoscopy screening 10/08/2024 with polypectomies. Reports symptoms starting 10/06/2024 with fever and chills and fatigue. Fevers continued over the weekend. On day prior to presentation started having severe low back pain and dysuria so he came to the ED. in ED noted to have inflammatory stranding and fluid along the course of the right ureter, diffuse urinary bladder wall thickening inflammatory stranding findings suggestive of cystitis and right urolithiasis. Hospital course The patient was admitted for treatment of urinary tract infection after recent cystoscopy and possible passed stone. Vancomycin to cover MRSA given recent procedure treated with IV Ceftriaxone as Urine culture grew Klebsiella. Seen by urologist who recommended to finish total of 2 weeks of Antibiotics. will need follow up as outpatient with Urology. To finish total of 2 weeks of anbitiocis. Discharge on 12 more days of Vantin. Discharge plan Continue Cefpodoxime for 12 more days Follow with Urology as outpatient Time Attestation Discharge Coordination Time (in mins): 38 Quality: Safe Use of Opioids Does Pt have an Active Cancer Diagnosis on the Problem List?: No Quality: Stroke Does the patient have a stroke diagnosis?: No Physical Exam Vital Signs: Vital Signs: Last Vital Signs Temp 98 F 10/14/24 06:42 Pulse 58 10/14/24 06:42 Resp 15 10/14/24 06:42 BP 143/79 H 10/14/24 06:42 Pulse Ox 98 10/14/24 06:42 O2 Del Method Room Air 10/14/24 06:42 BMI result Body Mass Index 31.8 Const: Other: Constitutional : Awake, interactive, not in distress Neck : Normal inspection, Supple Cardiovascular : RRR, no JVP, no lower extremity edema Respiratory : good bilateral air entry, no crackles, wheezes or rhonchi Gastrointestinal: soft, lax, Normal bowel sounds, Non tender Skin : Warm, Dry Neurological : Alert & oriented x3, No focal deficit DS: Data Data Completed and Pending Labs on day of discharge: Laboratory Results - last 24 hr 10/13/24 10/14/24 10/14/24 13:02 05:45 06:13 Hold Purple Top SEE NOTE Creatinine 0.74 Estim Creat Clear Calc 124.6 Estimated GFR > 60 Random Vancomycin 8.5 L Preliminary micro results at discharge 10/12/24 14:42 Blood Culture - Preliminary Blood - Venous No growth after 24 hours. 10/12/24 14:37 Blood Culture - Preliminary Blood - Venous No growth after 24 hours. Imaging Chest x-ray: Radiologist's impression: ITS Impressions Abdomen/Pelvis CT 10/12/24 14:26 IMPRESSION: 1. Diffuse lymphadenopathy throughout the abdomen and pelvis as noted on outside PET/CT scan. 2. Inflammatory stranding and fluid along the course of the right ureter. Diffuse urinary bladder wall thickening and inflammatory stranding. Findings are suggestive of cystitis and right ureterolithiasis. 3. Splenomegaly. 4. Enlargement of both adrenal glands, left greater than right, as seen on PET/CT scan. Electronically signed by: Freddy Amin MD 10/12/2024 03:35 PM EDT RP Discharge Plan Discharge Anticipated Discharge Date/Time: 10/14/24 11:19 Patient Disposition: Home, Self-Care Discharge Diagnosis: Urine infection Referrals: Name,MD Louis [Primary Care Provider] - 1 Week Discharge Medications: New cefpodoxime 200 mg tablet 200 mg PO BID Qty: 24 0RF Rx Instructions: must administer with a meal/food Continued cyanocobalamin (vitamin B-12) 50 mcg Tablet 50 mcg PO DAILY magnesium 100 mg Tablet 100 mg PO DAILY ascorbic acid (vitamin C) 100 mg Tablet 100 mg PO DAILY zinc 50 mg Tablet 50 mg PO DAILY Centrum Men 8 mg iron- 200 mcg-600 mcg Tablet 1 tab PO DAILY amlodipine 10 mg tablet 10 mg PO DAILY lisinopril 40 mg tablet 40 mg PO DAILY Discharge Orders: Discharge Order (Routine); Ordered 10/14/24 Ordered By: Lauren Rey Diet: Advance to usual diet Activity on Discharge: As tolerated Stand Alone Forms: Patient Portal Discharge page Print Language: Slovenian Care Plan Goals: Continue Cefpodoxime for 12 more days Follow with Urology as outpatient Health Concerns: UTI Plan of Treatment: Antibiotics Urology follow up Assessment: as above
--- NOTE | 2024-10-14 11:34 | MHC.CM.PN ---
DP: PT HAS BEEN MEDICALLY CLEARED FOR DC HOME, NO SERVICES. PT HAS OWN RIDE HOME
[2024-10-14 12:09] VITALS: BP 137/76; PULSE 62; RESP 18; TEMP 36.4; O2SAT 98
== END 2024-10-14 12:16 | disposition home or self-care (01) | DRG 463 ==
LOC: HO.ED 15:53 → HO.EDOVER 16:15 → HO.S3 19:12
PROVIDERS: Physician Assistant Medical; Admitting Provider Internal Medicine; Emergency Provider Emergency Medicine; PCP Internal Medicine Geriatric Medicine; Visit Provider Student in an Organized Health Care Education/Training Program
DX: N39.0 Urinary tract infection, site not specified (principal); C91.10 Chronic lymphocytic 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; B96.1 Klebsiella pneumoniae [K. pneumoniae] as the cause of diseases classified elsewhere; Z79.899 Other long term (current) drug therapy; Z85.51 Personal history of malignant neoplasm of bladder; Z85.528 Personal history of other malignant neoplasm of kidney
CPT/HCPCS: 36415; 74176; 80048; 80076; 80202; 81001; 82565; 83605; 83690; 83735; 85007; 85027; 87040; 87086; 87088; 87186; 94660; 99285; J0696; J1650; J2405; J3010; J3370; J3371

== ENCOUNTER → 2024-10-12 14:26 | Outpatient (BNV) | payer MEDICAID, SELFPAY | PROVIDERS: Emergency Provider Emergency Medicine; PCP Internal Medicine Geriatric Medicine; Visit Provider Radiology Diagnostic Radiology | DX: R16.1 Splenomegaly, not elsewhere classified (principal); R59.0 Localized enlarged lymph nodes | CPT/HCPCS: 74176 ==

== ENCOUNTER → 2024-10-12 16:10 | Outpatient (BNV) | payer MEDICAID, SELFPAY | PROVIDERS: Admitting Provider Internal Medicine; Emergency Provider Emergency Medicine; PCP Internal Medicine Geriatric Medicine; Visit Provider Urology | DX: N39.0 Urinary tract infection, site not specified (principal); Z85.51 Personal history of malignant neoplasm of bladder; R59.1 Generalized enlarged lymph nodes; N30.90 Cystitis, unspecified without hematuria; N28.89 Other specified disorders of kidney and ureter | CPT/HCPCS: 99222 ==

== ENCOUNTER → 2024-10-12 16:10 | Outpatient (BNV) | payer MEDICAID, SELFPAY | PROVIDERS: Admitting Provider Internal Medicine; Emergency Provider Emergency Medicine; PCP Internal Medicine Geriatric Medicine; Visit Provider Internal Medicine | DX: N39.0 Urinary tract infection, site not specified (principal); Z85.51 Personal history of malignant neoplasm of bladder; R59.1 Generalized enlarged lymph nodes; N30.90 Cystitis, unspecified without hematuria; N28.89 Other specified disorders of kidney and ureter | CPT/HCPCS: 99222; 99231; 99239 ==

== ENCOUNTER 2024-10-20 09:57 | Outpatient (AMB) | payer MEDICAID, SELFPAY ==
--- NOTE | 2024-10-20 09:57 | MHC.OFFVIS ---
Vital Signs 10/20/24 10:03 Height 5 ft 8 in Weight 212 lb 2 oz BMI 32.2 BP 137/76 Blood Pressure Location Lt brachial Position Sitting Pulse 69 Intake Visit Reasons: s/p colonoscopy Intake Note: Patient is seen in office for post op assessment post colonoscopy. Pt c/o:denies any concerns here for results surgery:10/08/24 Instrument Maintenance Supervisor Required: No Accompanied by: Self / Same As Patient Allergies No Known Allergies [No Known Allergies*] Allergy (Verified 10/20/24 10:03) Medication List - Last Reconciled 10/20/24 by Dom Batres MD amlodipine 10 mg PO DAILY ascorbic acid (vitamin C) 100 mg PO DAILY cefpodoxime 200 mg PO BID cyanocobalamin (vitamin B-12) 50 mcg PO DAILY lisinopril 40 mg PO DAILY magnesium 100 mg PO DAILY mv,Ca,nnb-jftv-ZU-lycopene 8 mg iron- 200 mcg-600 mcg (Centrum Men) 1 tab PO DAILY zinc 50 mg PO DAILY HPI HPI s/p colonoscopy: Details: He underwent colonoscopy last October 08 for screening and a history of adenomas. He tolerated procedure well. He currently denies significant complaints. [facility] Medical History Lymphadenopathy Elevated WBC count History of colon polyps HTN (hypertension) History of COVID-19 Bladder cancer RUQ pain Abdominal bloating Cancer of kidney Hx of bladder cancer Benign prostatic hyperplasia with lower urinary tract symptoms Obstructive sleep apnea (adult) (pediatric) Lesion of bladder Surgical History History of colonoscopy with polypectomy History of surgery H/O colonoscopy Hx of cystoscopy History of surgery Family History Father Hypertension Diabetes Mother Lung cancer Sister Cancer Social History Household Members: Family Housing: House Are you a primary healthcare market consultant to a significant other at home: No Do you presently have visiting nurse or other home services: No Alcohol intake: never Patient Tobacco Use Status: Never used Tobacco service: No Current occupational status: employed Review of Systems Const Denies chills and Denies fever(s) Card Denies chest pain, Denies dyspnea and Denies dyspnea on exertion Resp Denies cough, Denies dyspnea and Denies dyspnea on exertion GI Denies hematochezia and Denies change in bowel habits Denies hematuria and Denies difficulty urinating Musc Denies back pain and Denies limited range of motion Neuro Denies focal weakness and Denies convulsions Psych Denies depression and Denies mood swings Physical Exam Vital Signs: Last Vital Signs Pulse 69 10/20/24 10:03 BP 137/76 10/20/24 10:03 BMI result Body Mass Index 32.2 Const General: comfortable and no acute distress Resp Effort & Inspection: normal respiratory effort Cardio Rate: regular rate GI Palpation (GI): Soft to palpation and nontender Assessment & Plan Assessment & Plan (1) History of colon polyps: Code(s): Z86.0100 - Personal history of colon polyps, unspecified Category: Medical Plan: Status post colonoscopy. I removed very small polyps but these were all hyperplastic he had I did not see any adenomas I told him therefore that we can repeat colonoscopy in the next 5-10 years. He can follow up with me on a p.r.n. basis He continues to see Dr. Buenrostro because of his chronic lymphocytic leukemia Coding Level of Care Code Est Pt Level 2 (57815) Diagnoses History of colon polyps Z86.0100
[2024-10-20 10:03] VITALS: BP 137/76; PULSE 69; BMI 32.2
--- OUTSIDE RECORDS SUMMARY | 2024-10-20 11:06 | XMS_ITS | Encounter Summary ---
Author Organization [employer] [facility] Address [address] [place] [address] Care Team Providers Care Timber Treatment Plant Operator Name Role Phone Name, Louis DISLA Primary Care Provider [phone] Encounter Details Date Type Department Care Team (Late st Contact Info) Description 10/21/2022 Abstract [facility] ADULT DENTAL [address] [place], [place] [phone] Kamlesh Pedrazaaris [address] [place] [address] Social History Tobacco Use Types Packs/Day Years [...] Department Care Team (Late Contact Info) Description 11/08/2024 1:00 PM EDT Office Visit [facility] MEDICINE [address] [place], [place] [phone] Name, MD Louis [address] [place] [phone] 11/23/2024 2:00 PM EDT Office Visit [facility] MEDICINE [address] [place] [phone] Name, MD Louis [address] [place] [phone] documented as of this encounter Visit Diagnoses Not on filedocumented in this encounter Care Teams Timber Treatment Plant Operator Relationship Specialty Start Date End Date Name, MD Louis [address] [place] [phone] PCP - General Family Medicine 07/14/18 documented as of this encounter
--- OUTSIDE RECORDS SUMMARY | 2024-10-20 11:06 | XMS_ITS | Encounter Summary ---
Author Organization [employer] [facility] Address [address] [place] [address] Care Team Providers Care Film Or Videotape Editor Name Role Phone Name, Louis DISLA Primary Care Provider [phone] Reason for Visit * Reason Onset Date Comments call back 08/27/2022 Encounter Details Date Type Department Care Team ([facility] st Contact Info) Description 08/27/2022 Telephone [facility] MEDICINE [address] [place], [place] [phone] Name, MD Louis [address] [place] [address] call back Social History Tobacco Use Types [...] EST 2nd call placed to pt via [employer] Poacher Operator Radha #[id number]. Advised of message from pcp re: lab [...] being at work Please contact pt at [phone] documented in this encounter Plan of Treatment Upcoming Encounters Date Type Department Care Team (Late st Contact Info) Description 11/08/2024 1:00 PM EDT Office Visit [address] [address] Louis Valverde MD [address] [place] [phone] 11/23/2024 2:00 PM EDT Office Visit [facility] MEDICINE [address] [place] [phone] Louis Valverde MD [address] [place] [phone] documented as of this encounter Visit Diagnoses Diagnosis Leukocytosis, unspecified type- Primary documented in this encounter Care Teams Film Or Videotape Editor Relationship Specialty Start Date End Date Louis Valverde MD [address] [place] [phone] PCP - General Family Medicine 07/14/18 documented as of this encounter
--- OUTSIDE RECORDS SUMMARY | 2024-10-20 11:06 | XMS_ITS | Encounter Summary ---
Author Organization [employer] Address [address] [place] [address] Care Team Providers Care Landscape Crew Leader Name Role Phone Name, Louis DISLA Primary Care Provider [phone] Encounter Details Date Type Department Care Team ([facility] st Contact Info) Description 10/12/2024 Orders Only [facility] [address] [place], [place] [phone] Provider, MD Noam Social History Tobacco Use [...] housing situation today? I have philip rangel 10/15/[address] you li ve. Do you have problems with any of the following? None of the above 10/15/2024 Food Insecurity Answer Date Recorded Within the past 12 months, y ou worried that your food would run out before you got money to buy more: Never True 10/15/2024 Within the past 12 months,th e food you bought just didn't last and you didn't have enough money to get more: Never True 10/2024 Transportation Answer Date Recorded In the past 12 months, has l ack of transportation kept you from medical appts, meetings, work or from getting things needed for daily living? No 10/15/2024 Utilities Answer Date Recorded In the past 12 months, has t he electric, gas, oil or water company threatened to shut off services in your home? No 10/15/2024 Depression Answer Date Recorded Patient Health Questionnaire-2 Score 0 10/14/2023 Internet Access Answer Date Recorded Internet Access Q1 Yes 10/15/2024 Internet Access Q2 Not on file 10/15/2024 Sex and Gender Information Value Date Recorded Sex Assigned at Male 05/13/2022 10:29 AM EDT Legal Sex Male 10:29 AM EDT Gender Identity Male 05/13/2022 10:29 AM EDT Sexual Orientation Straight 05/13/2022 10 :29 AM EDT documented as of this encounter Plan of Treatment Upcoming Encounters Date Type Department Care Team (Late st Contact Info) Description 11/08/2024 1:00 PM EDT Office Visit [facility] [address] [place] [phone] NameLouis MD [address] [place] [phone] 11/23/2024 2:00 PM EDT Office Visit [address] [address] NameLouis MD [address] [place] [phone] documented as of this encounter Procedures Procedure [...] Lactic Acid 0.6 0.5 - 2.0 mmol/L [facility] 10/12/2024 2:37 PM EDT 10/12/2024 2:42 PM EDT us Generic External Data Provider LAB BLOOD ORDERAB LES Final Result Performing Organization Address City/State/[facility] Co de Phone Number [facility] [address] [place] [address] [phone] * CT Abdomen Pelvis w/o Contrast (10/12/2024 2:26 PM EDT) Anatomical Region Laterality Modality Body, Pelvis, Abdomen Computed T omography 10/12/2024 2:26 PM EDT Narrative 10/12/2024 3:38 PM EDT ? [facility] ?[address] ?[place] [address] ? CT Scan Report ? Signed ? Patient: Mendoza Jr,Isai ?MR#: [id number] ?? [id number] ? : 1970 ?Acct:[id number] ? Age/Sex: 54 / M ?ADM Date: 04/01/25 ? Loc: HO.ED ? Attending Dr: ? Ordering Physician: Mirta Dallas DO ?? Date of Service: 10/12/24 ?? Procedure(s): CT abdomen pelvis wo IV con ?? Accession Number(s): [id number] ? cc: Mirta Dallas DO; Name,Louis DISLA ? Report Number: ?? [id number]: Total DLP = ??626.00 mGy-cm ?? EXAMINATION: ??CT ABDOMEN PELVIS WITHOUT IV CONTRAST ? HISTORY: flank pain, recent cystoscopy ? COMPARISON: Relation is made with an outside PET/CT scan from [facility] dated 08/16/2024. ? TECHNIQUE: CT scan [...] DD/ 1426 ? TD/TT: 10/12/24 1518 ? Advertising Intern: ? Procedure Note Floridalma, Ismael - 10/12/[address] [address] [address] Scan Report Signed Patient: Kelly Irwin DunlapisMR#: [id number] : 1970Acct:[id number] Age/Sex: 54 / MADM Date: 10/12/24 Loc: HO.ED Attending Dr: Ordering Physician: Mirta Dallas DO Date of Service: 10/12/24 Procedure(s): CT abdomen pelvis wo IV con Accession Number(s): [id number] cc: CelenaMirta ; Name,Louis DISLA Report Number: [id number]: Total DLP = 626.00 mGy-cm EXAMINATION: CT ABDOMEN PELVIS WITHOUT IV CONTRAST HISTORY: flank pain, recent cystoscopy COMPARISON: Relation is made with an outside PET/CT scan from [facility] dated 08/16/2024. TECHNIQUE: CT scan of [...] 10/12/24 1535 DD/ 1426 TD/TT: 10/12/24 1518 Advertising Intern: [facility] External Provider IMG CT PROCEDURES Final Result * (ABNORMAL) Urinalysis, Complete, with Reflex to Culture (10/12/2024 1:27 PM EDT) Color Urine Dark Yellow [facility] Appearance Urine Cloudy [facility] PH 5.5 5.0 - 9.0 [facility] Glucose Urine UA Negative Negative mg/dL [facility] Urine Blood Moderate (2+)(A) Negative [facility] Specific [place] - Urine 1.020 1.005 - 1.025 [facility] Urine Protein 100 (2+)(A) Neg-Trace mg/dL [facility] Urine Ketones Trace Negative mg/dL [facility] Nitrite Urine Positive(A) Negative [facility] Leukocyte Esterase Urine Moderate (2+)(A) Negative [facility] RBC Urine >20(A) 0 - 2 /HPF [facility] Urine WBC >50(A) 0 - 5 /HPF [facility] Urine Squamous Epithelial Cell 0-2 0 - 2 /HPF [facility] Urine Bacteria 2+ None Seen [facility] Hyaline Casts, Urine 3-5 0 - 2 /LPF [facility] 10/12/2024 1:27 PM EDT 10/12/2024 1:30 PM EDT Narrative [facility] - 10/12/2024 1:39 PM EDT [id number], [employer] us Generic External Data Provider LAB URINE ORDERAB LES Final Result Performing Organization Address [facility] Co de Phone Number [facility] [address] [place] [phone] * Lipase (10/12/2024 1:21 PM EDT) Lipase 29 8 - 78 U/L [facility] 10/12/2024 1:21 PM EDT 10/12/2024 1:24 PM EDT us Generic External Data Provider LAB BLOOD ORDERAB LES Final Result Performing Organization Address [facility] Co de Phone Number [facility] [address] [place] [phone] * Magnesium (10/12/2024 1:21 PM EDT) Magnesium 2.2 1.6 - 2.6 mg/dL [facility] 10/12/2024 1:21 PM EDT 10/12/2024 1:24 PM EDT us Generic External Data Provider LAB BLOOD ORDERAB LES Final Result Performing Organization Address [facility] Co de Phone Number [facility] [address] [place] [address] [phone] * (ABNORMAL) Basic Metabolic Panel (10/12/2024 1:21 PM EDT) Sodium 137 135 - 145 mmol/L [facility] Potassium 4.0 3.3 - 5.1 mmol/L [facility] Chloride 104 96 - 108 mmol/L [facility] Carbon Dioxide 28 22 - 29 mmol/L [facility] Anion Gap 9(L) 12 - 20 [facility] Urea Nitrogen (BUN) 21(H) 9 - 16 mg/dL [facility] Creatinine, Serum 0.78 0.5 - 1.4 mg/dL [facility] Creatinine Clr Calc Pharmacy 118.2 [facility] Comment:eGFR (calculated fro m the MDRD study equation) and eCrCl(calculated from the Cockcroft-Gault equation) are based ondifferent parameters and may not yield comparable results.If eCrCl result is absurd, please check patient'sheight/weight. Estimated Glomerular Filt Rate >60 [facility] Comment:Chronic Kidney Disea se: Estimated GFR < 60 mL/min/1.06e3Fruads Kidney Disease: Estimated GFR < 15 mL/min/1.73m2 Glucose 108 60 - 115 mg/dL [facility] Calcium 9.5 8.4 - 10.2 mg/dL [facility] 10/12/2024 1:21 PM EDT 10/12/2024 1:24 PM EDT us Generic External Data Provider LAB BLOOD ORDERAB LES Final Result [facility] [address] [place] [phone] * Hepatic Function Panel (10/12/2024 1:21 PM EDT) Bilirubin, Total 0.4 0.0 - 1.0 mg/dL [facility] Bilirubin, Direct 0.3 0.0 - 0.5 mg/dL [facility] Aspartate Amino Transferase 17 5 - 37 U/L [facility] Alanine Aminotransferase 20 0 - 40 U/L [facility] Total Protein 6.7 6.5 - 8.0 g/dL [facility] Albumin Level 4.2 3.5 - 5.0 g/dL [facility] Alkaline Phosphatase 75 39 - 117 U/L [facility] 10/12/2024 1:21 PM EDT 10/12/2024 1:24 PM EDT us Generic External Data Provider LAB BLOOD ORDERAB LES Final Result [facility] [address] [place], [place] [phone] * (ABNORMAL) Complete Blood Count Manual Diff (10/12/2024 1:21 PM EDT) White Blood Count 31.4(HH) 4.8 - 10.8 X10*3/uL [facility] Comment:Results of WBC interiano d to and read back by Nela 10/12/24 at 1332 by KRISTINA. Red Blood Count 4.39(L) 4.60 - 5.80 X10*6/uL [facility] Hemoglobin 12.5(L) 14.0 - 18.0 g/dl [facility] Hematocrit 37.7(L) 42.0 - 52.0 % [facility] Mean Corpuscular Volume 85.9 80.0 - 98.0 fL [facility] Mean Corpuscular Hemoglobin 28.5 27.0 - 33.0 pg [facility] Mean Corpuscular HGB Conc 33.2 31.0 - 36.0 g/dl [facility] Red Cell Distribution Width 14.4 11.0 - 16.0 % [facility] Platelet Count 179 160 - 400 X10*3/uL [facility] Mean Platelet Volume 9.0(L) 9.4 - 12.4 fL [facility] NRBC Pct Auto 0.0 0.0 - 0.2 /100WBC [facility] NRBC Abs Auto 0.000 0.0 - 0.012 X10*3/uL [facility] 10/12/2024 1:21 PM EDT 10/12/2024 1:24 PM EDT us Generic External Data Provider LAB BLOOD ORDERAB LES Final Result [facility] [address] [place] [phone] * Hm Colonoscopy (10/08/2024 7:58 AM EDT) Historical Provider HEALTH MAINTENANCE Final Result documented in this encounter Visit Diagnoses Not on filedocumented in this encounter Additional Health Concerns Assessment Noted Time PHQ-9 Depression Total Score: 0 10/14/19 24 1:34 PM EDT documented as of this encounter Care Teams Landscape Crew Leader Relationship Specialty Start Date End Date Name, MD Louis [address] [place] [address] PCP - General Family Medicine 07/14/18 documented as of this encounter
--- OUTSIDE RECORDS SUMMARY | 2024-10-20 11:06 | XMS_ITS | Clinical Summary ---
Author Organization [facility] Address [address] [place] [address] Phone Care Team Providers Care Cripple Cutter Name Role Phone Unavailable Primary Care Provider Unavailabl e Encounters Date Type Department Care Team Description 08/26/2024 2:00 PM EST - 08/26/2024 11:59 PM EST Hospital Encounter [facility] PET Scan [address] [place] [address] Chronic lymphocytic 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 (CMS/[facility]) Discharge Disposition: Home or Self Care from Last 3 Months Surgical History Surgery Date Site/Laterality Comments FEMUR FRACTURE SURGERY PROCEDURE: DC OPEN TX FEMORAL FRACTURE DISTAL MED/LAT CONDYLE; COMMENT: Left femur at age 4 NOSE SURGERY PROCEDURE: DC UNLISTED PROCEDURE NOSE; COMMENT: deviated septum COLONOSCOPY PROCEDURE: HISTORICAL COLONOSCOPY; COMMENT: Normal on this year 12/2009 OTHER SURGICAL HISTORY 10/24 PROCEDURE: DC LAPAROSCOPY SURG PARTIAL NEPHRECTOMY; COMMENT: renal mass OTHER SURGICAL HISTORY 08/26 PROCEDURE: DC CSTOTOMY/CSTOST CRYOSURG DSTRJ INTRAVESICAL LES; COMMENT: bladder [...] age to complete this topic Meningococcal B Vaccine Aged Out No l onger eligible based on patient's age to complete [...] of B-cell type not having achieved remission ([facility]) from Last 3 Months Results * [...] Signed Date: 09/03/2024 13:11 ET Workstation ID: [id number] Transcribed By: Self Edit Transcribed Date: 09/03/2024 [...] Signed Date: 09/03/2024 13:11 ET Workstation ID: [id number] Transcribed By: Self Edit Transcribed Date: 09/03/2024 10:57 ET Jackelyn Buenrostro MD [place] PROCEDURES Final Result from Last 3 Months
--- OUTSIDE RECORDS SUMMARY | 2024-10-20 11:06 | XMS_ITS | Clinical Summary ---
Author Organization [employer] Address [address] [place] [address] Care Team Providers Care Product Management Manager Name Role Phone Name, Louis DISLA Primary Care Provider [phone] Allergies No known active allergies Medications mometasone (Nasonex) 50 MCG/ACT nasal spray Administer 1-2 sprays into each nostril in the morning. 4 Active clindamycin (Cleocin T) 1 % lotion [...] cpap with good improvement since 2009. Res[facility] Hypertension 11/12/2010 ED (erectile dysfunction) [...] 08/12/2022 0 10/14/2023 Overview (08/12/2022): Follow at [facility], colonoscopy Q 3 years Had more [...] appointment. Was removed by outside urology at [facility]. Renal mass 09/17/2012 10/14/2023 Overview (12/19/2022): Left-sided. Seen in MRI on 08/26 at [facility] for work up of Hematuria. Patient is following with Urology there. Biopsy showed malignancy and the patient was been scheduled for partial nephrectomy on October of 2012. Patient continues to follow at [place] with serial CT of the kidneys and serial cystoscopies Encounters Date Type Department Care Team Description 10/18/2024 Telephone [facility] [address] [place] [address] Ye Leggett DMD 10/15/2024 Patient Outreach [facility] [address] [place] [address] [place] [address] Louis Valverde MD Transition Of Care (Tcm) (HDF - ) 10/12/2024 Orders Only [facility] [address] [place] [address] ProviderNoam MD 10/08/2024 Orders Only GENERIC EXTERNAL DATA DEPARTMENT Provider, Generic External Data 09/24/2024 Population Health Risk Score [facility] Department [address] [phone] Provider, Population Health Generic 09/22/2024 10:30 AM EDT Telemedicine [facility] [address] [place] [address] Louis Valverde MD CLL (chronic lymphocytic leukemia) (CMS/HCC) (Primary Dx) 09/22/2024 Travel 09/01/2024 Telephone [facility] [address] [place] [address] Hitesh Boyle [place] October recall 08/19/2024 Orders [...] Description 11/08/2024 1:00 PM EDT Office Visit [facility] [address] [place] [address] Name, MD Louis [address] [place] [address] 11/23/2024 2:00 PM EDT Office Visit [facility] [address] [place] [address] Name, MD Louis [address] [place] [address] Health Maintenance Due Date Last Done Comments [...] 11/06/2023, 08/28/2022 Dental Prophylaxis 05/08/2024 11/06/2023, 09/26/2022 Depression Screening 10/13/2024 10/14/2023, 10/14/19 Alcohol/Substance Use Screening 12/22/2024 12/23/2023 Dental X-Ray: Bitewings 06/01/2025 05/31/20 24, 11/06/2023, 08/28/2022 Tobacco Screening 07/12/2025 07/12/2024 Dental X-Ray: Full Mouth 08/29/2025 08/28/2022 SDOH Screening 10/15/2025 10/15/2024 Lipid Panel 10/14/2028 10/15/2023, 02/0 08/2022, 08/24/2021, Additional history exists Colonoscopy 10/08/2029 10/08/2024, [...] Lactic Acid 0.6 0.5 - 2.0 mmol/L [facility] 10/12/2024 2:37 PM EDT 10/12/2024 2:42 PM EDT us Generic External Data Provider LAB BLOOD ORDERAB LES Final Result [facility] [address] [place] [address] [phone] * CT Abdomen Pelvis w/o Contrast (10/12/2024 2:26 PM EDT) Anatomical Region Laterality Modality Body, Pelvis, Abdomen Computed T omography 10/12/2024 2:26 PM EDT Narrative 10/12/2024 3:38 PM EDT ? [facility] ?[address] ?[place] [address] ? CT Scan Report ? Signed ? Patient: Kelly Méndez,Irwin Garcia ?MR#: MM ?? [id number] ? : 1970 ?Acct:[id number] ? Age/Sex: 54 / M ?ADM Date: 10/12/24 ? Loc: HO.ED ? Attending Dr: ? Ordering Physician: Mirta Dallas DO ?? Date of Service: 10/12/24 ?? Procedure(s): CT abdomen pelvis wo IV con ?? Accession Number(s): [id number] ? cc: Mirta Dallas DO; Name,Louis DISLA ? Report Number: ?? [id number]: Total DLP = ??626.00 mGy-cm ?? EXAMINATION: ??CT ABDOMEN PELVIS WITHOUT IV CONTRAST ? HISTORY: flank pain, recent cystoscopy ? COMPARISON: Relation is made with an outside PET/CT scan from [facility] dated 08/16/2024. ? TECHNIQUE: CT scan [...] DD/ 1426 ? TD/TT: 10/12/24 1518 ? Chaser Helper: ? Procedure Note Ismael Hedrick - 10/12/[address] [place] [address] [address] Scan Report Signed Patient: Irwin Mendoza Jr ArnoldoR#: [id number] : 1970Acct:[id number] Age/Sex: 54 / MADM Date: 10/12/24 Loc: HO.ED Attending Dr: Ordering Physician: Mirta Dallas DO Date of Service: 10/12/24 Procedure(s): CT abdomen pelvis wo IV con Accession Number(s): [id number] cc: Mirta Dallas DO; Name,Louis DISLA Report Number: [id number]: Total DLP = 626.00 mGy-cm EXAMINATION: CT ABDOMEN PELVIS WITHOUT IV CONTRAST HISTORY: flank pain, recent cystoscopy COMPARISON: Relation is made with an outside PET/CT scan from [facility] dated 08/16/2024. TECHNIQUE: CT scan of the [...] Amin MD Signed By: <Electronically signed by Ferddy Amin MD in OV> 10/12/24 1535 DD/ 1426 TD/TT: 10/12/24 1518 Chaser Helper: [facility] External Provider IMG CT PROCEDURES Final Result * (ABNORMAL) Urinalysis, Complete, with Reflex to Culture (10/12/2024 1:27 PM EDT) Color Urine Dark Yellow [facility] Appearance Urine Cloudy [facility] PH 5.5 5.0 - 9.0 [facility] Glucose Urine UA Negative Negative mg/dL [facility] Urine Blood Moderate (2+)(A) Negative [facility] Specific [place] - Urine 1.020 1.005 - 1.025 [facility] Urine Protein 100 (2+)(A) Neg-Trace mg/dL [facility] Urine Ketones Trace Negative mg/dL [facility] Nitrite Urine Positive(A) Negative [facility] Leukocyte Esterase Urine Moderate (2+)(A) Negative [facility] RBC Urine >20(A) 0 - 2 /HPF [facility] Urine WBC >50(A) 0 - 5 /HPF [facility] Urine Squamous Epithelial Cell 0-2 0 - 2 /HPF [facility] Urine Bacteria 2+ None Seen [facility] Hyaline Casts, Urine 3-5 0 - 2 /LPF [facility] 10/12/2024 1:27 PM EDT 10/12/2024 1:30 PM EDT Narrative [facility] - 10/12/2024 1:39 PM EDT [id number], Clean Catch us Generic External Data Provider LAB URINE ORDERAB LES Final Result [facility] [address] [place] [address] [phone] * (ABNORMAL) Complete Blood Count Manual Diff (10/12/2024 1:21 PM EDT) Only the most recent of2 resultswithin the time period is included. White Blood Count 31.4(HH) 4.8 - 10.8 X10*3/uL [facility] Comment:Results of WBC interiano d to and read back by Nela 10/12/24 at 1332 by KRISTINA. Red Blood Count 4.39(L) 4.60 - 5.80 X10*6/uL [facility] Hemoglobin 12.5(L) 14.0 - 18.0 g/dl [facility] Hematocrit 37.7(L) 42.0 - 52.0 % [facility] Mean Corpuscular Volume 85.9 80.0 - 98.0 fL [facility] Mean Corpuscular Hemoglobin 28.5 27.0 - 33.0 pg [facility] Mean Corpuscular HGB Conc 33.2 31.0 - 36.0 g/dl [facility] Red Cell Distribution Width 14.4 11.0 - 16.0 % [facility] Platelet Count 179 160 - 400 X10*3/uL [facility] Mean Platelet Volume 9.0(L) 9.4 - 12.4 fL [facility] NRBC Pct Auto 0.0 0.0 - 0.2 /100WBC [facility] NRBC Abs Auto 0.000 0.0 - 0.012 X10*3/uL [facility] 10/12/2024 1:21 PM EDT 10/12/2024 1:24 PM EDT us Generic External Data Provider LAB BLOOD ORDERAB LES Final Result Performing Organization Address [facility] Co de Phone Number [facility] [address] [place] [phone] * Magnesium (10/12/2024 1:21 PM EDT) Only the most recent of2 resultswithin the time period is included. Magnesium 2.2 1.6 - 2.6 mg/dL [facility] 10/12/2024 1:21 PM EDT 10/12/2024 1:24 PM EDT Generic External Data Provider LAB BLOOD ORDERAB LES Final Result Performing Organization Address [facility] Co nd Phone Number [facility] [address] [place] [phone] * Lipase (10/12/2024 1:21 PM EDT) Lipase 29 8 - 78 U/L [facility] 10/12/2024 1:21 PM EDT 10/12/2024 1:24 PM EDT Generic External Data Provider LAB BLOOD ORDERAB LES Final Result Performing Organization Address [facility] de Phone Number [facility] [address] [place] [phone] * Hepatic Function Panel (10/12/2024 1:21 PM EDT) Only the most recent of2 resultswithin the time period is included. Bilirubin, Total 0.4 0.0 - 1.0 mg/dL [facility] Bilirubin, Direct 0.3 0.0 - 0.5 mg/dL [facility] Aspartate Amino Transferase 17 5 - 37 U/L [facility] Alanine Aminotransferase 20 0 - 40 U/L [facility] Total Protein 6.7 6.5 - 8.0 g/dL [facility] Albumin Level 4.2 3.5 - 5.0 g/dL [facility] Alkaline Phosphatase 75 39 - 117 U/L [facility] 10/12/2024 1:21 PM EDT 10/12/2024 1:24 PM EDT us Generic External Data Provider LAB BLOOD ORDERAB LES Final Result [facility] [address] [place] [address] [phone] * (ABNORMAL) Basic Metabolic Panel (10/12/2024 1:21 PM EDT) Only the most recent of2 resultswithin the time period is included. Sodium 137 135 - 145 mmol/L [facility] Potassium 4.0 3.3 - 5.1 mmol/L [facility] Chloride 104 96 - 108 mmol/L [facility] Carbon Dioxide 28 22 - 29 mmol/L [facility] Anion Gap 9(L) 12 - 20 [facility] Urea Nitrogen (BUN) 21(H) 9 - 16 mg/dL [facility] Creatinine, Serum 0.78 0.5 - 1.4 mg/dL [facility] Creatinine Clr Calc Pharmacy 118.2 [facility] Comment:eGFR (calculated fro m the MDRD study equation) and eCrCl(calculated from the Cockcroft-Gault equation) are based ondifferent parameters and may not yield comparable results.If eCrCl result is absurd, please check patient'sheight/weight. Estimated Glomerular Filt Rate >60 [facility] Comment:Chronic Kidney Disea se: Estimated GFR < 60 mL/min/1.98t4Usnwzz Kidney Disease: Estimated GFR < 15 mL/min/1.73m2 Glucose 108 60 - 115 mg/dL [facility] Calcium 9.5 8.4 - 10.2 mg/dL [facility] 10/12/2024 1:21 PM EDT 10/12/2024 1:24 PM EDT us Generic External Data Provider LAB BLOOD ORDERAB LES Final Result [facility] [address] [place] [address] [phone] * Hematoxylin and Eosin Stain (10/08/2024 8:42 AM EDT) 10/08/2024 8:42 AM EDT 10/08/2024 9:16 AM EDT Narrative [facility] - 10/11/2024 3:03 PM EDT ----- ------- Name: Irwin Mendoza Jr ? Age/Sex: 54/M ? : 1970 Unit#: [id number] ?? Attend Dr: Dom Batres MD ?Re10/08/24 ?Status: DEP SDC ? Location: HO.SSS ?Disch: ? ----- ------- SPEC : [id number] ? RECD: 10/08/24 ? STATUS: ??SOUT ? REQ NUM: [id number] ? BRENT: 10/08/24 ? SUBM DR: Dom Batres MD ? ENTERED: ??10/08/24 ?SP TYPE: Surgical ? OTHR : Name,Louis DISLA ? ORDERED: ??HE Stain/9, Gross Micro L4/3 ? THIS IS A CORRECTED REPORT ??10/11/24 ?This is a corrected report. ?Any previous [...] ? Age/Sex: 54/M ? : 1970 Unit#: [id number] ?? Attend Dr: Dom Batres MD ?Re10/08/24 ?Status: DEP [facility] ? Location: [facility] ?Disch: ? ----- ------- SPEC : [id number] ? RECD: 03 ? STATUS: ??SOUT ? REQ NUM: [id number] ? BRENT: 10/08/24 ? SUBM DR: Dom Batres MD ? ENTERED: ??10/08/24 ?SP TYPE: Surgical ? OTHR DR: Louis Valverde MD ? ORDERED: ??HE Stain/9, Gross Micro L4/3 ? Gross Description ?(Continued) measuring 0.2 and 0.2 cm in greatest dimension which are wrapped in lens paper and entirely submitted for microscopic examination, 2 pieces in cassette C. ??([facility]) Copies To: ?? Dom Batres MD ?? [facility] ?? [address] ?? [place] [address] ?? [phone] ?? Louis Valverde MD ?? [address] ?? [place] [address] ?? [phone] ----- ------- Signed (signature on file) Henrietta Guallpa MD 10/11/24 1503 ? ----- ------- ? END OF REPORT ? us Generic External Data Provider LAB BLOOD ORDERAB LES Final Result [facility] [address] [place] [address] [phone] * Hm Colonoscopy (10/08/2024 7:58 AM EDT) us Historical Provider MD HEALTH MAINTENANCE Final Result * XR Femur 2+ Views Left (09/07/2024 12:25 PM EST) Anatomical Region Laterality Modality Lower Extremities, Femur Left Radiogr aphic Imaging 09/07/2024 12:2 5 PM EST Narrative 09/08/2024 10:36 AM EST ? [facility] ?[address] ?[place] [address] ?XRay Report ? Signed ? Patient: Mendoza Jr,Isai ?MR#: MM ?? [id number] ? : 1970 ?Acct:[id number] ? Age/Sex: 54 / M ?ADM Date: 09/07/24 ? Loc: HO.XRAY ? Attending Dr: Jackelyn Buenrostro MD ? Ordering Physician: Jackelyn Buenrostro MD ?? Date of Service: 09/07/24 ?? Procedure(s): XR femur LT 2V ?? Accession Number(s): [id number] ? cc: Jackelyn Buenrostro MD; Name,Louis DISLA [...] DD/ 1225 ? TD/TT: 09/07/24 1230 ? Chaser Helper: ? Procedure Note Floridalma, Image - 09/08/2024 [place] [address] XRay Report Signed Patient: Irwin Mendoza JrR#: [id number] : 1970Acct:[id number] Age/Sex: 54 / MADM Date: 09/07/24 Loc: ALEXUS Attending Dr: Jackelyn Buenrostro MD Ordering Physician: Jackelyn Buenrostro MD Date of Service: 09/07/24 Procedure(s): XR femur LT 2V Accession Number(s): [id number] cc: Jackelyn Buenrostro MD; Name,Louis DISLA EXAMINATION: [...] 09/08/24 1033 DD/ 1225 TD/TT: 09/07/24 1230 Chaser Helper: [facility] External Provider IMG XR PROCEDURES Final Result * CT Soft Tissue Neck w/ Contrast (08/19/2024 3:55 PM EST) Anatomical Region Laterality Modality Head, Neck Computed Tomogra phy 08/19/2024 3:55 PM EST Narrative 08/19/2024 4:50 PM EST ? [facility] ?[address] ?[place] [address] ? CT Scan Report ? Signed ? Patient: Kelly Méndez,Irwin Garcia ?MR#: MM ?? [id number] ? : 1970 ?Acct:[id number] ? Age/Sex: 54 / M ?ADM Date: 08/19/24 ? Loc: HO.ED ? Attending Dr: ? Ordering Physician: Matty Neff MD ?? Date of Service: 08/19/24 ?? Procedure(s): CT soft tissue neck w IV con ?? Accession Number(s): [id number] ? cc: Matty Neff MD; Name,Louis DISLA ? Report Number: ?? [id number]: Total DLP = ??845.00 mGy-cm ?? EXAMINATION: [...] Fat Planes: ?? -Normal without effacement. ? Welding Pantograph Machine Operator Spaces: ?? -Normal. ? Imaged Intracranial Contents: [...] DD/ 1555 ? TD/TT: 08/19/24 1612 ? Chaser Helper: ? Procedure Note Donisraelinterpreter, Image - 08/19/[address] [place] [address] [address] Scan Report Signed Patient: Irwin Mendoza Jr#: [id number] : 1970Acct:[id number] Age/Sex: 54 / MADM Date: 08/19/24 Loc: HO.ED Attending Dr: Ordering Physician: Matty Neff MD Date of Service: 08/19/24 Procedure(s): CT soft tissue neck w IV con Accession Number(s): [id number] cc: Matty Neff MD; Name,Louis DISLA Report Number: [id number]: Total DLP = 845.00 mGy-cm EXAMINATION: CT [...] appearance. Parapharyngeal Fat Planes: -Normal without effacement. Welding Pantograph Machine Operator Spaces: -Normal. Imaged Intracranial Contents: -No mass [...] 08/19/24 1646 DD/ 1555 TD/TT: 08/19/24 1612 Chaser Helper: [facility] External Provider IMG CT PROCEDURES Final Result * (ABNORMAL) CBC auto differential (08/19/2024 1:20 PM EST) White Blood Count 30.6(HH) 4.8 - 10.8 X10*3/uL [facility] Comment:RESULTS OF WBC INTERIANO D TO AND READ BACK BY YULIYA 08/19/24 AT 1332 BY KENNEDY. Red Blood Count 4.86 4.60 - 5.80 X10*6/uL [facility] Hemoglobin 13.8(L) 14.0 - 18.0 g/dl [facility] Hematocrit 41.8(L) 42.0 - 52.0 % [facility] Mean Corpuscular Volume 86.0 80.0 - 98.0 fL [facility] Mean Corpuscular Hemoglobin 28.4 27.0 - 33.0 pg [facility] Mean Corpuscular HGB Conc 33.0 31.0 - 36.0 g/dl [facility] Red Cell Distribution Width 14.6 11.0 - 16.0 % [facility] Platelet Count 149(L) 160 - 400 X10*3/uL [facility] Mean Platelet Volume 9.4 9.4 - 12.4 fL [facility] Neutrophils Percent Auto 8.1(L) 45 - 73 % [facility] Imm Gran Pct Auto 0.2 0.0 - 0.4 % [facility] Lymphocytes Percent Auto 78.6(H) 20 - 40 % [facility] Monocytes Percent Auto 12.2(H) 2 - 11 % [facility] Eosinophils Percent Auto 0.5 0 - 4 % [facility] Basophils Percent Auto 0.4 0 - 2 % [facility] NRBC Pct Auto 0.0 0.0 - 0.2 /100WBC [facility] Neutrophils Absolute Auto 2.5 2.0 - 8.3 x10*3/uL [facility] Imm Gran Abs Auto 0.06(H) 0.00 - 0.03 X10*3/uL [facility] Lymphocytes Absolute Auto 24.1(H) 1.2 - 4.9 X10*3/uL [facility] Monocytes Absolute Auto 3.7(H) 0.1 - 1.2 X10*3/uL [facility] Eosinophils Absolute Auto 0.1 0.0 - 0.4 X10*3/uL [facility] Basophils Absolute Auto 0.1 0.0 - 0.2 X10*3/uL [facility] NRBC Abs Auto 0.000 0.0 - 0.012 X10*3/uL [facility] 08/19/2024 1:20 PM EST 08/19/2024 1:24 PM EST us Generic External Data Provider LAB BLOOD ORDERAB LES Edited Result - Final [facility] [address] [place], [place] [phone] * Mononucleosis Test, Qualitative (08/19/2024 1:20 PM EST) Pathologist [facility] Monotest Negative Negative [facility] 08/19/2024 1:20 PM EST 08/19/2024 1:24 PM EST us Generic External Data Provider LAB BLOOD ORDERAB LES Final Result Performing Organization Address [facility] Co de Phone Number [facility] [address] [place] [phone] * Uric acid (08/19/2024 1:20 PM EST) [facility] Uric Acid 6.4 3.4 - 7.0 mg/dL [facility] 08/19/2024 1:20 PM EST 08/19/2024 1:24 PM EST Generic External Data Provider LAB BLOOD ORDERAB LES Final Result Performing Organization Address [facility] Co nd Phone Number [facility] [address] [place] [phone] * Lactate Dehydrogenase (LD) (08/19/2024 1:20 PM EST) [facility] Lactate Dehydrogenase 215 118 - 273 U/L [facility] 08/19/2024 1:20 PM EST 08/19/2024 1:24 PM EST Generic External Data Provider LAB BLOOD ORDERAB LES Final Result Performing Organization Address [facility] Phone Number [facility] [address] [place] [phone] * Hepatitis C Ab (10/15/2023 9:19 AM EDT) [facility] Hepatitis C Antibody Nonreactive Nonreactive [facility] Comment:Antibodies to HCV no t detected; does not exclude early acuteHCV infection. Blood Venous blood specimen / Unknown 10/15/2023 9:19 AM EDT 10/15/2023 11:17 AM EDT Louis Valverde MD LAB BLOOD ORDERABLES Final Resul t Performing Organization Address [facility] Co de Phone Number [facility] [address] [place] [phone] * (ABNORMAL) Lipid Panel, Standard (10/15/2023 9:19 AM EDT) Triglycerides 191(H) <150 mg/dL [facility] Comment:Desirable Triglyceri de: less than 150 mg/dLBorderline High Triglyceride 150-199 mg/dLHigh Triglyceride: 200-499 mg/dLVery High Triglyceride: greater than or equal to 5OO mg/dL Cholesterol 199 <200 mg/dL [facility] Comment:Desirable Cholestero l: less than 200 mg/dLBorderline High Cholesterol: 200-239 mg/dLHigh Cholesterol: greater than 239 mg/dL LDL Cholesterol Calculated 123(H) <100 mg/dL [facility] Comment:Desirable LDL: less than 100 mg/dLNear Optimal/Above Optimal LDL: 110- 129 mg/dLBorderline High LDL: 130-159 mg/dLHigh LDL: 160-189 mg/dLVery High LDL: greater than or equal to 190 mg/dL HDL Cholesterol 38(L) >40 mg/dL [facility] Comment:Desirable HDL: great er than 40 mg/dL Note: This HDL assay may give artificially low results in patients with liver disease. Blood Venous blood specimen / Unknown 10/15/2023 9:19 AM EDT 10/15/2023 11:17 AM EDT us Louis Valverde MD LAB BLOOD ORDERABLES Final Resul t Performing Organization Address [facility]/ZIP Co de Phone Number [facility] [address] [place] [phone] from Last 3 Months or Most Recently Relevant to Health Maintenance Insurance [facility] C[facility] MEDICA[facility] STAND ADULT Care Teams Product Management Manager Relationship Specialty Start Date End Date Name, MD Louis [address] [place] [phone] PCP - General Family Medicine 07/14/18
--- OUTSIDE RECORDS SUMMARY | 2024-10-20 11:06 | XMS_ITS | Encounter Summary ---
Author Organization [employer] Address [address] [place] [address] Care Team Providers Care Fund Raiser Name Role Phone Name, Louis DISLA Primary Care Provider [phone] Encounter Details Date Type Department Care Team (Late st Contact Info) Description 10/18/2024 Telephone [facility] [address] [place], [place] [phone] Ye Leggett, DMD [address] [place] [address] Social History Tobacco Use Types Packs/Day Years [...] encounter Miscellaneous Notes * Telephone Encounter - Philip Barrios - 10/18/2024 2:20 PM EDT Called patient to schedule an appointment but patient said that he became a patient on another practice. documented in this encounter Plan of Treatment Upcoming Encounters Date Type Department Care Team (Late st Contact Info) Description 11/08/2024 1:00 PM EDT Office Visit [facility] [address] [place] [phone] NameLouis MD [address] [place] [phone] 11/23/2024 2:00 PM EDT Office Visit [facility] [address] [place] [phone] NameLouis MD [address] [place] [phone] documented as of this encounter Visit Diagnoses Not on filedocumented in this encounter Additional Health Concerns Assessment Noted Time PHQ-9 Depression Total Score: 0 10/14/19 24 1:34 PM EDT documented as of this encounter Care Teams Fund Raiser Relationship Specialty Start Date End Date Name, MD Louis [address] [place] [address] PCP - General Family Medicine 07/14/18 documented as of this encounter
--- OUTSIDE RECORDS SUMMARY | 2024-10-20 11:06 | XMS_ITS | Encounter Summary ---
Author Organization [facility] Address [address] [facility] 7t [place] [address] Care Team Providers Care Floor Installer Name Role Phone Name, Louis DISLA Primary Care Provider [phone] Reason for Visit * Reason Comments Transition Of Care (Tcm) HDF - Encounter Details Date Type Department Care Team ([facility] st Contact Info) Description 10/15/2024 Patient Outreach [facility] [address] [place], [place] [phone] Name, MD Louis [address] [place] [address] Transition Of Care (Tcm) (HDF - ) Social History Tobacco Use Types Packs/Day Years [...] as of this encounter Miscellaneous Notes * Significant Event - Erlinda Patterson - 10/15/2024 10:05 AM EDT 10/15/24 1003 Hospital Discharges and Admission for [facility] Type of Visit Hospital Admission Date of Admission/Visit 10/12/24 Date of Discharge 10/14/24 Facility [facility] Diagnosis Acute UTI, Hx of bladder cancer, Lymphadenopathy, Cystitis, Ureteritis Disposition Discharged Home Follow-Up Actions Follow-Up Needed Provider appointment Follow-Up Outcome Spoke to Patient;Booked Appointment Initial Contact Date 10/15/24 terell Nichols outbound call to patient for HDF outreach. Patient's name and were confirmed. Patient educated on the importance of follow up with provider following inpatient admission. Patient offered an HDF appt. Patient is agreeable to an appointment and has been scheduled for 10/19/2024 at 1:00 PM with Name. Insurance verified prior to scheduling. Patient advised to bring to appointment a photo id and insurance card. Patient also notified that a health center pharmacist will be reaching out to them via telephone prior to their scheduled appointment in order to review their medications in preparation for their appointment. Patient provided with education on contacting the Health Center with any questions or concerns prior to the scheduled appointment. Patient educated on extended clinic hours on Mondays and Wednesdays, and Walk-In Urgent Care Located in [facility] of [facility]. Patient provided with after-hours line for [facility], , which offer night time triage service and option to transfer to application support manager provider if needed. documented in this encounter Plan of Treatment Upcoming Encounters Date Type Department Care Team (Late st Contact Info) Description 11/08/2024 1:00 PM EDT Office Visit [facility] [address] [place] [phone] NameLouis MD [address] [place] [address] 11/23/2024 2:00 PM EDT Office Visit [facility] [address] [place] [address] NameLouis MD [address] [place] [address] documented as of this encounter Visit Diagnoses Not on filedocumented in this encounter Additional Health Concerns Assessment Noted Time PHQ-9 Depression Total Score: 0 10/14/19 24 1:34 PM EDT documented as of this encounter Care Teams Floor Installer Relationship Specialty Start Date End Date Louis Valverde MD [address] [place] [address] PCP - General Family Medicine 07/14/18 documented as of this encounter
--- OUTSIDE RECORDS SUMMARY | 2024-10-20 11:06 | XMS_ITS | Encounter Summary ---
Author Organization [facility] Address [address] [facility] 7t [place] [address] Care Team Providers Care Seed Core Operator Name Role Phone Name, Louis DISLA Primary Care Provider [phone] Encounter Details Date Type Department Care Team (Late st Contact Info) Description 10/09/2022 Abstract [facility] [address] [place], [place] [phone] Babs Pedraza [address] [place] [address] Social History Tobacco Use Types Packs/Day Years [...] Description 11/08/2024 1:00 PM EDT Office Visit [facility] [address] [place], [place] [phone] Name, MD Louis [address] [place] [address] 11/23/2024 2:00 PM EDT Office Visit [facility] [address] [place] [address] Name, MD Louis [address] [place] [address] documented as of this encounter Visit Diagnoses Not on filedocumented in this encounter Care Teams Seed Core Operator Relationship Specialty Start Date End Date Name, MD Louis [address] [place] [address] PCP - General Family Medicine 07/14/18 documented as of this encounter
--- OUTSIDE RECORDS SUMMARY | 2024-10-20 11:06 | XMS_ITS | Data Portability ---
Author Organization [place] [facility], [facility] Address [address] [address] Assessment No assessment recorded. Plan of Treatment [...] audio gram No observ ation record ed. [email or web address] Not Available 04/14 13:50:38 Result Notes None recorded. Problems Name Problem SNOMED Code Status Onset Date Resolution Date Notes Provider Name and Address Organization Details Recorded Time Sensorine ural hearing loss of bilateral ears 721735421 Active 2020 Sensorine ural hearing loss, bilateral ; Note: Date Diagnosed : 06/21/2021 11:59 AM (H90.3) Not Available [facility] 4 02:32:25 Chronic sore throat 048214716 Active 2023 TAYLOR WILEKS MD [address], [place], [address] , [place] - [facility] 4 11:05:42 Feeling of lump in throat 844059753 Active 2023 TAYLOR WILKES MD [address], [place], [place], [address] , [place] - [facility] 4 11:06:11 Hypertrop hy of tonsils 69057794 Active 2023 TAYLOR WILKES MD [address],[place] [facility], [place], [address] , [place] [facility] 4 11:16:13 Obstructi ve sleep apnea syndrome 68023500 Active 2023 TAYLOR WILKES MD [address],[place] [facility], [place], [place], [address] , [place] - [facility] 4 11:20:42 Impacted cerumen in left ear 80590083001 87594 Active 2023 TAYLOR WILKES MD [address],[place] [address], [place], [place], [address] , [place] - [facility] 4 14:59:54 Asymmetri trevor sensorine ural hearing loss 365576799 Active 2023 TAYLOR WILKES MD [address], [place], [address] , [place] [facility] 4 15:40:45 Problem Notes None recorded. Procedures Surgical History Date Name Laterality Status Provider Name and Address Organization Details Recorded Time 4 Cerumen removal without microscope left completed TAYLOR WILKES MD [address],[place] [facility], [place], [address], [place] - [facility] 05/04/2024 15:01:11 4 Air & Speech Audio with Tymps ([id number], 03970 & 99757) completed HERBERT BYERS [address] [facility],[place] [address], [place], [address], [place] - [facility] 05/04/2024 15:19:51 4 FFL_RE completed TAYLOR WILKES MD [address] [facility],[place] [address], [place], [address], [place] [facility] 01/26/2024 11:06:27 Imaging Results Imaging Date Name Status LastModified by Organiz ation Details LastModified Time 06/21/2021 imaging/diagno stic result completed Information not available 03/04/2024 03:32:24 06/21/2021 imaging/diagno stic result completed Information not available 03/04/2024 03:32:27 06/21/2021 audiogram completed Information not available 03/04/2024 03:32:31 05/07/2024 audiogram completed [email or web address] Information n ot available 05/07/2024 13:50:38 Procedure [...] Updated DateTime 01/26/2024 172.72 cm 33.1 kg/m2 37432.14 g Dima Estevez [place] [facility] 01/26/2024 11:03:25 Date Recorded Body height Body mass index (BMI) Body weight Provider Name and Address Organization Details Last Updated DateTime 05/04/2024 172.72 cm 33.1 kg/m2 11054.14 g Dima Estevez [facility] 05/04/2024 14:44:29 Social History None recorded. Functional Status None recorded. Mental Status None recorded. Family History Nothing Reported. Medical History No medical history recorded. Past Encounters Encounter ID Performer Location Encounter Start Date Encounter Closed Date Diagnosis/Indication Diagnosis SNOMED-CT Code Diagnosis ICD10 Code Diagnosis Note [id number] TAYLOR WILKES MD [facility] [address] [address] 01/26/2024 10:36:28 01/26/2024 11:21:17 Chronic sore throat 371602928 J31.2 Pain has improved. Remains with tonsil hypertroph y. See below. Feeling of lump in throat 604091102 R09.89 Likely due to sever tonsil hypertroph y. See below. Hypertroph y of tonsils 08554505 J35.1 He has 4+ tonsils. I discussed tonsillect junior as a last resort but recommend a period of observatio n first. He will f/u in 3 months to reassess and we will consider tonsillect junior as a last resort. I stressed it would not cure NATHAN. Obstructiv e sleep apnea syndrome 32379574 G47.33 Likely multifacto rial but likely worse due to 4+ tonsils. Discussed tonsillect junior might improve but not cure NATHAN. FFL showed enlarged tonsils but was otherwise normal. [id number] TAYLOR WILKES MD [facility] [address] [place] [address] 05/04/2024 14:24:34 05/04/2024 15:40:47 Impacted cerumen in left ear 1997112636 094113 H61.22 Recurrent Cerumen Impactions : Ears were meticulous ly cleaned bilaterall y today with a curette and suction. The patient tolerated this well and will follow up for repeat debridemen t per routine. Hypertroph y of tonsils 71543891 J35.1 Tonsil hypertroph y is slightly improved. I recommend observatio n. Sensorineu ral hearing loss of bilateral ears 074255121 H90.3 Right Ear:Normal hearing through 1K Hz sloping to a moderately -severe SNHL with excellent speech discrimina tion.Type Ad tympanogra m.Left Ear:Normal hearing through 2K Hz sloping to a mild SNHL with excellent speech discrimina tion.Type Ad tympanogra m. Asymmetric al sensorineural hearing loss 160248224 H90.5 worse AD. stable compared to prior. [...] Larson Member ID Guarantor Name 01/26/2024 1 [place] [facility] Irwin Mcnulty [id number] Irwin Mendoza 05/04/2024 1 [place] [facility] Irwin Mcnulty [id number] Irwin Mendoza Notes Date Note Type Note Provider Name and Address Organization Details Recorded Time 01/26/2024 text/html In November he had a severe throat infection. He was given abx and prednisone. He had a normal CT at [place] which was negative per his report (I don't have access to the CT). Since then his throat has bothered him. He feels he has had some voice change, enlarged tonsils and the feeling of phlegm stuck in his throat. Currently he has no pain. He does have globus. He denies dysphagia. TAYLOR WILKES MD [address] [facility],[address], [address], [place] - [facility] 01/26/2024 11:23:09 05/04/2024 text/html He has a history of leukemia. He was seen here 01/2024 he had severe tonsil hypertrophy. He reports his throat feels better and less swollen. Has a left hearing aid which isn't working well. Has not had a recent hearing test. TAYLOR WILKES MD [address] [facility],[place] [address], [place], [address], [place] [facility] 05/04/2024 15:41:25
--- OUTSIDE RECORDS SUMMARY | 2024-10-20 11:06 | XMS_ITS | Encounter Summary ---
Author Organization [facility] Address [address] [facility] 7t [place] [address] Care Team Providers Care Perishable Fruit Inspector Name Role Phone Name, Louis DISLA Primary Care Provider [phone] Encounter Details Date Type Department Care Team (Late st Contact Info) Description 10/09/2022 Abstract [facility] [address] [place], [place] [phone] Babs Pedraza [address] [place] [address] Social History Tobacco Use Types Packs/Day Years [...] 11/08/2024 1:00 PM EDT Office Visit [facility] [address] [place], [place] [phone] Name, MD Louis [address] [place] [address] 11/23/2024 2:00 PM EDT Office Visit [facility] [address] [place] [address] Name, MD Louis [address] [place] [phone] documented as of this encounter Visit Diagnoses Not on filedocumented in this encounter Care Teams Perishable Fruit Inspector Relationship Specialty Start Date End Date Name, MD Louis [address] [place] [address] PCP - General Family Medicine 07/14/18 documented as of this encounter
== END 2024-10-20 10:09 | disposition home or self-care (01) ==
LOC: HO.HGS 09:58
PROVIDERS: PCP Internal Medicine Geriatric Medicine; Visit Provider Surgery
DX: D12.0 Benign neoplasm of cecum (principal); D12.5 Benign neoplasm of sigmoid colon; D12.7 Benign neoplasm of rectosigmoid junction
CPT/HCPCS: 99212

== ENCOUNTER → 2024-10-20 09:57 | Outpatient (BNVA) | payer MEDICAID, SELFPAY | PROVIDERS: PCP Internal Medicine Geriatric Medicine; Visit Provider Surgery | DX: Z48.815 Encounter for surgical aftercare following surgery on the digestive system (principal); Z98.890 Other specified postprocedural states; Z86.0100 Personal history of colon polyps, unspecified | CPT/HCPCS: 99212 ==

== ENCOUNTER 2025-01-25 09:33 | Outpatient (AMB) | payer MEDICAID, SELFPAY ==
--- NOTE | 2025-01-25 09:42 | A.OFFVIS_ITS ---
Intake Visit Reasons: complicated UTI Intake Note: Patient is present for follow up on complicated UTI PVR:90 ml Urology Medication:none Antibiotic Allergy:NONE Blood Thinner:NONE Kayak Maker Required: No Accompanied by: Self / Same As Patient Allergies No Known Allergies (No Known Allergies*) Allergy (Verified 01/25/25 09:43) HPI Comments Details: Irwin is a very pleasant male. He is a patient of Dr. Valverde. He is seen for the following urologic issues - renal cancer - bladder cancer - background of CLL with adenopathy Recent PET-CT for CLL with adenopathy but no evidence of recurrence on kidney Complicated UTI Given immunosuppressive status will start methenamine and vitamin-C Also with urgency, frequency and weakness of stream Trial tamsulosin Complicated UTI in setting of immunosuppression Klebsiella with resistance to ampicillin Renal cancer 2013 cryotherapy Cryo ablation left side 2013 Imaging stable - 12/01 ultrasound left lower pole 2 cm calcification consistent with cryoablation effect - 02/01 ultrasound left lower pole 2 cm scar, 2.5 cm cyst - 10/04 ultrasound small cyst left Plan continue with surveillance imaging Bladder cancer low-grade bladder cancer 2012 Hematuria 2012 Low-grade bladder cancer Prior cystoscopy 03/03 NAD, 09/04 NAD, 03/04 NAD, 10/03 NAD Prior cytology NAD - 03/03 NAD, 03/04 NAD, 10/04 NAD Plan continue with surveillance cystoscopy yearly PSA 11/01 1.1 PFSH Medical History Lymphadenopathy Elevated WBC count History of colon polyps HTN (hypertension) History of COVID-19 Bladder cancer RUQ pain Abdominal bloating Cancer of kidney Hx of bladder cancer Benign prostatic hyperplasia with lower urinary tract symptoms Obstructive sleep apnea (adult) (pediatric) Lesion of bladder Surgical History History of colonoscopy with polypectomy History of surgery H/O colonoscopy Hx of cystoscopy History of surgery Family History Father Hypertension Diabetes Mother Lung cancer Sister Cancer Social History Household Members: Family Housing: House Are you a primary healthcare applications analyst to a significant other at home: No Do you presently have visiting nurse or other home services: No Alcohol intake: never Patient Tobacco Use Status: Never used Tobacco service: No Current occupational status: employed Review of Systems Const Denies chills and Denies fever(s) Card Reports no additional complaints and Denies syncope Resp Denies cough GI Denies abdominal pain and Denies heartburn Reports as per HPI and Denies change in libido Neuro Denies syncope Psych Denies change in libido Endo Denies change in libido Physical Exam Const General: cooperative, healthy appearing, comfortable and no acute distress Orientation/consciousness: patient oriented x3 HEENT Face and sinus: Yes normal facial exam Mouth: moist mucous membranes Neck Neck: Yes normal visual inspection, Yes full ROM and Yes trachea midline Chest Chest palpation & inspection: normal inspection of the chest Resp Effort & Inspection: normal respiratory effort, able to speak in complete sentences and no respiratory distress GI Inspection: Yes normal to inspection Back/Spine/Pelvis Cervical Spine: normal cervical lordosis Thoracic/Lumbar Spine: thoracic and lumbar spine normal to inspection Skin General skin exam: no rashes or lesions noted Neuro General: patient oriented x3, gait normal, tone normal and moves all extremities Extrem General: Yes normal to inspection and Yes capillary refill normal Assessment & Plan Assessment & Plan (1) Benign prostatic hyperplasia with lower urinary tract symptoms: Code(s): N40.1 - Benign prostatic hyperplasia with lower urinary tract symptoms Category: Medical (2) Complicated urinary tract infection: Code(s): N39.0 - Urinary tract infection, site not specified Category: Medical Plan Trial suppression Trial tamsulosin Medications: New ascorbic acid (vitamin C) 1,000 mg PO DAILY 90 tabs 1RF 90 days N39.0 - Urinary tract infection, site not specified tamsulosin (Flomax) 0.4 mg PO BEDTIME 30 tabs 1RF 30 days N40.1 - Benign prostatic hyperplasia with lower urinary tract symptoms methenamine hippurate 1 g PO DAILY 90 tabs 1RF 90 days N39.0 - Urinary tract infection, site not specified Patient Instructions: This note is constructed using voice recognition software. While every effort has been made to ensure accuracy secret service agent errors may have been included. Imaging studies, laboratory and physical exam results were discussed and reviewed in detail. No major barriers to patient understanding were identified. An opportunity to ask questions regarding the treatment plan was provided. All questions were answered. The patient expressed understanding and agreement with the above treatment plan. The patient is aware they should contact our office by phone for worsening of their current condition or the appearance of new urologic symptoms. Compliance is encouraged with any medications and followup testing that is ordered. It is a privilege to participate in the urologic care of your patient. If you have any questions or concerns regarding treatment for the above conditions, or other urologic issues, please do not hesitate to contact me. The office telephone contact is [phone]. Sincerely, Dr Devang Ibarra MD, [facility] - Urology Compassionate Specialist Care for the Genitourinary System Coding Level of Care Code Est Pt Level 4 (75949) Complex EM visit Add On G2211 Diagnoses Benign prostatic hyperplasia with lower urinary tract symptoms N40.1 Complicated urinary tract infection N39.0
--- OUTSIDE RECORDS SUMMARY | 2025-01-25 10:09 | XMS_ITS | Clinical Summary ---
Author Organization [facility] Address [address] [place] [address] Phone Care Team Providers Care Communications Professor Name Role Phone Unavailable Primary Care Provider Unavailabl e Surgical History Surgery Date Site/Laterality Comments FEMUR FRACTURE SURGERY PROCEDURE: OK OPEN TX FEMORAL FRACTURE DISTAL MED/LAT CONDYLE; COMMENT: Left femur at age 4 NOSE SURGERY PROCEDURE: OK UNLISTED PROCEDURE NOSE; COMMENT: deviated septum COLONOSCOPY PROCEDURE: HISTORICAL COLONOSCOPY; COMMENT: Normal on this year 12/2009 OTHER SURGICAL HISTORY 10/24 PROCEDURE: OK LAPAROSCOPY SURG PARTIAL NEPHRECTOMY; COMMENT: renal mass OTHER SURGICAL HISTORY 08/26 PROCEDURE: OK CSTOTOMY/CSTOST CRYOSURG DSTRJ INTRAVESICAL LES; COMMENT: bladder [...] Health Screening 05/05/2024 Depression Screening 10/13/2024 10/14/2023 Influenza Vaccine (#1) 2025 , 04/23/2023, 08/12/2022, Additional history exists Hypertension/CHF/CAD Annual BMP Blood Test 08/19/2025 08/19/2024 Cholesterol Screening (Lipid Panel) 10/14/2028 10/15/2023 DTaP,Tdap,and Td Vaccines (3 - Td or Tdap) 04/23/2033 04/23/2023, 01/27/2013 HIB Vaccines Aged Out No longer eligi [...]
--- OUTSIDE RECORDS SUMMARY | 2025-01-25 10:09 | XMS_ITS | Data Portability ---
Author Organization [place] - [facility], Allergy Address [address] [place] [id number] Assessment No assessment recorded. Plan of Treatment [...] audio gram No observ ation record ed. [email or web address] Not Available 04/14 13:50:38 Result Notes None recorded. Problems Name Problem SNOMED Code Status Onset Date Resolution Date Notes Provider Name and Address Organization Details Recorded Time Sensorine ural hearing loss of bilateral ears 760341281 Active 2020 Sensorine ural hearing loss, bilateral ; Note: Date Diagnosed : 06/21/2021 11:59 AM (H90.3) Not Available [facility] 4 02:32:25 Chronic sore throat 086639814 Active 2023 TAYLOR WILKES MD [address], [place], [address] , [place] [facility] 4 11:05:42 Feeling of lump in throat 017508714 Active 2023 TAYLOR WILKES MD [address] [place],[address] [facility] [place], [place], [address] , [place] [facility] [place] 4 11:06:11 Hypertrop hy of tonsils 23388918 Active 2023 TAYLOR WILKES MD [address] [place] [address], [place], [address] , [place] [facility] [place] 4 11:16:13 Obstructi ve sleep apnea syndrome 13134976 Active 2023 TAYLOR WILKES MD [address] [place] [address], [place], [address] , [place] [facility] [place] 4 11:20:42 Impacted cerumen in left ear 35042857368 82583 Active 2023 TAYLOR WILKES MD [address] [place] [address], [place], [address] , [place] [facility] 4 14:59:54 Asymmetri trevor sensorine ural hearing loss 735940999 Active 2023 TAYLOR WILKES MD [address] [place], [place], [address] , [facility] - [facility] 4 15:40:45 Problem Notes None recorded. Procedures Surgical History Date Name Laterality Status Provider Name and Address Organization Details Recorded Time 4 Cerumen removal without microscope left completed TAYLOR WILKES MD [address] [place],[address] [facility] [place], [place], [address], [place] - [facility] [place] [facility] 05/04/2024 15:01:11 4 Air & Speech Audio with Tymps - 02389, 20487 & 37633 completed HERBERT BYERS [address], [address], [place] - [facility] 05/04/2024 15:19:51 4 FFL_RE completed TAYLOR WILKES MD [address], [address], [place] [facility] 01/26/2024 11:06:27 Imaging Results None recorded. Procedure Notes None recorded. Medical Equipment None [...] Updated DateTime 01/26/2024 172.72 cm 33.1 kg/m2 40884.14 gonzalez Dima Estevez [place] - [facility] 01/26/2024 11:03:25 Date Recorded Body height Body mass index (BMI) Body weight Provider Name and Address Organization Details Last Updated DateTime 05/04/2024 172.72 cm 33.1 kg/m2 33783.14 gonzalez Dima Estevez [facility] 05/04/2024 14:44:29 Social History None recorded. Functional Status None recorded. Mental Status None recorded. Family History Nothing Reported. Medical History No medical history recorded. Past Encounters Encounter ID Performer Location Encounter Start Date Encounter Closed Date Diagnosis/Indication Diagnosis SNOMED-CT Code Diagnosis ICD10 Code Diagnosis Note [id number] TAYLOR WILKES MD [facility] [address] [address] 01/26/2024 10:36:28 01/26/2024 11:21:17 Chronic sore throat 190367191 J31.2 Pain has improved. Remains with tonsil hypertroph y. See below. Feeling of lump in throat 160516073 R09.89 Likely due to sever tonsil hypertroph y. See below. Hypertroph y of tonsils 26164936 J35.1 He has 4+ tonsils. I discussed tonsillect junior as a last resort but recommend a period of observatio n first. He will f/u in 3 months to reassess and we will consider tonsillect junior as a last resort. I stressed it would not cure NATHAN. Obstructiv e sleep apnea syndrome 78009217 G47.33 Likely multifacto rial but likely worse due to 4+ tonsils. Discussed tonsillect junior might improve but not cure NATHAN. FFL showed enlarged tonsils but was otherwise normal. [id number] TAYLOR WILKES MD [facility] [address] [address] 05/04/2024 14:24:34 05/04/2024 15:40:47 Impacted cerumen in left ear 8291348570 926734 H61.22 Recurrent Cerumen Impactions : Ears were meticulous ly cleaned bilaterall y today with a curette and suction. The patient tolerated this well and will follow up for repeat debridemen t per routine. Hypertroph y of tonsils 26500050 J35.1 Tonsil hypertroph y is slightly improved. I recommend observatio n. Sensorineu ral hearing loss of bilateral ears 143895424 H90.3 Right Ear:Normal hearing through 1K Hz sloping to a moderately -severe SNHL with excellent speech discrimina tion.Type Ad tympanogra m.Left Ear:Normal hearing through 2K Hz sloping to a mild SNHL with excellent speech discrimina tion.Type Ad tympanogra m. Asymmetric al sensorineural hearing loss 601227752 H90.5 worse AD. stable compared to prior. Gave medical clearance for a new hearing aid. Given the asymmetry recommend yearly surveillan ce audiograms . Health Concerns Section Related Observation LastModified by Organization Detai ls LastModified Time None Recorded Concern Status LastModified by Organization Details LastModified Time None Recorded Advance Directives Directive None Recorded Payers Insurance Date Sequence Insurance Name Policy Number Policy Larson Covered Member ID Larson Member ID Guarantor Name 05/01/2024 1 [place] [facility] Irwin Mcnulty [id number] Irwin Mendoza Notes Date Note Type Note Provider Name and Address Organization Details Recorded Time 01/26/2024 text/html In November he had a severe throat infection. He was given abx and prednisone. He had a normal CT at [facility] which was negative per his report (I don't have access to the CT). Since then his throat has bothered him. He feels he has had some voice change, enlarged tonsils and the feeling of phlegm stuck in his throat. Currently he has no pain. He does have globus. He denies dysphagia. TAYLOR WILKES MD [address] [place] [address], [address], [place] - [facility] 01/26/2024 11:23:09 05/04/2024 text/html He has a history of leukemia. He was seen here 01/2024 he had severe tonsil hypertrophy. He reports his throat feels better and less swollen. Has a left hearing aid which isn't working well. Has not had a recent hearing test. TAYLOR WILKES MD [address] [place] [address],[address], [address], [place] - [facility] 05/04/2024 15:41:25
--- OUTSIDE RECORDS SUMMARY | 2025-01-25 10:09 | XMS_ITS | Encounter Summary ---
Author Organization [employer] Address [address] [place] [address] Care Team Providers Care Card Seller Name Role Phone Name, Louis DSILA Primary Care Provider [phone] Reason for Visit * Reason Onset Date Comments call back 08/27/2022 Encounter Details Date Type Department Care Team ([facility] st Contact Info) Description 08/27/2022 Telephone [facility] [address], [place] [phone] Name, MD Louis [address] [place] [address] call back Social History Tobacco Use Types [...] EST 2nd call placed to pt via [employer] Radha #[id number]. Advised of message from pcp re: lab [...] being at work Please contact pt at [phone] documented in this encounter Plan of Treatment Upcoming Encounters Date Type Department Care Team (Late st Contact Info) Description 03/21/2025 11:00 AM EDT Office Visit [facility] [address] [place] [address] Name, MD Luois [address] [place] [address] documented as of this encounter Visit Diagnoses Diagnosis Leukocytosis, unspecified type- Primary documented in this encounter Care Teams Card Seller Relationship Specialty Start Date End Date Name, MD Louis [address] [place] [address] PCP - General Family Medicine 07/14/18 documented as of this encounter
== END 2025-01-25 10:11 | disposition home or self-care (01) ==
LOC: HO.HUSH 09:33
PROVIDERS: PCP Internal Medicine Geriatric Medicine; Visit Provider Urology
DX: N40.1 Benign prostatic hyperplasia with lower urinary tract symptoms (principal); N39.0 Urinary tract infection, site not specified; Z13.9 Encounter for screening, unspecified
CPT/HCPCS: 99214

== ENCOUNTER → 2025-01-25 09:33 | Outpatient (BNVA) | payer MEDICAID, SELFPAY | PROVIDERS: PCP Internal Medicine Geriatric Medicine; Visit Provider Urology | DX: N40.1 Benign prostatic hyperplasia with lower urinary tract symptoms (principal); N39.0 Urinary tract infection, site not specified | CPT/HCPCS: 51798; 81003; 99212 ==

== ENCOUNTER 2025-01-30 12:13 | Emergency (ER) | payer MEDICAID, SELFPAY ==
[2025-01-30 12:40] VITALS: BP 140/85; PULSE 65; TEMP 36.8; O2SAT 99; BMI 33.0
--- NOTE | 2025-01-30 12:42 | ED.URI ---
HPI - URI/Sore Throat General Chief Complaint: Ear Problems Stated Complaint: blockage in right ear painful Time Seen by Provider: 01/30/25 15:04 Source: patient Mode of arrival: ambulatory Limitations: no limitations History of Present Illness ED Provider: Karolyn Sauceda APRN HPI Narrative: 54 yo with history of CLL, HTN here with complaints of right ear pain, has URI symptoms. No ear drainage, tinnitus, sore throat, chest pain, shortness of breath, fevers, chills. Related Data Home Medications ?Medication ?Instructions ?Recorded ?Confirmed lisinopril 40 mg tablet 40 mg PO DAILY 12/22/20 10/20/24 ascorbic acid (vitamin C) 100 mg 100 mg PO DAILY 09/10/24 10/20/24 tablet cyanocobalamin (vitamin B-12) 50 50 mcg PO DAILY 09/10/24 10/20/24 mcg tablet magnesium 100 mg tablet 100 mg PO DAILY 09/10/24 10/20/24 multivit,Ca,min-iron 8 mg-folic 1 tab PO DAILY 09/10/24 10/20/24 acid 200 mcg-lycopene 600 mcg tablet (Centrum Men) zinc 50 mg tablet 50 mg PO DAILY 09/10/24 10/20/24 amlodipine 10 mg tablet 10 mg PO DAILY 10/12/24 10/20/24 Previous Rx's ?Medication ?Instructions ?Recorded ascorbic acid (vitamin C) 1,000 mg 1,000 mg PO DAILY 90 days #90 tabs 01/25/25 tablet methenamine hippurate 1 gram tablet 1 g PO DAILY 90 days #90 tabs 01/25/25 tamsulosin 0.4 mg capsule (Flomax) 0.4 mg PO BEDTIME 30 days #30 tabs 01/25/25 ofloxacin 0.3 % ear drops 10 drp otic (ears) DAILY 7 days 01/30/25 #10 mL Allergies Allergy/AdvReac Type Severity Reaction Status Date / Time No Known Allergies (No Known Allergy Verified 01/30/25 12:42 Allergies*) Review of Systems Review of Systems: Yes all other systems are reviewed and are negative Constitutional: Constitutional: Reports no additional constitutional complaints, Denies body ache(s), Denies chills, Denies fever(s), Denies headache(s) and Denies weakness Eyes: Eyes: Reports no additional eye complaints and Denies change in vision ENT: Reports system reviewed and no additional complaints, except as documented, Denies dizziness, Reports otalgia, Denies headache(s), Reports nasal congestion, Denies nasal discharge and Denies neck pain Cardiovascular: Cardiovascular: Reports no additional cardiovascular complaints, Denies chest pain, Denies leg edema and Denies dyspnea Respiratory: Respiratory: Reports no additional respiratory complaints, Reports cough and Denies dyspnea Gastrointestinal: Gastrointestinal: Reports no additional gastrointestinal complaints, Denies abdominal pain, Denies diarrhea, Denies nausea and Denies vomiting Genitourinary: Genitourinary: Denies urinary incontinence Musculoskeletal: Musculoskeletal: Reports no additional musculoskeletal complaints, Denies back pain, Denies arthralgias, Denies joint swelling, Denies neck pain, Denies numbness and Denies tingling Integumentary/Breasts: Skin/Breast: Reports system reviewed and no additional complaints, except as docu and Denies rash Neurologic: Reports system reviewed and no additional complaints, except as documented, Denies Abnormal speech present, Denies dizziness, Denies headache(s), Denies numbness, Denies tingling and Denies weakness [facility] Past Medical History Attestation statement: The following information was validated with the patient. Source: old records reviewed and nursing notes reviewed Medical History Lymphadenopathy Elevated WBC count History of colon polyps HTN (hypertension) History of COVID-19 Bladder cancer RUQ pain Abdominal bloating Cancer of kidney Hx of bladder cancer Benign prostatic hyperplasia with lower urinary tract symptoms Obstructive sleep apnea (adult) (pediatric) Lesion of bladder Surgical History History of colonoscopy with polypectomy History of surgery H/O colonoscopy Hx of cystoscopy History of surgery Family History Family History Father Hypertension Diabetes Mother Lung cancer Sister Cancer Social History Social History Household Members: Family Housing: House Are you a primary ocular care technologist to a significant other at home: No Do you presently have visiting nurse or other home services: No Alcohol intake: never Patient Tobacco Use Status: Never used Tobacco Do you have a plan to hurt others: No Plan service: No Current occupational status: employed Physical Exam Vital Signs: Vital Signs: Last Vital Signs Temp 98.2 F 01/30/25 12:40 Pulse 65 01/30/25 12:40 BP 140/85 H 01/30/25 12:40 Pulse Ox 99 01/30/25 12:40 O2 Del Method Room Air 01/30/25 12:40 BMI result Body Mass Index 33.0 Const: General: cooperative, healthy appearing, comfortable and no acute distress Orientation/consciousness: patient oriented x3 Limitations: no limitations HEENT: Head: Yes normal to inspection Ears: hearing grossly normal bilaterally, TM normal on the right, TM normal on the left, mastoids normal, no periauricular adenopathy and Abnormal EAC present erythema, edema and EAC tenderness General nose exam: Normal external nose present Face and sinus: Yes normal facial exam Mouth: Normal oral and palatal mucosa present Throat: Yes posterior oropharynx normal, Yes tonsils normal and Yes uvula midline Eyes: General: appearance normal, both eyes and all related structures Pupils: Equal, round and reactive pupils present Neck: Neck: Yes normal visual inspection, Yes full ROM, Yes no lymphadenopathy and Yes no meningeal signs Chest: Chest palpation & inspection: normal inspection of the chest Resp: Effort & Inspection: normal respiratory effort Auscultation: clear to auscultation bilaterally Cardio: Rate: regular rate Rhythm: regular rhythm Peripheral pulses: Peripheral pulses 2+ throughout GI: Inspection: Yes normal to inspection Palpation (GI): Soft to palpation and nontender Auscultation: normal bowel sounds Back/Spine/Pelvis: Thoracic/Lumbar Spine: thoracic and lumbar spine normal to inspection Skin: General skin exam: no rashes or lesions noted Neuro: General: patient oriented x3, no meningeal signs, no focal motor deficits and normal sensation to monofilament Cranial nerves: Yes Equal, round and reactive pupils present Cognition (Neuro): normal cognition Speech: No Abnormal speech present Gait exam (Neuro): Normal gait present Motor exam (neuro): 5/5 motor strength present throughout Extrem: General: Yes normal to inspection Course Course Course Narrative: Karolyn Sauceda DIGITAL TECHNICIAN 01/30 4950 This is a rapid medical exam. Deferred additional HPI, ROS, PE to primary provider. 54 yo male with history of CLL, HTN here with complaints of right ear pain, has URI symptoms. Will obtain viral testing. VSS Medical Decision Making Medical Decision Making MDM Narrative: 54 yo with history of CLL, HTN here with complaints of right ear pain, has URI symptoms. No ear drainage, tinnitus, sore throat, chest pain, shortness of breath, fevers, chills. R otitis externa Will send viral testing, strep testing Differential Diagnosis Differential Diagnoses: The differential diagnosis associated with the presentation includes otitis externa, malignant otitis externa, mastoiditis, AOM Admission/Observation Consideration of admission/observation: Escalation of care including admission/observation considered Low suspicion for mastoiditis, malignant otitis externa requiring advanced imaging, urgent consultation and or transfer to tertiary care center Lab Data [facility] Lab Attestation statement: I reviewed the patient's lab results. Labs: Lab Results 01/30/25 Range/Units 13:15 Influenza Type A (PCR) NEGATIVE (Negative) Influenza Type B (PCR) NEGATIVE (Negative) RSV RNA Qual (PCR) NEGATIVE (Negative) SARS-CoV-2 RNA (RT-PCR) NEGATIVE (Negative) S. pyogenes GrpA LARA Negative (Negative) Tests considered The following testing was considered but not selected: Low suspicion for mastoiditis, malignant otitis externa requiring advanced imaging Prescription Management I considered prescription management with: Antibiotic Discharge Plan Discharge Clinical Impression: Otitis externa Patient Disposition: Home, Self-Care Instructions: Luz Maria's Ear (ED) Additional Instructions: Your testing for strep, COVID, flu and RSV are negative Prescriptions: New ofloxacin 0.3 % drops 10 drp otic (ears) DAILY 7 Days Qty: 10 0RF No Action cyanocobalamin (vitamin B-12) 50 mcg Tablet 50 mcg PO DAILY magnesium 100 mg Tablet 100 mg PO DAILY ascorbic acid (vitamin C) 100 mg Tablet 100 mg PO DAILY zinc 50 mg Tablet 50 mg PO DAILY Centrum Men 8 mg iron- 200 mcg-600 mcg Tablet 1 tab PO DAILY amlodipine 10 mg tablet 10 mg PO DAILY lisinopril 40 mg tablet 40 mg PO DAILY ascorbic acid (vitamin C) 1,000 mg tablet 1,000 mg PO DAILY 90 Days Qty: 90 1RF methenamine hippurate 1 gram tablet 1 g PO DAILY 90 Days Qty: 90 1RF tamsulosin [Flomax] 0.4 mg capsule 0.4 mg PO BEDTIME 30 Days Qty: 30 1RF Referrals: Name,Louis, MD [Primary Care Provider, Internal Medicine] Print Language: Welsh
[2025-01-30 14:44] LABS: IDNOW Serial# 6674DD1D; Strep A Nucleic Acid Negative (Negative)
[2025-01-30 15:00] LABS: Resp Syncy Virus RNA Qual PCR NEGATIVE (Negative); SARS COV2 PCR INHOUSE NEGATIVE (Negative)
== END 2025-01-30 15:23 | disposition home or self-care (01) ==
PROVIDERS: Nurse Practitioner Family; Emergency Provider Emergency Medicine; PCP Internal Medicine Geriatric Medicine
DX: H60.91 Unspecified otitis externa, right ear (principal); H92.01 Otalgia, right ear; Z79.899 Other long term (current) drug therapy; Z03.818 Encounter for observation for suspected exposure to other biological agents ruled out
CPT/HCPCS: 87637; 87651; 99281; 99283

== ENCOUNTER 2025-01-31 18:13 | Emergency (ER) | payer MEDICAID, SELFPAY ==
--- NOTE | ~2025-01-31 | XR_ITS ---
CLINICAL HISTORY: shortness of breath 2 view chest x-ray Comparison: CR/SR - XR CHEST 2 VIEWS - 07/12/22 10:33 EST Findings: No consolidation or effusion. Heart size is normal. No acute fracture. IMPRESSION: 1. No acute findings. This document has been electronically signed by: Christie Jimenez MD on 01/31/2025 19:43:36
[2025-01-31 18:53] VITALS: BP 133/74; PULSE 74; RESP 18; TEMP 37; O2SAT 98; BMI 31.9
--- NOTE | 2025-01-31 18:54 | ED.SOB ---
HPI - SOB/Dyspnea General Chief Complaint: Upper Respiratory Symptoms Stated Complaint: sob, coughing, trembles Time Seen by Provider: 01/31/25 21:37 Source: patient Mode of arrival: ambulatory Limitations: no limitations History of Present Illness ED Provider: HPI Narrative: Patient's history of CLL not on any treatment at this time otherwise very healthy noticed dry cough since yesterday acute getting worse with fever and chills patient took Tylenol prior to arrival on arrival patient's oral temperature was 103.1 degrees no chest pain no rash no other family member sick Related Data Home Medications ?Medication ?Instructions ?Recorded ?Confirmed lisinopril 40 mg tablet 40 mg PO DAILY 12/22/20 10/20/24 ascorbic acid (vitamin C) 100 mg 100 mg PO DAILY 09/10/24 10/20/24 tablet cyanocobalamin (vitamin B-12) 50 50 mcg PO DAILY 09/10/24 10/20/24 mcg tablet magnesium 100 mg tablet 100 mg PO DAILY 09/10/24 10/20/24 multivit,Ca,min-iron 8 mg-folic 1 tab PO DAILY 09/10/24 10/20/24 acid 200 mcg-lycopene 600 mcg tablet (Centrum Men) zinc 50 mg tablet 50 mg PO DAILY 09/10/24 10/20/24 amlodipine 10 mg tablet 10 mg PO DAILY 10/12/24 10/20/24 Previous Rx's ?Medication ?Instructions ?Recorded ascorbic acid (vitamin C) 1,000 mg 1,000 mg PO DAILY 90 days #90 tabs 01/25/25 tablet methenamine hippurate 1 gram tablet 1 g PO DAILY 90 days #90 tabs 01/25/25 tamsulosin 0.4 mg capsule (Flomax) 0.4 mg PO BEDTIME 30 days #30 tabs 01/25/25 ofloxacin 0.3 % ear drops 10 drp otic (ears) DAILY 7 days 01/30/25 #10 mL azithromycin 250 mg tablet See Rx Instructions PO .COMPLEX #6 02/01/25 (Zithromax Z-Tereso) tabs cefuroxime axetil 500 mg tablet 500 mg PO BID 7 days #14 tabs 02/01/25 codeine 10 mg-guaifenesin 100 mg/5 10 ml PO Q6H PRN cough #237 mL 02/01/25 mL oral liquid Allergies Allergy/AdvReac Type Severity Reaction Status Date / Time No Known Allergies (No Known Allergy Verified 01/31/25 18:56 Allergies*) Review of Systems Review of Systems: Yes all other systems are reviewed and are negative [facility] Past Medical History Medical History Lymphadenopathy Elevated WBC count History of colon polyps HTN (hypertension) History of COVID-19 Bladder cancer RUQ pain Abdominal bloating Cancer of kidney Hx of bladder cancer Benign prostatic hyperplasia with lower urinary tract symptoms Obstructive sleep apnea (adult) (pediatric) Lesion of bladder Surgical History History of colonoscopy with polypectomy History of surgery H/O colonoscopy Hx of cystoscopy History of surgery Family History Family History Father Hypertension Diabetes Mother Lung cancer Sister Cancer Social History Social History Household Members: Family Housing: House Are you a primary skin care therapist to a significant other at home: No Do you presently have visiting nurse or other home services: No Alcohol intake: never Patient Tobacco Use Status: Never used Tobacco Smoked in Last 30 Days: No Use of substances other than those prescribed or required for medical reasons: No Advance Directives: Yes Advance Directives on File: Yes Advance Directives Date on File: 10/15/24 Do you have a plan to hurt others: No Plan service: No Current occupational status: employed Physical Exam Vital Signs: Vital Signs: Last Vital Signs Temp 99 F 02/01/25 00:00 Pulse 74 02/01/25 00:13 Resp 17 02/01/25 00:13 BP 122/61 02/01/25 00:13 Pulse Ox 94 02/01/25 00:13 O2 Del Method Room Air 02/01/25 00:13 BMI result Body Mass Index 31.9 Appearance: Alert. Oriented X3. No acute distress. Febrile Eyes: PERRLA, No Nystagmus ENT: Pharynx normal. Oral Mucosa moist Neck: Normal inspection. Neck supple. CVS: Normal heart rate and rhythm. Pulses normal. Respiratory: No respiratory distress. Equal air entry bilateral, bilateral crackles at the bases Abdomen: Soft and nontender. Bowel sounds are present, no mass palpable, no CVA tenderness Skin: Skin warm and dry. Normal skin color. Normal skin turgor. Extremities: No lower extremity edema. No calf tenderness Neuro: Oriented X 3. No motor deficit. No sensory deficit.No cerebellar signs , cranial nerves II-XII intact Course Course Course Narrative: This is an RME performed by Merly Lamar, LIVESTOCK TRADER: Additional HPI, ROS, PE not included below will be deferred to primary provider. Patient is a 54-year-old male pmhx CLL, renal carcinoma, HTN who presents emergency department for evaluation of cough, shortness of breath, feeling tremulous onset yesterday evening but worse today. Pressure and chest during coughing. Denies fevers, chills, chest pain. Denies any known sick contacts. States seen here yesterday for R ear infection Plan: Serum labs, CXR, ECG Medications Administered Discontinued Medications Generic Name Dose Route Start Last Admin Trade Name Freq PRN Reason Stop Dose Admin Acetaminophen 975 mg 01/31/25 22:11 01/31/25 22:40 Acetaminophen 325 Mg Tablet PO 01/31/25 22:12 975 mg ONCE ONE Administration Ceftriaxone Sodium 2 gm 01/31/25 22:10 01/31/25 22:39 Ceftriaxone Sodium 2 Gm Vial IVPUSH 01/31/25 22:11 2 gm ONCE ONE Administration Sodium Chloride 1,000 mls @ 999 mls/hr 01/31/25 22:11 01/31/25 23:54 Ns IV 01/31/25 23:11 Infused .Q1H1M ONE Infusion Ibuprofen 800 mg 01/31/25 22:11 01/31/25 22:40 Ibuprofen 800 Mg Tablet PO 01/31/25 22:12 800 mg ONCE ONE Administration Medical Decision Making Medical Decision Making [facility] Narrative: Patient with acute bronchitis with history of CLL chest x-ray negative for acute infiltrate will discharge patient home antibiotics cefuroxime and Zithromax patient has received IV Rocephin and fluids in the ER Differential Diagnosis Differential Diagnoses: The differential diagnosis associated with the presentation includes Pneumonia/bronchitis/CHF/bacteremia Admission/Observation Consideration of admission/observation: Escalation of care including admission/observation considered Lab Data MDM Lab Attestation statement: I reviewed the patient's lab results. 01/31/25 19:46 01/31/25 19:46 Labs: Lab Results 01/31/25 01/31/25 Range/Units 19:46 22:23 WBC 58.7 H* (4.8-10.8) X10*3/uL RBC 4.19 L (4.60-5.80) X10*6/uL Hgb 11.8 L (14.0-18.0) g/dl Hct 36.9 L (42.0-52.0) % MCV 88.1 (80.0-98.0) fL MCH 28.2 (27.0-33.0) pg MCHC 32.0 (31.0-36.0) g/dl RDW 15.4 (11.0-16.0) % Plt Count 133 L (160-400) X10*3/uL MPV 9.3 L (9.4-12.4) fL Immature Gran % (Auto) Cancelled Neut % (Auto) Cancelled Lymph % (Auto) Cancelled [place] % (Auto) Cancelled Eos % (Auto) Cancelled Baso % (Auto) Cancelled Lymph # (Auto) Cancelled [place] # (Auto) Cancelled Eos # (Auto) Cancelled Baso # (Auto) Cancelled Abs Immat Gran (auto) Cancelled Absolute Neuts (auto) Cancelled Absolute Nucleated RBC 0.000 (0.0-0.012) X10*3/uL Nucleated RBC % (auto) 0.0 (0.0-0.2) /100WBC Neutrophils % (Manual) 8 L (45-73) % Band Neutrophils % 2 L (3-5) % Lymphocytes % (Manual) 83 H (20-40) % Atypical Lymphs % (Man) 1 (0-6) % Monocytes % (Manual) 6 (2-11) % Abs Neuts (Manual) 5.9 (2.0-8.3) X10*3/uL Lymphocytes # (Manual) 48.7 H (1.2-4.9) X10*3/uL Atyp Lymphs # (Manual) 0.6 x10*3/uL Monocytes # (Manual) 3.5 H (0.1-1.2) X10*3/uL Smudge Cells PRESENT Platelet Estimate SLIGHTLY DECREASED (NORMAL) Plt Morphology Comment NORM RBC Morphology NORMAL Sodium 139 (135-145) mmol/L Potassium 5.0 (3.3-5.1) mmol/L Chloride 107 (96-108) mmol/L Carbon Dioxide 26 (22-29) mmol/L Anion Gap 11 L (12-20) BUN 21 H (9-16) mg/dL Creatinine 0.98 (0.5-1.4) mg/dL Estim Creat Clear Calc 94.2 Estimated GFR > 60 Random Glucose 103 (60-115) mg/dL Lactic Acid 0.8 (0.5-2.0) mmol/L Calcium 8.8 (8.4-10.2) mg/dL Total Bilirubin 0.7 (0.0-1.0) mg/dL AST 20 (5-37) U/L ALT 18 (0-40) U/L Alkaline Phosphatase 80 (39-117) U/L B-Natriuretic Peptide 14 (<100) pg/mL Total Protein 6.7 (6.5-8.0) g/dL Albumin 4.8 (3.5-5.0) g/dL Independent Interpretation I performed an independent interpretation of an: Plain X-Ray Interpretation: No acute infiltrate Radiology Impression Discussion of test interpretation with radiology: I have reviewed the radiologist's reading. Discharge Plan Discharge Clinical Impression: Bronchitis Patient Disposition: Home, Self-Care Instructions: Acute Bronchitis (ED) Additional Instructions: Take antibiotics as prescribed Cough syrup as prescribed Follow with your PCP if not better Tylenol/Motrin for fever Prescriptions: New cefuroxime axetil 500 mg tablet 500 mg PO BID 7 Days Qty: 14 0RF azithromycin [Zithromax Z-Tereso] 250 mg tablet See Rx Instructions .ROUTE .COMPLEX Qty: 6 0RF Rx Instructions: For 250 mg dose pack: take 500 mg today (day 1), then 250 mg for 4 days (days 2-5) codeine-guaifenesin 10-100 mg/5 mL liquid 10 ml PO Q6H PRN (Reason: cough) Qty: 237 0RF No Action cyanocobalamin (vitamin B-12) 50 mcg Tablet 50 mcg PO DAILY magnesium 100 mg Tablet 100 mg PO DAILY ascorbic acid (vitamin C) 100 mg Tablet 100 mg PO DAILY zinc 50 mg Tablet 50 mg PO DAILY Centrum Men 8 mg iron- 200 mcg-600 mcg Tablet 1 tab PO DAILY ofloxacin 0.3 % drops 10 drp otic (ears) DAILY 7 Days Qty: 10 0RF amlodipine 10 mg tablet 10 mg PO DAILY lisinopril 40 mg tablet 40 mg PO DAILY ascorbic acid (vitamin C) 1,000 mg tablet 1,000 mg PO DAILY 90 Days Qty: 90 1RF methenamine hippurate 1 gram tablet 1 g PO DAILY 90 Days Qty: 90 1RF tamsulosin [Flomax] 0.4 mg capsule 0.4 mg PO BEDTIME 30 Days Qty: 30 1RF Print Language: Chinese
--- NOTE | 2025-01-31 18:58 | ECG_ITS ---
Test Reason : sob,chest pressure Blood Pressure : */* mmHG Vent. Rate : 65 BPM Atrial Rate : 65 BPM P-R Int : 158 ms QRS Dur : 88 ms QT Int : 374 ms P-R-T Axes : 34 13 31 degrees QTcB Int : 388 ms Normal sinus rhythm Normal ECG No previous ECGs available Referred By: Malinda Lamar Electronically Signed By: Lamont Heller
--- NOTE | 2025-01-31 19:12 | MHC.EDTECH ---
call patient in wr, no response will try later
[2025-01-31 20:07] LABS: Hematocrit 36.9 % (42.0-52.0); Hemoglobin 11.8 g/dl (14.0-18.0); Mean Corpuscular HGB Conc 32.0 g/dl (31.0-36.0); Mean Corpuscular Hemoglobin 28.2 pg (27.0-33.0); Mean Corpuscular Volume 88.1 fL (80.0-98.0); NRBC Abs Auto 0.000 X10*3/uL (0.0-0.012); NRBC Pct Auto 0.0 /100WBC (0.0-0.2); PLT CLUMP 1; Red Blood Count 4.19 X10*6/uL (4.60-5.80)
[2025-01-31 20:09] LABS: WBC ABN SCTR FOR CBC 1
[2025-01-31 20:11] LABS: Alanine Aminotransferase 18 U/L (0-40); Albumin Level 4.8 g/dL (3.5-5.0); Alkaline Phosphatase 80 U/L (39-117); Anion Gap 11 (12-20); Aspartate Amino Transferase 20 U/L (5-37); Blood Urea Nitrogen 21 mg/dL (9-16); Calcium 8.8 mg/dL (8.4-10.2); Carbon Dioxide 26 mmol/L (22-29); Chloride 107 mmol/L (96-108); Creatinine Clr Calc Pharmacy 94.2; Estimated Glomerular Filt Rate > 60; Potassium 5.0 mmol/L (3.3-5.1); Sodium 139 mmol/L (135-145); Total Protein 6.7 g/dL (6.5-8.0)
[2025-01-31 20:14] LABS: White Blood Count 58.7 X10*3/uL (4.8-10.8)
[2025-01-31 20:16] LABS: B Type Natriuretic Peptide 14 pg/mL (<100)
[2025-01-31 20:39] LABS: Atypical Lymph Absolute Manual 0.6 x10*3/uL; Atypical Lymphs Percent Manual 1 % (0-6); Band Neutrophils Percent 2 % (3-5); Lymphocytes Absolute Manual 48.7 X10*3/uL (1.2-4.9); Lymphocytes Percent Manual 83 % (20-40); Monocytes Absolute Manual 3.5 X10*3/uL (0.1-1.2); Monocytes Percent Manual 6 % (2-11); Neutrophils Absolute Manual 5.9 X10*3/uL (2.0-8.3); Neutrophils Percent Manual 8 % (45-73)
[2025-01-31 20:40] LABS: RBC Morphology NORMAL
[2025-01-31 20:41] LABS: Smudge Cells PRESENT
[2025-01-31 20:48] LABS: Platelet Count 133 X10*3/uL (160-400)
[2025-01-31 22:20] VITALS: TEMP 39.4
--- OUTSIDE RECORDS SUMMARY | 2025-01-31 22:55 | XMS_ITS | Clinical Summary ---
Author Organization [facility] Address [address] [place] [address] Phone Care Team Providers Care Contract Post Office Clerk Name Role Phone Unavailable Primary Care Provider Unavailabl e Surgical History Surgery Date Site/Laterality Comments FEMUR FRACTURE SURGERY PROCEDURE: OH OPEN TX FEMORAL FRACTURE DISTAL MED/LAT CONDYLE; COMMENT: Left femur at age 4 NOSE SURGERY PROCEDURE: OH UNLISTED PROCEDURE NOSE; COMMENT: deviated septum COLONOSCOPY PROCEDURE: HISTORICAL COLONOSCOPY; COMMENT: Normal on this year 12/2009 OTHER SURGICAL HISTORY 10/24 PROCEDURE: OH LAPAROSCOPY SURG PARTIAL NEPHRECTOMY; COMMENT: renal mass OTHER SURGICAL HISTORY 08/26 PROCEDURE: OH CSTOTOMY/CSTOST CRYOSURG DSTRJ INTRAVESICAL LES; COMMENT: bladder [...] Influencers of Health Screening 05/05/2024 Depression Screening 07/14/2024 Influenza Vaccine (#1) 2025 , 04/23/2023, 08/12/2022, [...]
--- OUTSIDE RECORDS SUMMARY | 2025-01-31 22:55 | XMS_ITS | Clinical Summary ---
Author Organization [facility] Address [address] [place] [address] Phone Care Team Providers Care Brake Repairer Hydraulic Name Role Phone Name, Louis DISLA Primary Care Provider [phone] Active Problems Problem Noted Date Diagnosed Date CLL (chronic lymphocytic leukemia) 10/25/2024 Assessment & Plan (10/25/2024 3:12 PM EDT): We had extensive discussion regarding the natural history, prognosis, and management of chronic lymphocytic leukemia. We discussed that early treatment of his disease was unlikely to make him live longer as it was unlikely to make him live shorter. We discussed that asymptomatic disease could be observed as his has been. We discussed the waxing and waning nature of the disease. Discussed there could be times of lymph node progression that spontaneously regress which seems to be the case for him. We discussed indications for treatment including disease related cytopenias, threatening organ dysfunction, or histologic transformation to diffuse large B-cell lymphoma none of which appear to be present at the moment. We discussed if he has 1 site of symptomatic progression 1 could consider localized radiation therapy for symptomatic benefit. We then spent extensive amount of our time discussing systemic treatments of CLL for those with indications for treatment. Agree completely with the plan for open and twos Mab, a acalabrutinib, and venetoclax based on the recently published amplified trial. Very very very high response rates with minimal toxicity. Discussed small risks of tumor lysis syndrome and infections related to therapy. Discussed that this is time-limited therapy with excellent outcomes that would put his disease in a dormant state but not likely to cure his disease. Discussed the need for treatment potentially down the road. We discussed consideration of clinical trials including an upcoming clinical trial of zanubrutinib, sonrotoclax, and obinutuzumab. Similar to the treatment he was offered but with clinical investigation looking at increased safety of the novel Bcl-2 inhibitor. At the moment he is asymptomatic. I told him that it is not unreasonable for him to defer therapy and see how he does. Discussed if he has symptomatic progression proceeding with his planned treatment very reasonable. He plans to continue follow-up with his local provider who he has a great relationship and trusts. He will return to see us on an as-needed basis only should new need or new questions arise. Social History Tobacco Use Types Packs/Day Years Used Date Smoking Tobacco: Never Assessed Education Answer Date Recorded Are you interested in more education? Not on prasanna e 10/11/2024 Are you concerned about learning? Not on file 10/11/2024 No 10/11/2024 No 10/11/2024 Digital Access Answer Date Recorded No 10/11/2024 No 10/11/2024 Reliable internet access at home? Not on file 10/11/2024 Device with a working camera? Not on file Sex and Gender Information Value Date Recorded Sex Assigned at Male 09/29/2024 11:18 AM EDT Legal Sex Male 11:10 AM EDT Gender Identity Male 09/29/2024 11:18 AM EDT Sexual Orientation Straight 09/29/2024 11 :18 AM EDT Last Filed Vital Signs Vital Sign Reading Time Taken Comments Blood Pressure 147/73 10/25/2024 1:54 PM EDT was notified. Pulse 76 10/25/2024 1:54 PM EDT Temperature 36.4 C (97.6 F) 10/25/2024 1:54 PM EDT Respiratory Rate 18 10/25/2024 1:54 PM EDT Oxygen Saturation 99% 10/25/2024 1:5 4 PM EDT Inhaled Oxygen Concentration - - Weight 95.2 kg (209 lb 12.8 oz) 10/25/2024 1:54 PM EDT Height 169 cm (5' 6.54 ) 10/25/2024 1:5 4 PM EDT Body Mass Index 33.32 10/25/2024 1:54 PM EDT Plan of Treatment Health Maintenance Due Date Last Done Comments DEPRESSION SCREENING 1980 SMOKING Hx and SMOKELESS TOBACCO SCREENING 1981 HEPATITIS C SCREENING 1986 HIV ONE-TIME SCREENING (18-6 5 YEARS) 1986 PNEUMOCOCCAL VACCINES (50+ years) (1 of 2 - PCV) 1987 ZOSTER VACCINES (1 of 2) 1987 SCREENING FOR DIABETES 2003 COLOGUARD 2013 COLONOSCOPY 2013 COLORECTAL CANCER SCREENING 2013 FIT TEST 2013 FOBT 2013 SIGMOIDOSCOPY 2013 VIRTUAL COLONOSCOPY 2013 COVID-19 VACCINE (1 - 2023-2 5 season) 2024 LIPID PANEL 10/14/2028 10/15/2023 Adult Td,Tdap Booster 04/23/2033 04/23/2023 , 01/27/2013 HEPATITIS A VACCINES Aged Out No long er eligible based on patient's age to complete this topic HIB VACCINES Aged Out No longer eligi ble based on patient's age to complete this topic MENINGOCOCCAL VACCINES (ACWY) Aged Out No longer eligible based on patient's age to complete this topic MENINGOCOCCAL VACCINES (B) Aged Out N o longer eligible based on patient's age to complete this topic Medical Devices Not on file Insurance [facility] [place] [id number] [place] [address] [place] [address] [place] [address] [place] [address] [place] [address] [employer] [facility] [employer] [facility] [employer] Care Teams Brake Repairer Hydraulic Relationship Specialty Start Date End Date Name, MD Louis [address] [place] [id number] PCP - General Internal Medicine 09/29/24 Additional Source Comments The information contained in this document represents components of the legal health record. It is not the complete legal health record.[facility]
--- OUTSIDE RECORDS SUMMARY | 2025-01-31 22:55 | XMS_ITS | Data Portability ---
Author Organization [place] [facility] Address [address] [place] [id number] Assessment No assessment recorded. Plan of Treatment [...] audio gram No observ ation record ed. [email or web address] Not Available 04/14 13:50:38 Result Notes None recorded. Problems Name Problem SNOMED Code Status Onset Date Resolution Date Notes Provider Name and Address Organization Details Recorded Time Sensorine ural hearing loss of bilateral ears 366641222 Active 2020 Sensorine ural hearing loss, bilateral ; Note: Date Diagnosed : 06/21/2021 11:59 AM (H90.3) Not Available [facility] 4 02:32:25 Chronic sore throat 548995524 Active 2023 TAYLOR WILKES MD [address], [place], [address] , [place] [facility] 4 11:05:42 Feeling of lump in throat 001397670 Active 2023 TAYLOR WILKES MD [address] [facility] [place] [facility], [place], [address] , [place] - [facility] 4 11:06:11 Hypertrop hy of tonsils 09108855 Active 2023 TAYLOR WILKES MD [address] [facility] [place] [address], [place], [address] , [place] - [facility] 4 11:16:13 Obstructi ve sleep apnea syndrome 18423249 Active 2023 TAYLOR WILKES MD [address] [facility] [place] [address], [place], [address] , [place] - [facility] 4 11:20:42 Impacted cerumen in left ear 91094050461 44595 Active 2023 TAYLOR WILKES MD [address] [facility] [place] [address], [place], [address] , [place] [facility] 4 14:59:54 Asymmetri trevor sensorine ural hearing loss 288806066 Active 2023 TAYLOR WILKES MD [address] [facility] [place], [place], [address] , [facility] 4 15:40:45 Problem Notes None recorded. Procedures Surgical History Date Name Laterality Status Provider Name and Address Organization Details Recorded Time 4 Cerumen removal without microscope left completed TAYLOR WILKES MD [address] [facility] [place] [facility], [place], [address], [place] - [facility] 05/04/2024 15:01:11 4 Air & Speech Audio with Tymps - 72444, 72700 & [id number] completed HERBERT BYERS [address], [address], [place] - [facility] 05/04/2024 15:19:51 4 FFL_RE completed TAYLOR WILKES MD [address], [address], [place] - [facility] 01/26/2024 11:06:27 Imaging Results None recorded. [...] Updated DateTime 01/26/2024 172.72 cm 33.1 kg/m2 45598.14 gonzalez Dima Estevez [place] - [facility] 01/26/2024 11:03:25 Date Recorded Body height Body mass index (BMI) Body weight Provider Name and Address Organization Details Last Updated DateTime 05/04/2024 172.72 cm 33.1 kg/m2 53272.14 gonzalez Dima Estevez [facility] 05/04/2024 14:44:29 Social History None recorded. Functional Status None recorded. Mental Status None recorded. Family History Nothing Reported. Medical History No medical history recorded. Past Encounters Encounter ID Performer Location Encounter Start Date Encounter Closed Date Diagnosis/Indication Diagnosis SNOMED-CT Code Diagnosis ICD10 Code Diagnosis Note [id number] TAYLOR WILKES MD [facility] [address] [address] 01/26/2024 10:36:28 01/26/2024 11:21:17 Chronic sore throat 097783829 J31.2 Pain has improved. Remains with tonsil hypertroph y. See below. Feeling of lump in throat 327269154 R09.89 Likely due to sever tonsil hypertroph y. See below. Hypertroph y of tonsils 12070784 J35.1 He has 4+ tonsils. I discussed tonsillect junior as a last resort but recommend a period of observatio n first. He will f/u in 3 months to reassess and we will consider tonsillect junior as a last resort. I stressed it would not cure NATHAN. Obstructiv e sleep apnea syndrome 12230024 G47.33 Likely multifacto rial but likely worse due to 4+ tonsils. Discussed tonsillect junior might improve but not cure NATHAN. FFL showed enlarged tonsils but was otherwise normal. [id number] TAYLOR WILKES MD [facility] [address] [address] 05/04/2024 14:24:34 05/04/2024 15:40:47 Impacted cerumen in left ear [id number] 381474 H61.22 Recurrent Cerumen Impactions : Ears were meticulous ly cleaned bilaterall y today with a curette and suction. The patient tolerated this well and will follow up for repeat debridemen t per routine. Hypertroph y of tonsils 52210472 J35.1 Tonsil hypertroph y is slightly improved. I recommend observatio n. Sensorineu ral hearing loss of bilateral ears 447980521 H90.3 Right Ear:Normal hearing through 1K Hz sloping to a moderately -severe SNHL with excellent speech discrimina tion.Type Ad tympanogra m.Left Ear:Normal hearing through 2K Hz sloping to a mild SNHL with excellent speech discrimina tion.Type Ad tympanogra m. Asymmetric al sensorineural hearing loss 873109977 H90.5 worse AD. stable compared to prior. [...] Member ID Guarantor Name 05/01/2024 1 [place] [facility] Irwin Mcnulty [id number] Irwin Mendoza Notes Date Note Type Note Provider Name and Address Organization Details Recorded Time 01/26/2024 text/html In November he had a severe throat infection. He was given abx and prednisone. He had a normal CT at [place] which was negative per his report (I don't have access to the CT). Since then his throat has bothered him. He feels he has had some voice change, enlarged tonsils and the feeling of phlegm stuck in his throat. Currently he has no pain. He does have globus. He denies dysphagia. TAYLOR WILKES MD [address] [place] [address], [address], [place] - [facility] 01/26/2024 11:23:09 05/04/2024 text/html He has a history of leukemia. He was seen here 01/2024 he had severe tonsil hypertrophy. He reports his throat feels better and less swollen. Has a left hearing aid which isn't working well. Has not had a recent hearing test. TAYLOR WILKES MD [address] [place] [address],[address], [address], [place] - [facility] 05/04/2024 15:41:25
--- OUTSIDE RECORDS SUMMARY | 2025-01-31 22:55 | XMS_ITS | Encounter Summary ---
Author Organization [employer] Address [address] [place] [address] Care Team Providers Care Tour Narrator Name Role Phone Name, Louis DISLA Primary Care Provider [phone] Encounter Details Date Type Department Care Team (Late st Contact Info) Description 01/30/2025 Orders Only GENERIC EXTERNAL DATA DEPARTMENT Provider, [...] Date Recorded Patient Health Questionnaire-9 Score 0 11/23/2024 Patient Health Questionnaire-9 Score 0 11/23/2024 Last PHQ-9: Questionnaire Data Not on file 0 11/23/2024 Housing Stability Answer Date Recorded What is [...] Date Recorded Patient Health Questionnaire-2 Score 0 11/23/2024 Internet Access Answer Date Recorded Internet Access [...] Description 03/21/2025 11:00 AM EDT Office Visit [facility] [address] [place] [phone] Name, MD Louis [address] [place] [address] documented as of this encounter Procedures Procedure Name Priority Date/Time Associated Diagnosis Comments XR CHEST 2 VIEWS Routine 01/31/2025 7:43 PM EDT STREP A NUCLEIC ACID Routine 01/30/2025 1:15 PM EDT SARS COV2/INFLUENZA A/B AND RSV RNA QL NAAT Routine 01/30/2025 1:15 PM EDT documented in this encounter Results * XR Chest 2 Views (01/31/2025 7:43 PM EDT) Anatomical Region Laterality Modality Chest Radiographic Susannah ging 01/31/2025 7:43 PM EDT Narrative 01/31/2025 7:44 PM EDT [address] [address] XRay Report Signed Patient: MendozaIrwin fletcher Jr MR#: [id number] : 1970 Acct:[id number] Age/Sex: 54 / M ADM Date: 01/31/25 Loc: HO.ED Attending Dr: Ordering Physician: Malinda Lamar CNP Date of Service: 01/31/25 Procedure(s): XR chest 2V Accession Number(s): [id number] cc: Malinda Lamar CNP; Name,Louis DISLA CLINICAL HISTORY: shortness of breath 2 view chest x-ray Comparison: CR/SR - XR CHEST 2 VIEWS - 07/12/22 10:33 EST Findings: No consolidation or effusion. Heart size is normal. No acute fracture. IMPRESSION: 1. No acute findings. This document has been electronically signed by: Christie Jimenez MD on 01/31/2025 19:43:36 Dictated By: Christie Jimenez MD Signed By: <Electronically signed by Christie Jimenez MD in OV> 01/31/251943 DD/ 42 TD/TT: 01/31/251942 Stem Sizer: Procedure Note Donotuseinterpreter, Image - 01/31/2025 [place] [address] XRay Report Signed Patient: Irwin Mendoza Jr#: [id number] : 1970Acct:[id number] Age/Sex: 54 / MADM Date: 01/31/25 Loc: .ED Attending Dr: Ordering Physician: Malinda Lamar CNP Date of Service: 01/31/25 Procedure(s): XR chest 2V Accession Number(s): [id number] cc: Malinda Lamar CNP; Name,Louis DISLA CLINICAL HISTORY: shortness of breath 2 view chest x-ray Comparison: CR/SR - XR CHEST 2 VIEWS - 07/12/22 10:33 EST Findings: No consolidation or effusion. Heart size is normal. No acute fracture. IMPRESSION: 1. No acute findings. This document has been electronically signed by: Christie Jimenez MD on 01/31/2025 19:43:36 Dictated By: Christie Jimenez MD Signed By: <Electronically signed by Christie Jimenez MD in OV> 01/31/251943 DD/ 42 TD/TT: 01/31/251942 Stem Sizer: [facility] External Provider IMG XR PROCEDURES Final Result * SARS-CoV-2 RNA, Influenza A/B, and RSV RNA, Ql NAAT (01/30/2025 1:15 PM EDT) Influenza A PCR NEGATIVE Negative [facility] Influenza B PCR NEGATIVE Negative [facility] Resp Syncy Virus RNA Qual PCR NEGATIVE Negative [facility] SARS COV2 PCR NEGATIVE Negative [facility] Comment:All test results mus t be correlated with clinical findings.Negative results do not preclude SARS-CoV2, influenza Avirus, influenza B virus and/or RSV infectionand should not be used as the sole basis for treatment orother patient management decisions. Negative results must becombined with clinical observations, patient history, andepidemiological information.This test has not been evaluated for monitoring treatment ofinfection.This test has been authorized by the FDA under an EmergencyUse Authorization (EUA) for use by authorized laboratories.Testing performed on the [employer] GeneXpert utilizingreal-time RT-PCR.All SARS CoV2 and positive influenza A/B results arereported to [facility]. 01/30/2025 1:15 PM EDT 01/30/2025 1:32 PM EDT Generic External Data Provider LAB MICROBIOLOGY - GENERAL ORDERABLES Final Result [facility] [address] [place] [phone] [phone] * Strep A Nucleic Acid (01/30/2025 1:15 PM EDT) [employer]NOW SERIAL# [id number] [facility] Strep A Nucleic Acid Negative Negative [facility] Comment:All test results mus t be correlated with clinical findings.This test has not been evaluated for monitoring treatment ofinfection.Additional follow-up testing using the culture method isrequired if the result is negative and clinical symptomspersist, or in the event of an acute rheumatic feveroutbreak. 01/30/2025 1:15 PM EDT 01/30/2025 1:32 PM EDT us Generic External Data Provider LAB MICROBIOLOGY - GENERAL ORDERABLES Final Result [facility] [address] [place] [phone] documented in this encounter Visit Diagnoses Not on filedocumented in this encounter Additional Health Concerns Assessment Noted Time PHQ-9 Depression Total Score: 0 11/24/19 25 2:56 PM EDT documented as of this encounter Care Teams Tour Narrator Relationship Specialty Start Date End Date Name, MD Louis [address] [place] [address] PCP - General Family Medicine 07/14/18 documented as of this encounter
[2025-01-31 23:55] VITALS: BP 128/65; PULSE 77; RESP 16; O2SAT 94
[2025-02-01] VITALS: TEMP 37.2
[2025-02-01 00:13] VITALS: BP 122/61; PULSE 74; RESP 17; O2SAT 94
[2025-02-01 01:22] VITALS: BP 122/58; PULSE 62; RESP 19; TEMP 36.9; O2SAT 94
[2025-02-01] MEDS: guaiFEN/Codeine SF 200/20/10ML 10 ML LIQUID PO (01:27)
[2025-02-01 01:31] VITALS: BP 122/58; PULSE 62; RESP 19; TEMP 36.9; O2SAT 94
== END 2025-02-01 01:40 | disposition home or self-care (01) ==
PROVIDERS: Nurse Practitioner Family; Emergency Provider Internal Medicine; PCP Internal Medicine Geriatric Medicine
DX: J40 Bronchitis, not specified as acute or chronic (principal); R05.9 Cough, unspecified; R50.9 Fever, unspecified; R06.02 Shortness of breath; Z79.899 Other long term (current) drug therapy
CPT/HCPCS: 36415; 71046; 80053; 83605; 83880; 85007; 85025; 85027; 87040; 93005; 96361; 96374; 99284; 99285; J0696

== ENCOUNTER → 2025-01-31 18:58 | Outpatient (BNV) | payer MEDICAID, SELFPAY | PROVIDERS: Emergency Provider Internal Medicine; PCP Internal Medicine Geriatric Medicine; Visit Provider Internal Medicine Cardiovascular Disease | DX: R06.02 Shortness of breath (principal); R07.89 Other chest pain | CPT/HCPCS: 93010 ==

== ENCOUNTER → 2025-01-31 18:59 | Outpatient (BNV) | payer MEDICAID, SELFPAY | PROVIDERS: PCP Internal Medicine Geriatric Medicine; Visit Provider Radiology Diagnostic Radiology | DX: R06.02 Shortness of breath (principal) | CPT/HCPCS: 71046 ==

== ENCOUNTER 2025-03-07 22:41 | Emergency (ER) | payer MEDICAID, SELFPAY ==
[2025-03-07 22:57] VITALS: BP 149/69; PULSE 68; RESP 19; TEMP 36.3; O2SAT 98; BMI 31.2
[2025-03-08 00:11] VITALS: BP 151/85; PULSE 65; RESP 16; TEMP 36.8; O2SAT 98
--- OUTSIDE RECORDS SUMMARY | 2025-03-08 01:08 | XMS_ITS | Clinical Summary ---
Author Organization [facility] Address [address] [place] [address] Phone Care Team Providers Care Forest And Conservation Worker Name Role Phone Unavailable Primary Care Provider Unavailabl e Surgical History Surgery Date Site/Laterality Comments FEMUR FRACTURE SURGERY PROCEDURE: AK OPEN TX FEMORAL FRACTURE DISTAL MED/LAT CONDYLE; COMMENT: Left femur at age 4 NOSE SURGERY PROCEDURE: AK UNLISTED PROCEDURE NOSE; COMMENT: deviated septum COLONOSCOPY PROCEDURE: HISTORICAL COLONOSCOPY; COMMENT: Normal on this year 12/2009 OTHER SURGICAL HISTORY 10/24 PROCEDURE: AK LAPAROSCOPY SURG PARTIAL NEPHRECTOMY; COMMENT: renal mass OTHER SURGICAL HISTORY 08/26 PROCEDURE: AK CSTOTOMY/CSTOST CRYOSURG DSTRJ INTRAVESICAL LES; COMMENT: bladder [...]
--- OUTSIDE RECORDS SUMMARY | 2025-03-08 01:08 | XMS_ITS | Encounter Summary ---
Author Organization [email or web address] Address [address] [place] [address] Care Team Providers Care Child Welfare Manager Name Role Phone Name, Louis DISLA Primary Care Provider [phone] Reason for Visit * Reason Comments Med Refill Encounter Details Date Type Department Care Team ([facility] st Contact Info) Description 03/06/2025 Refill [facility] [address] [place], [place] [phone] Name, MD Louis [address] [place] [address] Social History Tobacco Use Types Packs/Day Years [...] Description 03/21/2025 11:00 AM EDT Office Visit [facility] [address] [place] [address] NameLouis MD [address] [place] [address] documented as of this encounter Visit Diagnoses Not on filedocumented in this encounter Additional Health Concerns Assessment Noted Time PHQ-9 Depression Total Score: 0 11/24/19 25 2:56 PM EDT documented as of this encounter Care Teams Child Welfare Manager Relationship Specialty Start Date End Date NameLouis MD [address] [place] [phone] PCP - General Family Medicine 07/14/18 documented as of this encounter
--- OUTSIDE RECORDS SUMMARY | 2025-03-08 01:08 | XMS_ITS | Clinical Summary ---
Author Organization [employer] Address [address] [facility] [address] [place] [address] Care Team Providers Care Access Consultant Name Role Phone Name, Louis DISLA Primary Care Provider [phone] Allergies No known active allergies Medications clindamycin (Cleocin T) 1 % lotion APPLY TO AFFECTED AREA TWICE A DAY 60 mL 2 10/28/19 24 Active lisinopril 40 MG tabletIndicati ons:Hypertensi on, unspecified type Take 1 tablet (40 mg) by mouth in the morning. 90 tablet 3 01/30/20 24 Active amLODIPine (Norvasc) 10 MG tabletIndicati ons:Hypertensi on, unspecified type Take 1 tablet (10 mg) by mouth Once per day. 90 tablet 3 01/30/20 24 Active Multiple Vitamin (multivitamin) tablet Take 1 tablet by mouth Once per day. OTC Active Cranberry 200 MG capsule Take 1 capsule by mouth Once per day. OTC Active Ascorbic Acid (vitamin C) 100 MG tablet Take 100 mg by mouth Once per day. OTC Active magnesium 100 MG tablet Take 1 tablet by mouth Once per day. OTC Active Plant Sterols and Stanols (CHOLESTOFF PLUS PO) Take 1 capsule by mouth Once per day. OTC Active Misc Natural Products (PROSTATE SUPPORT PO) Take 1 capsule by mouth Once per day. OTC Active cyancobalamine (Vitamin B-12) 250 MCG tablet Take 250 mcg by mouth Once per day. OTC Active coenzyme Q-10 100 MG capsule Take 1 capsule by mouth Once per day. OTC Active fluticasone (Flonase) 50 MCG/ACT nasal spray ADMINISTER 1 SPRAY INTO EACH NOSTRIL ONCE PER DAY. 48 mL 02/09/20 25 025 Active loratadine (Claritin) 10 MG tablet TAKE 1 TABLET BY MOUTH EVERY DAY IN THE MORNING 90 tablet 1 03/07/20 25 Active mometasone (Nasonex) 50 MCG/ACT nasal spray Administer 1-2 sprays into each nostril in the morning. 10/14/19 24 025 Discontinued(Th erapy completed) loratadine (Claritin) 10 MG tablet TAKE 1 TABLET BY MOUTH EVERY DAY IN THE MORNING 90 tablet 1 01/09/20 24 025 Discontinued fluticasone (Flonase) 50 MCG/ACT nasal spray Administer 1 spray into each nostril Once per day. 16 g 02/08/20 25 025 Discontinued Active Problems Problem Noted Date Diagnosed Date Renal stones 11/08/2024 Impacted cerumen of left ear 05/04/2024 Hypertrophy [...] Note: Date Diagnosed: 06/21/2021 11:59 AM (H90.3) Assessment & Plan (02/07/2025 1:16 PM EDT): Exacerbated after last otitis media? 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 Was removed by outside urology at [facility]. Renal mass 09/17/2012 10/14/2023 Overview (12/19/2022): Left-sided. Seen in MRI on 08/26 at [facility] for work up of Hematuria. Patient is following with Urology there. Biopsy showed malignancy and the patient was been scheduled for partial nephrectomy on October of 2012. Patient continues to follow at [facility] with serial CT of the kidneys and serial cystoscopies Encounters Date Type Department Care Team Description 03/06/2025 Refill [facility] [address] [place] [address] Louis Valverde MD 02/07/2025 1:00 PM EDT Office Visit [facility] [address] [place] [phone] Kelli Garcia MD Sensorineural hearing loss (SNHL) of both ears (Primary Dx) 02/07/2025 Refill [facility] [address] [place] [phone] Kelli Garcia MD 02/07/2025 Travel 01/31/2025 Orders Only GENERIC EXTERNAL DATA DEPARTMENT Provider, Generic External Data 01/30/2025 Orders Only GENERIC EXTERNAL DATA DEPARTMENT Provider, Generic External Data 12/17/[address] [address] Hitesh Boyle [place] february recalls 12/15/[address] [address] Louis Valverde MD Durable Medical Equipment (CPAP supplies) from Last 3 Months Immunizations Immunization Administration Dates Next Due Influenza injectable quadriv [...] Sign Reading Time Taken Comments Blood Pressure 149/84 02/07/2025 12:59 PM EDT Pulse 65 02/07/2025 12:59 PM EDT Temperature 36.8 C (98.2 F) 02/07/2025 12:59 PM EDT Respiratory Rate 18 02/07/2025 12:5 9 PM EDT Oxygen Saturation 99% 02/07/2025 12: 59 PM EDT Inhaled Oxygen Concentration - - Weight 92.4 kg (203 lb 12.8 oz) 025 12:59 PM EDT Height 172.7 cm (5' 8 ) 11/23/2024 1:52 PM EDT Body Mass Index 30.99 11/23/2024 1:52 PM EDT Plan of Treatment Upcoming Encounters Date Type Department Care Team (Late st Contact Info) Description 03/21/2025 11:00 AM EDT Office Visit [facility] [address] [place] [phone] Name, MD Louis [address] [place] [address] Health Maintenance Due Date Last Done Comments [...] 11/06/2023, 08/28/2022 Dental Prophylaxis 05/08/2024 11/06/2023, 09/26/2022 Influenza Vaccine (#1) 2025 , 04/23/2023, 08/12/2022, Additional history exists Dental X-Ray: Bitewings 06/01/2025 05/31/20 24, 11/06/2023, 08/28/2022 Dental X-Ray: Full Mouth 08/29/2025 08/28/2022 SDOH Screening 10/15/2025 10/15/2024 Alcohol/Substance Use Screening 11/23/2025 11/23/2024 Depression Screening 11/23/2025 11/23/2024, 11/24/19 Disability Screening 11/23/2025 11/23/2024 Tobacco Screening 11/23/2025 11/23/2024 Lipid Panel 10/14/2028 10/15/2023, 08/2022, 08/24/2021, Additional history exists Colonoscopy 10/08/2029 10/08/2024, 05/11/2021 Colorectal Cancer Screening 10/08/2029 DTaP/Tdap/Td Vaccines (3 - Td or Tdap) 04/23/2033 04/23/2023, 01/27/2013 RSV Patients and Patients Aged 60 years or older (1 - 1-dose 75+ series) 2043 Hepatitis C Screening Completed 10/15/2023 HIB Vaccines Aged Out No longer eligi [...] Procedure Name Priority Date/Time Associated Diagnosis Comments BLOOD CULTURE (SECOND) Routine 10:34 PM EDT LACTIC ACID Routine 01/31/2025 10:23 PM EDT BLOOD CULTURE (FIRST) Routine 01/31/2025 10:23 PM EDT PATHOLOGIST REVIEW - CBC Routine 01/31/2025 7:46 PM EDT B TYPE NATRIURETIC PEPTIDE (BNP) Routine 01/31/2025 7:46 PM EDT COMPLETE BLOOD COUNT MAN DIF Routine 01/31/2025 7:46 PM EDT COMPREHENSIVE METABOLIC PANEL Routine 01/31/2025 7:46 PM EDT XR CHEST 2 VIEWS Routine 01/31/2025 7:43 PM EDT SARS COV2/INFLUENZA A/B AND RSV RNA QL NAAT Routine 01/30/2025 1:15 PM EDT STREP A NUCLEIC ACID Routine 01/30/2025 1:15 PM EDT HM COLONOSCOPY Routine 10/08/2024 7:58 AM EDT BITEWING - SINGLE RADIOGRAPHIC IMAGE Routine 05/31/2024 [...] Recently Relevant to Health Maintenance Results * Blood Culture (Second) (01/31/2025 10:34 PM EDT) Blood Venous blood specimen / Unknown 01/31/2025 10:34 PM EDT 01/31/2025 10:37 PM EDT Comment:Blood Narrative [facility] - 02/06/2025 12:37 AM EDT Blood Culture (Second) No growth after 5 days. Specimen Source: Blood Generic External Data Provider LAB MICROBIOLOGY - GENERAL ORDERABLES Final Result Performing Organization Address [facility] Co de Phone Number [facility] [address] [place] [phone] * Blood Culture (First) (01/31/2025 10:23 PM EDT) Blood Venous blood specimen / Unknown 01/31/2025 10:23 PM EDT 01/31/2025 10:27 PM EDT Comment:Blood Narrative [facility] - 02/06/2025 12:27 AM EDT Blood Culture (First) No growth after 5 days. Specimen Source: Blood Generic External Data Provider LAB MICROBIOLOGY - GENERAL ORDERABLES Final Result Performing Organization Address [facility] Co de Phone Number [facility] [address] [place] [phone] * Lactic Acid (01/31/2025 10:23 PM EDT) Lactic Acid 0.8 0.5 - 2.0 mmol/L [facility] 01/31/2025 10:2 3 PM EDT 01/31/2025 10:27 PM EDT Generic External Data Provider LAB BLOOD ORDERAB LES Final Result Performing Organization Address [facility] Co de Phone Number [facility] [address] [place] [phone] * Pathologist Review - CBC (01/31/2025 7:46 PM EDT) Pathologist Review - CBC SEE NOTE [facility] Comment:- Lymphocytosis with abnormal lymphoid cells (smudge cells)consistent with patient's known chronic lymphocytic leukemia(CLL).- Normocytic and normochromic anemia: consider anemia ofchronic disease vs other etiologies.- Thrombocytopenia with occasional large platelets: considermultifactorial, medication-induced vs underlying malignancysuch as CLL.Reviewed by Henrietta Guallpa MD 01/31/2025 7:46 PM EDT 01/31/2025 7:55 PM EDT us Generic External Data Provider LAB BLOOD ORDERAB LES Final Result [facility] [address] [place] [phone] * (ABNORMAL) Complete Blood Count Manual Diff (01/31/2025 7:46 PM EDT) White Blood Count 58.7(HH) 4.8 - 10.8 X10*3/uL [facility] Comment:Results of WBC interiano d to and read back by Marquez 01/31/25 at 2014 by ASHIA. Red Blood Count 4.19(L) 4.60 - 5.80 X10*6/uL [facility] Hemoglobin 11.8(L) 14.0 - 18.0 g/dl [facility] Hematocrit 36.9(L) 42.0 - 52.0 % [facility] Mean Corpuscular Volume 88.1 80.0 - 98.0 fL [facility] Mean Corpuscular Hemoglobin 28.2 27.0 - 33.0 pg [facility] Mean Corpuscular HGB Conc 32.0 31.0 - 36.0 g/dl [facility] Red Cell Distribution Width 15.4 11.0 - 16.0 % [facility] Platelet Count 133(L) 160 - 400 X10*3/uL [facility] Mean Platelet Volume 9.3(L) 9.4 - 12.4 fL [facility] NRBC Pct Auto 0.0 0.0 - 0.2 /100WBC [facility] NRBC Abs Auto 0.000 0.0 - 0.012 X10*3/uL [facility] Neutrophils % Manual 8(L) 45 - 73 % [facility] Band Neutrophils Percent 2(L) 3 - 5 % [facility] Lymphocytes Percent Manual 83(H) 20 - 40 % [facility] Atypical Lymphs Percent Manual 1 0 - 6 % [facility] Monocytes Percent Manual 6 2 - 11 % [facility] NEUTROPHILS ABSOLUTE MANUAL 5.9 2.0 - 8.3 X10*3/uL [facility] LYMPHOCYTES ABSOLUTE MANUAL 48.7(H) 1.2 - 4.9 X10*3/uL [facility] Atypical Lymph Absolute Manual 0.6 x10*3/uL [facility] MONOCYTES ABSOLUTE MANUAL 3.5(H) 0.1 - 1.2 X10*3/uL [facility] Smudge Cells PRESENT [facility] Platelet Estimate SLIGHTLY DECREASED NORMAL [facility] Platelet Morphology Comment NORM [facility] RBC Morphology NORMAL [facility] 01/31/2025 7:46 PM EDT 01/31/2025 7:55 PM EDT us Generic External Data Provider LAB BLOOD ORDERAB LES Final Result Performing Organization Address [facility] Co de Phone Number [facility] [address] [place] [phone] * B Type Natriuretic Peptide (BNP) (01/31/2025 7:46 PM EDT) Pathologist [facility] B Type Natriuretic Peptide 14 <100 pg/mL [facility] 01/31/2025 7:46 PM EDT 01/31/2025 7:55 PM EDT us Generic External Data Provider LAB BLOOD ORDERAB LES Final Result Performing Organization Address [facility] Co de Phone Number [facility] [address] [place] [phone] * (ABNORMAL) Comprehensive Metabolic Panel (01/31/2025 7:46 PM EDT) Pathologist [facility] Sodium 139 135 - 145 mmol/L [facility] Potassium 5.0 3.3 - 5.1 mmol/L [facility] Chloride 107 96 - 108 mmol/L [facility] Carbon Dioxide 26 22 - 29 mmol/L [facility] Anion Gap 11(L) 12 - 20 [facility] Urea Nitrogen (BUN) 21(H) 9 - 16 mg/dL [facility] Creatinine, Serum 0.98 0.5 - 1.4 mg/dL [facility] Creatinine Clr Calc Pharmacy 94.2 [facility] Comment:eGFR (calculated fro m the MDRD study equation) and eCrCl(calculated from the Cockcroft-Gault equation) are based ondifferent parameters and may not yield comparable results.If eCrCl result is absurd, please check patient'sheight/weight. Estimated Glomerular Filt Rate >60 [facility] Comment:Chronic Kidney Disea se: Estimated GFR < 60 mL/min/[id number] Kidney Disease: Estimated GFR < 15 mL/min/1.73m2 Glucose 103 60 - 115 mg/dL [facility] Calcium 8.8 8.4 - 10.2 mg/dL [facility] Bilirubin, Total 0.7 0.0 - 1.0 mg/dL [facility] Aspartate Amino Transferase 20 5 - 37 U/L [facility] Alanine Aminotransferase 18 0 - 40 U/L [facility] Total Protein 6.7 6.5 - 8.0 g/dL [facility] Albumin Level 4.8 3.5 - 5.0 g/dL [facility] Alkaline Phosphatase 80 39 - 117 U/L [facility] 01/31/2025 7:46 PM EDT 01/31/2025 7:55 PM EDT us Generic External Data Provider LAB BLOOD ORDERAB LES Final Result [facility] [address] [place] [phone] * XR Chest 2 Views (01/31/2025 7:43 PM EDT) Anatomical Region Laterality Modality Chest Radiographic Susannah ging 01/31/2025 7:43 PM EDT Narrative 01/31/2025 7:44 PM EDT [address] [address] XRay Report Signed Patient: Irwin Mendoza Jr MR#: [id number] : 1970 Acct:[id number] Age/Sex: 54 / M ADM Date: 01/31/25 Loc: .ED Attending Dr: Ordering Physician: Malinda Lamar CNP Date of Service: 01/31/25 Procedure(s): XR chest 2V Accession Number(s): [id number] cc: Malinda Lamar CNP; Name,Louis DISLA CLINICAL [...] in OV> 01/31/251943 DD/ 42 TD/TT: 01/31/251942 Pacu Nurse: Procedure Note Donotuseinterpreter, Image - 01/31/[address] [address] XRay Report Signed Patient: Irwin Mendoza JrR#: [id number] : 1970Acct:[id number] Age/Sex: 54 / MADM Date: 01/31/25 Loc: .ED Attending Dr: Ordering Physician: Malinda Lamar CNP Date of Service: 01/31/25 Procedure(s): XR chest 2V Accession Number(s): [id number] cc: Malinda Lamar CNP; Name,Louis DISLA CLINICAL [...] in OV> 01/31/251943 DD/ 42 TD/TT: 01/31/251942 Pacu Nurse: [facility] External Provider IMG XR PROCEDURES Final Result * Strep A Nucleic Acid (01/30/2025 1:15 PM EDT) [employer]NOW SERIAL# [id number] [facility] Strep A Nucleic Acid Negative Negative [facility] Comment:All test results mus t be correlated with clinical findings.This test has not been evaluated for monitoring treatment ofinfection.Additional follow-up testing using the culture method isrequired if the result is negative and clinical symptomspersist, or in the event of an acute rheumatic feveroutbreak. 01/30/2025 1:15 PM EDT 01/30/2025 1:32 PM EDT Generic External Data Provider LAB MICROBIOLOGY - GENERAL ORDERABLES Final Result [facility] [address] [place] [phone] * SARS-CoV-2 RNA, Influenza A/B, and RSV RNA, Ql NAAT (01/30/2025 1:15 PM EDT) Influenza A PCR NEGATIVE Negative [facility] Influenza B PCR NEGATIVE Negative [facility] Resp Syncy Virus RNA Qual PCR NEGATIVE Negative [facility] SARS COV2 PCR NEGATIVE Negative [facility] Comment:All test results mus t [...] use by authorized laboratories.Testing performed on the [facility] GeneXpert utilizingreal-time RT-PCR.All SARS CoV2 and positive influenza A/B results arereported to [facility]. 01/30/2025 1:15 PM EDT 01/30/2025 1:32 PM EDT Generic External Data Provider LAB MICROBIOLOGY - GENERAL ORDERABLES Final Result Performing Organization Address [facility]/ZIP Co de Phone Number [facility] [address] [place] [phone] * Hm Colonoscopy (10/08/2024 7:58 AM EDT) Historical Provider HEALTH MAINTENANCE Final Result * Hepatitis C Ab (10/15/2023 9:19 AM EDT) Pathologist [facility] Hepatitis C Antibody Nonreactive Nonreactive [facility] Comment:Antibodies to HCV no t detected; does not exclude early acuteHCV infection. Blood Venous blood specimen / Unknown 10/15/2023 9:19 AM EDT 10/15/2023 11:17 AM EDT Louis Abram DISLA LAB BLOOD ORDERABLES Final Resul t Performing Organization Address [facility]/ZIP Co de Phone Number [facility] [address] [place] [phone] * (ABNORMAL) Lipid Panel, Standard (10/15/2023 9:19 AM EDT) Triglycerides 191(H) <150 mg/dL [facility] Comment:Desirable Triglyceri de: less than 150 mg/dLBorderline High Triglyceride 150-199 mg/dLHigh Triglyceride: 200-499 mg/dLVery High Triglyceride: greater than or equal to 5OO mg/dL Cholesterol 199 <200 mg/dL [facility] Comment:Desirable Cholestero l: less than 200 mg/dLBorderline High Cholesterol: 200-239 mg/dLHigh Cholesterol: greater than 239 mg/dL LDL Cholesterol Calculated 123(H) <100 mg/dL [facility] Comment:Desirable LDL: less than 100 mg/dLNear Optimal/Above Optimal LDL: 110- 129 mg/dLBorderline High LDL: 130-159 mg/dLHigh LDL: 160-189 mg/dLVery High LDL: greater than or equal to 190 mg/dL HDL Cholesterol 38(L) >40 mg/dL [facility] Comment:Desirable HDL: great er than 40 mg/dL Note: This HDL assay may give artificially low results in patients with liver disease. Blood Venous blood specimen / Unknown 10/15/2023 9:19 AM EDT 10/15/2023 11:17 AM EDT us Louis Name LAB BLOOD ORDERABLES Final Resul t [facility] [address] [place] [phone] from Last 3 Months or Most Recently Relevant to Health Maintenance Insurance [facility] C[facility] [place] ST[place] AD[place] Care Teams Access Consultant Relationship Specialty Start Date End Date Name, MD Louis [address] [place] [phone] PCP - General Family Medicine 07/14/18
--- OUTSIDE RECORDS SUMMARY | 2025-03-08 01:08 | XMS_ITS | Clinical Summary ---
Author Organization [facility] Address [address] [place] [address] Phone Care Team Providers Care Jailor Name Role Phone Name, Louis DISLA Primary Care Provider [phone] Active Problems Problem Noted Date Diagnosed Date [...] topic Medical Devices Not on file Insurance [facility] [place] [id number] [place] [address] [place] [address] [place] [address] [place] [address] [place] [address] [employer] [facility] [employer] [facility] [employer] Care Teams Jailor Relationship Specialty Start Date End Date Name, MD Louis [address] [place] [phone] PCP - General Internal Medicine 09/29/24 Additional Source Comments The information contained in this document represents components of the legal health record. It is not the complete legal health record.[facility]
--- OUTSIDE RECORDS SUMMARY | 2025-03-08 01:08 | XMS_ITS | Encounter Summary ---
Author Organization [employer] Address [address] [facility] [address]t [place] [address] Care Team Providers Care Bag Machine Operator Helper Name Role Phone Name, Louis DISLA Primary Care Provider [phone] Reason for Visit * Reason Onset Date Comments call back 08/27/2022 Encounter Details Date Type Department Care Team ([facility] st Contact Info) Description 08/27/2022 Telephone [facility] [address] [place], [place] [phone] Name, MD Louis [address] [place] [address] call back Social History Tobacco Use Types [...] EST 2nd call placed to pt via [employer] Plant Supervisor Radha #[phone]. Advised of message from pcp re: lab [...] being at work Please contact pt at [phone] documented in this encounter Plan of Treatment Upcoming Encounters Date Type Department Care Team (Late st Contact Info) Description 03/21/2025 11:00 AM EDT Office Visit [facility] [address] [place] [phone] Name, MD Louis [address] [place] [phone] documented as of this encounter Visit Diagnoses Diagnosis Leukocytosis, unspecified type- Primary documented in this encounter Care Teams Bag Machine Operator Helper Relationship Specialty Start Date End Date Name, MD Louis [address] [place] [phone] PCP - General Family Medicine 07/14/18 documented as of this encounter
--- OUTSIDE RECORDS SUMMARY | 2025-03-08 01:08 | XMS_ITS | Encounter Summary ---
Author Organization [employer] Address [address] [facility] [address] [place] [address] Care Team Providers Care Internal Consultant Name Role Phone Name, Louis DISLA Primary Care Provider [phone] Encounter Details Date Type Department Care Team (Late Contact Info) Description 10/21/2022 Abstract [facility] [address] [place], [place] [phone] Kamlesh Pedrazaaris [address] [place] [address] Social History Tobacco Use Types Packs/Day Years [...] Upcoming Encounters Date Type Department Care Team ([facility] Contact Info) Description 03/21/2025 11:00 AM EDT Office Visit [facility] [address] [place], [place] [phone] Name, MD Louis [address] [place] [address] documented as of this encounter Visit Diagnoses Not on filedocumented in this encounter Care Teams Internal Consultant Relationship Specialty Start Date End Date Name, MD Louis [address] [place] [address] PCP - General Family Medicine 07/14/18 documented as of this encounter
--- OUTSIDE RECORDS SUMMARY | 2025-03-08 01:08 | XMS_ITS | Encounter Summary ---
Author Organization [employer] Address [address] [place] [address] Care Team Providers Care Hot Tar Roofer Name Role Phone Name, Louis DISLA Primary Care Provider [phone] Encounter Details Date Type Department Care Team (Late Contact Info) Description 10/09/2022 Abstract [facility] [address] [place], [place] [phone] Kamlesh Pderazaaris [address] [place] [address] Social History Tobacco Use Types Packs/Day Years [...] Upcoming Encounters Date Type Department Care Team ([facility] Contact Info) Description 03/21/2025 11:00 AM EDT Office Visit [facility] [address] [place], [place] [phone] Name, MD Louis [address] [place] [address] documented as of this encounter Visit Diagnoses Not on filedocumented in this encounter Care Teams Hot Tar Roofer Relationship Specialty Start Date End Date Name, MD Louis [address] [place] [address] PCP - General Family Medicine 07/14/18 documented as of this encounter
--- OUTSIDE RECORDS SUMMARY | 2025-03-08 01:08 | XMS_ITS | Encounter Summary ---
Author Organization [employer] Address [address] [place] [address] Care Team Providers Care Pyrometer Mechanic Name Role Phone Name, Louis DISLA Primary Care Provider [phone] Encounter Details Date Type Department Care Team (Late Contact Info) Description 10/09/2022 Abstract [facility] ADULT DENTAL [address] [place], [place] [phone] Kamlesh Pedrazaaris [address] [place] [address] Social History Tobacco Use Types Packs/Day Years [...] Upcoming Encounters Date Type Department Care Team ([facility] Contact Info) Description 03/21/2025 11:00 AM EDT Office Visit [facility] [address] [place], [place] [phone] Name, MD oLuis [address] [place] [address] documented as of this encounter Visit Diagnoses Not on filedocumented in this encounter Care Teams Pyrometer Mechanic Relationship Specialty Start Date End Date Name, MD Louis [address] [place] [address] PCP - General Family Medicine 07/14/18 documented as of this encounter
--- OUTSIDE RECORDS SUMMARY | 2025-03-08 01:08 | XMS_ITS | Encounter Summary ---
Author Organization [employer] Address [address] [place] [address] Care Team Providers Care Destination Specialist Name Role Phone Name, Louis DISLA Primary Care Provider [phone] Encounter Details Date Type Department Care Team ([facility] st Contact Info) Description 10/12/2024 Orders Only [facility] MED [facility] PEDS [address] [place] [address] Provider, MD Noam Social History Tobacco Use [...] Description 03/21/2025 11:00 AM EDT Office Visit [facility] MEDICINE [address] [place] [address] Name, MD Louis [address] [place] [address] documented as of this encounter Procedures Procedure [...] Lactic Acid 0.6 0.5 - 2.0 mmol/L [facility] 10/12/2024 2:37 PM EDT 10/12/2024 2:42 PM EDT us Generic External Data Provider LAB BLOOD ORDERAB LES Final Result Performing Organization Address City/State/[facility] Co de Phone Number [facility] [address] [place] [phone] * CT Abdomen Pelvis w/o Contrast (10/12/2024 2:26 PM EDT) Anatomical Region Laterality Modality Body, Pelvis, Abdomen Computed T omography 10/12/2024 2:26 PM EDT Narrative 10/12/2024 3:38 PM EDT [place] [address] CT Scan Report Signed Patient: Irwin Mendoza Jr MR#: [id number] : 1970 Acct:[id number] Age/Sex: 54 / M ADM Date: 10/12/24 Loc: .ED Attending Dr: Ordering Physician: Mirta Dallas DO Date of Service: 10/12/24 Procedure(s): CT abdomen pelvis wo IV con Accession Number(s): [id number] cc: Mirta Dallas DO; Name,Louis DISLA Report Number: [id number]: Total DLP = 626.00 mGy-cm EXAMINATION: CT ABDOMEN PELVIS WITHOUT IV CONTRAST HISTORY: flank pain, recent cystoscopy COMPARISON: Relation is made with an outside PET/CT scan from [facility] dated 08/16/2024. TECHNIQUE: CT scan [...] 10/12/24 1535 DD/ 1426 TD/TT: 10/12/24 1518 Federal Aid Coordinator: Procedure Note Donotuseinterpreter, Image - 10/12/[address] [place] [address] [address] Scan Report Signed Patient: Irwin Mendoza Jr#: [id number] : 1970Acct:[id number] Age/Sex: 54 / MADM Date: 10/12/24 Loc: HO.ED Attending Dr: Ordering Physician: Mirta Dallas DO Date of Service: 10/12/24 Procedure(s): CT abdomen pelvis wo IV con Accession Number(s): [id number] cc: Mirta Dallas DO; Name,Louis DISLA Report Number: [id number]: Total DLP = 626.00 mGy-cm EXAMINATION: CT ABDOMEN PELVIS WITHOUT IV CONTRAST HISTORY: flank pain, recent cystoscopy COMPARISON: Relation is made with an outside PET/CT scan from [facility] dated 08/16/2024. TECHNIQUE: CT scan [...] by Freddy Amin MD in OV> 10/12/24 1532 DD/ 1426 TD/TT: 10/12/24 1515 Federal Aid Coordinator: [facility] External Provider IMG CT PROCEDURES Final Result * (ABNORMAL) Urinalysis, Complete, with Reflex to Culture (10/12/2024 1:27 PM EDT) Color Urine Dark Yellow [facility] Appearance Urine Cloudy [facility] PH 5.5 5.0 - 9.0 [facility] Glucose Urine UA Negative Negative mg/dL [facility] Urine Blood Moderate (2+)(A) Negative [facility] Specific [place] - Urine 1.020 1.005 - 1.025 [facility] Urine Protein 100 (2+)(A) Neg-Trace mg/dL [facility] Urine Ketones Trace Negative mg/dL [facility] Nitrite Urine Positive(A) Negative [facility] Leukocyte Esterase Urine Moderate (2+)(A) Negative [facility] RBC Urine >20(A) 0 - 2 /HPF [facility] Urine WBC >50(A) 0 - 5 /HPF [facility] Urine Squamous Epithelial Cell 0-2 0 - 2 /HPF [facility] Urine Bacteria 2+ None Seen [facility] Hyaline Casts, Urine 3-5 0 - 2 /LPF [facility] 10/12/2024 1:27 PM EDT 10/12/2024 1:30 PM EDT Narrative [facility] - 10/12/2024 1:39 PM EDT [id number], Clean Catch Generic External Data Provider LAB URINE ORDERAB LES Final Result [facility] [address] [place] [address] [phone] * Lipase (10/12/2024 1:21 PM EDT) Lipase 29 8 - 78 U/L [facility] 10/12/2024 1:21 PM EDT 10/12/2024 1:24 PM EDT us Generic External Data Provider LAB BLOOD ORDERAB LES Final Result Performing Organization Address City/[facility]/ZIP Co de Phone Number [facility] [address] [place] [phone] * Magnesium (10/12/2024 1:21 PM EDT) Pathologist [facility] Magnesium 2.2 1.6 - 2.6 mg/dL [facility] 10/12/2024 1:21 PM EDT 10/12/2024 1:24 PM EDT Generic External Data Provider LAB BLOOD ORDERAB LES Final Result Performing Organization Address [facility] Co de Phone Number [facility] [address] [place] [phone] * (ABNORMAL) Basic Metabolic Panel (10/12/2024 1:21 PM EDT) Pathologist [facility] Sodium 137 135 - 145 mmol/L [facility] Potassium 4.0 3.3 - 5.1 mmol/L [facility] Chloride 104 96 - 108 mmol/L [facility] Carbon Dioxide 28 22 - 29 mmol/L [facility] Anion Gap 9(L) 12 - 20 [facility] Urea Nitrogen (BUN) 21(H) 9 - 16 mg/dL [facility] Creatinine, Serum 0.78 0.5 - 1.4 mg/dL [facility] Creatinine Clr Calc Pharmacy 118.2 [facility] Comment:eGFR (calculated fro m the MDRD study equation) and eCrCl(calculated from the Cockcroft-Gault equation) are based ondifferent parameters and may not yield comparable results.If eCrCl result is absurd, please check patient'sheight/weight. Estimated Glomerular Filt Rate >60 [facility] Comment:Chronic Kidney Disea se: Estimated GFR < 60 mL/min/1.57g2Lvbqxs Kidney Disease: Estimated GFR < 15 mL/min/1.73m2 Glucose 108 60 - 115 mg/dL [facility] Calcium 9.5 8.4 - 10.2 mg/dL [facility] 10/12/2024 1:21 PM EDT 10/12/2024 1:24 PM EDT Generic External Data Provider LAB BLOOD ORDERAB LES Final Result Performing Organization Address [facility] de Phone Number [facility] [address] [place] [phone] * Hepatic Function Panel (10/12/2024 1:21 PM EDT) Bilirubin, Total 0.4 0.0 - 1.0 mg/dL [facility] Bilirubin, Direct 0.3 0.0 - 0.5 mg/dL [facility] Aspartate Amino Transferase 17 5 - 37 U/L [facility] Alanine Aminotransferase 20 0 - 40 U/L [facility] Total Protein 6.7 6.5 - 8.0 g/dL [facility] Albumin Level 4.2 3.5 - 5.0 g/dL [facility] Alkaline Phosphatase 75 39 - 117 U/L [facility] 10/12/2024 1:21 PM EDT 10/12/2024 1:24 PM EDT Generic External Data Provider LAB BLOOD ORDERAB LES Final Result Performing Organization Address [facility] de Phone Number [facility] [address] [place] [phone] * (ABNORMAL) Complete Blood Count Manual Diff (10/12/2024 1:21 PM EDT) White Blood Count 31.4(HH) 4.8 - 10.8 X10*3/uL [facility] Comment:Results of WBC interiano d to and read back by Nela 10/12/24 at 1332 by KRISTINA. Red Blood Count 4.39(L) 4.60 - 5.80 X10*6/uL [facility] Hemoglobin 12.5(L) 14.0 - 18.0 g/dl [facility] Hematocrit 37.7(L) 42.0 - 52.0 % [facility] Mean Corpuscular Volume 85.9 80.0 - 98.0 fL [facility] Mean Corpuscular Hemoglobin 28.5 27.0 - 33.0 pg [facility] Mean Corpuscular HGB Conc 33.2 31.0 - 36.0 g/dl [facility] Red Cell Distribution Width 14.4 11.0 - 16.0 % [facility] Platelet Count 179 160 - 400 X10*3/uL [facility] Mean Platelet Volume 9.0(L) 9.4 - 12.4 fL [facility] NRBC Pct Auto 0.0 0.0 - 0.2 /100WBC [facility] NRBC Abs Auto 0.000 0.0 - 0.012 X10*3/uL [facility] 10/12/2024 1:21 PM EDT 10/12/2024 1:24 PM EDT us Generic External Data Provider LAB BLOOD ORDERAB LES Final Result [facility] [address] [place] [phone] [phone] * Hm Colonoscopy (10/08/2024 7:58 AM EDT) us Historical Provider HEALTH MAINTENANCE Final Result documented in this encounter Visit Diagnoses Not on filedocumented in this encounter Additional Health Concerns Assessment Noted Time PHQ-9 Depression Total Score: 0 10/14/19 24 1:34 PM EDT documented as of this encounter Care Teams Destination Specialist Relationship Specialty Start Date End Date Name, MD Louis [address] [place] [address] PCP - General Family Medicine 07/14/18 documented as of this encounter
--- NOTE | 2025-03-08 01:49 | ED.GENADULT ---
HPI - General Adult General Chief complaint: Ear Problems Stated complaint: Pain, Swelling left hear (?infection) Time Seen by Provider: 03/08/25 01:30 Source: patient Limitations: language barrier History of Present Illness ED Provider: Theodora Julien PA-C HPI narrative: 55-year-old male with known CLL, recurrent urinary tract infections, BPH who presents with left ear pain x3 days. Patient states he has noted redness of the externa left ear, and that it feels swollen to him. He developed symptoms after [place] on [place]. Associated muffled hearing. Denies head pain posterior to the ear, swelling within this region or redness, no fevers. No purulent drainage from the ear. Patient states he recently was treated for swimmer's ear of the right 2 months ago. Related Data Home Medications ?Medication ?Instructions ?Recorded ?Confirmed lisinopril 40 mg tablet 40 mg PO DAILY 12/22/20 10/20/24 ascorbic acid (vitamin C) 100 mg 100 mg PO DAILY 09/10/24 10/20/24 tablet cyanocobalamin (vitamin B-12) 50 50 mcg PO DAILY 09/10/24 10/20/24 mcg tablet magnesium 100 mg tablet 100 mg PO DAILY 09/10/24 10/20/24 multivit,Ca,min-iron 8 mg-folic 1 tab PO DAILY 09/10/24 10/20/24 acid 200 mcg-lycopene 600 mcg tablet (Centrum Men) zinc 50 mg tablet 50 mg PO DAILY 09/10/24 10/20/24 amlodipine 10 mg tablet 10 mg PO DAILY 10/12/24 10/20/24 Previous Rx's ?Medication ?Instructions ?Recorded ascorbic acid (vitamin C) 1,000 mg 1,000 mg PO DAILY 90 days #90 tabs 01/25/25 tablet methenamine hippurate 1 gram tablet 1 g PO DAILY 90 days #90 tabs 01/25/25 tamsulosin 0.4 mg capsule (Flomax) 0.4 mg PO BEDTIME 30 days #30 tabs 01/25/25 ofloxacin 0.3 % ear drops 10 drp otic (ears) DAILY 7 days 01/30/25 #10 mL azithromycin 250 mg tablet See Rx Instructions PO .COMPLEX #6 02/01/25 (Zithromax Z-Tereso) tabs cefuroxime axetil 500 mg tablet 500 mg PO BID 7 days #14 tabs 02/01/25 codeine 10 mg-guaifenesin 100 mg/5 10 ml PO Q6H PRN cough #237 mL 02/01/25 mL oral liquid amoxicillin 500 mg capsule 500 mg PO Q12H #19 caps 03/08/25 ofloxacin 0.3 % ear drops 10 drp otic (ears) BID 10 days #10 03/08/25 mL Allergies Allergy/AdvReac Type Severity Reaction Status Date / Time No Known Allergies (No Known Allergy Verified 03/07/25 23:00 Allergies*) Review of Systems Review of Systems: Yes all other systems are reviewed and are negative Constitutional: Constitutional: Denies fatigue, Denies fever(s) and Denies headache(s) ENT: Denies dizziness, Denies ear discharge, Reports otalgia and Denies headache(s) Respiratory: Respiratory: Denies cough Gastrointestinal: Gastrointestinal: Denies nausea and Denies vomiting Neurologic: Denies dizziness and Denies headache(s) Endocrine: Endocrine: Denies fatigue PMFSH Past Medical History Attestation statement: The following information was validated with the patient. Medical History Lymphadenopathy Elevated WBC count History of colon polyps HTN (hypertension) History of COVID-19 Bladder cancer RUQ pain Abdominal bloating Cancer of kidney Hx of bladder cancer Benign prostatic hyperplasia with lower urinary tract symptoms Obstructive sleep apnea (adult) (pediatric) Lesion of bladder Surgical History History of colonoscopy with polypectomy History of surgery H/O colonoscopy Hx of cystoscopy History of surgery Family History Family History Father Hypertension Diabetes Mother Lung cancer Sister Cancer Social History Social History Household Members: Family Housing: House Are you a primary after school caregiver to a significant other at home: No Do you presently have visiting nurse or other home services: No Alcohol intake: never Patient Tobacco Use Status: Never used Tobacco Advance Directives Date on File: 10/15/24 service: No Current occupational status: employed Physical Exam ED Vital Signs: Vital Signs - 24 hr 03/07/25 22:57 03/08/25 00:11 Temperature 97.4 F 98.2 F Pulse Rate 68 65 Respiratory Rate 19 16 Blood Pressure 149/69 H 151/85 H Pulse Oximetry 98 98 Oxygen Delivery Method Room Air Room Air BMI result Body Mass Index 31.2 Const Other: Alert well-appearing, no swelling, erythema warmth or tenderness to palpation over the mastoid bone on the right Orientation/consciousness: patient oriented x3 HENMT Other: Tragal tenderness noted, the external ear canal on the left is erythematous, the tympanic membrane is dull with the overlying erythema Resp Effort & Inspection: normal respiratory effort Cardio Other: Normal peripheral perfusion Skin Other: Warm dry no rash Neuro General: patient oriented x3, gait normal, no focal motor deficits and CN's II-XI intact bilaterally Psych Other: Cooperative Medications Administered Discontinued Medications Generic Name Dose Route Start Last Admin Trade Name Freq PRN Reason Stop Dose Admin Amoxicillin 500 mg 03/08/25 01:44 03/08/25 01:57 Amoxicillin 500 Mg Capsule PO 03/08/25 01:45 500 mg ONCE ONE Administration Medical Decision Making Medical Decision Making MDM Narrative: 55-year-old male with known CLL, recurrent urinary tract infections, BPH who presents with left ear pain x3 days. Patient states he has noted redness of the externa left ear, and that it feels swollen to him. He developed symptoms after [place] on [place]. Associated muffled hearing. Denies head pain posterior to the ear, swelling within this region or redness, no fevers. No purulent drainage from the ear. Patient states he recently was treated for swimmer's ear of the right 2 months ago. Problem: Cancer History: Per patient I have considered the following differential diagnoses: Serous otitis, OE, om, mastoiditis Plan: Patient has evidence of both otitis externa and media, we will treat with drops and oral antibiotics. He has no exam findings consistent with mastoiditis no indication for imaging or labs Differential Diagnosis Differential Diagnoses: The differential diagnosis associated with the presentation includes See medical decision-making Admission/Observation Consideration of admission/observation: Escalation of care including admission/observation considered Not applicable Discharge Plan Discharge Clinical Impression: Otitis externa, Otitis media Patient Disposition: Home, Self-Care Instructions: Swimmer's Ear (ED), How to Use Ear Drops (ED), Ear Infection (ED) Additional Instructions: See home care instructions. Use the medications as directed. Follow up with your primary care provider as needed. Prescriptions: New amoxicillin 500 mg capsule 500 mg PO Q12H Qty: 19 0RF ofloxacin 0.3 % drops 10 drp otic (ears) BID 10 Days Qty: 10 0RF No Action cyanocobalamin (vitamin B-12) 50 mcg Tablet 50 mcg PO DAILY magnesium 100 mg Tablet 100 mg PO DAILY ascorbic acid (vitamin C) 100 mg Tablet 100 mg PO DAILY zinc 50 mg Tablet 50 mg PO DAILY Centrum Men 8 mg iron- 200 mcg-600 mcg Tablet 1 tab PO DAILY ofloxacin 0.3 % drops 10 drp otic (ears) DAILY 7 Days Qty: 10 0RF amlodipine 10 mg tablet 10 mg PO DAILY cefuroxime axetil 500 mg tablet 500 mg PO BID 7 Days Qty: 14 0RF azithromycin [Zithromax Z-Tereso] 250 mg tablet See Rx Instructions .ROUTE .COMPLEX Qty: 6 0RF Rx Instructions: For 250 mg dose pack: take 500 mg today (day 1), then 250 mg for 4 days (days 2-5) codeine-guaifenesin 10-100 mg/5 mL liquid 10 ml PO Q6H PRN (Reason: cough) Qty: 237 0RF lisinopril 40 mg tablet 40 mg PO DAILY ascorbic acid (vitamin C) 1,000 mg tablet 1,000 mg PO DAILY 90 Days Qty: 90 1RF methenamine hippurate 1 gram tablet 1 g PO DAILY 90 Days Qty: 90 1RF tamsulosin [Flomax] 0.4 mg capsule 0.4 mg PO BEDTIME 30 Days Qty: 30 1RF Interventions: ED Discharge Assessment Last Done: 03/08/25 01:58 Discharge Date/Time: 03/08/25 02:03 Print Language: Vietnamese
[2025-03-08 01:58] VITALS: BP 151/85; PULSE 65; RESP 16; TEMP 36.8; O2SAT 98
== END 2025-03-08 02:03 | disposition home or self-care (01) ==
PROVIDERS: Emergency Provider Emergency Medicine
DX: H60.92 Unspecified otitis externa, left ear (principal); H66.92 Otitis media, unspecified, left ear; N40.0 Benign prostatic hyperplasia without lower urinary tract symptoms; R59.1 Generalized enlarged lymph nodes; D72.819 Decreased white blood cell count, unspecified; I10 Essential (primary) hypertension; R10.11 Right upper quadrant pain; G47.33 Obstructive sleep apnea (adult) (pediatric)
CPT/HCPCS: 99283

== ENCOUNTER 2025-03-15 09:23 | Outpatient (REF) | payer MEDICAID, SELFPAY ==
--- OUTSIDE RECORDS SUMMARY | 2025-03-15 10:20 | XMS_ITS | Encounter Summary ---
Author Organization [employer] Address [address] [place] [address] Care Team Providers Care Single Pointed Operator Name Role Phone Name, Louis DISLA Primary Care Provider [phone] Encounter Details Date Type Department Care Team (Late Contact Info) Description 10/09/2022 Abstract [facility] ADULT DENTAL [address] [place], [place] [phone] Kamlesh Pedrazaaris [address] [place] [address] Social History Tobacco Use Types Packs/Day Years [...] Upcoming Encounters Date Type Department Care Team ([facility] Contact Info) Description 03/21/2025 11:00 AM EDT Office Visit [facility] MEDICINE [address] [place], [place] [phone] Name, MD Louis [address] [place] [address] documented as of this encounter Visit Diagnoses Not on filedocumented in this encounter Care Teams Single Pointed Operator Relationship Specialty Start Date End Date Name, MD Louis [address] [place] [address] PCP - General Family Medicine 07/14/18 documented as of this encounter
--- OUTSIDE RECORDS SUMMARY | 2025-03-15 10:20 | XMS_ITS | Encounter Summary ---
Author Organization [employer] [facility] Address [address] [place] [address] Care Team Providers Care Tape Recorder Mechanic Name Role Phone Name, Louis DISLA Primary Care Provider Unavailabl e Community, Pcp Primary Care Provider Unavailabl e Encounter Details Date Type Department Care Team Description 09/02/2013 Transfer Records Medical Records [address] [place] [address] Abstract, Provider Social History Tobacco Use Types Packs/Day Years Used Date Smoking Tobacco: Former Smokeless Tobacco: Former Comments:smoked for only 2 w eeks,sociallly Alcohol Use Standard Drinks/Week Comments No 0 (1 standard drink = 0.6 oz pur e alcohol) Sex Assigned at Date Recorded Not on file documented as of this encounter Plan of Treatment Not on file documented as of this encounter Visit Diagnoses Not on filedocumented in this encounter Care Teams Tape Recorder Mechanic Relationship Specialty Start Date End Date Name, MD Louis PCP - General 05/17/10 09/03/15 Community, Pcp PCP - General Internal Medicine 09/04/15 documented as of this encounter
--- OUTSIDE RECORDS SUMMARY | 2025-03-15 10:20 | XMS_ITS | Encounter Summary ---
Author Organization [employer] [facility] Address [address] [place] [address] Care Team Providers Care Monotype Operator Name Role Phone Name, Louis DISLA Primary Care Provider Unavailabl e Community, Pcp Primary Care Provider Unavailabl e Encounter Details Date Type Department Care Team Description 07/17/2010 Labor And Delivery Registered Nurse Report Medical Records [address] [place] [address] Alexy Smith Social History Tobacco Use Types Packs/Day Years [...] on filedocumented in this encounter Care Teams Monotype Operator Relationship Specialty Start Date End Date Name, MD Louis PCP - General 05/17/10 09/03/15 Community, Pcp PCP - General Internal Medicine 09/04/15 documented as of this encounter
--- OUTSIDE RECORDS SUMMARY | 2025-03-15 10:20 | XMS_ITS | Encounter Summary ---
Author Organization [employer] [facility] Address [address] [place] [address] Care Team Providers Care Staff Anesthetist Name Role Phone Name, Louis DISLA Primary Care Provider Unavailabl e Community, Pcp Primary Care Provider Unavailabl e Encounter Details Date Type Department Care Team Description 09/08/2012 [facility] Medical Records [address] [place] [address] Chris Holden Social History Tobacco Use Types Packs/Day Years [...] on filedocumented in this encounter Care Teams Staff Anesthetist Relationship Specialty Start Date End Date Name, MD Louis PCP - General 05/17/10 09/03/15 Community, Pcp PCP - General Internal Medicine 09/04/15 documented as of this encounter
--- OUTSIDE RECORDS SUMMARY | 2025-03-15 10:20 | XMS_ITS | Clinical Summary ---
Author Organization [facility] Address [address] [place] [address] Phone Care Team Providers Care Manufacturing Process Technician Name Role Phone Name, Louis DISLA Primary Care Provider Active Problems Problem Noted Date Diagnosed Date [...] FOBT 2013 SIGMOIDOSCOPY 2013 VIRTUAL COLONOSCOPY 2013 INFLUENZA VACCINE (#1) 2025 COVID-19 VACCINE (1 - 2023-2 5 season) 2025 LIPID PANEL 10/14/2028 10/15/2023 Adult Td,Tdap Booster [...] topic Medical Devices Not on file Insurance [facility] [address] [place] [address] [place] [address] [place] [address] [place] [address] [place] [address] [place] [address] [employer] [facility] C3 ACO [facility] C3 ACO Care Teams Manufacturing Process Technician Relationship Specialty Start Date End Date Name, MD Louis [address] [place] [phone] PCP - General Internal Medicine 09/29/24 Additional Source Comments The information contained in this document represents components of the legal health record. It is not the complete legal health record[facility]
--- OUTSIDE RECORDS SUMMARY | 2025-03-15 10:20 | XMS_ITS | Encounter Summary ---
Author Organization [employer] Address [address] [place] [address] Care Team Providers Care Rehab Spec Name Role Phone Name, Louis DISLA Primary Care Provider [phone] Encounter Details Date Type Department Care Team (Late Contact Info) Description 10/21/2022 Abstract [facility] [address] [place], [place] [phone] Kamlesh Pedrazaaris [address] [place] [address] Social History Tobacco Use Types Packs/Day Years [...] Upcoming Encounters Date Type Department Care Team ([facility] Contact Info) Description 03/21/2025 11:00 AM EDT Office Visit [facility] [address] [place], [place] [phone] Name, MD Louis [address] [place] [address] documented as of this encounter Visit Diagnoses Not on filedocumented in this encounter Care Teams Rehab Spec Relationship Specialty Start Date End Date Name, MD Louis [address] [place] [address] PCP - General Family Medicine 07/14/18 documented as of this encounter
--- OUTSIDE RECORDS SUMMARY | 2025-03-15 10:20 | XMS_ITS | Encounter Summary ---
Author Organization [employer] [facility] Address [address] [place] [address] Care Team Providers Care Digital Content Coordinator Name Role Phone Louis Valverde MD Primary Care Provider Unavailabl e Community, Pcp Primary Care Provider Unavailabl e Reason for Visit * Reason Onset Date Comments Call From Hospital 06/07/2014 [facility] Encounter Details Date Type Department Care Team Description 06/07/2014 Telephone Adult Medicine [address] [address] Louis Valverde MD Call From Hospital ([facility]) Social History Tobacco Use Types Packs/Day Years Used Date Smoking Tobacco: Former Smokeless Tobacco: Former Comments:smoked for only 2 w eeks,sociallly Alcohol Use Standard Drinks/Week Comments No 0 (1 standard drink = 0.6 oz pur e alcohol) Sex Assigned at Date Recorded Not on file documented as of this encounter Miscellaneous Notes * Telephone Encounter - Christine Villatoro R.N. - 06/07/2014 2:38 PM EST Pt booked for 06/14 at 10;45 with name for [facility] f/u , message left for pt to call. He will need toconfirm appointment or be rescheduled with triage. * Telephone Encounter - Yelena Ashley L.P.N. - 06/07/2014 2:38 PM EST noted * Telephone Encounter - Louis Valverde MD - 06/07/2014 2:06 PM EST Patient is at the ER at [place]. He has right armpit enlarged lymph nodes. He will need a medical scientist visit soon and we will to have to biopsy these lymph nodes due to this history of renal cancer. * Telephone Encounter - Ismael Gonzalez - 06/07/2014 1:56 PM EST Roberta calling back again to speak to Dr Valverde * Telephone Encounter - Lisset Mirza - 06/07/2014 1:14 PM EST Call from Roberta at [facility] she is a PA there patient had abdnormal ultrasound had massive kidney mass armpit Lymphoids enlarged she is asking to speak to Dr Abram kulkarni I could not reach the nurse to put call thru No answer several times. documented in this encounter Plan of Treatment Not on file documented as of this encounter Visit Diagnoses Not on filedocumented in this encounter Care Teams Digital Content Coordinator Relationship Specialty Start Date End Date Louis Valverde MD PCP - General 05/17/10 09/03/15 [facility], Pcp PCP - General Internal Medicine 09/04/15 documented as of this encounter
--- OUTSIDE RECORDS SUMMARY | 2025-03-15 10:20 | XMS_ITS | Encounter Summary ---
Author Organization [employer] [facility] Address [address] [place] [address] Care Team Providers Care Tracing Lathe Set Up Operator Name Role Phone Name, Louis DISLA Primary Care Provider Unavailabl e Community, Pcp Primary Care Provider Unavailabl e Encounter Details Date Type Department Care Team Description 09/09/2012 [facility] Medical Records [address] [place] [address] Chris Holden Social History Tobacco Use Types [...] on filedocumented in this encounter Care Teams Tracing Lathe Set Up Operator Relationship Specialty Start Date End Date Name, MD Louis PCP - General 05/17/10 09/03/15 [facility], Pcp PCP - General Internal Medicine 09/04/15 documented as of this encounter
--- OUTSIDE RECORDS SUMMARY | 2025-03-15 10:20 | XMS_ITS | Encounter Summary ---
Author Organization [employer] [facility] Address [address] [place] [address] Care Team Providers Care Grinding Machine Operator Portable Name Role Phone Abram, Louis DISLA Primary Care Provider Unavailabl e Community, Pcp Primary Care Provider Unavailabl e Reason for Visit * Reason Onset Date Comments Walk In 12/14/2012 high bp Encounter Details Date Type Department Care Team Description 12/14/2012 Telephone Adult Medicine [address] [address] Name, MD Louis Walk In (high bp) Social History Tobacco Use Types Packs/Day Years Used Date Smoking Tobacco: Former Smokeless Tobacco: Former Comments:smoked for only 2 w eeks,sociallly Alcohol Use Standard Drinks/Week Comments No 0 (1 standard drink = 0.6 oz pur e alcohol) Sex Assigned at Date Recorded Not on file documented as of this encounter Miscellaneous Notes * Telephone Encounter - Christine Villatoro R.N. - 12/14/2012 9:16 AM EDT Pt to see jaziel guevara now. Records requested. * Telephone Encounter - Alondra Gonzales - 12/14/2012 9:09 AM EDT Symptoms patient is presenting: patient went to ER [facility] for high BP, he wants to see his Louis Valverde MD Today, please advise- er increased his lisinopril to 80 mg from 20 mg How long has patient had these symptoms?: since last friday PCP: Louis Valverde MD Payor: [facility] [employer] FFS Plan: FFS HMO $0 [place] [id number] Product Type: MEDICAID RISK documented in this encounter Plan of Treatment Not on file documented as of this encounter Visit Diagnoses Not on filedocumented in this encounter Care Teams Grinding Machine Operator Portable Relationship Specialty Start Date End Date Name, MD Louis PCP - General 05/17/10 09/03/15 [facility], Pcp PCP - General Internal Medicine 09/04/15 documented as of this encounter
--- OUTSIDE RECORDS SUMMARY | 2025-03-15 10:20 | XMS_ITS | Encounter Summary ---
Author Organization [employer] Address [address] [facility] 7[address] [place] [address] Care Team Providers Care Toucher Up Name Role Phone Name, Louis DISLA Primary Care Provider [phone] Reason for Visit * Reason Onset Date Comments call back 08/27/2022 Encounter Details Date Type Department Care Team ([facility] st Contact Info) Description 08/27/2022 Telephone [facility] MEDIC[facility] [address] [place], [place] [phone] Name, MD Louis [address] [place] [address] call back Social History Tobacco Use Types [...] EST 2nd call placed to pt via [employer] Room Designer Radha #[id number]. Advised of message from pcp re: lab [...] being at work Please contact pt at [phone] documented in this encounter Plan of Treatment Upcoming Encounters Date Type Department Care Team (Late st Contact Info) Description 03/21/2025 11:00 AM EDT Office Visit [facility] MED[facility] [address] [place] [address] Name, MD Louis [address] [place] [address] documented as of this encounter Visit Diagnoses Diagnosis Leukocytosis, unspecified type- Primary documented in this encounter Care Teams Toucher Up Relationship Specialty Start Date End Date Name, MD Louis [address] [place] [address] PCP - General Family Medicine 07/14/18 documented as of this encounter
--- OUTSIDE RECORDS SUMMARY | 2025-03-15 10:20 | XMS_ITS | Clinical Summary ---
Author Organization [employer] Address [address] [facility] 7t [place] [address] Care Team Providers Care Keyseating Machine Set Up Operator Name Role Phone Name, Louis DISLA Primary Care Provider [phone] Allergies No known active allergies Medications clindamycin (Cleocin T) 1 % lotion APPLY TO AFFECTED AREA TWICE A DAY 60 mL 2 10/28/19 24 Active lisinopril 40 MG tabletIndicatio ns:Hypertension , unspecified type Take 1 tablet (40 mg) by mouth in the morning. 90 tablet 3 01/30/20 24 Active amLODIPine (Norvasc) 10 MG tabletIndicatio ns:Hypertension , unspecified type Take 1 tablet (10 mg) [...] ONCE PER DAY. 48 mL 02/09/20 25 Active loratadine (Claritin) 10 MG tablet TAKE 1 TABLET BY MOUTH EVERY DAY IN THE MORNING 90 tablet 1 03/07/20 25 Active loratadine (Claritin) 10 MG tablet TAKE 1 TABLET BY MOUTH EVERY DAY IN THE MORNING 90 tablet 1 01/09/20 24 025 Discontinued Active Problems Problem Noted Date [...] cpap with good improvement since 2009. [employer] Home Infussion Hypertension 11/12/2010 ED (erectile dysfunction) [...] 08/12/2022 0 10/14/2023 Overview (08/12/2022): Follow at [facility], colonoscopy Q 3 years Had more [...] appointment. Was removed by outside urology at [facility]. Renal mass 09/17/2012 10/14/2023 Overview (12/19/2022): Left-sided. Seen in MRI on 08/26 at [facility] for work up of Hematuria. Patient is following with Urology there. Biopsy showed malignancy and the patient was been scheduled for partial nephrectomy on October of 2012. Patient continues to follow at [facility] with serial CT of the kidneys and serial cystoscopies Encounters Date Type Department Care Team Description 03/06/2025 Refill [facility] MED[facility] [address] [place] [address] Louis Valverde MD 02/07/2025 1:00 PM EDT Office Visit [facility] [address] [place] [phone] Kelli Garcia MD Sensorineural hearing loss (SNHL) of both ears (Primary Dx) 02/07/2025 Refill [facility] [address] [place] [phone] Kelli Garcia MD 02/07/2025 Travel 01/31/2025 Orders Only GENERIC EXTERNAL DATA DEPARTMENT Provider, Generic External Data 01/30/2025 Orders Only GENERIC EXTERNAL DATA DEPARTMENT Provider, Generic External Data 12/17/2024 Telephone [facility] [address] [place] [phone] Hitesh Boyle [place] february recalls 12/15/2024 Telephone [facility] [address] [place] [address] Louis Valverde MD Durable Medical Equipment (CPAP [...] Description 03/21/2025 11:00 AM EDT Office Visit [facility] MED[facility] [address] [place], [place] [phone] Name, MD Louis [address] [place] [address] Health Maintenance Due Date Last Done Comments [...] 11/23/2025 11/23/2024 Depression Screening 11/23/2025 11/23/2024, 11/24/19 25 Disability Screening 11/23/2025 11/23/2024 Tobacco Screening 11/23/2025 [...] EDT 01/31/2025 10:37 PM EDT Comment:Blood Narrative [facility] - 02/06/2025 12:37 AM EDT Blood Culture (Second) No growth after 5 days. Specimen Source: Blood us Generic External Data Provider LAB MICROBIOLOGY - GENERAL ORDERABLES Final Result [facility] [address] [place] [phone] * Blood Culture (First) (01/31/2025 10:23 PM EDT) Blood Venous blood specimen / Unknown 01/31/2025 10:23 PM EDT 01/31/2025 10:27 PM EDT Comment:Blood Narrative [facility] - 02/06/2025 12:27 AM EDT Blood Culture (First) No growth after 5 days. Specimen Source: Blood Generic External Data Provider LAB MICROBIOLOGY - GENERAL ORDERABLES Final Result Performing Organization Address [facility] Co de Phone Number [facility] [address] [place] [phone] * Lactic Acid (01/31/2025 10:23 PM EDT) Lactic Acid 0.8 0.5 - 2.0 mmol/L [facility] 01/31/2025 10:2 3 PM EDT 01/31/2025 10:27 PM EDT Generic External Data Provider LAB BLOOD ORDERAB LES Final Result Performing Organization Address [facility] de Phone Number [facility] [address] [place] [phone] * Pathologist Review - CBC (01/31/2025 7:46 PM EDT) Pathologist Review - CBC SEE NOTE [facility] Comment:- Lymphocytosis with abnormal lymphoid cells [...] Final Result Performing Organization Address [facility] Co de Phone Number [facility] [address], [place] [phone] * (ABNORMAL) Complete Blood Count Manual Diff (01/31/2025 7:46 PM EDT) White Blood Count 58.7(HH) 4.8 - 10.8 X10*3/uL [facility] Comment:Results of WBC interiano d to and read back by Marquez 01/31/25 at 2014 by ASHIA. Red Blood Count 4.19(L) 4.60 - 5.80 X10*6/uL [facility] Hemoglobin 11.8(L) 14.0 - 18.0 g/dl [facility] Hematocrit 36.9(L) 42.0 - 52.0 % [facility] Mean Corpuscular Volume 88.1 80.0 - 98.0 fL [facility] Mean Corpuscular Hemoglobin 28.2 27.0 - 33.0 pg [facility] Mean Corpuscular HGB Conc 32.0 31.0 - 36.0 g/dl [facility] Red Cell Distribution Width 15.4 11.0 - 16.0 % [facility] Platelet Count 133(L) 160 - 400 X10*3/uL [facility] Mean Platelet Volume 9.3(L) 9.4 - 12.4 fL [facility] NRBC Pct Auto 0.0 0.0 - 0.2 /100WBC [facility] NRBC Abs Auto 0.000 0.0 - 0.012 X10*3/uL [facility] Neutrophils % Manual 8(L) 45 - 73 % [facility] Band Neutrophils Percent 2(L) 3 - 5 % [facility] Lymphocytes Percent Manual 83(H) 20 - 40 % [facility] Atypical Lymphs Percent Manual 1 0 - 6 % [facility] Monocytes Percent Manual 6 2 - 11 % [facility] NEUTROPHILS ABSOLUTE MANUAL 5.9 2.0 - 8.3 X10*3/uL [facility] LYMPHOCYTES ABSOLUTE MANUAL 48.7(H) 1.2 - 4.9 X10*3/uL [facility] Atypical Lymph Absolute Manual 0.6 x10*3/uL [facility] MONOCYTES ABSOLUTE MANUAL 3.5(H) 0.1 - 1.2 X10*3/uL [facility] Smudge Cells PRESENT [facility] Platelet Estimate SLIGHTLY DECREASED NORMAL [facility] Platelet Morphology Comment NORM [facility] RBC Morphology NORMAL [facility] 01/31/2025 7:46 PM EDT 01/31/2025 7:55 PM EDT us Generic External Data Provider LAB BLOOD ORDERAB LES Final Result Performing Organization Address [facility] Co de Phone Number [facility] [address] [place] [phone] * B Type Natriuretic Peptide (BNP) (01/31/2025 7:46 PM EDT) [facility] B Type Natriuretic Peptide 14 <100 pg/mL [facility] 01/31/2025 7:46 PM EDT 01/31/2025 7:55 PM EDT Generic External Data Provider LAB BLOOD ORDERAB LES Final Result Performing Organization Address [facility] Co de Phone Number [facility] [address] [place] [phone] * (ABNORMAL) Comprehensive Metabolic Panel (01/31/2025 7:46 PM EDT) [facility] Sodium 139 135 - 145 mmol/L [facility] Potassium 5.0 3.3 - 5.1 mmol/L [facility] Chloride 107 96 - 108 mmol/L [facility] Carbon Dioxide 26 22 - 29 mmol/L [facility] Anion Gap 11(L) 12 - 20 [facility] Urea Nitrogen (BUN) 21(H) 9 - 16 mg/dL [facility] Creatinine, Serum 0.98 0.5 - 1.4 mg/dL [facility] Creatinine Clr Calc Pharmacy 94.2 [facility] Comment:eGFR (calculated fro m the MDRD study equation) and eCrCl(calculated from the Cockcroft-Gault equation) are based ondifferent parameters and may not yield comparable results.If eCrCl result is absurd, please check patient'sheight/weight. Estimated Glomerular Filt Rate >60 [facility] Comment:Chronic Kidney Disea se: Estimated GFR < 60 mL/min/1.59a1Rmtlwd Kidney Disease: Estimated GFR < 15 mL/min/1.73m2 Glucose 103 60 - 115 mg/dL [facility] Calcium 8.8 8.4 - 10.2 mg/dL [facility] Bilirubin, Total 0.7 0.0 - 1.0 mg/dL [facility] Aspartate Amino Transferase 20 5 - 37 U/L [facility] Alanine Aminotransferase 18 0 - 40 U/L [facility] Total Protein 6.7 6.5 - 8.0 g/dL [facility] Albumin Level 4.8 3.5 - 5.0 g/dL [facility] Alkaline Phosphatase 80 39 - 117 U/L [facility] 01/31/2025 7:46 PM EDT 01/31/2025 7:55 PM EDT us Generic External Data Provider LAB BLOOD ORDERAB LES Final Result Performing Organization Address City/State/[facility] Co de Phone Number [facility] [address] [place] [phone] * XR Chest 2 Views (01/31/2025 7:43 PM EDT) Anatomical Region Laterality Modality Chest Radiographic Susannah ging 01/31/2025 7:43 PM EDT Narrative 01/31/2025 7:44 PM EDT [address] [address] XRay Report Signed Patient: Kelly Irwin Méndez MR#: [id number] : 1970 Acct:[id number] Age/Sex: 54 / M ADM Date: 01/31/25 Loc: HO.ED Attending Dr: Ordering Physician: Malinda Lamar CNP Date of Service: 01/31/25 Procedure(s): XR chest 2V Accession Number(s): [id number] cc: Malinda Lamar CNP; Name,Louis DISLA CLINICAL [...] in OV> 01/31/251943 DD/ 42 TD/TT: 01/31/251942 Marine Erector: Procedure Note Donotuseinterpreter, Image - 01/31/2025 [place] [address] XRay Report Signed Patient: Irwin Mendoza Jr#: [id number] : 1970Acct:[id number] Age/Sex: 54 / MADM Date: 01/31/25 Loc: .ED Attending Dr: Ordering Physician: Malinda Lamar CNP Date of Service: 01/31/25 Procedure(s): XR chest 2V Accession Number(s): [id number] cc: Malinda Lamar CNP; Name,Louis DISLA CLINICAL [...] in OV> 01/31/251943 DD/ 42 TD/TT: 01/31/251942 Marine Erector: [facility] External Provider IMG XR PROCEDURES Final Result * Strep A Nucleic Acid (01/30/2025 1:15 PM EDT) [employer] SERIAL# [id number] [facility] Strep A Nucleic Acid Negative Negative [facility] Comment:All test results mus [...] LAB MICROBIOLOGY - GENERAL ORDERABLES Final Result [facility] [address] [place] [phone] * SARS-CoV-2 RNA, Influenza A/B, and RSV RNA, Ql NAAT (01/30/2025 1:15 PM EDT) Influenza A PCR NEGATIVE Negative [facility] Influenza B PCR NEGATIVE Negative [facility] Resp Syncy Virus RNA Qual PCR NEGATIVE Negative [facility] SARS COV2 PCR NEGATIVE Negative [facility] Comment:All test results mus t [...] use by authorized laboratories.Testing performed on the Cepheid GeneXpert utilizingreal-time RT-PCR.All SARS CoV2 and positive influenza A/B results arereported to [facility]. 01/30/2025 1:15 PM EDT 01/30/2025 1:32 PM EDT us Generic External Data Provider LAB MICROBIOLOGY - GENERAL ORDERABLES Final Result Performing Organization Address [facility] Co de Phone Number [facility] [address] [place] [phone] * Hm Colonoscopy (10/08/2024 7:58 AM EDT) Historical Provider HEALTH MAINTENANCE Final Result * Hepatitis C Ab (10/15/2023 9:19 AM EDT) Hepatitis C Antibody Nonreactive Nonreactive [facility] Comment:Antibodies to HCV no t detected; does not exclude early acuteHCV infection. Blood Venous blood specimen / Unknown 10/15/2023 9:19 AM EDT 10/15/2023 11:17 AM EDT Louis Valverde MD LAB BLOOD ORDERABLES Final Resul t Performing Organization Address [facility] de Phone Number [facility] [address] [place] [phone] * (ABNORMAL) Lipid Panel, Standard (10/15/2023 9:19 AM EDT) Triglycerides 191(H) <150 mg/dL [facility] Comment:Desirable Triglyceri de: less than 150 mg/dLBorderline High Triglyceride 150-199 mg/dLHigh Triglyceride: 200-499 mg/dLVery High Triglyceride: greater than or equal to 5OO mg/dL Cholesterol 199 <200 mg/dL [facility] Comment:Desirable Cholestero l: less than 200 mg/dLBorderline High Cholesterol: 200-239 mg/dLHigh Cholesterol: greater than 239 mg/dL LDL Cholesterol Calculated 123(H) <100 mg/dL [facility] Comment:Desirable LDL: less than 100 mg/dLNear Optimal/Above Optimal LDL: 110- 129 mg/dLBorderline High LDL: 130-159 mg/dLHigh LDL: 160-189 mg/dLVery High LDL: greater than or equal to 190 mg/dL HDL Cholesterol 38(L) >40 mg/dL [facility] Comment:Desirable HDL: great er than 40 mg/dL Note: This HDL assay may give artificially low results in patients with liver disease. Blood Venous blood specimen / Unknown 10/15/2023 9:19 AM EDT 10/15/2023 11:17 AM EDT us Louis Valverde MD LAB BLOOD ORDERABLES Final Resul t [facility] [address] [place] [phone] from Last 3 Months or Most Recently Relevant to Health Maintenance Insurance [facility] C[facility] MEDICAID STAND ADULT Care Teams Keyseating Machine Set Up Operator Relationship Specialty Start Date End Date Name, MD Louis [address] [place] [phone] PCP - General Family Medicine 07/14/18
--- OUTSIDE RECORDS SUMMARY | 2025-03-15 10:20 | XMS_ITS | Encounter Summary ---
Author Organization [employer] [facility] Address [address] [place] [address] Care Team Providers Care Communications Supervisor Name Role Phone Name, Louis DISLA Primary Care Provider Unavailabl e Community, Pcp Primary Care Provider Unavailabl e Encounter Details Date Type Department Care Team Description 11/10/2012 Cake Wrapper Report Medical Records [address] [place] [address] Abstract, Provider Social History Tobacco Use Types [...] on filedocumented in this encounter Care Teams Communications Supervisor Relationship Specialty Start Date End Date Name, MD Louis PCP - General 05/17/10 09/03/15 Community, Pcp PCP - General Internal Medicine 09/04/15 documented as of this encounter
--- OUTSIDE RECORDS SUMMARY | 2025-03-15 10:20 | XMS_ITS | Clinical Summary ---
Author Organization [facility] Address [address] [place] [address] Care Team Providers Care Valet Parking Attendant Name Role Phone Community, Pcp Primary Care Provider Unavailabl e Allergies No known active allergies Medications Medication Sig Dispensed Refills Start Date End Date Status lisinopril (PRINIVIL,ZESTRIL) 40 MG tabletIndications:Hyp ertension,NATHAN (obstructive sleep apnea) Take 1 Tab by mouth daily. 30 Tab 5 06/03/2014 Active chlorthalidone (HYGROTEN) 25 MG tabletIndications:Hyp ertension,NATHAN (obstructive sleep apnea) Take 1 Tab by mouth daily. 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 He is recommended to keep his appointment. Was removed by outside urology at [facility]. Renal mass 09/17/2012 Overview: Left-sided. Seen in MRI on 08/26 at [facility] for work up of Hematuria. Patient is following with Urology there. Biopsy showed malignancy and the patient was been scheduled for partial nephrectomy on October of 2012. Patient continues to follow at [place] with serial CT of the kidneys and serial cystoscopies NATHAN (obstructive sleep apnea) 02/06/2011 Overview: On cpap with good improvement since 2009. 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.] Assigned at Date Recorded Not on file Last Filed Vital Signs Vital Sign Reading Time Taken Comments Blood Pressure 120/74 02/06/2015 9:39 AM EDT Pulse 60 02/06/2015 9:39 AM EDT Temperature 36.7 C (98 F) 02/06/2015 9:39 AM EDT Respiratory Rate 16 02/06/2015 9:39 AM EDT Oxygen Saturation 97% 01/27/2013 8:52 AM EDT Inhaled Oxygen Concentration - - Weight 95.8 kg (211 lb 1.6 oz) 02/06/2015 9:39 A M EDT Height 172.7 cm (5' 8 ) 02/06/2015 9:39 AM EDT Body Mass Index 32.1 02/06/2015 9:39 AM EDT Plan of Treatment Health Maintenance Due Date Last Done Comments Covid-19 Vaccine (#1) 1970 TOBACCO CHECK/ADVISE 1986 BASELINE HEALTH EXAM 40-64 06/20/2012 06/20/2010, SHINGLES VACCINE (1 of 2) 2018 CHOLESTEROL SCREENING 06/22/2019 06/22/2014 , 08/20/2013, 12/21/2012, Additional history exists DTAP/TDAP/TD (2 - Td or Tdap) 01/27/2023 01/27/2013 COLON CANCER SCREENING 05/11/2023 05/11/2013 BMI CHECK/ADVISE 07/14/2024 02/06/2015, 06/03/2014 INFLUENZA (#1) 2025 06/03/2014, 02/2011, 06/19/2010 PNEUMOCOCCAL VACCINE FOR HIG H RISK PATIENTS (#1) 2033 Care Teams Valet Parking Attendant Relationship Specialty Start Date End Date Community, Pcp PCP - General Internal Medicine 09/04/15
--- OUTSIDE RECORDS SUMMARY | 2025-03-15 10:20 | XMS_ITS | Encounter Summary ---
Author Organization [facility] Address [address] [place] [address] Care Team Providers Care Securities Counselor Name Role Phone Community, Pcp Primary Care Provider Unavailabl e Encounter Details Date Type Department Care Team Description 10/02/2015 Release of Information Medical Records [address] [place] [id number] Abstract, Provider Social History Tobacco Use Types [...] on filedocumented in this encounter Care Teams Securities Counselor Relationship Specialty Start Date End Date Community, Pcp PCP - General Internal Medicine 09/04/15 documented as of this encounter
--- OUTSIDE RECORDS SUMMARY | 2025-03-15 10:20 | XMS_ITS | Encounter Summary ---
Author Organization [facility] Address [address] [place] [address] Care Team Providers Care Target Man Name Role Phone Name, Louis DISLA Primary Care Provider Unavailabl e Community, Pcp Primary Care Provider Unavailabl e Encounter Details Date Type Department Care Team Description 03/06/2015 Slubber Machine Operator Report Medical Records [address] [place] [id number] Freddy Torres Social History Tobacco Use Types Packs/Day Years [...] on filedocumented in this encounter Care Teams Target Man Relationship Specialty Start Date End Date Name, MD Louis PCP - General 05/17/10 09/03/15 Community, Pcp PCP - General Internal Medicine 09/04/15 documented as of this encounter
--- OUTSIDE RECORDS SUMMARY | 2025-03-15 10:20 | XMS_ITS | Encounter Summary ---
Author Organization [facility] Address [address] [place] [address] Care Team Providers Care Cnc Specialist Name Role Phone Abram, Louis DISLA Primary Care Provider Unavailabl e Community, Pcp Primary Care Provider Unavailabl e Encounter Details Date Type Department Care Team Description 08/24/2013 Telephone Radiology - [address] [address] Louis Shepherd MD Social History Tobacco Use Types Packs/Day Years Used Date Smoking Tobacco: Former Smokeless Tobacco: Former Comments:smoked for only 2 w eeks,sociallly Alcohol Use Standard Drinks/Week Comments No 0 (1 standard drink = 0.6 oz pur e alcohol) Sex Assigned at Date Recorded Not on file documented as of this encounter Miscellaneous Notes * Telephone Encounter - Louis Shepherd MD - 08/27/2013 9:52 AM EST I spoke with the patient and we discussed the results and he agrees to have the biopsy done on Friday * Telephone Encounter - Trini Britt - 08/25/2013 9:28 AM EST Patient returning Dr. Shepherd's call [phone] * Telephone Encounter - Louis Shepherd MD - 08/25/2013 8:28 AM EST I called the patient but he was not available. I left him a message to call back. * Telephone Encounter - Christine Villatoro R.N. - 08/24/2013 3:04 PM EST Let pt know that dr shepherd is not in today and I will ask him to review / call pt tomorrow, * Telephone Encounter - Sandrita Keith - 08/24/2013 2:56 PM EST Phone call from patient looking for the results of the ultrasound he had yesterday, he wanted a phone call from Dr. Shepherd. Thank you documented in this encounter Plan of Treatment Not on file documented as of this encounter Visit Diagnoses Not on filedocumented in this encounter Care Teams Cnc Specialist Relationship Specialty Start Date End Date Louis Shepherd MD PCP - General 05/17/10 09/03/15 [facility], Pcp PCP - General Internal Medicine 09/04/15 documented as of this encounter
--- OUTSIDE RECORDS SUMMARY | 2025-03-15 10:20 | XMS_ITS | Encounter Summary ---
Author Organization [facility] Address [address] [place] [address] Care Team Providers Care Sample Shoe Inspector And Reworker Name Role Phone Name, Louis DISLA Primary Care Provider Unavailabl e Community, Pcp Primary Care Provider Unavailabl e Encounter Details Date Type Department Care Team Description 10/19/2012 Transfer Records Medical Records [address] [place] [address] Abstract, Provider Social History Tobacco Use Types [...] on filedocumented in this encounter Care Teams Sample Shoe Inspector And Reworker Relationship Specialty Start Date End Date Name, MD Louis PCP - General 05/17/10 09/03/15 Community, Pcp PCP - General Internal Medicine 09/04/15 documented as of this encounter
--- OUTSIDE RECORDS SUMMARY | 2025-03-15 10:20 | XMS_ITS | Encounter Summary ---
Author Organization [facility] Address [address] [place] [address] Care Team Providers Care Aerodynamicist Name Role Phone Name, Louis DISLA Primary Care Provider [phone] Encounter Details Date Type Department Care Team (Late Contact Info) Description 10/09/2022 Abstract [facility] [address] [place], [place] [phone] Kamlesh Pedrazaaris [address] [place] [address] Social History Tobacco Use Types Packs/Day Years [...] Upcoming Encounters Date Type Department Care Team ([facility] Contact Info) Description 03/21/2025 11:00 AM EDT Office Visit [facility] [address] [place], [place] [phone] Name, MD Louis [address] [place] [address] documented as of this encounter Visit Diagnoses Not on filedocumented in this encounter Care Teams Aerodynamicist Relationship Specialty Start Date End Date Name, MD Louis [address] [place] [address] PCP - General Family Medicine 07/14/18 documented as of this encounter
--- OUTSIDE RECORDS SUMMARY | 2025-03-15 10:20 | XMS_ITS | Encounter Summary ---
Author Organization [employer] [facility] Address [address] [place] [address] Care Team Providers Care Health Education Teacher Name Role Phone Name, Louis DISLA Primary Care Provider [phone] Encounter Details Date Type Department Care Team ([facility] st Contact Info) Description 10/12/2024 Orders Only [facility] [address] [place] [address] Provider, MD Noam Social History Tobacco Use [...] Description 03/21/2025 11:00 AM EDT Office Visit [facility] [address] [place] [address] Name, MD Louis [address] [place] [address] documented as of this encounter Procedures Procedure [...] Lactic Acid 0.6 0.5 - 2.0 mmol/L [facility] 10/12/2024 2:37 PM EDT 10/12/2024 2:42 PM EDT us Generic External Data Provider LAB BLOOD ORDERAB LES Final Result Performing Organization Address City/State/[facility] Co de Phone Number [facility] [address] [place] [address] [phone] * CT Abdomen Pelvis w/o Contrast (10/12/2024 2:26 PM EDT) Anatomical Region Laterality Modality Body, Pelvis, Abdomen Computed T omography 10/12/2024 2:26 PM EDT Narrative 10/12/2024 3:38 PM EDT [place] [address] CT Scan Report Signed Patient: Irwin Mendoza Jr MR#: [id number] : 1970 Acct:[id number] Age/Sex: 54 / M ADM Date: 10/12/24 Loc: .ED Attending Dr: Ordering Physician: Mirta Dallas DO Date of Service: 10/12/24 Procedure(s): CT abdomen pelvis wo IV con Accession Number(s): [id number] cc: Mirta Dallas DO; Name,Louis DISLA Report Number: [id number]: Total DLP = 626.00 mGy-cm EXAMINATION: CT ABDOMEN PELVIS WITHOUT IV CONTRAST HISTORY: flank pain, recent cystoscopy COMPARISON: Relation is made with an outside PET/CT scan from [facility] dated 08/16/2024. TECHNIQUE: CT scan of the [...] 10/12/24 1535 DD/ 1426 TD/TT: 10/12/24 1518 [employer] Dispatcher: Procedure Note Donotuseinterpreter, Image - 10/12/[address] [place] [address] [address] Scan Report Signed Patient: Irwin Mendoza Jr#: [id number] : 1970Acct:[id number] Age/Sex: 54 / MADM Date: 10/12/24 Loc: HO.ED Attending Dr: Ordering Physician: Mirta Dallas DO Date of Service: 10/12/24 Procedure(s): CT abdomen pelvis wo IV con Accession Number(s): [id number] cc: Mirta Dallas DO; Name,Louis DISLA Report Number: [id number]: Total DLP = 626.00 mGy-cm EXAMINATION: CT ABDOMEN PELVIS WITHOUT IV CONTRAST HISTORY: flank pain, recent cystoscopy COMPARISON: Relation is made with an outside PET/CT scan from [facility] dated 08/16/2024. TECHNIQUE: CT scan of the [...] by Freddy Amin MD in OV> 10/12/24 1537 DD/ 1426 TD/TT: 10/12/24 1510 [employer] Dispatcher: [facility] External Provider IMG CT PROCEDURES Final Result * (ABNORMAL) Urinalysis, Complete, with Reflex to Culture (10/12/2024 1:27 PM EDT) Color Urine Dark Yellow [facility] Appearance Urine Cloudy [facility] PH 5.5 5.0 - 9.0 [facility] Glucose Urine UA Negative Negative mg/dL [facility] Urine Blood Moderate (2+)(A) Negative [facility] Specific [place] - Urine 1.020 1.005 - 1.025 [facility] Urine Protein 100 (2+)(A) Neg-Trace mg/dL [facility] Urine Ketones Trace Negative mg/dL [facility] Nitrite Urine Positive(A) Negative [facility] Leukocyte Esterase Urine Moderate (2+)(A) Negative [facility] RBC Urine >20(A) 0 - 2 /HPF [facility] Urine WBC >50(A) 0 - 5 /HPF [facility] Urine Squamous Epithelial Cell 0-2 0 - 2 /HPF [facility] Urine Bacteria 2+ None Seen [facility] Hyaline Casts, Urine 3-5 0 - 2 /LPF [facility] 10/12/2024 1:27 PM EDT 10/12/2024 1:30 PM EDT Narrative [facility] - 10/12/2024 1:39 PM EDT [id number], Clean Catch Generic External Data Provider LAB URINE ORDERAB LES Final Result [facility] [address] [place] [address] [phone] * Lipase (10/12/2024 1:21 PM EDT) Lipase 29 8 - 78 U/L [facility] 10/12/2024 1:21 PM EDT 10/12/2024 1:24 PM EDT us Generic External Data Provider LAB BLOOD ORDERAB LES Final Result Performing Organization Address City/[facility]/ZIP Co de Phone Number [facility] [address] [place] [phone] * Magnesium (10/12/2024 1:21 PM EDT) Pathologist [facility] Magnesium 2.2 1.6 - 2.6 mg/dL [facility] 10/12/2024 1:21 PM EDT 10/12/2024 1:24 PM EDT Generic External Data Provider LAB BLOOD ORDERAB LES Final Result Performing Organization Address [facility] Co de Phone Number [facility] [address] [place] [phone] * (ABNORMAL) Basic Metabolic Panel (10/12/2024 1:21 PM EDT) Pathologist [facility] Sodium 137 135 - 145 mmol/L [facility] Potassium 4.0 3.3 - 5.1 mmol/L [facility] Chloride 104 96 - 108 mmol/L [facility] Carbon Dioxide 28 22 - 29 mmol/L [facility] Anion Gap 9(L) 12 - 20 [facility] Urea Nitrogen (BUN) 21(H) 9 - 16 mg/dL [facility] Creatinine, Serum 0.78 0.5 - 1.4 mg/dL [facility] Creatinine Clr Calc Pharmacy 118.2 [facility] Comment:eGFR (calculated fro m the MDRD study equation) and eCrCl(calculated from the Cockcroft-Gault equation) are based ondifferent parameters and may not yield comparable results.If eCrCl result is absurd, please check patient'sheight/weight. Estimated Glomerular Filt Rate >60 [facility] Comment:Chronic Kidney Disea se: Estimated GFR < 60 mL/min/1.54d9Rajxta Kidney Disease: Estimated GFR < 15 mL/min/1.73m2 Glucose 108 60 - 115 mg/dL [facility] Calcium 9.5 8.4 - 10.2 mg/dL [facility] 10/12/2024 1:21 PM EDT 10/12/2024 1:24 PM EDT Generic External Data Provider LAB BLOOD ORDERAB LES Final Result Performing Organization Address [facility] de Phone Number [facility] [address] [place] [phone] * Hepatic Function Panel (10/12/2024 1:21 PM EDT) Bilirubin, Total 0.4 0.0 - 1.0 mg/dL [facility] Bilirubin, Direct 0.3 0.0 - 0.5 mg/dL [facility] Aspartate Amino Transferase 17 5 - 37 U/L [facility] Alanine Aminotransferase 20 0 - 40 U/L [facility] Total Protein 6.7 6.5 - 8.0 g/dL [facility] Albumin Level 4.2 3.5 - 5.0 g/dL [facility] Alkaline Phosphatase 75 39 - 117 U/L [facility] 10/12/2024 1:21 PM EDT 10/12/2024 1:24 PM EDT Generic External Data Provider LAB BLOOD ORDERAB LES Final Result Performing Organization Address [facility] de Phone Number [facility] [address] [place] [phone] * (ABNORMAL) Complete Blood Count Manual Diff (10/12/2024 1:21 PM EDT) White Blood Count 31.4(HH) 4.8 - 10.8 X10*3/uL [facility] Comment:Results of WBC interiano d to and read back by Nela 10/12/24 at 1332 by KRISTINA. Red Blood Count 4.39(L) 4.60 - 5.80 X10*6/uL [facility] Hemoglobin 12.5(L) 14.0 - 18.0 g/dl [facility] Hematocrit 37.7(L) 42.0 - 52.0 % [facility] Mean Corpuscular Volume 85.9 80.0 - 98.0 fL [facility] Mean Corpuscular Hemoglobin 28.5 27.0 - 33.0 pg [facility] Mean Corpuscular HGB Conc 33.2 31.0 - 36.0 g/dl [facility] Red Cell Distribution Width 14.4 11.0 - 16.0 % [facility] Platelet Count 179 160 - 400 X10*3/uL [facility] Mean Platelet Volume 9.0(L) 9.4 - 12.4 fL [facility] NRBC Pct Auto 0.0 0.0 - 0.2 /100WBC [facility] NRBC Abs Auto 0.000 0.0 - 0.012 X10*3/uL [facility] 10/12/2024 1:21 PM EDT 10/12/2024 1:24 PM EDT us Generic External Data Provider LAB BLOOD ORDERAB LES Final Result [facility] [address] [place] [phone] * Hm Colonoscopy (10/08/2024 7:58 AM EDT) us Historical Provider HEALTH MAINTENANCE Final Result documented in this encounter Visit Diagnoses Not on filedocumented in this encounter Additional Health Concerns Assessment Noted Time PHQ-9 Depression Total Score: 0 10/14/19 24 1:34 PM EDT documented as of this encounter Care Teams Health Education Teacher Relationship Specialty Start Date End Date Name, MD Louis [address] [place] [address] PCP - General Family Medicine 07/14/18 documented as of this encounter
--- OUTSIDE RECORDS SUMMARY | 2025-03-15 10:20 | XMS_ITS | Clinical Summary ---
Author Organization [facility] Address [address] [place] [address] Phone Care Team Providers Care Tile Setter Name Role Phone Unavailable Primary Care Provider Unavailabl e Surgical History Surgery Date Site/Laterality Comments FEMUR FRACTURE SURGERY PROCEDURE: WA OPEN TX FEMORAL FRACTURE DISTAL MED/LAT CONDYLE; COMMENT: Left femur at age 4 NOSE SURGERY PROCEDURE: WA UNLISTED PROCEDURE NOSE; COMMENT: deviated septum COLONOSCOPY PROCEDURE: HISTORICAL COLONOSCOPY; COMMENT: Normal on this year 12/2009 OTHER SURGICAL HISTORY 10/24 PROCEDURE: WA LAPAROSCOPY SURG PARTIAL NEPHRECTOMY; COMMENT: renal mass OTHER SURGICAL HISTORY 08/26 PROCEDURE: WA CSTOTOMY/CSTOST CRYOSURG DSTRJ INTRAVESICAL LES; COMMENT: bladder [...] on patient's age to complete this topic Insurance [place]
[2025-03-15 11:58] LABS: Cholesterol 138 mg/dL (<200); HDL Cholesterol 18 mg/dL (>40); Triglycerides 107 mg/dL (<150)
== END 2025-03-15 09:24 | disposition home or self-care (01) ==
LOC: HO.HHCL 09:23
PROVIDERS: PCP Internal Medicine Geriatric Medicine; Referring Provider Internal Medicine; Visit Provider Internal Medicine Geriatric Medicine
DX: Z13.220 Encounter for screening for lipoid disorders (principal)
CPT/HCPCS: 36415; 80061

== ENCOUNTER 2025-04-05 11:14 | Emergency (ER) | payer MEDICAID, SELFPAY ==
--- NOTE | ~2025-04-05 | XR_ITS ---
EXAMINATION: XR CHEST CLINICAL INFORMATION: fatigue COMPARISON: 01/31/2025. TECHNIQUE: 2 views of the chest were obtained. FINDINGS: Cardiac size is top normal. Mediastinal and hilar contours appear normal. The lungs are clear bilaterally. There is no pneumothorax or pleural effusion. There is no focal osseous or soft tissue abnormality. XR/XR chest 2V IMPRESSION: No active pulmonary disease. Electronically signed by: Edd Palacios MD 04/05/2025 12:15 PM EDT
--- NOTE | 2025-04-05 11:23 | ED.GENADULT ---
HPI - General Adult General Chief complaint: General Medical Stated complaint: Lump L armpit Time Seen by Provider: 04/05/25 11:57 Source: patient Mode of arrival: ambulatory Limitations: no limitations History of Present Illness ED Provider: ZABRINA AZEVEDO narrative: 55 yo male with PMH of CLL on maintenance treatment right now followed by Dr. Buenrostro has noted increase in L axilla lymph node over the past year but much bigger in last few days. No fevers, cough, pain, rash. MD complaint: lymph nodes Onset (ago): year(s) (1) Location: neck, left and upper extremity Radiation: non-radiation Severity: moderate Relieving factors: none Exacerbating factors: none Associated symptoms: denies other symptoms Treatments prior to arrival: none Related Data Home Medications ?Medication ?Instructions ?Recorded ?Confirmed lisinopril 40 mg tablet 40 mg PO DAILY 12/22/20 10/20/24 ascorbic acid (vitamin C) 100 mg 100 mg PO DAILY 09/10/24 10/20/24 tablet cyanocobalamin (vitamin B-12) 50 50 mcg PO DAILY 09/10/24 10/20/24 mcg tablet magnesium 100 mg tablet 100 mg PO DAILY 09/10/24 10/20/24 multivit,Ca,min-iron 8 mg-folic 1 tab PO DAILY 09/10/24 10/20/24 acid 200 mcg-lycopene 600 mcg tablet (Centrum Men) zinc 50 mg tablet 50 mg PO DAILY 09/10/24 10/20/24 amlodipine 10 mg tablet 10 mg PO DAILY 10/12/24 10/20/24 Previous Rx's ?Medication ?Instructions ?Recorded ascorbic acid (vitamin C) 1,000 mg 1,000 mg PO DAILY 90 days #90 tabs 01/25/25 tablet methenamine hippurate 1 gram tablet 1 g PO DAILY 90 days #90 tabs 01/25/25 tamsulosin 0.4 mg capsule (Flomax) 0.4 mg PO BEDTIME 30 days #30 tabs 01/25/25 ofloxacin 0.3 % ear drops 10 drp otic (ears) DAILY 7 days 01/30/25 #10 mL azithromycin 250 mg tablet See Rx Instructions PO .COMPLEX #6 02/01/25 (Zithromax Z-Tereso) tabs cefuroxime axetil 500 mg tablet 500 mg PO BID 7 days #14 tabs 02/01/25 codeine 10 mg-guaifenesin 100 mg/5 10 ml PO Q6H PRN cough #237 mL 02/01/25 mL oral liquid amoxicillin 500 mg capsule 500 mg PO Q12H #19 caps 03/08/25 ofloxacin 0.3 % ear drops 10 drp otic (ears) BID 10 days #10 03/08/25 mL Allergies Allergy/AdvReac Type Severity Reaction Status Date / Time No Known Allergies (No Known Allergy Verified 04/05/25 11:25 Allergies*) Review of Systems Review of Systems: Yes all other systems are reviewed and are negative [facility] Past Medical History Attestation statement: The following information was validated with the patient. Source: old records reviewed Medical History Lymphadenopathy Elevated WBC count History of colon polyps HTN (hypertension) History of COVID-19 Bladder cancer RUQ pain Abdominal bloating Cancer of kidney Hx of bladder cancer Benign prostatic hyperplasia with lower urinary tract symptoms Obstructive sleep apnea (adult) (pediatric) Lesion of bladder Surgical History History of colonoscopy with polypectomy History of surgery H/O colonoscopy Hx of cystoscopy History of surgery Family History Family History Father Hypertension Diabetes Mother Lung cancer Sister Cancer Social History Social History Household Members: Family Housing: House Are you a primary child care aide to a significant other at home: No Do you presently have visiting nurse or other home services: No Alcohol intake: never Patient Tobacco Use Status: Never used Tobacco Advance Directives: Yes Advance Directives on File: Yes Advance Directives Date on File: 10/15/24 service: No Current occupational status: employed Physical Exam ED Vital Signs: Vital Signs - 24 hr 04/05/25 11:24 Temperature 98.6 F Pulse Rate 69 Respiratory Rate 16 Blood Pressure 161/77 H Pulse Oximetry 98 Oxygen Delivery Method Room Air BMI result Body Mass Index 30.7 Appearance: Alert. Oriented X3. No acute distress. Eyes: Pupils equal, round and reactive to light. ENT: Pharynx normal. Neck: bilateral ant lymphadenopathy CVS: Normal heart rate and rhythm. Pulses normal. Respiratory: No respiratory distress. Breath sounds normal. Abdomen: Soft and nontender. Skin: Skin warm and dry. Normal skin color. Extremities: No lower extremity edema. left axilla large node noted, smaller as well no ttp not fluctuance no erythema noted Neuro: Oriented X 3. No motor deficit. No sensory deficit. CN2-12 intact Course Course Course Narrative: This is a Rapid Medical Examination (RME) performed by Susan Henry PA-C in triage. Full HPI, ROS, assessment and treatment plan per primary provider in the Main ED. Hx: 55 yo M here for eval of painless lump to left armpit x1 year, just recently enlarging. pt has leukemia, follows w/ dr. buenrostro. he is concerned as the lump is growing, afraid it may be an extension of his cancer. Plan: labs Medical Decision Making Medical Decision Making MDM Narrative: 55 yo male with PMH of CLL on maintenance treatment right now followed by Dr. Buenrostro here with chronic lymph nodes getting bigger but now L axilla new node - no signs of infection. I spoke to Dr. Buenrostro she will follow with him sooner. He is aware and agrees to follow up Differential Diagnosis Differential Diagnoses: The differential diagnosis associated with the presentation includes CLL, lymphadenopathy Admission/Observation Consideration of admission/observation: Escalation of care including admission/observation considered can follow up as outpatient for chronic illness Consult Healthcare Provider Management of the patient was discussed with: Resident Athletic Trainer Lab Data [facility] Lab Attestation statement: I reviewed the patient's lab results. 04/05/25 11:34 04/05/25 11:34 Labs: Lab Results 04/05/25 Range/Units 11:34 WBC 80.6 H* (4.8-10.8) X10*3/uL RBC 3.81 L (4.60-5.80) X10*6/uL Hgb 10.8 L (14.0-18.0) g/dl Hct 34.6 L (42.0-52.0) % MCV 90.8 (80.0-98.0) fL MCH 28.3 (27.0-33.0) pg MCHC 31.2 (31.0-36.0) g/dl RDW 15.8 (11.0-16.0) % Plt Count 144 L (160-400) X10*3/uL MPV 8.8 L (9.4-12.4) fL Immature Gran % (Auto) Cancelled Neut % (Auto) Cancelled Lymph % (Auto) Cancelled Woodward % (Auto) Cancelled Eos % (Auto) Cancelled Baso % (Auto) Cancelled Lymph # (Auto) Cancelled Woodward # (Auto) Cancelled Eos # (Auto) Cancelled Baso # (Auto) Cancelled Abs Immat Gran (auto) Cancelled Absolute Neuts (auto) Cancelled Absolute Nucleated RBC 0.020 H (0.0-0.012) X10*3/uL Nucleated RBC % (auto) 0.0 (0.0-0.2) /100WBC Sodium 142 (135-145) mmol/L Potassium 4.3 (3.3-5.1) mmol/L Chloride 108 (96-108) mmol/L Carbon Dioxide 27 (22-29) mmol/L Anion Gap 11 L (12-20) BUN 24 H (9-16) mg/dL Creatinine 0.97 (0.5-1.4) mg/dL Estim Creat Clear Calc 92.3 Estimated GFR > 60 Random Glucose 93 (60-115) mg/dL Calcium 9.2 (8.4-10.2) mg/dL Magnesium 2.0 (1.6-2.6) mg/dL Total Bilirubin 0.5 (0.0-1.0) mg/dL AST 25 (5-37) U/L ALT 15 (0-40) U/L Alkaline Phosphatase 83 (39-117) U/L Total Protein 6.7 (6.5-8.0) g/dL Albumin 4.6 (3.5-5.0) g/dL Independent Interpretation I performed an independent interpretation of an: Plain X-Ray (normal ) Radiology Impression Discussion of test interpretation with radiology: I have reviewed the radiologist's reading. External Record Review External record reviewed: Outpatient record Discharge Plan Discharge Clinical Impression: CLL (chronic lymphocytic leukemia), Lymphadenopathy, axillary Patient Disposition: Home, Self-Care Instructions: Lymphadenopathy (ED), Chronic Lymphocytic Leukemia (DC) Additional Instructions: your wbc count is 80.6, hemoglobin 10.8, platelets 144 your chest xray is normal return for any worsening symptoms or concerns follow up with Dr. Buenrostro's office call today to schedule a sooner appointment Prescriptions: No Action cyanocobalamin (vitamin B-12) 50 mcg Tablet 50 mcg PO DAILY magnesium 100 mg Tablet 100 mg PO DAILY ascorbic acid (vitamin C) 100 mg Tablet 100 mg PO DAILY zinc 50 mg Tablet 50 mg PO DAILY Centrum Men 8 mg iron- 200 mcg-600 mcg Tablet 1 tab PO DAILY ofloxacin 0.3 % drops 10 drp otic (ears) DAILY 7 Days Qty: 10 0RF amoxicillin 500 mg capsule 500 mg PO Q12H Qty: 19 0RF ofloxacin 0.3 % drops 10 drp otic (ears) BID 10 Days Qty: 10 0RF amlodipine 10 mg tablet 10 mg PO DAILY cefuroxime axetil 500 mg tablet 500 mg PO BID 7 Days Qty: 14 0RF azithromycin [Zithromax Z-Tereso] 250 mg tablet See Rx Instructions .ROUTE .COMPLEX Qty: 6 0RF Rx Instructions: For 250 mg dose pack: take 500 mg today (day 1), then 250 mg for 4 days (days 2-5) codeine-guaifenesin 10-100 mg/5 mL liquid 10 ml PO Q6H PRN (Reason: cough) Qty: 237 0RF lisinopril 40 mg tablet 40 mg PO DAILY ascorbic acid (vitamin C) 1,000 mg tablet 1,000 mg PO DAILY 90 Days Qty: 90 1RF methenamine hippurate 1 gram tablet 1 g PO DAILY 90 Days Qty: 90 1RF tamsulosin [Flomax] 0.4 mg capsule 0.4 mg PO BEDTIME 30 Days Qty: 30 1RF Print Language: German
[2025-04-05 11:24] VITALS: BP 161/77; PULSE 69; RESP 16; TEMP 37; O2SAT 98; BMI 30.7
[2025-04-05 11:54] LABS: Hematocrit 34.6 % (42.0-52.0); Hemoglobin 10.8 g/dl (14.0-18.0); Mean Corpuscular HGB Conc 31.2 g/dl (31.0-36.0); Mean Corpuscular Hemoglobin 28.3 pg (27.0-33.0); Mean Corpuscular Volume 90.8 fL (80.0-98.0); NRBC Abs Auto 0.020 X10*3/uL (0.0-0.012); NRBC Pct Auto 0.0 /100WBC (0.0-0.2); Platelet Count 144 X10*3/uL (160-400); Red Blood Count 3.81 X10*6/uL (4.60-5.80)
[2025-04-05 12:07] LABS: Alanine Aminotransferase 15 U/L (0-40); Albumin Level 4.6 g/dL (3.5-5.0); Alkaline Phosphatase 83 U/L (39-117); Anion Gap 11 (12-20); Aspartate Amino Transferase 25 U/L (5-37); Blood Urea Nitrogen 24 mg/dL (9-16); Calcium 9.2 mg/dL (8.4-10.2); Carbon Dioxide 27 mmol/L (22-29); Chloride 108 mmol/L (96-108); Creatinine Clr Calc Pharmacy 92.3; Estimated Glomerular Filt Rate > 60; Magnesium 2.0 mg/dL (1.6-2.6); Potassium 4.3 mmol/L (3.3-5.1); Sodium 142 mmol/L (135-145); Total Protein 6.7 g/dL (6.5-8.0); WBC ABN SCTR FOR CBC 1
[2025-04-05 12:09] LABS: White Blood Count 80.6 X10*3/uL (4.8-10.8)
[2025-04-05 12:34] VITALS: BP 161/77; PULSE 69; RESP 16; TEMP 37; O2SAT 98
[2025-04-05 13:05] LABS: Atypical Lymph Absolute Manual 9.7 x10*3/uL; Atypical Lymphs Percent Manual 12 % (0-6); Band Neutrophils Percent 1 % (3-5); Basophils Abs Manual 0.8 X10*3/uL (0.0-0.2); Basophils Percent Manual 1 % (0-2); Eosinophils Absolute Manual 0.8 X10*3/uL (0.0-0.4); Eosinophils Percent Manual 1 % (0-4); Lymphocytes Absolute Manual 66.1 X10*3/uL (1.2-4.9); Lymphocytes Percent Manual 82 % (20-40); Monocytes Absolute Manual 0.8 X10*3/uL (0.1-1.2); Monocytes Percent Manual 1 % (2-11); Neutrophils Absolute Manual 2.4 X10*3/uL (2.0-8.3); Neutrophils Percent Manual 2 % (45-73); RBC Morphology NOTED
[2025-04-05 13:06] LABS: Polychromasia 1+ (0-2) /OIF; Smudge Cells PRESENT
--- OUTSIDE RECORDS SUMMARY | 2025-04-05 14:58 | XMS_ITS | Encounter Summary ---
Author Organization [employer] Address [address] [facility] [address] [place] [address] Care Team Providers Care Display Artist Name Role Phone Name, Louis DISLA Primary Care Provider [phone] Reason for Visit * Reason Onset Date Comments call back 08/27/2022 Encounter Details Date Type Department Care Team ([facility] st Contact Info) Description 08/27/2022 Telephone [facility] [address] [place], [place] [phone] Name, MD Louis [address] [place] [address] call back Social History Tobacco Use Types [...] EST 2nd call placed to pt via [employer]ha #[id number]. Advised of message from pcp re: lab [...] being at work Please contact pt at [phone] documented in this encounter Plan of Treatment Not on file documented as of this encounter Visit Diagnoses Diagnosis Leukocytosis, unspecified type- Primary documented in this encounter Care Teams Display Artist Relationship Specialty Start Date End Date Name, MD Louis [address] [place] [address] PCP - General Family Medicine 07/14/18 documented as of this encounter
--- OUTSIDE RECORDS SUMMARY | 2025-04-05 14:58 | XMS_ITS | Encounter Summary ---
Author Organization [employer] Address [address] [facility] [address] [place] [address] Care Team Providers Care Road Crew Member Name Role Phone Name, Louis DILSA Primary Care Provider [phone] Encounter Details Date Type Department Care Team ([facility] st Contact Info) Description 10/21/2022 Abstract [facility] [address] [place] [address] Milo, Babs [address] [place] [address] Social History Tobacco Use Types Packs/Day Years [...] on filedocumented in this encounter Care Teams Road Crew Member Relationship Specialty Start Date End Date Name, MD Louis [address] [place] [address] PCP - General Family Medicine 07/14/18 documented as of this encounter
--- OUTSIDE RECORDS SUMMARY | 2025-04-05 14:58 | XMS_ITS | Encounter Summary ---
Author Organization [employer] Address [address] [facility] [address] [place] [address] Care Team Providers Care Granulator Machine Operator Name Role Phone Name, Louis DISLA Primary Care Provider Encounter Details Date Type Department Care Team ([facility] st Contact Info) Description 10/09/2022 Abstract [facility] [address] [place] [address] Milo, Babs [address] [place] [address] Social History Tobacco Use Types Packs/Day Years [...] on filedocumented in this encounter Care Teams Granulator Machine Operator Relationship Specialty Start Date End Date Name, MD Louis [address] [place] [address] PCP - General Family Medicine 07/14/18 documented as of this encounter
--- OUTSIDE RECORDS SUMMARY | 2025-04-05 14:58 | XMS_ITS | Encounter Summary ---
Author Organization [employer] Address [address] [facility] [address] [place] [address] Care Team Providers Care Robotype Operator Name Role Phone Name, Louis DISLA Primary Care Provider [phone] Encounter Details Date Type Department Care Team ([facility] st Contact Info) Description 10/09/2022 Abstract [facility] [address] [place] [address] Milo, Babs [address] [place] [address] Social History Tobacco Use Types Packs/Day Years [...] on filedocumented in this encounter Care Teams Robotype Operator Relationship Specialty Start Date End Date Name, MD Louis [address] [place] [address] PCP - General Family Medicine 07/14/18 documented as of this encounter
--- OUTSIDE RECORDS SUMMARY | 2025-04-05 14:58 | XMS_ITS | Encounter Summary ---
Author Organization [employer] Address [address] [place] [address] Care Team Providers Care Die Maintenance Name Role Phone Name, Louis DISLA Primary Care Provider [phone] Encounter Details Date Type Department Care Team (Late st Contact Info) Description 04/05/2025 Orders Only GENERIC EXTERNAL DATA DEPARTMENT Provider, [...] Diagnosis Comments XR CHEST 2 VIEWS Routine 04/05/2025 12:0 4 PM EDT COMPLETE BLOOD COUNT MAN DIF Routine 04/05/2025 11:34 AM EDT CBC WITH AUTO DIFFERENTIAL Routine 04/05/2025 11:34 AM EDT MAGNESIUM Routine 04/05/2025 11:34 AM EDT COMPREHENSIVE METABOLIC PANEL Routine 04/05/2025 11:34 AM EDT documented in this encounter Results * XR Chest 2 Views (04/05/2025 12:04 PM EDT) Anatomical Region Laterality Modality Chest Radiographic Susannah ging 04/05/2025 12:0 4 PM EDT Narrative 04/05/2025 12:18 PM EDT [address] [address] XRay Report Signed Patient: Irwin Mendoza Jr MR#: [id number] : 1970 Acct:[id number] Age/Sex: 55 / M ADM Date: 04/05/25 Loc: HO.ED Attending Dr: Ordering Physician: Mirta Dallas DO Date of Service: 04/05/25 Procedure(s): XR chest 2V Accession Number(s): [id number] cc: Mirta Dallas DO; Name,Louis DISLA Reason for Exam: fatigue EXAMINATION: XR CHEST CLINICAL INFORMATION: fatigue COMPARISON: 01/31/2025. TECHNIQUE: 2 views of the chest were obtained. FINDINGS: Cardiac size is top normal. Mediastinal and hilar contours appear normal. The lungs are clear bilaterally. There is no pneumothorax or pleural effusion. There is no focal osseous or soft tissue abnormality. XR/XR chest 2V IMPRESSION: No active pulmonary disease. Electronically signed by: Edd Palacios MD 04/05/2025 12:15 PM EDT RP Dictated By: Edd Palacios MD Signed By: <Electronically signed by Edd Palacios MD in OV> 04/05/25 1215 DD/ 1204 TD/TT: 04/05/25 1206 Steel Buffer: Procedure Note Donotuseinterpreter, Image - 04/05/2025 [place] [id number] XRay Report Signed Patient: Irwin Mendoza Jr#: [id number] : 1970Acct:[id number] Age/Sex: 55 / MADM Date: 04/05/25 Loc: .ED Attending Dr: Ordering Physician: Mirta Dallas DO Date of Service: 04/05/25 Procedure(s): XR chest 2V Accession Number(s): [id number] cc: Mirta Dallas DO; Name,Louis DISLA Reason for Exam: fatigue EXAMINATION: XR CHEST CLINICAL INFORMATION: fatigue COMPARISON: 01/31/2025. TECHNIQUE: 2 views of the chest were obtained. FINDINGS: Cardiac size is top normal. Mediastinal and hilar contours appear normal. The lungs are clear bilaterally. There is no pneumothorax or pleural effusion. There is no focal osseous or soft tissue abnormality. XR/XR chest 2V IMPRESSION: No active pulmonary disease. Electronically signed by: Edd Palacios MD 04/05/2025 12:15 PM EDT RP Dictated By: Edd Palacios MD Signed By: <Electronically signed by Edd Palacios MD in OV> 04/05/25 1215 DD/ 1204 TD/TT: 04/05/25 1206 Steel Buffer: [facility] External Provider IMG XR PROCEDURES Final Result * (ABNORMAL) Complete Blood Count Manual Diff (04/05/2025 11:34 AM EDT) White Blood Count 80.6(HH) 4.8 - 10.8 X10*3/uL [facility] Comment:Critical WBC called to and read back by Kailyn 04/05/25 at 1209 by [place]. Red Blood Count 3.81(L) 4.60 - 5.80 X10*6/uL [facility] Hemoglobin 10.8(L) 14.0 - 18.0 g/dl [facility] Hematocrit 34.6(L) 42.0 - 52.0 % [facility] Mean Corpuscular Volume 90.8 80.0 - 98.0 fL [facility] Mean Corpuscular Hemoglobin 28.3 27.0 - 33.0 pg [facility] Mean Corpuscular HGB Conc 31.2 31.0 - 36.0 g/dl [facility] Red Cell Distribution Width 15.8 11.0 - 16.0 % [facility] Platelet Count 144(L) 160 - 400 X10*3/uL [facility] Mean Platelet Volume 8.8(L) 9.4 - 12.4 fL [facility] NRBC Pct Auto 0.0 0.0 - 0.2 /100WBC [facility] NRBC Abs Auto 0.020(H) 0.0 - 0.012 X10*3/uL [facility] Neutrophils % Manual 2(L) 45 - 73 % [facility] Band Neutrophils Percent 1(L) 3 - 5 % [facility] Lymphocytes Percent Manual 82(H) 20 - 40 % [facility] Atypical Lymphs Percent Manual 12(H) 0 - 6 % [facility] Monocytes Percent Manual 1(L) 2 - 11 % [facility] EOSINOPHILS % MANUAL 1 0 - 4 % [facility] BASOPHILS % MANUAL 1 0 - 2 % [facility] NEUTROPHILS ABSOLUTE MANUAL 2.4 2.0 - 8.3 X10*3/uL [facility] LYMPHOCYTES ABSOLUTE MANUAL 66.1(H) 1.2 - 4.9 X10*3/uL [facility] Atypical Lymph Absolute Manual 9.7 x10*3/uL [facility] MONOCYTES ABSOLUTE MANUAL 0.8 0.1 - 1.2 X10*3/uL [facility] EOSINOPHILS ABSOLUTE MANUAL 0.8(H) 0.0 - 0.4 X10*3/uL [facility] BASOPHILS ABSOLUTE MANUAL 0.8(H) 0.0 - 0.2 X10*3/uL [facility] Smudge Cells PRESENT [facility] Platelet Estimate NORMAL NORMAL [facility] Platelet Morphology Comment NORMAL [facility] RBC Morphology NOTED [facility] POLYCHROMASIA 1+ (0-2) /OIF [facility] 04/05/2025 11:3 4 AM EDT 04/05/2025 11:47 AM EDT us Generic External Data Provider LAB BLOOD ORDERAB LES Final Result [facility] [address] [place], [place] [phone] * (ABNORMAL) CBC auto differential (04/05/2025 11:34 AM EDT) White Blood Count 80.6(HH) 4.8 - 10.8 X10*3/uL [facility] Comment:Critical WBC called to and read back by Kailyn 04/05/25 at 1209 by [place]. Red Blood Count 3.81(L) 4.60 - 5.80 X10*6/uL [facility] Hemoglobin 10.8(L) 14.0 - 18.0 g/dl [facility] Hematocrit 34.6(L) 42.0 - 52.0 % [facility] Mean Corpuscular Volume 90.8 80.0 - 98.0 fL [facility] Mean Corpuscular Hemoglobin 28.3 27.0 - 33.0 pg [facility] Mean Corpuscular HGB Conc 31.2 31.0 - 36.0 g/dl [facility] Red Cell Distribution Width 15.8 11.0 - 16.0 % [facility] Platelet Count 144(L) 160 - 400 X10*3/uL [facility] Mean Platelet Volume 8.8(L) 9.4 - 12.4 fL [facility] Neutrophils Percent Auto 1.3(L) 45 - 73 % [facility] Imm Gran Pct Auto 0.1 0.0 - 0.4 % [facility] Lymphocytes Percent Auto 84.8(H) 20 - 40 % [facility] Monocytes Percent Auto 13.6(H) 2 - 11 % [facility] Eosinophils Percent Auto 0.1 0 - 4 % [facility] Basophils Percent Auto 0.1 0 - 2 % [facility] NRBC Pct Auto 0.0 0.0 - 0.2 /100WBC [facility] Neutrophils Absolute Auto 1.1(L) 2.0 - 8.3 x10*3/uL [facility] Imm Gran Abs Auto 0.08(H) 0.00 - 0.03 X10*3/uL [facility] Lymphocytes Absolute Auto 68.4(H) 1.2 - 4.9 X10*3/uL [facility] Monocytes Absolute Auto 10.9(H) 0.1 - 1.2 X10*3/uL [facility] Eosinophils Absolute Auto 0.1 0.0 - 0.4 X10*3/uL [facility] Basophils Absolute Auto 0.1 0.0 - 0.2 X10*3/uL [facility] NRBC Abs Auto 0.020(H) 0.0 - 0.012 X10*3/uL [facility] 04/05/2025 11:3 4 AM EDT 04/05/2025 11:47 AM EDT us Generic External Data Provider LAB BLOOD ORDERAB LES Edited Result - Final Performing Organization Address City/[facility]/ZIP Co de Phone Number [facility] [address] [place] [address] [phone] * Magnesium (04/05/2025 11:34 AM EDT) Magnesium 2.0 1.6 - 2.6 mg/dL [facility] 04/05/2025 11:3 4 AM EDT 04/05/2025 11:47 AM EDT Generic External Data Provider LAB BLOOD ORDERAB LES Final Result Performing Organization Address [facility] Co de Phone Number [facility] [address] [place] [address] [phone] * (ABNORMAL) Comprehensive Metabolic Panel (04/05/2025 11:34 AM EDT) Sodium 142 135 - 145 mmol/L [facility] Potassium 4.3 3.3 - 5.1 mmol/L [facility] Chloride 108 96 - 108 mmol/L [facility] Carbon Dioxide 27 22 - 29 mmol/L [facility] Anion Gap 11(L) 12 - 20 [facility] Urea Nitrogen (BUN) 24(H) 9 - 16 mg/dL [facility] Creatinine, Serum 0.97 0.5 - 1.4 mg/dL [facility] Creatinine Clr Calc Pharmacy 92.3 [facility] Comment:eGFR (calculated fro m the MDRD study equation) and eCrCl(calculated from the Cockcroft-Gault equation) are based ondifferent parameters and may not yield comparable results.If eCrCl result is absurd, please check patient'sheight/weight. Estimated Glomerular Filt Rate >60 [facility] Comment:Chronic Kidney Disea se: Estimated GFR < 60 mL/min/1.37l3Njovlg Kidney Disease: Estimated GFR < 15 mL/min/1.73m2 Glucose 93 60 - 115 mg/dL [facility] Calcium 9.2 8.4 - 10.2 mg/dL [facility] Bilirubin, Total 0.5 0.0 - 1.0 mg/dL [facility] Aspartate Amino Transferase 25 5 - 37 U/L [facility] Alanine Aminotransferase 15 0 - 40 U/L [facility] Total Protein 6.7 6.5 - 8.0 g/dL [facility] Albumin Level 4.6 3.5 - 5.0 g/dL [facility] Alkaline Phosphatase 83 39 - 117 U/L [facility] 04/05/2025 11:3 4 AM EDT 04/05/2025 11:47 AM EDT us Generic External Data Provider LAB BLOOD ORDERAB LES Final Result Performing Organization Address City/State/[facility] Co de Phone Number [facility] [address] [place] [phone] documented in this encounter Visit Diagnoses Not on filedocumented in this encounter Additional Health Concerns Assessment Noted Time PHQ-9 Depression Total Score: 0 11/24/19 25 2:56 PM EDT documented as of this encounter Care Teams Die Maintenance Relationship Specialty Start Date End Date Name, MD Louis [address] [place] [address] PCP - General Family Medicine 07/14/18 documented as of this encounter
--- OUTSIDE RECORDS SUMMARY | 2025-04-05 14:58 | XMS_ITS | Clinical Summary ---
Author Organization [facility] Address [address] [place] [address] Phone Care Team Providers Care City Collector Name Role Phone Unavailable Primary Care Provider [...]
--- OUTSIDE RECORDS SUMMARY | 2025-04-05 14:58 | XMS_ITS | Clinical Summary ---
Author Organization [employer] Address [address] [place] [address] Care Team Providers Care Component Assembler Supervisor Name Role Phone Name, Louis DISLA Primary Care Provider [phone] Allergies No known active allergies Medications clindamycin (Cleocin T) 1 % lotion APPLY TO AFFECTED AREA TWICE A DAY 60 mL 2 10/28/19 24 Active amLODIPine (Norvasc) 10 MG tabletIndicati [...] MORNING 90 tablet 1 03/07/20 25 Active lisinopril-hyd roCHLOROthiazi de 20-12.5 MG tablet Take 2 tablets by mouth Once per day. 60 tablet 11 03/21/20 25 026 Active loratadine (Claritin) 10 MG tablet TAKE 1 TABLET BY MOUTH EVERY DAY IN THE MORNING 90 tablet 1 01/09/20 24 025 Discontinued lisinopril 40 MG tabletIndicati ons:Hypertensi on, unspecified type Take 1 tablet (40 mg) by mouth in the morning. 90 tablet 3 01/30/20 24 025 Discontinued(Do se adjustment) Active Problems Problem Noted Date Diagnosed Date [...] cpap with good improvement since 2009. Respiratory [facility] Hypertension 11/12/2010 ED (erectile dysfunction) [...] 08/12/2022 0 10/14/2023 Overview (08/12/2022): Follow at [facility], colonoscopy Q 3 years Had more [...] appointment. Was removed by outside urology at [facility]. Renal mass 09/17/2012 10/14/2023 Overview (12/19/2022): Left-sided. Seen in MRI on 08/26 at [facility] for work up of Hematuria. Patient is following with Urology there. Biopsy showed malignancy and the patient was been scheduled for partial nephrectomy on October of 2012. Patient continues to follow at [facility] with serial CT of the kidneys and serial cystoscopies Encounters Date Type Department Care Team Description 04/05/2025 Orders Only GENERIC EXTERNAL DATA DEPARTMENT Provider, Generic External Data 03/29/[address] [address] Louis Valverde MD 03/29/2025 Travel 03/22/[address] [address] Louis Valverde MD Durable Medical Equipment 03/21/2025 11:00 AM EDT Office Visit [address] [address] Louis Valverde MD Hypertension, unspecified type (Primary Dx); NATHAN (obstructive sleep apnea) 03/21/2025 Travel 03/18/[address] [address] Louis Valverde MD Chart Prep 03/06/[address] [address] Louis Valverde MD 02/07/2025 1:00 PM EDT Office Visit [facility] [address] [place] [phone] Kelli Garcia MD Sensorineural hearing loss (SNHL) of both ears (Primary Dx) 02/07/2025 Refill [facility] [address] [place] [phone] eKlli Garcia MD 02/07/2025 Travel 01/31/2025 Orders Only GENERIC EXTERNAL DATA DEPARTMENT Provider, Generic External Data 01/30/2025 Orders Only GENERIC EXTERNAL DATA DEPARTMENT Provider, Generic External Data from Last 3 Months Immunizations Immunization Administration [...] Sign Reading Time Taken Comments Blood Pressure 152/72 03/21/2025 11:05 AM EDT Pulse 76 03/21/2025 11:05 AM EDT Temperature 36.7 C (98.1 F) 03/21/2025 11:05 AM EDT Respiratory Rate 14 03/21/2025 11:05 AM EDT Oxygen Saturation 99% 03/21/2025 11:05 AM EDT Inhaled Oxygen Concentration - - Weight 91.4 kg (201 lb 6.4 oz) 03/21/2025 11:05 AM EDT Height 172.7 cm (5' 8 ) 03/21/2025 11:05 AM EDT Body Mass Index 30.62 03/21/2025 11:05 AM EDT Plan of Treatment Health Maintenance [...] 11/24/19 Disability Screening 11/23/2025 11/23/2024 Tobacco Screening 03/21/2026 03/21/2025 Colonoscopy 10/08/2029 10/08/2024, 05/11/2021 Colorectal Cancer Screening 10/08/2029 Lipid Panel 03/15/2030 03/15/2025, 04/09/2023, 08/15/2022, Additional history exists DTaP/Tdap/Td Vaccines (3 - [...] METABOLIC PANEL Routine 04/05/2025 11:34 AM EDT LIPID PANEL, STANDARD Routine 03/15/2025 10:01 AM EDT Screening for cholesterol level BLOOD CULTURE (SECOND) Routine 10:34 PM EDT [...] EDT Need for hepatitis C screening test INTRAORAL - COMPLETE SERIES OF RADIOGRAPHIC IMAGES Routine 08/28/2022 10:15 AM EST from Last 3 Months or Most Recently Relevant to Health Maintenance Results * XR Chest 2 Views (04/05/2025 12:04 PM EDT) Only the most recent of2 resultswithin the time period is included. Anatomical Region Laterality Modality Chest Radiographic Susannah ging 04/05/2025 12:0 4 PM EDT Narrative 04/05/2025 12:18 PM EDT [address] [address] XRay Report Signed Patient: Irwin Mendoza Jr MR#: [id number] : 1970 Acct:[id number] Age/Sex: 55 / M ADM Date: 04/05/25 Loc: HO.ED Attending Dr: Ordering Physician: Mirta Dallas DO Date of Service: 04/05/25 Procedure(s): XR chest 2V Accession Number(s): [id number] cc: Mirta Dallas DO; Name,Louis DISLA Reason [...] Edd Palacios MD 04/05/2025 12:15 PM EDT Dictated By: Edd Palacios MD Signed By: <Electronically signed by Edd Palacios MD in OV> 04/05/25 1215 DD/ 1204 TD/TT: 04/05/25 1206 In Classroom Tutor: Procedure Note Donotuseinterpreter, Image - 04/05/[address] [address] XRay Report Signed Patient: Irwin Mendoza Jr#: [id number] : 1970Acct:[id number] Age/Sex: 55 / MADM Date: 04/05/25 Loc: HO.ED Attending Dr: Ordering Physician: Mirta Dallas DO Date of Service: 04/05/25 Procedure(s): XR chest 2V Accession Number(s): [id number] cc: Mirta Dallas DO; Name,Louis DISLA Reason [...] 04/05/25 1215 DD/ 1204 TD/TT: 04/05/25 1206 In Classroom Tutor: [facility] External Provider IMG XR PROCEDURES Final Result * (ABNORMAL) Complete Blood Count Manual Diff (04/05/2025 11:34 AM EDT) Only the most recent of2 resultswithin the time period is included. White Blood Count 80.6(HH) 4.8 - 10.8 X10*3/uL [facility] Comment:Critical WBC called to and read back by Kailyn 04/05/25 at 1209 by [place]. Red Blood Count 3.81(L) 4.60 - 5.80 X10*6/uL [facility] Hemoglobin 10.8(L) 14.0 - 18.0 g/dl [facility] Hematocrit 34.6(L) 42.0 - 52.0 % [facility] Mean Corpuscular Volume 90.8 80.0 - 98.0 fL [facility] Mean Corpuscular Hemoglobin 28.3 27.0 - 33.0 pg [facility] Mean Corpuscular HGB Conc 31.2 31.0 - 36.0 g/dl [facility] Red Cell Distribution Width 15.8 11.0 - 16.0 % [facility] Platelet Count 144(L) 160 - 400 X10*3/uL [facility] Mean Platelet Volume 8.8(L) 9.4 - 12.4 fL [facility] NRBC Pct Auto 0.0 0.0 - 0.2 /100WBC [facility] NRBC Abs Auto 0.020(H) 0.0 - 0.012 X10*3/uL [facility] Neutrophils % Manual 2(L) 45 - 73 % [facility] Band Neutrophils Percent 1(L) 3 - 5 % [facility] Lymphocytes Percent Manual 82(H) 20 - 40 % [facility] Atypical Lymphs Percent Manual 12(H) 0 - 6 % [facility] Monocytes Percent Manual 1(L) 2 - 11 % [facility] EOSINOPHILS % MANUAL 1 0 - 4 % [facility] BASOPHILS % MANUAL 1 0 - 2 % [facility] NEUTROPHILS ABSOLUTE MANUAL 2.4 2.0 - 8.3 X10*3/uL [facility] LYMPHOCYTES ABSOLUTE MANUAL 66.1(H) 1.2 - 4.9 X10*3/uL [facility] Atypical Lymph Absolute Manual 9.7 x10*3/uL [facility] MONOCYTES ABSOLUTE MANUAL 0.8 0.1 - 1.2 X10*3/uL [facility] EOSINOPHILS ABSOLUTE MANUAL 0.8(H) 0.0 - 0.4 X10*3/uL [facility] BASOPHILS ABSOLUTE MANUAL 0.8(H) 0.0 - 0.2 X10*3/uL [facility] Smudge Cells PRESENT [facility] Platelet Estimate NORMAL [facility] Platelet Morphology Comment NORMAL [facility] RBC Morphology NOTED [facility] POLYCHROMASIA 1+ (0-2) /OIF [facility] 04/05/2025 11:3 4 AM EDT 04/05/2025 11:47 AM EDT us Generic External Data Provider LAB BLOOD ORDERAB LES Final Result [facility] [address], [place] [phone] * (ABNORMAL) CBC auto differential (04/05/2025 11:34 AM EDT) White Blood Count 80.6(HH) 4.8 - 10.8 X10*3/uL [facility] Comment:Critical WBC called to and read back by Kailyn 04/05/25 at 1209 by [place]. Red Blood Count 3.81(L) 4.60 - 5.80 X10*6/uL [facility] Hemoglobin 10.8(L) 14.0 - 18.0 g/dl [facility] Hematocrit 34.6(L) 42.0 - 52.0 % [facility] Mean Corpuscular Volume 90.8 80.0 - 98.0 fL [facility] Mean Corpuscular Hemoglobin 28.3 27.0 - 33.0 pg [facility] Mean Corpuscular HGB Conc 31.2 31.0 - 36.0 g/dl [facility] Red Cell Distribution Width 15.8 11.0 - 16.0 % [facility] Platelet Count 144(L) 160 - 400 X10*3/uL [facility] Mean Platelet Volume 8.8(L) 9.4 - 12.4 fL [facility] Neutrophils Percent Auto 1.3(L) 45 - 73 % [facility] Imm Gran Pct Auto 0.1 0.0 - 0.4 % [facility] Lymphocytes Percent Auto 84.8(H) 20 - 40 % [facility] Monocytes Percent Auto 13.6(H) 2 - 11 % [facility] Eosinophils Percent Auto 0.1 0 - 4 % [facility] Basophils Percent Auto 0.1 0 - 2 % [facility] NRBC Pct Auto 0.0 0.0 - 0.2 /100WBC [facility] Neutrophils Absolute Auto 1.1(L) 2.0 - 8.3 x10*3/uL [facility] Imm Gran Abs Auto 0.08(H) 0.00 - 0.03 X10*3/uL [facility] Lymphocytes Absolute Auto 68.4(H) 1.2 - 4.9 X10*3/uL [facility] Monocytes Absolute Auto 10.9(H) 0.1 - 1.2 X10*3/uL [facility] Eosinophils Absolute Auto 0.1 0.0 - 0.4 X10*3/uL [facility] Basophils Absolute Auto 0.1 0.0 - 0.2 X10*3/uL [facility] NRBC Abs Auto 0.020(H) 0.0 - 0.012 X10*3/uL [facility] 04/05/2025 11:3 4 AM EDT 04/05/2025 11:47 AM EDT us Generic External Data Provider LAB BLOOD ORDERAB LES Edited Result - Final Performing Organization Address City/[facility]/ZIP Co de Phone Number [facility] [address] [place] [phone] * Magnesium (04/05/2025 11:34 AM EDT) Magnesium 2.0 1.6 - 2.6 mg/dL [facility] 04/05/2025 11:3 4 AM EDT 04/05/2025 11:47 AM EDT us Generic External Data Provider LAB BLOOD ORDERAB LES Final Result Performing Organization Address [facility]/ZIP Co de Phone Number [facility] [address] [place] [phone] * (ABNORMAL) Comprehensive Metabolic Panel (04/05/2025 11:34 AM EDT) Only the most recent of2 resultswithin the time period is included. Sodium 142 135 - 145 mmol/L [facility] Potassium 4.3 3.3 - 5.1 mmol/L [facility] Chloride 108 96 - 108 mmol/L [facility] Carbon Dioxide 27 22 - 29 mmol/L [facility] Anion Gap 11(L) 12 - 20 [facility] Urea Nitrogen (BUN) 24(H) 9 - 16 mg/dL [facility] Creatinine, Serum 0.97 0.5 - 1.4 mg/dL [facility] Creatinine Clr Calc Pharmacy 92.3 [facility] Comment:eGFR (calculated fro m the MDRD study equation) and eCrCl(calculated from the Cockcroft-Gault equation) are based ondifferent parameters and may not yield comparable results.If eCrCl result is absurd, please check patient'sheight/weight. Estimated Glomerular Filt Rate >60 [facility] Comment:Chronic Kidney Disea se: Estimated GFR < 60 mL/min/1.03u3Ozhpzh Kidney Disease: Estimated GFR < 15 mL/min/1.73m2 Glucose 93 60 - 115 mg/dL [facility] Calcium 9.2 8.4 - 10.2 mg/dL [facility] Bilirubin, Total 0.5 0.0 - 1.0 mg/dL [facility] Aspartate Amino Transferase 25 5 - 37 U/L [facility] Alanine Aminotransferase 15 0 - 40 U/L [facility] Total Protein 6.7 6.5 - 8.0 g/dL [facility] Albumin Level 4.6 3.5 - 5.0 g/dL [facility] Alkaline Phosphatase 83 39 - 117 U/L [facility] 04/05/2025 11:3 4 AM EDT 04/05/2025 11:47 AM EDT us Generic External Data Provider LAB BLOOD ORDERAB LES Final Result [facility] [address] [place] [phone] * (ABNORMAL) Lipid Panel, Standard (03/15/2025 10:01 AM EDT) Triglycerides 107 <150 mg/dL [facility] Comment:Desirable Triglyceri de: less than 150 mg/dLBorderline High Triglyceride 150-199 mg/dLHigh Triglyceride: 200-499 mg/dLVery High Triglyceride: greater than or equal to 5OO mg/dL Cholesterol 138 <200 mg/dL [facility] Comment:Desirable Cholestero l: less than 200 mg/dLBorderline High Cholesterol: 200-239 mg/dLHigh Cholesterol: greater than 239 mg/dL LDL Cholesterol Calculated 99 <100 mg/dL [facility] Comment:Desirable LDL: less than 100 mg/dLNear Optimal/Above Optimal LDL: 110- 129 mg/dLBorderline High LDL: 130-159 mg/dLHigh LDL: 160-189 mg/dLVery High LDL: greater than or equal to 190 mg/dL HDL Cholesterol 18(L) >40 mg/dL [facility] Comment:Desirable HDL: great er than 40 mg/dL Note: This HDL assay may give artificially low results in patients with liver disease. Blood Venous blood specimen / Unknown 03/15/2025 10:01 AM EDT 03/15/2025 11:01 AM EDT us Louis Valverde MD LAB BLOOD ORDERABLES Final Resul t [facility] [address] [place] [phone] * Blood Culture (Second) (01/31/2025 10:34 PM EDT) Blood Venous blood specimen / Unknown 01/31/2025 10:34 PM EDT 01/31/2025 10:37 PM EDT Comment:Blood Narrative [facility] - 02/06/2025 12:37 AM EDT Blood Culture (Second) No growth after 5 days. Specimen Source: Blood us Generic External Data Provider LAB MICROBIOLOGY - GENERAL ORDERABLES Final Result Performing Organization Address [facility] Co de Phone Number [facility] [address] [place] [phone] * Blood Culture (First) (01/31/2025 10:23 PM EDT) Blood Venous blood specimen / Unknown 01/31/2025 10:23 PM EDT 01/31/2025 10:27 PM EDT Comment:Blood Narrative [facility] - 02/06/2025 12:27 AM EDT Blood Culture (First) No growth after 5 days. Specimen Source: Blood Generic External Data Provider LAB MICROBIOLOGY - GENERAL ORDERABLES Final Result Performing Organization Address [facility] Co de Phone Number [facility] [address] [place] [phone] * Lactic Acid (01/31/2025 10:23 PM EDT) Lactic Acid 0.8 0.5 - 2.0 mmol/L [facility] 01/31/2025 10:2 3 PM EDT 01/31/2025 10:27 PM EDT Generic External Data Provider LAB BLOOD ORDERAB LES Final Result Performing Organization Address [facility] de Phone Number [facility] [address] [place] [phone] * Pathologist Review - CBC (01/31/2025 7:46 PM EDT) Pathologist Review - CBC SEE NOTE [facility] Comment:- Lymphocytosis with abnormal lymphoid cells [...] ORDERAB LES Final Result Performing Organization Address [facility] Co de Phone Number [facility] [address] [place] [phone] * B Type Natriuretic Peptide (BNP) (01/31/2025 7:46 PM EDT) B Type Natriuretic Peptide 14 <100 pg/mL [facility] 01/31/2025 7:46 PM EDT 01/31/2025 7:55 PM EDT Generic External Data Provider LAB BLOOD ORDERAB LES Final Result Performing Organization Address [facility] Number [facility] [address] [place] [phone] * Strep A Nucleic Acid (01/30/2025 1:15 PM EDT) Pathologist [facility] IDNOW SERIAL# [id number] [facility] Strep A Nucleic Acid Negative Negative [facility] Comment:All test results mus t be [...] GENERAL ORDERABLES Final Result Performing Organization Address [facility] Phone Number [facility] [address] [place] [phone] * SARS-CoV-2 RNA, Influenza A/B, and RSV RNA, Ql NAAT (01/30/2025 1:15 PM EDT) Pathologist [facility] Influenza A PCR NEGATIVE Negative [facility] Influenza B PCR NEGATIVE Negative [facility] Resp Syncy Virus RNA Qual PCR NEGATIVE Negative [facility] SARS COV2 PCR NEGATIVE Negative [facility] Comment:All test results mus t [...] use by authorized laboratories.Testing performed on the [employer] GeneXpert utilizingreal-time RT-PCR.All SARS CoV2 and positive influenza A/B results arereported to [facility]. 01/30/2025 1:15 PM EDT 01/30/2025 1:32 PM EDT Generic External Data Provider LAB MICROBIOLOGY - GENERAL ORDERABLES Final Result Performing Organization Address City/[facility]/ZIP Co de Phone Number [facility] [address] [place] [phone] * Hm Colonoscopy (10/08/2024 7:58 AM EDT) Historical Provider HEALTH MAINTENANCE Final Result * Hepatitis C Ab (10/15/2023 9:19 AM EDT) Hepatitis C Antibody Nonreactive Nonreactive [facility] Comment:Antibodies to HCV no t detected; does not exclude early acuteHCV infection. Blood Venous blood specimen / Unknown 10/15/2023 9:19 AM EDT 10/15/2023 11:17 AM EDT Louis Valverde MD LAB BLOOD ORDERABLES Final Resul t Performing Organization Address City/[facility]/ZIP Co de Phone Number [facility] [address] [place] [phone] from Last 3 Months or Most Recently Relevant to Health Maintenance Insurance [facility] C3 DENTAL-[facility] MEDICAID STAND [place], [place] Care Teams Component Assembler Supervisor Relationship Specialty Start Date End Date Name, MD Louis [address] [place] [address] PCP - General Family Medicine 07/14/18
--- OUTSIDE RECORDS SUMMARY | 2025-04-05 14:59 | XMS_ITS | Encounter Summary ---
Author Organization [employer] Address [address] [place] [address] Care Team Providers Care Regional Sales Director Name Role Phone Name, Louis DISLA Primary Care Provider [phone] Encounter Details Date Type Department Care Team ([facility] st Contact Info) Description 10/12/2024 Orders Only [facility] [address] [place] [address] Provider, MD Noam Social History Tobacco Use [...] Lactic Acid 0.6 0.5 - 2.0 mmol/L [facility] 10/12/2024 2:37 PM EDT 10/12/2024 2:42 PM EDT us Generic External Data Provider LAB BLOOD ORDERAB LES Final Result Performing Organization Address City/State/[facility] Co de Phone Number [facility] [address] [place] [phone] * CT Abdomen Pelvis w/o Contrast (10/12/2024 2:26 PM EDT) Anatomical Region Laterality Modality Body, Pelvis, Abdomen Computed T omography 10/12/2024 2:26 PM EDT Narrative 10/12/2024 3:38 PM EDT [address] [address] [address] Scan Report Signed Patient: Irwin Mendoza Jr MR#: [id number] : 1970 Acct:[id number] Age/Sex: 54 / M ADM Date: 10/12/24 Loc: HO.ED Attending Dr: Ordering Physician: Mirta Dallas DO Date of Service: 10/12/24 Procedure(s): CT abdomen pelvis wo IV con Accession Number(s): [id number] cc: Mirta Dallas DO; Name,Louis DISLA Report Number: [id number]: Total DLP = 626.00 mGy-cm EXAMINATION: CT ABDOMEN PELVIS WITHOUT IV CONTRAST HISTORY: flank pain, recent cystoscopy COMPARISON: Relation is made with an outside PET/CT scan from [facility] [place] dated 08/16/2024. TECHNIQUE: CT scan of the [...] 10/12/24 1535 DD/ 1426 TD/TT: 10/12/24 1518 Senior Vice President: Procedure Note Donotuseinterpreter, Image - 10/12/[address] [place] [address] [address] Scan Report Signed Patient: Irwin Mendoza Jr#: [id number] : 1970Acct:[id number] Age/Sex: 54 / MADM Date: 10/12/24 Loc: HO.ED Attending Dr: Ordering Physician: Mirta Dallas DO Date of Service: 10/12/24 Procedure(s): CT abdomen pelvis wo IV con Accession Number(s): [id number] cc: Mirta Dallas DO; Name,Louis DISLA Report Number: [id number]: Total DLP = 626.00 mGy-cm EXAMINATION: CT ABDOMEN PELVIS WITHOUT IV CONTRAST HISTORY: flank pain, recent cystoscopy COMPARISON: Relation is made with an outside PET/CT scan from [facility] [place] dated 08/16/2024. TECHNIQUE: CT scan of the [...] 10/12/24 1535 DD/ 1426 TD/TT: 10/12/24 1518 Senior Vice President: [facility] External Provider IMG CT PROCEDURES Final Result * (ABNORMAL) Urinalysis, Complete, with Reflex to Culture (10/12/2024 1:27 PM EDT) Color Urine Dark Yellow [facility] Appearance Urine Cloudy [facility] PH 5.5 5.0 - 9.0 [facility] Glucose Urine UA Negative Negative mg/dL [facility] Urine Blood Moderate (2+)(A) Negative [facility] Specific [place] - Urine 1.020 1.005 - 1.025 [facility] Urine Protein 100 (2+)(A) Neg-Trace mg/dL [facility] Urine Ketones Trace Negative mg/dL [facility] Nitrite Urine Positive(A) Negative [facility] Leukocyte Esterase Urine Moderate (2+)(A) Negative [facility] RBC Urine >20(A) 0 - 2 /HPF [facility] Urine WBC >50(A) 0 - 5 /HPF [facility] Urine Squamous Epithelial Cell 0-2 0 - 2 /HPF [facility] Urine Bacteria 2+ None Seen [facility] Hyaline Casts, Urine 3-5 0 - 2 /LPF [facility] 10/12/2024 1:27 PM EDT 10/12/2024 1:30 PM EDT Narrative [facility] - 10/12/2024 1:39 PM EDT [id number], [employer] us Generic External Data Provider LAB URINE ORDERAB LES Final Result Performing Organization Address [facility]/ZIP Co de Phone Number [facility] [address] [place] [phone] * Lipase (10/12/2024 1:21 PM EDT) Lipase 29 8 - 78 U/L [facility] 10/12/2024 1:21 PM EDT 10/12/2024 1:24 PM EDT us Generic External Data Provider LAB BLOOD ORDERAB LES Final Result Performing Organization Address [facility]/ZIP Co de Phone Number [facility] [address] [place] [phone] * Magnesium (10/12/2024 1:21 PM EDT) Magnesium 2.2 1.6 - 2.6 mg/dL [facility] 10/12/2024 1:21 PM EDT 10/12/2024 1:24 PM EDT us Generic External Data Provider LAB BLOOD ORDERAB LES Final Result [facility] [address] [place] [phone] * (ABNORMAL) Basic Metabolic Panel (10/12/2024 1:21 PM EDT) Pathologist [facility] Sodium 137 135 - 145 mmol/L [facility] Potassium 4.0 3.3 - 5.1 mmol/L [facility] Chloride 104 96 - 108 mmol/L [facility] Carbon Dioxide 28 22 - 29 mmol/L [facility] Anion Gap 9(L) 12 - 20 [facility] Urea Nitrogen (BUN) 21(H) 9 - 16 mg/dL [facility] Creatinine, Serum 0.78 0.5 - 1.4 mg/dL [facility] Creatinine Clr Calc Pharmacy 118.2 [facility] Comment:eGFR (calculated fro m the MDRD study equation) and eCrCl(calculated from the Cockcroft-Gault equation) are based ondifferent parameters and may not yield comparable results.If eCrCl result is absurd, please check patient'sheight/weight. Estimated Glomerular Filt Rate >60 [facility] Comment:Chronic Kidney Disea se: Estimated GFR < 60 mL/min/[id number] Kidney Disease: Estimated GFR < 15 mL/min/1.73m2 Glucose 108 60 - 115 mg/dL [facility] Calcium 9.5 8.4 - 10.2 mg/dL [facility] 10/12/2024 1:21 PM EDT 10/12/2024 1:24 PM EDT us Generic External Data Provider LAB BLOOD ORDERAB LES Final Result Performing Organization Address [facility]/ZIP Co de Phone Number [facility] [address] [place] [address] [phone] * Hepatic Function Panel (10/12/2024 1:21 PM EDT) Pathologist [facility] Bilirubin, Total 0.4 0.0 - 1.0 mg/dL [facility] Bilirubin, Direct 0.3 0.0 - 0.5 mg/dL [facility] Aspartate Amino Transferase 17 5 - 37 U/L [facility] Alanine Aminotransferase 20 0 - 40 U/L [facility] Total Protein 6.7 6.5 - 8.0 g/dL [facility] Albumin Level 4.2 3.5 - 5.0 g/dL [facility] Alkaline Phosphatase 75 39 - 117 U/L [facility] 10/12/2024 1:21 PM EDT 10/12/2024 1:24 PM EDT [employer] External Data Provider LAB BLOOD ORDERAB LES Final Result Performing Organization Address [facility] Co de Phone Number [facility] [address] [place] [phone] * (ABNORMAL) Complete Blood Count Manual Diff (10/12/2024 1:21 PM EDT) Pathologist [facility] White Blood Count 31.4(HH) 4.8 - 10.8 X10*3/uL [facility] Comment:Results of WBC interiano d to and read back by Nela 10/12/24 at 1332 by KRISTINA. Red Blood Count 4.39(L) 4.60 - 5.80 X10*6/uL [facility] Hemoglobin 12.5(L) 14.0 - 18.0 g/dl [facility] Hematocrit 37.7(L) 42.0 - 52.0 % [facility] Mean Corpuscular Volume 85.9 80.0 - 98.0 fL [facility] Mean Corpuscular Hemoglobin 28.5 27.0 - 33.0 pg [facility] Mean Corpuscular HGB Conc 33.2 31.0 - 36.0 g/dl [facility] Red Cell Distribution Width 14.4 11.0 - 16.0 % [facility] Platelet Count 179 160 - 400 X10*3/uL [facility] Mean Platelet Volume 9.0(L) 9.4 - 12.4 fL [facility] NRBC Pct Auto 0.0 0.0 - 0.2 /100WBC [facility] NRBC Abs Auto 0.000 0.0 - 0.012 X10*3/uL [facility] 10/12/2024 1:21 PM EDT 10/12/2024 1:24 PM EDT us Generic External Data Provider LAB BLOOD ORDERAB LES Final Result [facility] [address] [place] [phone] [phone] * Hm Colonoscopy (10/08/2024 7:58 AM EDT) Historical Provider HEALTH MAINTENANCE Final Result documented in this encounter Visit Diagnoses Not on filedocumented in this encounter Additional Health Concerns Assessment Noted Time PHQ-9 Depression Total Score: 0 10/14/19 24 1:34 PM EDT documented as of this encounter Care Teams Regional Sales Director Relationship Specialty Start Date End Date Name, MD Louis [address] [place] [address] PCP - General Family Medicine 07/14/18 documented as of this encounter
--- OUTSIDE RECORDS SUMMARY | 2025-04-05 14:59 | XMS_ITS | Clinical Summary ---
Author Organization [facility] Address [address] [place] [address] Phone Care Team Providers Care [employer]oplesoft Functional Analyst Name Role Phone Name, Louis DISLA Primary Care Provider [phone] Active Problems Problem Noted Date Diagnosed Date [...] topic Medical Devices Not on file Insurance [facility] [address] [place] [address] [place] [address] [place] [address] [place] [address] [employer] [facility] [employer] [facility] C3 ACO Care Teams [employer] Functional Analyst Relationship Specialty Start Date End Date Name, MD Louis [address] [place] [phone] PCP - General Internal Medicine 09/29/24 Additional Source Comments The information contained in this document represents components of the legal health record. It is not the complete legal health record.[facility]
== END 2025-04-05 12:34 | disposition home or self-care (01) ==
PROVIDERS: Physician Assistant Medical; Emergency Provider Emergency Medicine; PCP Internal Medicine Geriatric Medicine
DX: C91.10 Chronic lymphocytic 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 (principal); R59.1 Generalized enlarged lymph nodes; R59.0 Localized enlarged lymph nodes
CPT/HCPCS: 36415; 71046; 80053; 83735; 85007; 85025; 85027; 99283

== ENCOUNTER → 2025-04-05 11:57 | Outpatient (BNV) | payer MEDICAID, SELFPAY | PROVIDERS: Emergency Provider Emergency Medicine; PCP Internal Medicine Geriatric Medicine; Visit Provider Radiology Diagnostic Radiology | DX: R53.83 Other fatigue (principal) | CPT/HCPCS: 71046 ==

== ENCOUNTER 2025-05-22 10:38 | Emergency (ER) | payer MEDICAID, SELFPAY ==
--- NOTE | ~2025-05-22 | XR_ITS ---
CLINICAL HISTORY: cough 2 view chest x-ray Comparison: CR - XR CHEST 2V - 01/31/25 19:16 EDT Findings: No consolidation or effusion. Heart size is normal. No acute fracture. IMPRESSION: 1. No acute findings. This document has been electronically signed by: Sivan Montana MD on 05/22/2025 18:41:51
[2025-05-22 10:43] VITALS: BP 154/80; PULSE 64; RESP 18; TEMP 36.6; O2SAT 98; BMI 29.6
--- NOTE | 2025-05-22 11:21 | ED_ITS ---
HPI - General Adult General Chief complaint: Upper Respiratory Symptoms Stated complaint: phlegmy Time Seen by Provider: 05/22/25 11:21 Source: patient Mode of arrival: ambulatory Limitations: no limitations History of Present Illness ED Provider: Aislinn Erwin PA-C HPI narrative: This is a 55yo male who presents to the ED for cough with sputum. He has a history of CLL, bladder cancer, kidney cancer, and BPH. He reports that he has a cough with lots of sputum for 4 weeks. Endorses upper respiratory symptoms 4 weeks ago that has since mostly resolve except for the cough. He reports that the cough and sputum is worse in the morning. He is concerned about the duration of this cough and the volume of sputum produced in the setting of his chronic lymphocytic leukemia. He is currently being monitored by Dr. Buenrostro for his CLL and does not require any other oncologic treatment at the moment. Denies fever, chills, chest pain, facial pain. Related Data Home Medications ?Medication ?Instructions ?Recorded ?Confirmed ascorbic acid (vitamin C) 100 mg 100 mg PO DAILY 09/1004/27/25 tablet cyanocobalamin (vitamin B-12) 50 50 mcg PO DAILY 09/1004/27/25 mcg tablet magnesium 100 mg tablet 100 mg PO DAILY 09/10/24 multivit,Ca,min-iron 8 mg-folic 1 tab PO DAILY 04/27/25 acid 200 mcg-lycopene 600 mcg tablet (Centrum Men) zinc 50 mg tablet 50 mg PO DAILY 09/10/2404/13 lisinopril 20 2 tab PO DAILY 04/27/2504/13 mg-hydrochlorothiazide 12.5 mg tablet Previous Rx's ?Medication ?Instructions ?Recorded ascorbic acid (vitamin C) 1,000 mg 1,000 mg PO DAILY 9 0 days #90 tabs 01/25/25 tablet methenamine hippurate 1 gram tablet 1 g PO DAILY 90 da ys #90 tabs 01/25/25 tamsulosin 0.4 mg capsule (Flomax) 0.4 mg PO BEDTIME 3 0 days #30 tabs 01/25/25 ofloxacin 0.3 % ear drops 10 drp otic (ears) DAILY 7 d ays 01/30/25 #10 mL azithromycin 250 mg tablet See Rx Instructions PO .COM PLEX #6 02/01/25 (Zithromax Z-Tereso) tabs cefuroxime axetil 500 mg tablet 500 mg PO BID 7 days # 14 tabs 02/01/25 codeine 10 mg-guaifenesin 100 mg/5 10 ml PO Q6H PRN co ugh #237 mL 02/01/25 mL oral liquid ofloxacin 0.3 % ear drops 10 drp otic (ears) BID 10 da ys #10 03/08/25 mL amoxicillin 875 mg-potassium 1 tab PO BID 7 days #14 t abs 05/22/25 clavulanate 125 mg tablet doxycycline hyclate 100 mg tablet 100 mg PO BID 7 days #14 tabs 05/22/25 Allergies Allergy/AdvReac Type Severity Reaction Status Date / Time No Known Allergies (No Known Allergy Verified 05/22/25 10:53 Allergies*) Review of Systems Constitutional: Constitutional: Reports as per HPI Eyes: Eyes: Reports as per HPI ENT: Reports as per HPI Cardiovascular: Cardiovascular: Reports as per HPI Respiratory: Respiratory: Reports as per HPI Gastrointestinal: Gastrointestinal: Reports as per HPI Genitourinary: Genitourinary: Reports as per HPI Musculoskeletal: Musculoskeletal: Reports as per HPI Integumentary/Breasts: Skin/Breast: Reports as per HPI Neurologic: Reports as per HPI Psychiatric: Psychiatric: Reports as per HPI Endocrine: Endocrine: Reports as per HPI Hematologic/Lymphatic: Hematologic/Lymphatic: Reports as per HPI Allergic/Immunologic: Allergic/Immunologic: Reports as per HPI PMF Past Medical History Attestation statement: The following information was validated with the patient. Source: old records reviewed and nursing notes reviewed Medical History Lymphadenopathy Elevated WBC count History of colon polyps HTN (hypertension) History of COVID-19 Bladder cancer RUQ pain Abdominal bloating Cancer of kidney Hx of bladder cancer Benign prostatic hyperplasia with lower urinary tract symptoms Obstructive sleep apnea (adult) (pediatric) Lesion of bladder Surgical History History of colonoscopy with polypectomy History of surgery H/O colonoscopy Hx of cystoscopy History of surgery Family History Family History Father Hypertension Diabetes Mother Lung cancer Sister Cancer Social History Social History Household Members: Family Housing: House Are you a primary customer care associate to a significant other at home: No Do you presently have visiting nurse or other home services: No Alcohol intake: never Patient Tobacco Use Status: Never used Tobacco Advance Directives: Yes Advance Directives on File: Yes Advance Directives Date on File: 10/15/24 Do you have a plan to hurt others: No Plan service: No Current occupational status: employed Physical Exam ED Vital Signs: Vital Signs - 24 hr 05/22/25 10:43 05/22/25 12:18 05/22/25 13:00 Temperature 98 F 98.2 F Pulse Rate 64 59 Respiratory Rate 18 16 Blood Pressure 154/80 H 150/75 H Pulse Oximetry 98 95 95 Oxygen Delivery Method Room Air Room Air Room Air 05/22/25 13:03 Temperature 98.2 F Pulse Rate 59 Respiratory Rate 16 Blood Pressure 150/75 H Pulse Oximetry 95 Oxygen Delivery Method Room Air BMI result Body Mass Index 29.6 Const General: comfortable, alert and awake Nutritional Appearance: overweight Orientation/consciousness: patient oriented x3 HENMT Head: Yes normal to inspection and Yes atraumatic Ears: hearing grossly normal bilaterally and external ears normal General nose exam: Normal external nose present, no nasal discharge noted and no epistaxis Face and sinus: Yes normal facial exam, No abrasion and No laceration Mouth: Normal oral and palatal mucosa present, no drooling and no muffled voice Eyes General: appearance normal, both eyes and all related structures Periorbital: periorbital findings normal Eyelids: Yes eyelids normal Conjunctivae: conjunctivae normal Pupils: Equal, round and reactive pupils present EOM: EOMs intact bilaterally Neck Neck: Yes normal visual inspection and Yes full ROM Resp Effort & Inspection: normal respiratory effort and able to speak in complete sentences Neuro General: patient oriented x3 Cranial nerves: Yes Equal, round and reactive pupils present Cognition (Neuro): normal cognition Extrem General: Yes normal to inspection, Yes full ROM and Yes capillary refill normal Psych Appearance: grossly normal Mental Status: mental status grossly normal Affect: normal affect Attitude: cooperative Thought process: Normal thought process present Thought content: Normal thought content present Insight: Good insight present (Psych) Medical Decision Making Medical Decision Making MDM Narrative: Patient is a 55 year old assigned male at with a history of CLL, bladder cancer, kidney cancer, and BPH presenting to the emergency department today with a cough and mucus production x 4 weeks. Patient's physical exam was as noted in the physical exam portion of this note. Patient's chest x-ray showed no acute process. Patient's COVID-19, influenza, and RSV tests were unremarkable. Given patient's CLL history and length of symptoms - will treat as super imposed bacterial PNA. I explained my physical exam findings as well as all test results to the patient. I answered all questions asked by the patient. I stressed the importance of the patient taking his medication as directed (either prescribed or as the over the counter packaging recommends). I stressed the importance of the patient following up with his primary care provider. I stressed the importance of the patient returning to the emergency department immediately if his symptoms were to worsen or if he were to develop any dizziness, shortness of breath, difficulty breathing, chest pain, blurry vision, loss of vision, nausea, vomiting, abdominal pain, fever, chills, back pain, or any other complaints. Patient verbalized agreement and understanding with this treatment plan and discharge. Differential Diagnosis Differential Diagnoses: The differential diagnosis associated with the presentation includes URI PNA COVID-19 Influenza RSV Admission/Observation Consideration of admission/observation: Escalation of care including admission/observation considered Patient would have been admitted to the hospital had his work up had any findings where hospital admission was appropriate and his clinical presentation warranted hospital admission. Lab Data [facility] Lab Attestation statement: I reviewed the patient's lab results. My interpretation of these results are in the MDM Rationale portion of this note. Labs: Lab Results 05/22/25 Range/Units 11:48 Influenza Type A (PCR) NEGATIVE (Negative) Influenza Type B (PCR) NEGATIVE (Negative) RSV RNA Qual (PCR) NEGATIVE (Negative) SARS-CoV-2 RNA (RT-PCR) NEGATIVE (Negative) Independent Interpretation I performed an independent interpretation of an: Plain X-Ray Interpretation: My interpretation is in agreement with the radiologist's impression of this imaging study. Reason for Exam: cough CLINICAL HISTORY: cough 2 view chest x-ray Comparison: CR - XR CHEST 2V - 01/31/25 19:16 EDT Findings: No consolidation or effusion. Heart size is normal. No acute fracture. IMPRESSION: 1. No acute findings. This document has been electronically signed by: Sivan Montana MD on 05/22/2025 18:41:51 Dictated By: Sivan Montana MD Signed By: Electronically signed by Sivan Montana MD 05/22/25 1053 Radiology Impression Discussion of test interpretation with radiology: I have reviewed the radiologist's reading. Prescription Management I considered prescription management with: Antibiotic (patient prescribed antibiotic for possible super imposed PNA) Discharge Plan Discharge Clinical Impression: Cough, Upper respiratory infection Patient Disposition: Home, Self-Care Instructions: Upper Respiratory Infection (DC) Additional Instructions: Your chest x-ray and COVID-19, Influenza, and RSV swabs were negative. Given the length of your symptoms and history of CLL - we will treat as super imposed bacterial infection (pneumonia). IF you are prescribed home medications and/or you are taking over the counter medications at home - it is very important you continue to do so as prescribed / directed unless told otherwise. Follow up with your primary care provider. Return to the emergency department immediately if your symptoms worsen or if you develop any numbness, tingling, dizziness, shortness of breath, difficulty breathing, chest pain, blurry vision, loss of vision, nausea, vomiting, abdominal pain, fever, chills, back pain, or a ny other complaints. Please see the information below about our Patient Portal. If you are not yet enrolled in the [facility] Patient Portal, you will receive an enrollment email invitation following your visit to any [facility] setting. You may also self-enroll in the Patient Portal by visiting our website: [email or web address] The following information is required to access the Patient Portal: - Your [facility] Medical Record Number - Your personal home email address (must match what is in your electronic medical record, Registration staff can assist with this) - Name - Date of Capabilities of the Patient Portal: - Message some providers - View upcoming appointments - Access your health summary, medical history, and visit history - View current conditions and allergies - View procedure and lab results - View your medications, including guidelines, side effects, and precautions - Complete pre-appointment questionnaires requested by your provider - Ready summary reports of your office visits and procedures To access the Patient Portal Mobile [employer]ann, follow these directions: - Search [employer] in the Roxann Store or Google Play Store - Download the [employer]ann - Search for [facility] - Enter your login/password Prescriptions: New doxycycline hyclate 100 mg tablet 100 mg PO BID 7 Days Qty: 14 0RF amoxicillin-pot clavulanate 875-125 mg tablet 1 tab PO BID 7 Days Qty: 14 0RF No Action cyanocobalamin (vitamin B-12) 50 mcg Tablet 50 mcg PO DAILY magnesium 100 mg Tablet 100 mg PO DAILY ascorbic acid (vitamin C) 100 mg Tablet 100 mg PO DAILY zinc 50 mg Tablet 50 mg PO DAILY Centrum Men 8 mg iron- 200 mcg-600 mcg Tablet 1 tab PO DAILY lisinopril-hydrochlorothiazide 20-12.5 mg tablet 2 tab PO DAILY ofloxacin 0.3 % drops 10 drp otic (ears) DAILY 7 Days Qty: 10 0RF ofloxacin 0.3 % drops 10 drp otic (ears) BID 10 Days Qty: 10 0RF cefuroxime axetil 500 mg tablet 500 mg PO BID 7 Days Qty: 14 0RF azithromycin [Zithromax Z-Tereso] 250 mg tablet See Rx Instructions .ROUTE .COMPLEX Qty: 6 0RF Rx Instructions: For 250 mg dose pack: take 500 mg today (day 1), then 250 mg for 4 days (days 2-5) codeine-guaifenesin 10-100 mg/5 mL liquid 10 ml PO Q6H PRN (Reason: cough) Qty: 237 0RF ascorbic acid (vitamin C) 1,000 mg tablet 1,000 mg PO DAILY 90 Days Qty: 90 1RF methenamine hippurate 1 gram tablet 1 g PO DAILY 90 Days Qty: 90 1RF tamsulosin [Flomax] 0.4 mg capsule 0.4 mg PO BEDTIME 30 Days Qty: 30 1RF Referrals: Name,MD Louis [Primary Care Provider, Internal Medicine] Interventions: ED Discharge Assessment Last Done: 05/22/25 13:03 Discharge Date/Time: 05/22/25 13:05 Print Language: Japanese
--- OUTSIDE RECORDS SUMMARY | 2025-05-22 11:29 | XMS_ITS | Encounter Summary ---
Author Organization [employer] Address [address] [facility] [address] [place] [address] Care Team Providers Care Import Export Agent Name Role Phone Name, Louis DISLA Primary Care Provider [phone] Encounter Details Date Type Department Care Team ([facility] st Contact Info) Description 10/09/2022 Abstract [facility] [address] [place] [address] Milo, Babs [address] [place] [address] Social History Tobacco Use Types Packs/Day Years [...] on filedocumented in this encounter Care Teams Import Export Agent Relationship Specialty Start Date End Date Name, MD Louis [address] [place] [address] PCP - General Family Medicine 07/14/18 documented as of this encounter
--- OUTSIDE RECORDS SUMMARY | 2025-05-22 11:29 | XMS_ITS | Encounter Summary ---
Author Organization [employer] Address [address] [facility] [address] [place] [address] Care Team Providers Care Shredded Filler Cigar Maker Machine Name Role Phone Name, Louis DISLA Primary Care Provider [phone] Encounter Details Date Type Department Care Team ([facility] st Contact Info) Description 10/09/2022 Abstract [facility]ULT D[facility] [address] [place] [address] Milo, Babs [address] [place] [address] Social History Tobacco Use Types Packs/Day Years [...] on filedocumented in this encounter Care Teams Shredded Filler Cigar Maker Machine Relationship Specialty Start Date End Date Name, MD Louis [address] [place] [address] PCP - General Family Medicine 07/14/18 documented as of this encounter
--- OUTSIDE RECORDS SUMMARY | 2025-05-22 11:29 | XMS_ITS | Encounter Summary ---
Author Organization [employer] Address [address] [facility] [address] [place] [address] Care Team Providers Care Stage Electrician Helper Name Role Phone Name, Louis DISLA Primary Care Provider [phone] Encounter Details Date Type Department Care Team ([facility] st Contact Info) Description 10/21/2022 Abstract [facility] ADULT DENTAL [address] [place] [address] Milo, Babs [address] [place] [address] Social History Tobacco Use Types Packs/Day Years [...] on filedocumented in this encounter Care Teams Stage Electrician Helper Relationship Specialty Start Date End Date Name, MD Louis [address] [place] [address] PCP - General Family Medicine 07/14/18 documented as of this encounter
--- OUTSIDE RECORDS SUMMARY | 2025-05-22 11:29 | XMS_ITS | Clinical Summary ---
Author Organization [employer] Address [address] [facility] [address] [place] [address] Care Team Providers Care Supervisor Powdered Metal Name Role Phone Name, Louis DISLA Primary Care Provider [phone] Allergies No known active allergies Medications clindamycin (Cleocin T) 1 % lotion APPLY TO AFFECTED AREA TWICE A DAY 60 mL 2 4 Active amLODIPine (Norvasc) 10 MG tabletIndication s:Hypertension, unspecified type Take 1 tablet (10 mg) by mouth Once per day. 90 tablet 3 4 Active Multiple Vitamin (multivitamin) tablet Take 1 [...] EACH NOSTRIL ONCE PER DAY. 48 mL 5 Active loratadine (Claritin) 10 MG tablet TAKE 1 TABLET BY MOUTH EVERY DAY IN THE MORNING 90 tablet 1 5 Active lisinopril-hydro CHLOROthiazide 20-12.5 MG tablet Take 2 tablets by mouth Once per day. 60 tablet 11 5 03/21/20 26 Active Active Problems Problem Noted Date Diagnosed [...] adenoma of colon 10/14/2023 Cancer of kidney (CMS/HCC) 10/14/2023 CLL (chronic lymphocytic leukemia) 04/23/2023 Acute [...] with good improvement since 2009. 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[employer] [facility] Hypertension 11/12/2010 ED (erectile dysfunction) 06/19/2010 Resolved Problems Problem Noted Date Diagnosed Date Resolved Date Sensation of lump in throat 01/26/2024 01/30/2024 Obstructive sleep apnea syndrome 01/26/2024 01/30/2024 Arthritis 10/14/2023 10/14/2023 Bronchitis 10/14/2023 10/14/2023 COVID-19 10/14/2023 10/14/2023 Injury of quadriceps muscle 10/14/2023 10/14/2023 Lymphocytosis 10/14/2023 10/14/2023 Otitis externa 10/14/2023 10/14/2023 Otitis media 10/14/2023 10/14/2023 RUQ pain 10/14/2023 10/14/2023 Bladder cancer (CMS/HCC) 10/14/2023 HTN (hypertension) 10/14/2023 Adenoma of large intestine 08/12/2022 0 10/14/2023 Overview (08/12/2022): Follow at [facility], colonoscopy Q 3 years [...] appointment. Was removed by outside urology at [facility]. Renal mass 09/17/2012 10/14/2023 Overview (12/19/2022): Left-sided. Seen in MRI on 08/26 at [facility] for work up of Hematuria. Patient is following with Urology there. Biopsy showed malignancy and the patient was been scheduled for partial nephrectomy on October of 2012. Patient continues to follow at [facility] with serial CT of the kidneys and serial cystoscopies Encounters Date Type Department Care Team Description 04/06/2025 Patient Outreach [facility] [address] [place] [address] Louis Valverde MD Transition Of Care (Tcm) 04/05/2025 Orders Only GENERIC EXTERNAL DATA DEPARTMENT Provider, Generic External Data 03/29/[address] [address] Louis Valverde MD 03/29/2025 Travel 03/22/[address] [address] Louis Valverde MD Durable Medical Equipment 03/21/2025 11:00 AM EDT Office Visit [address] [address] Louis Valverde MD Hypertension, unspecified type (Primary Dx); NATHAN (obstructive sleep apnea) 03/21/2025 Travel 03/18/[address] [address] Louis Valverde MD Chart Prep 03/06/[address] [address] Louis Valverde MD from Last 3 Months Immunizations Immunization Administration [...] 25 Disability Screening 11/23/2025 11/23/2024 Tobacco Screening 03/21/2026 03/21/2025 Colonoscopy 10/08/2029 10/08/2024, 05/11/2021 Colorectal Cancer Screening 10/08/2029 Lipid Panel 03/15/2030 03/15/2025, 04/0 09/2023, 08/15/2022, Additional history exists DTaP/Tdap/Td Vaccines (3 [...] 10:01 AM EDT Screening for cholesterol level HM COLONOSCOPY Routine 10/08/2024 7:58 AM EDT [...] PM EDT Narrative 04/05/2025 12:18 PM EDT [address] [address] XRay Report Signed Patient: Irwin Mendoza Jr MR#: [id number] : 1970 Acct:[id number] Age/Sex: 55 / M ADM Date: 04/05/25 Loc: .ED Attending Dr: Ordering Physician: Mirta Dallas DO Date of Service: 04/05/25 Procedure(s): XR chest 2V Accession Number(s): [id number] cc: Mirta Dallas DO; Name,Louis DISLA Reason [...] 04/05/25 1215 DD/ 1204 TD/TT: 04/05/25 1206 Barrel Plater: Procedure Note Donotuseinterpreter, Image - 04/05/[address] [address] XRay Report Signed Patient: Irwin Mendoza JrisMR#: [id number] : 1970Acct:[id number] Age/Sex: 55 / MADM Date: 04/05/25 Loc: HO.ED Attending Dr: Ordering Physician: Mirta Dallas DO Date of Service: 04/05/25 Procedure(s): XR chest 2V Accession Number(s): [id number] cc: Mirta Dallas DO; Name,Louis DISLA Reason [...] 04/05/25 1215 DD/ 1204 TD/TT: 04/05/25 1206 Barrel Plater: [facility] External Provider IMG XR PROCEDURES Final Result * (ABNORMAL) Complete Blood Count Manual Diff (04/05/2025 11:34 AM EDT) White Blood Count 80.6(HH) 4.8 - 10.8 X10*3/uL [facility] Comment:Critical WBC called to and read back by Kailyn 04/05/25 at 1209 by [place]. Red Blood Count 3.81(L) 4.60 - 5.80 X10*6/uL [facility] Hemoglobin 10.8(L) 14.0 - 18.0 g/dl [facility] Hematocrit 34.6(L) 42.0 - 52.0 % [facility] Mean Corpuscular Volume 90.8 80.0 - 98.0 fL [facility] Mean Corpuscular Hemoglobin 28.3 27.0 - 33.0 pg [facility] Mean Corpuscular HGB Conc 31.2 31.0 - 36.0 g/dl [facility] Red Cell Distribution Width 15.8 11.0 - 16.0 % [facility] Platelet Count 144(L) 160 - 400 X10*3/uL [facility] Mean Platelet Volume 8.8(L) 9.4 - 12.4 fL [facility] NRBC Pct Auto 0.0 0.0 - 0.2 /100WBC [facility] NRBC Abs Auto 0.020(H) 0.0 - 0.012 X10*3/uL [facility] Neutrophils % Manual 2(L) 45 - 73 % [facility] Band Neutrophils Percent 1(L) 3 - 5 % [facility] Lymphocytes Percent Manual 82(H) 20 - 40 % [facility] Atypical Lymphs Percent Manual 12(H) 0 - 6 % [facility] Monocytes Percent Manual 1(L) 2 - 11 % [facility] EOSINOPHILS % MANUAL 1 0 - 4 % [facility] BASOPHILS % MANUAL 1 0 - 2 % [facility] NEUTROPHILS ABSOLUTE MANUAL 2.4 2.0 - 8.3 X10*3/uL [facility] LYMPHOCYTES ABSOLUTE MANUAL 66.1(H) 1.2 - 4.9 X10*3/uL [facility] Atypical Lymph Absolute Manual 9.7 x10*3/uL [facility] MONOCYTES ABSOLUTE MANUAL 0.8 0.1 - 1.2 X10*3/uL [facility] EOSINOPHILS ABSOLUTE MANUAL 0.8(H) 0.0 - 0.4 X10*3/uL [facility] BASOPHILS ABSOLUTE MANUAL 0.8(H) 0.0 - 0.2 X10*3/uL [facility] Smudge Cells PRESENT [facility] Platelet Estimate [facility] Platelet Morphology Comment [facility] RBC Morphology NOTED [facility] POLYCHROMASIA 1+ (0-2) /OIF [facility] 04/05/2025 11:3 4 AM EDT 04/05/2025 11:47 AM EDT us Generic External Data Provider LAB BLOOD ORDERAB LES Final Result [facility] [address] [place] [address] [phone] * (ABNORMAL) CBC auto differential (04/05/2025 11:34 AM EDT) White Blood Count 80.6(HH) 4.8 - 10.8 X10*3/uL [facility] Comment:Critical WBC called to and read back by Kailyn 04/05/25 at 1209 by [place]. Red Blood Count 3.81(L) 4.60 - 5.80 X10*6/uL [facility] Hemoglobin 10.8(L) 14.0 - 18.0 g/dl [facility] Hematocrit 34.6(L) 42.0 - 52.0 % [facility] Mean Corpuscular Volume 90.8 80.0 - 98.0 fL [facility] Mean Corpuscular Hemoglobin 28.3 27.0 - 33.0 pg [facility] Mean Corpuscular HGB Conc 31.2 31.0 - 36.0 g/dl [facility] Red Cell Distribution Width 15.8 11.0 - 16.0 % [facility] Platelet Count 144(L) 160 - 400 X10*3/uL [facility] Mean Platelet Volume 8.8(L) 9.4 - 12.4 fL [facility] Neutrophils Percent Auto 1.3(L) 45 - 73 % [facility] Imm Gran Pct Auto 0.1 0.0 - 0.4 % [facility] Lymphocytes Percent Auto 84.8(H) 20 - 40 % [facility] Monocytes Percent Auto 13.6(H) 2 - 11 % [facility] Eosinophils Percent Auto 0.1 0 - 4 % [facility] Basophils Percent Auto 0.1 0 - 2 % [facility] NRBC Pct Auto 0.0 0.0 - 0.2 /100WBC [facility] Neutrophils Absolute Auto 1.1(L) 2.0 - 8.3 x10*3/uL [facility] Imm Gran Abs Auto 0.08(H) 0.00 - 0.03 X10*3/uL [facility] Lymphocytes Absolute Auto 68.4(H) 1.2 - 4.9 X10*3/uL [facility] Monocytes Absolute Auto 10.9(H) 0.1 - 1.2 X10*3/uL [facility] Eosinophils Absolute Auto 0.1 0.0 - 0.4 X10*3/uL [facility] Basophils Absolute Auto 0.1 0.0 - 0.2 X10*3/uL [facility] NRBC Abs Auto 0.020(H) 0.0 - 0.012 X10*3/uL [facility] 04/05/2025 11:3 4 AM EDT 04/05/2025 11:47 AM EDT Generic External Data Provider LAB BLOOD ORDERAB LES Edited Result - Final Performing Organization Address City/[facility]/ZIP Co de Phone Number [facility] [address] [place] [phone] * Magnesium (04/05/2025 11:34 AM EDT) Pathologist [facility] Magnesium 2.0 1.6 - 2.6 mg/dL [facility] 04/05/2025 11:3 4 AM EDT 04/05/2025 11:47 AM EDT Generic External Data Provider LAB BLOOD ORDERAB LES Final Result Performing Organization Address [facility] Co de Phone Number [facility] [address] [place] [phone] * (ABNORMAL) Comprehensive Metabolic Panel (04/05/2025 11:34 AM EDT) Sodium 142 135 - 145 mmol/L [facility] Potassium 4.3 3.3 - 5.1 mmol/L [facility] Chloride 108 96 - 108 mmol/L [facility] Carbon Dioxide 27 22 - 29 mmol/L [facility] Anion Gap 11(L) 12 - 20 [facility] Urea Nitrogen (BUN) 24(H) 9 - 16 mg/dL [facility] Creatinine, Serum 0.97 0.5 - 1.4 mg/dL [facility] Creatinine Clr Calc Pharmacy 92.3 [facility] Comment:eGFR (calculated fro m the MDRD study equation) and eCrCl(calculated from the Cockcroft-Gault equation) are based ondifferent parameters and may not yield comparable results.If eCrCl result is absurd, please check patient'sheight/weight. Estimated Glomerular Filt Rate >60 [facility] Comment:Chronic Kidney Disea se: Estimated GFR < 60 mL/min/1.14s2Lutngu Kidney Disease: Estimated GFR < 15 mL/min/1.73m2 Glucose 93 60 - 115 mg/dL [facility] Calcium 9.2 8.4 - 10.2 mg/dL [facility] Bilirubin, Total 0.5 0.0 - 1.0 mg/dL [facility] Aspartate Amino Transferase 25 5 - 37 U/L [facility] Alanine Aminotransferase 15 0 - 40 U/L [facility] Total Protein 6.7 6.5 - 8.0 g/dL [facility] Albumin Level 4.6 3.5 - 5.0 g/dL [facility] Alkaline Phosphatase 83 39 - 117 U/L [facility] 04/05/2025 11:3 4 AM EDT 04/05/2025 11:47 AM EDT us Generic External Data Provider LAB BLOOD ORDERAB LES Final Result [facility] [address] [place] [address] [phone] * (ABNORMAL) Lipid Panel, Standard (03/15/2025 10:01 AM EDT) Triglycerides 107 <150 mg/dL [facility] Comment:Desirable Triglyceri de: less than 150 mg/dLBorderline High Triglyceride 150-199 mg/dLHigh Triglyceride: 200-499 mg/dLVery High Triglyceride: greater than or equal to 5OO mg/dL Cholesterol 138 <200 mg/dL [facility] Comment:Desirable Cholestero l: less than 200 mg/dLBorderline High Cholesterol: 200-239 mg/dLHigh Cholesterol: greater than 239 mg/dL LDL Cholesterol Calculated 99 <100 mg/dL [facility] Comment:Desirable LDL: less than 100 mg/dLNear Optimal/Above Optimal LDL: 110- 129 mg/dLBorderline High LDL: 130-159 mg/dLHigh LDL: 160-189 mg/dLVery High LDL: greater than or equal to 190 mg/dL HDL Cholesterol 18(L) >40 mg/dL [facility] Comment:Desirable HDL: great er than 40 mg/dL Note: This HDL assay may give artificially low results in patients with liver disease. Blood Venous blood specimen / Unknown 03/15/2025 10:01 AM EDT 03/15/2025 11:01 AM EDT Louis Valverde MD LAB BLOOD ORDERABLES Final Resul t [facility] [address] [place] [address] [phone] * Colonoscopy (10/08/2024 7:58 AM EDT) Historical Provider HEALTH MAINTENANCE Final Result * Hepatitis C Ab (10/15/2023 9:19 AM EDT) Hepatitis C Antibody Nonreactive Nonreactive [facility] Comment:Antibodies to HCV no t detected; does not exclude early acuteHCV infection. Blood Venous blood specimen / Unknown 10/15/2023 9:19 AM EDT 10/15/2023 11:17 AM EDT us Louis Valverde MD LAB BLOOD ORDERABLES Final Resul t [facility] [address] [place] [address] [phone] from Last 3 Months or Most Recently Relevant to Health Maintenance Insurance [facility] C3 DENTAL-[facility] MEDICAID STAND ADULT Care Teams Supervisor Powdered Metal Relationship Specialty Start Date End Date Name, MD Louis [address] [place] [address] PCP - General Family Medicine 07/14/18
--- OUTSIDE RECORDS SUMMARY | 2025-05-22 11:29 | XMS_ITS | Data Portability ---
Author Organization [place] - [facility], Allergy Address [address] [place] [address] Care Team Providers Care Park Services Specialist Name Role Phone VERNA BAIRES Referring Provider Assessment Encounter Date Assessment Date Assessment LastModified by Organization Details LastModified Time 03/09/2025 03/09/2025 55 year old male, with a history of leukemia, presents for evaluation of left otalgia. On otoscopic examination, there is purulent debris completely filling the left external auditory canal. This was removed using suction which the patient tolerated well. Canal skin is mildly edematous, however the tympanic membrane is intact with a well aerated middle ear space. Right ear is stable. Recommend a 14-day course of Tobradex drops and dry ear precautions for the left side. Follow up in 3 weeks to ensure resolution of infection. All questions were answered. [email or web address] Not available 03/09/2025 12:23:20 03/30/2025 03/30/2025 55 year old male, with a history of leukemia, presents for reevaluation of left otitis externa. On examination his external auditory canals are patent, dry, non-edematous, and clear of any otorrhea. Both tympanic membranes are intact with well aerated middle ear spaces bilaterally. He does have bulky bilateral posterior cervical lymphadenopathy , but the patient states that this has been unchanged for the last few months and is a result of his leukemia, which is followed by hematology/onco logy. Discussed that his otitis externa has resolved, therefore he can discontinue use of the Tobradex drops. I suspect that his intermittent ear fullness and frequent need to auto insufflate his ears is related to eustachian tube dysfunction. The patient does have some underlying allergy symptoms that respond well to temporary Flonase use in the spring, therefore I recommend that he use Flonase once daily in both nostrils until his follow-up appointment with Dr. Wilkes on 05/10. The patient will be receiving updated audiometric testing at his follow-up, which will help to investigate the eustachian tube dysfunction further. If his symptoms do not improve with Flonase then we may consider allergy testing. [email or web address] Not available 03/30/2025 15:50:31 Plan of Treatment Reminders Order Date Submit Date Provider Last Modified By Organization Details Last Modified Time Details Appointments Hearing Test 2025 02:00P M Hearing Test Not available Not available Not available Establish ed 30 2025 03:00P M TAYLOR Lopez MD Not available Not available Not available Lab None recorded. Referral None recorded. Procedures None recorded. Surgeries None recorded. Imaging None recorded. Medication Orders tobramyci n 0.3 %-dexamet hasone 0.1 % eye drops,loan pension 2024 025 [id number], [address] [place], [address], 03/30/2025 14:46:52 Patient TargetsNo targets recorded. Patient InstructionsNo instructions recorded. Reason for Referral None Reported. Results Created Date Observation Date Name Description Value Unit Range Abnormal Flag Note LastModifiedBy Organization Detail LastModifiedTime 03/04/2006/21/2021 imagi ng/di agnos tic resul t No observ ation record ed. [email or web address] Not Available 03:32:24 03/04/20 24 06/21/2021 imagi ng/di agnos tic resul t No observ ation record ed. [email or web address] Not Available 03:32:27 03/04/20 24 06/21/2021 audio gram No observ ation record ed. [email or web address] Not Available 03:32:31 05/07/20 audio gram No observ ation record ed. [email or web address] Not Available 04/14 13:50:38 Result Notes None recorded. Problems Name Problem SNOMED Code Status Onset Date Resolution Date Notes Provider Name and Address Organization Details Recorded Time Sensorine ural hearing loss of bilateral ears 412948172 Active 2020 Sensorine ural hearing loss, bilateral ; Note: Date Diagnosed : 06/21/2021 11:59 AM (H90.3) Not Available [facility] 4 02:32:25 Chronic sore throat 607864957 Active 2023 TAYLOR WILKES MD [address], [place], [place], [address] , [place] - [facility] 4 11:05:42 Feeling of lump in throat 938761868 Active 2023 TAYLOR WILKES MD [address], [place], [place], [address] , [place] - [facility] 4 11:06:11 Hypertrop hy of tonsils 19234452 Active 2023 TAYLOR WILKES MD [address], [place], [place], [address] , [place] - [facility] 4 11:16:13 Obstructi ve sleep apnea syndrome 97410204 Active 2023 TAYLOR WILKES MD [address], [place], [place], [address] , [place] - [facility] 4 11:20:42 Impacted cerumen in left ear 18576329413 34423 Active 2023 TAYLOR WILKES MD [address], [place], [place], [address] , [place] - [facility] 4 14:59:54 Asymmetri trevor sensorine ural hearing loss 876943820 Active 2023 TAYLOR WILKES MD [address], [place], [address] , [place] - [facility] 4 15:40:45 Otorrhea of left ear 60944243481 33326 Active 2024 LUCRECIA ADAMS [address] [facility],[place] [address], [place], [address] , [place] - [facility] 5 10:40:20 Otalgia of left ear 1601317402 Active 2024 LUCRECIA ADAMS [address] [facility],[place] [address], [place], [address] , [place] - [facility] 5 12:24:15 Dysfuncti on of bilateral eustachia n tubes 44353679129 28737 Active 2024 LUCRECIA WREN [address] [facility],[place] [address], [place], [address] , [place] - [facility] 5 15:20:32 Sensorine ural hearing loss of bilateral ears 411237012 Active 2024 LUCRECIA WREN [address] [facility],[place] [address], [place], [address] , [place] - [facility] 5 15:22:19 Problem Notes None recorded. Procedures Surgical History Date Name Laterality Status Provider Name and Address Organization Details Recorded Time 4 Cerumen removal without microscope left completed TAYLOR WILKES MD [address] [facility],[address], [address], [place] - [facility] 05/04/2024 15:01:11 4 Air & Speech Audio with Tymps - 17887, 20986 & 17310 completed HERBERT BYERS [address] [facility],[address], [address], [place] - [facility] 05/04/2024 15:19:51 4 FFL_RE completed TAYLOR WILKES MD [address] [facility],[address], [address], [place] - [facility] 01/26/2024 11:06:27 Imaging Results None recorded. Procedure Notes None recorded. Medical Equipment None Reported. Medications Name Sig Start Date Stop Date Status Note LastModified by Organization Details LastModified Time amoxicillin 500 mg capsule TAKE 1 CAPSULE ORALLY EVERY 12 HOURS 03/30 completed Not Available Not Available Not Available prednisone 10 mg tablet PLEASE SEE ATTACHED FOR DETAILED DIRECTION S 03/30 completed Not Available Not Available Not Available cefpodoxime 200 mg tablet TAKE 1 TABLET BY MOUTH TWICE A DAY MUST ADMINISTE R WITH A MEAL/FOOD 03/30 completed Not Available Not Available Not Available lisinopril 20 mg-hydrochl orothiazide 12.5 mg tablet TAKE 2 TABLETS BY MOUTH ONCE PER DAY. active Not Available Not Available No t Available azithromyci n 250 mg tablet TAKE 2 TABLETS BY MOUTH TODAY, THEN TAKE 1 TABLET DAILY FOR 4 DAYS DIRECTED 03/30 completed Not Available Not Available Not Available prednisone 20 mg tablet TAKE 2 TABLETS (40MG) BY MOUTH EVERY DAY FOR 5 DAYS 03/30 completed Not Available Not Available Not Available amlodipine 5 mg tablet TAKE 1 TABLET BY MOUTH EVERY DAY IN THE MORNING 03/30 completed Not Available Not Available Not Available acyclovir 400 mg tablet TAKE 1 TABLET BY MOUTH TWICE A DAY 03/30 completed Not Available Not Available Not Available acetaminoph en 500 mg tablet TAKE 1 TABLET BY MOUTH EVERY 8 HOURS NEEDED MILD/MODE RATE PAIN UPTO 5 DAYS. 03/30 completed Not Available Not Available Not Available ondansetron 8 mg disintegrat ing tablet 8 MG ORALLY EVERY 8 HOURS NEEDED FOR NAUSEA AND VOMITING 03/30 completed Not Available Not Available Not Available ofloxacin 0.3 % ear drops INSTILL 10 DROPS INTO THE AFFECTED EAR(S) 2 TIMES A DAY FOR 10 DAYS 03/30 completed Not Available Not Available Not Available methenamine hippurate 1 gram tablet TAKE 1 TABLET BY MOUTH EVERY DAY 03/30 completed Not Available Not Available Not Available Vitamin C 1,000 mg tablet TAKE 1 TABLET (1000 MG) ORALLY DAILY FOR 90 DAYS active Not Available Not Available No t Available amlodipine 10 mg tablet TAKE 1 TABLET BY MOUTH ONCE DAILY 03/30 completed Not Available Not Available Not Available dexamethaso ne 4 mg tablet TAKE 1 TABLET BY MOUTH 4 TIMES A DAY 03/30 completed Not Available Not Available Not Available cefuroxime axetil 500 mg tablet TAKE 1 TABLET (500 MG) ORALLY 2 TIMES A DAY FOR 7 DAYS 03/30 completed Not Available Not Available Not Available lisinopril 40 mg tablet TAKE 1 TABLET BY MOUTH EVERY DAY IN THE MORNING 03/30 completed Not Available Not Available Not Available loratadine 10 mg tablet TAKE 1 TABLET BY MOUTH EVERY DAY IN THE MORNING active Not Available Not Available No t Available amoxicillin 875 mg-suzan hsu clavulanate 125 mg tablet TAKE 1 TABLET BY MOUTH TWICE A DAY 03/30 completed Not Available Not Available Not Available tobramycin 0.3 %-dexametha sone 0.1 % eye drops,suspe nsion INSTILL 4 DROPS INTO LEFT EAR TWICE A DAY FOR 14 DAYS 03/30 completed Not Available Not Available Not Available clindamycin 1 % lotion APPLY TO AFFECTED AREA TWICE A DAY 03/30 completed Not Available Not Available Not Available chlorhexidi ne gluconate 0.12 % mouthwash USE 15 ML IN THE MOUTH OR THROAT IF NEEDED IN THE AM, NOON,BEDT BEBE X 5 DAYS.SPIT DO NOT SWALLOW 03/30 completed Not Available Not Available Not Available Suprep Bowel Prep Kit 17.5 gram-3.13 gram-1.6 gram oral solution DRINK EARLY EVENING BEFORE AND NEXT MORNING AT LEAST 2 HR BEFORE PROCEDURE FOLLOW W 960 ML WATER 03/30 completed Not Available Not Available Not Available Flonase Sensimist 27.5 mcg/actuati on nasal spray,suspe nsion USE 1 SPRAY INTRANASA LLY EVERY DAY EACH NOSTRIL active Not Available Not Available No t Available Vitals Date Recorded Body height Body mass index (BMI) Body weight Provider Name and Address Organization Details Last Updated DateTime 01/26/2024 172.72 cm 33.1 kg/m2 49221.14 g Dima Estevez [place] - [facility] 01/26/2024 11:03:25 Date Recorded Body height Body mass index (BMI) Body weight Provider Name and Address Organization Details Last Updated DateTime 03/09/2025 172.72 cm 31.3 kg/m2 17126.03 g Temitope Pearl [place] - [facility] 03/09/2025 10:26:55 Date Recorded Body height Body mass index (BMI) Body weight Provider Name and Address Organization Details Last Updated DateTime 03/30/2025 172.72 cm 30.1 kg/m2 13426.29 g Temitope Pearl [place] [facility] 03/30/2025 14:41:47 Date Recorded Body height Body mass index (BMI) Body weight Provider Name and Address Organization Details Last Updated DateTime 05/04/2024 172.72 cm 33.1 kg/m2 09887.14 g Dima Herb [facility] 05/04/2024 14:44:29 Social History None recorded. Functional Status None recorded. Mental Status None recorded. Family History Nothing Reported. Medical History No medical history recorded. Past Encounters Encounter ID Performer Location Encounter Start Date Encounter Closed Date Diagnosis/Indication Diagnosis SNOMED-CT Code Diagnosis ICD10 Code Diagnosis IMO Codes Diagnosis Note [id number] TAYLOR WILKES MD [facility] [address] [address] 01/26/2024 10:36:28 01/26/2024 11:21:17 Chronic sore throat 278432421 J31.2 Pain has improved. Remains with tonsil hypertroph y. See below. Feeling of lump in throat 921512895 R09.89 Likely due to sever tonsil hypertroph y. See below. Hypertroph y of tonsils 62982089 J35.1 He has 4+ tonsils. I discussed tonsillect junior as a last resort but recommend a period of observatio n first. He will f/u in 3 months to reassess and we will consider tonsillect junior as a last resort. I stressed it would not cure NATHAN. Obstructiv e sleep apnea syndrome 16716652 G47.33 Likely multifacto rial but likely worse due to 4+ tonsils. Discussed tonsillect junior might improve but not cure NATHAN. FFL showed enlarged tonsils but was otherwise normal. [id number] TAYLOR WILKES MD [facility] [address] [address] 05/04/2024 14:24:34 05/04/2024 15:40:47 Impacted cerumen in left ear 5260046278 402335 H61.22 Recurrent Cerumen Impactions : Ears were meticulous ly cleaned bilaterall y today with a curette and suction. The patient tolerated this well and will follow up for repeat debridemen t per routine. Hypertroph y of tonsils 63127454 J35.1 Tonsil hypertroph y is slightly improved. I recommend observatio n. Sensorineu ral hearing loss of bilateral ears 308769436 H90.3 Right Ear:Normal hearing through 1K Hz sloping to a moderately -severe SNHL with excellent speech discrimina tion.Type Ad tympanogra m.Left Ear:Normal hearing through 2K Hz sloping to a mild SNHL with excellent speech discrimina tion.Type Ad tympanogra m. Asymmetric al sensorineural hearing loss 776935152 H90.5 worse AD. stable compared to prior. Gave medical clearance for a new hearing aid. Given the asymmetry recommend yearly surveillan ce audiograms . [id number] LUCRECIA ADAMS [facility] [address] [address] 03/09/2025 09:51:41 03/09/2025 10:46:12 Otorrhea of left ear 6621009923 793438 H92.12 9386274 Otalgia of left ear 1010 400189 H92.02 5839420 [id number] LUCRECIA WREN [facility] [address] [address] 03/30/2025 14:28:46 03/30/2025 15:07:55 Dysfunction of bilateral eustachian tubes 0383166535 322342 H69.93 37821671 Sensorineu ral hearing loss of bilateral ears 804380247 H90.3 36617452 Otorrhea of left ear 938 3601882 599498 H92.12 [id number] Health Concerns Section Related Observation LastModified by Organization Detai ls LastModified Time None Recorded Concern Status LastModified by Organization Details LastModified Time None Recorded Advance Directives Directive None Recorded Payers Insurance Date Sequence Insurance Name Policy Number Policy Larson Covered Member ID Larson Member ID Guarantor Name 04/11/2025 1 [place] [facility] Irwin Mcnulty [id number] Irwin Mendoza Notes Date Note Type Note Provider Name and Address Organization Details Recorded Time 01/26/2024 text/html ROS as noted in the HPI In November he had a severe throat infection. He was given abx and prednisone. He had a normal CT at [facility] which was negative per his report (I don't have access to the CT). Since then his throat has bothered him. He feels he has had some voice change, enlarged tonsils and the feeling of phlegm stuck in his throat. Currently he has no pain. He does have globus. He denies dysphagia. TAYLOR WILKES MD [address], [address], [facility] - [facility] 01/26/2024 11:23:09 05/04/2024 text/html ROS as noted in the [facility] He has a history of leukemia. He was seen here 01/2024 he had severe tonsil hypertrophy. He reports his throat feels better and less swollen. Has a left hearing aid which isn't working well. Has not had a recent hearing test. TAYLOR WILKES MD [address], [address], [facility] 05/04/2024 15:41:25 03/09/2025 text/html ROS as noted in the [facility] 55 year old male, with a history of leukemia, presents for evaluation of left otalgia. Patient reports onset began 5 weeks ago after going to the beach, accompanied by intermittent drainage. He went to the ED 2 days ago as the pain worsened and his hearing decreased on that side. The ED provider was unable to visualize the tympanic membrane and he was prescribed ofloxacin drops due to concern for infection. TAYLOR WILKES MD [address] [facility],[address], [address], [facility] 03/09/2025 12:55:32 03/30/2025 text/html ROS as noted in the [facility] 55 year old male, with a history of leukemia, presents for reevaluation of left otitis externa. He used the Tobradex drops in the left ear for 2 weeks without issue, and today he denies any persisting otalgia or otorrhea. He does get fullness in both ears that causes muffled hearing and resolves temporarily with valsalva maneuvers that pop the ears. He states this has been an ongoing daily issue for decades. He does not get ear pain when he pops the ears, but he gets relief of the fullness sensation and muffled hearing for 30 minutes. Patient does have a history of asymmetric hearing loss, worse on the right, that he wears a right hearing aid for. He denies any baseline changes in his hearing, tinnitus, vertigo, or prior otologic surgeries. He is followed by Dr. Wilkes for his SNHL and last had an audiogram 04/2024. He is scheduled for follow up with Dr. Wilkes 05/10 with audiometric testing prior. Patient does get symptoms of nasal congestion and clear nasal drainage in the spring, which he treats with Flonase for a few weeks with good effect. He has never had allergy testing. RASHEED CAMPOS MD [address] [place] [address], [place], [address], [facility] - [facility] 03/30/2025 17:42:04
--- OUTSIDE RECORDS SUMMARY | 2025-05-22 11:29 | XMS_ITS | Encounter Summary ---
Author Organization [employer] Address [address] [facility] [address] [place] [address] Care Team Providers Care Shellfish Processing Machine Tender Name Role Phone Name, Louis DISLA Primary Care Provider [phone] Reason for Visit * Reason Onset Date Comments call back 08/27/2022 Encounter Details Date Type Department Care Team ([facility] st Contact Info) Description 08/27/2022 Telephone [facility] MEDICINE [address] [place], [place] [phone] Name, MD Louis [address] [place] [address] call back Social History Tobacco Use Types [...] EST 2nd call placed to pt via [employer] #[id number]. Advised of message from pcp re: lab [...] being at work Please contact pt at [phone] documented in this encounter Plan of Treatment Not on file documented as of this encounter Visit Diagnoses Diagnosis Leukocytosis, unspecified type- Primary documented in this encounter Care Teams Shellfish Processing Machine Tender Relationship Specialty Start Date End Date Name, MD Louis [address] [place] [address] PCP - General Family Medicine 07/14/18 documented as of this encounter
--- OUTSIDE RECORDS SUMMARY | 2025-05-22 11:29 | XMS_ITS | Clinical Summary ---
Author Organization [facility] Address [address] [place] [address] Phone Care Team Providers Care Superintendent Compressor Stations Name Role Phone Unavailable Primary Care Provider Unavailabl e Surgical History Surgery Date Site/Laterality Comments FEMUR FRACTURE SURGERY PROCEDURE: MD OPEN TX FEMORAL FRACTURE DISTAL MED/LAT CONDYLE; COMMENT: Left femur at age 4 NOSE SURGERY PROCEDURE: MD UNLISTED PROCEDURE NOSE; COMMENT: deviated septum COLONOSCOPY PROCEDURE: HISTORICAL COLONOSCOPY; COMMENT: Normal on this year 12/2009 OTHER SURGICAL HISTORY 10/24 PROCEDURE: MD LAPAROSCOPY SURG PARTIAL NEPHRECTOMY; COMMENT: renal mass OTHER SURGICAL HISTORY 08/26 PROCEDURE: MD CSTOTOMY/CSTOST CRYOSURG DSTRJ INTRAVESICAL LES; COMMENT: bladder [...] Health Maintenance Due Date Last Done Comments Colorectal Cancer Screening: Colonoscopy 1968 COVID-19 Vaccine (#1) 1973 Hepatitis B Vaccines (1 of 3 - 19+ 3-dose series) 1987 Pneumococcal Vaccine: 50+ Years (1 of 2 - PCV) 1987 Zoster Vaccines (1 of 2) 1987 HIV Screening 05/05/2024 Hepatitis C Screening 05/05/2024 Social Influencers of Health Screening 05/05/2024 Depression Screening 07/14/2024 Influenza Vaccine (#1) 2025 , 04/23/2023, 08/12/2022, Additional history exists Hypertension/CHF/CAD Annual BMP Blood Test 08/19/2025 08/19/2024 Cholesterol Screening (Lipid Panel) 10/14/2028 10/15/2023 DTaP,Tdap,and Td Vaccines (3 - Td or Tdap) 04/23/2033 04/23/2023, 01/27/2013 RSV Immunization Adult Patients (1 - 1-dose 75+ series) 2043 HIB Vaccines Aged Out No longer eligi [...] to complete this topic Insurance [id number]
--- OUTSIDE RECORDS SUMMARY | 2025-05-22 11:29 | XMS_ITS | Encounter Summary ---
Author Organization [employer] Address [address] [place] [address] Care Team Providers Care Jewelry Salesperson Name Role Phone Name, Louis DISLA Primary Care Provider Encounter Details Date Type Department Care Team ([facility] st Contact Info) Description 10/12/2024 Orders Only [facility] [address] [place] [address] Provider, MD Noam Social History Tobacco Use [...] Lactic Acid 0.6 0.5 - 2.0 mmol/L [facility] 10/12/2024 2:37 PM EDT 10/12/2024 2:42 PM EDT us Generic External Data Provider LAB BLOOD ORDERAB LES Final Result Performing Organization Address City/State/[facility] Co de Phone Number [facility] [address] [place] [phone] * CT Abdomen Pelvis w/o Contrast (10/12/2024 2:26 PM EDT) Anatomical Region Laterality Modality Body, Pelvis, Abdomen Computed T omography 10/12/2024 2:26 PM EDT Narrative 10/12/2024 3:38 PM EDT [address] [address] [address] Scan Report Signed Patient: Irwin Mendoza Jr MR#: [id number] : 1970 Acct:[id number] Age/Sex: 54 / M ADM Date: 10/12/24 Loc: HO.ED Attending Dr: Ordering Physician: Mirta Dallas DO Date of Service: 10/12/24 Procedure(s): CT abdomen pelvis wo IV con Accession Number(s): [id number] cc: Mirta Dallas DO; Name,Louis DISLA Report Number: [id number]: Total DLP = 626.00 mGy-cm EXAMINATION: CT ABDOMEN PELVIS WITHOUT IV CONTRAST HISTORY: flank pain, recent cystoscopy COMPARISON: Relation is made with an outside PET/CT scan from [facility] dated 08/16/2024. TECHNIQUE: CT scan of the [...] 10/12/24 1535 DD/ 1426 TD/TT: 10/12/24 1518 Feed Project Engineer: Procedure Note Donotuseinterpreter, Image - 10/12/[address] [place] [address] [address] Scan Report Signed Patient: Irwin Mendoza Jr#: [id number] : 1970Acct:[id number] Age/Sex: 54 / MADM Date: 10/12/24 Loc: HO.ED Attending Dr: Ordering Physician: Mirta Dallas DO Date of Service: 10/12/24 Procedure(s): CT abdomen pelvis wo IV con Accession Number(s): [id number] cc: Mirta Dallas DO; Name,Louis DISLA Report Number: [id number]: Total DLP = 626.00 mGy-cm EXAMINATION: CT ABDOMEN PELVIS WITHOUT IV CONTRAST HISTORY: flank pain, recent cystoscopy COMPARISON: Relation is made with an outside PET/CT scan from [facility] dated 08/16/2024. TECHNIQUE: CT scan of the [...] 10/12/24 1535 DD/ 1426 TD/TT: 10/12/24 1518 Feed Project Engineer: [facility] External Provider IMG CT PROCEDURES Final Result * (ABNORMAL) Urinalysis, Complete, with Reflex to Culture (10/12/2024 1:27 PM EDT) Color Urine Dark Yellow [facility] Appearance Urine Cloudy [facility] PH 5.5 5.0 - 9.0 [facility] Glucose Urine UA Negative Negative mg/dL [facility] Urine Blood Moderate (2+)(A) Negative [facility] Specific Floyd - Urine 1.020 1.005 - 1.025 [facility] Urine Protein 100 (2+)(A) Neg-Trace mg/dL [facility] Urine Ketones Trace Negative mg/dL [facility] Nitrite Urine Positive(A) Negative [facility] Leukocyte Esterase Urine Moderate (2+)(A) Negative [facility] RBC Urine >20(A) 0 - 2 /HPF [facility] Urine WBC >50(A) 0 - 5 /HPF [facility] Urine Squamous Epithelial Cell 0-2 0 - 2 /HPF [facility] Urine Bacteria 2+ None Seen [facility] Hyaline Casts, Urine 3-5 0 - 2 /LPF [facility] 10/12/2024 1:27 PM EDT 10/12/2024 1:30 PM EDT Narrative [facility] - 10/12/2024 1:39 PM EDT [id number], Clean [employer] us Generic External Data Provider LAB URINE ORDERAB LES Final Result Performing Organization Address [facility]/ZIP Co de Phone Number [facility] [address] [place] [phone] * Lipase (10/12/2024 1:21 PM EDT) Lipase 29 8 - 78 U/L [facility] 10/12/2024 1:21 PM EDT 10/12/2024 1:24 PM EDT us Generic External Data Provider LAB BLOOD ORDERAB LES Final Result Performing Organization Address [facility]/ZIP Co de Phone Number [facility] [address] [place] [phone] * Magnesium (10/12/2024 1:21 PM EDT) Magnesium 2.2 1.6 - 2.6 mg/dL [facility] 10/12/2024 1:21 PM EDT 10/12/2024 1:24 PM EDT us Generic External Data Provider LAB BLOOD ORDERAB LES Final Result [facility] [address] [place] [phone] * (ABNORMAL) Basic Metabolic Panel (10/12/2024 1:21 PM EDT) Pathologist [facility] Sodium 137 135 - 145 mmol/L [facility] Potassium 4.0 3.3 - 5.1 mmol/L [facility] Chloride 104 96 - 108 mmol/L [facility] Carbon Dioxide 28 22 - 29 mmol/L [facility] Anion Gap 9(L) 12 - 20 [facility] Urea Nitrogen (BUN) 21(H) 9 - 16 mg/dL [facility] Creatinine, Serum 0.78 0.5 - 1.4 mg/dL [facility] Creatinine Clr Calc Pharmacy 118.2 [facility] Comment:eGFR (calculated fro m the MDRD study equation) and eCrCl(calculated from the Cockcroft-Gault equation) are based ondifferent parameters and may not yield comparable results.If eCrCl result is absurd, please check patient'sheight/weight. Estimated Glomerular Filt Rate >60 [facility] Comment:Chronic Kidney Disea se: Estimated GFR < 60 mL/min/1.50x7Azwdvf Kidney Disease: Estimated GFR < 15 mL/min/1.73m2 Glucose 108 60 - 115 mg/dL [facility] Calcium 9.5 8.4 - 10.2 mg/dL [facility] 10/12/2024 1:21 PM EDT 10/12/2024 1:24 PM EDT us Generic External Data Provider LAB BLOOD ORDERAB LES Final Result Performing Organization Address [facility]/ZIP Co de Phone Number [facility] [address] [place] [phone] * Hepatic Function Panel (10/12/2024 1:21 PM EDT) Pathologist [facility] Bilirubin, Total 0.4 0.0 - 1.0 mg/dL [facility] Bilirubin, Direct 0.3 0.0 - 0.5 mg/dL [facility] Aspartate Amino Transferase 17 5 - 37 U/L [facility] Alanine Aminotransferase 20 0 - 40 U/L [facility] Total Protein 6.7 6.5 - 8.0 g/dL [facility] Albumin Level 4.2 3.5 - 5.0 g/dL [facility] Alkaline Phosphatase 75 39 - 117 U/L [facility] 10/12/2024 1:21 PM EDT 10/12/2024 1:24 PM EDT [employer] External Data Provider LAB BLOOD ORDERAB LES Final Result Performing Organization Address [facility] Co de Phone Number [facility] [address] [place] [phone] * (ABNORMAL) Complete Blood Count Manual Diff (10/12/2024 1:21 PM EDT) Pathologist [facility] White Blood Count 31.4(HH) 4.8 - 10.8 X10*3/uL [facility] Comment:Results of WBC interiano d to and read back by Nela 10/12/24 at 1332 by KRISTINA. Red Blood Count 4.39(L) 4.60 - 5.80 X10*6/uL [facility] Hemoglobin 12.5(L) 14.0 - 18.0 g/dl [facility] Hematocrit 37.7(L) 42.0 - 52.0 % [facility] Mean Corpuscular Volume 85.9 80.0 - 98.0 fL [facility] Mean Corpuscular Hemoglobin 28.5 27.0 - 33.0 pg [facility] Mean Corpuscular HGB Conc 33.2 31.0 - 36.0 g/dl [facility] Red Cell Distribution Width 14.4 11.0 - 16.0 % [facility] Platelet Count 179 160 - 400 X10*3/uL [facility] Mean Platelet Volume 9.0(L) 9.4 - 12.4 fL [facility] NRBC Pct Auto 0.0 0.0 - 0.2 /100WBC [facility] NRBC Abs Auto 0.000 0.0 - 0.012 X10*3/uL [facility] 10/12/2024 1:21 PM EDT 10/12/2024 1:24 PM EDT us Generic External Data Provider LAB BLOOD ORDERAB LES Final Result [facility] [address] [place] [phone] * Hm Colonoscopy (10/08/2024 7:58 AM EDT) Historical Provider HEALTH MAINTENANCE Final Result documented in this encounter Visit Diagnoses Not on filedocumented in this encounter Additional Health Concerns Assessment Noted Time PHQ-9 Depression Total Score: 0 10/14/19 24 1:34 PM EDT documented as of this encounter Care Teams Jewelry Salesperson Relationship Specialty Start Date End Date Name, MD Louis [address] [place] [address] PCP - General Family Medicine 07/14/18 documented as of this encounter
--- OUTSIDE RECORDS SUMMARY | 2025-05-22 11:29 | XMS_ITS | Clinical Summary ---
Author Organization [facility] Address [address] [place] [address] Phone Care Team Providers Care Bookkeeping Clerks Supervisor Name Role Phone Name, Louis DISLA Primary Care Provider [phone] Active Problems Problem Noted Date Diagnosed Date [...] VACCINE (#1) 2025 COVID-19 VACCINE (1 - 2024-2 6 season) 2025 LIPID PANEL 10/14/2028 10/15/2023 Adult Td,Tdap Booster 04/23/2033 04/23/2023 , 01/27/2013 RSV VACCINE (1 - 1-dose 75+ series) 2043 HEPATITIS A VACCINES Aged Out No long [...] file Insurance [facility] C3 ACO [facility] C[facility] ACO [facility] C3 ACO Care Teams Bookkeeping Clerks Supervisor Relationship Specialty Start Date End Date Name, MD Louis [address] [place] [phone] PCP - General Internal Medicine 09/29/24 Additional Source Comments The information contained in this document represents components of the legal health record. It is not the complete legal health record.[facility]
--- OUTSIDE RECORDS SUMMARY | 2025-05-22 11:30 | XMS_ITS | Continuity of Care Document ---
Author Organization [place] [facility], [facility] Address [address] [place] [address] Care Team Providers Care Riding Silks Custodian Name Role Phone VIRY, JASE Referring Provider Assessment Encounter Date Assessment Date [...] were answered. [email or web address] Not available 03/09/2025 12:23:20 Plan of Treatment Reminders Order Date Submit [...] %-dexamet hasone 0.1 % eye drops,loan pension 03/30/ 025 [id number], [address] [place], [address], 03/30/2025 14:46:52 Patient TargetsNo targets recorded. Patient InstructionsNo instructions recorded. Reason for Referral None Reported. Problems Name Problem SNOMED Code Status Onset Date Resolution Date Notes Provider Name and Address Organization Details Recorded Time Sensorine ural hearing loss of bilateral ears 482840126 Active 2020 Sensorine ural hearing loss, bilateral ; Note: Date Diagnosed : 06/21/2021 11:59 AM (H90.3) Not Available [facility] 4 02:32:25 Chronic sore throat 115592584 Active 2023 TAYLOR WILKES MD [address], [place], [address] , [place] - [facility] 4 11:05:42 Feeling of lump in throat 237488275 Active 2023 TAYLOR WILKES MD [address] [facility] [place],[place] [address], [place], [address] , [facility] - [facility] 4 11:06:11 Hypertrop hy of tonsils 44815699 Active 2023 TAYLOR WILKES MD [address] [facility] [place],[facility] [address], [place], [address] , [place] - [facility] 4 11:16:13 Obstructi ve sleep apnea syndrome 91213324 Active 2023 TAYLOR WILKES MD [address] [facility] [place],[facility] [address], [place], [address] , [facility] - [facility] 4 11:20:42 Impacted cerumen in left ear 09042180150 21058 Active 2023 TAYLOR WILKES MD [address], [place], [address] , [place] - [facility] 4 14:59:54 Asymmetri trevor sensorine ural hearing loss 997634904 Active 2023 TAYLOR WILKES MD [address], [place], [address] , [place] - [facility] 4 15:40:45 Otorrhea of left ear 87723355045 62088 Active 2024 LUCRECIA ADAMS [address] [facility] [place] [address], [facility] [place], [address] , [place] - [facility] 5 10:40:20 Otalgia of left ear 9324725858 Active 2024 LUCRECIA ADAMS [address] [facility] [place] [address], [facility] [place], [address] , [place] - [facility] 5 12:24:15 Dysfuncti on of bilateral eustachia n tubes 83248478450 Active 2024 LUCRECIA WREN [address] [facility] [place] [address], [facility] [place], [address] , [place] - [facility] 5 15:20:32 Sensorine ural hearing loss of bilateral ears 225589479 Active 2024 LUCRECIA WREN [address] [facility] [place] [address], [facility] [place], [address] , [place] - [facility] 5 15:22:19 Problem Notes None recorded. Procedures Surgical History Date Name Laterality Status Provider Name and Address Organization Details Recorded Time 4 Cerumen removal without microscope left completed TAYLOR WILKES MD 100 [facility],[address], [address], [place] - [facility] 05/04/2024 15:01:11 4 Air & Speech Audio with Tymps - 65337, 13783 & 28223 completed HERBERT BYERS [address] [facility],[place] [address], [place], [address], [facility] - [facility] 05/04/2024 15:19:51 4 FFL_RE completed TAYLOR WILKES MD [address] [facility] [place],[address], [address], [place] - [facility] 01/26/2024 11:06:27 Imaging Results None recorded. Procedure [...] Not Available No t Available amoxicillin 875 mg-chuckiesalma hsu clavulanate 125 mg tablet TAKE 1 [...] Updated DateTime 03/09/2025 172.72 cm 31.3 kg/m2 31935.03 g Temitope Pearl [place] - [facility] 03/09/2025 10:26:55 Social History None recorded. Functional Status None recorded. Mental Status None recorded. Family History Nothing Reported. Medical History No medical history recorded. Past Encounters Encounter ID Performer Location Encounter Start Date Encounter Closed Date Diagnosis/Indication Diagnosis SNOMED-CT Code Diagnosis ICD10 Code Diagnosis IMO Codes Diagnosis Note [id number] LUCRECIA ADAMS [facility] [address] [place] [address] 03/09/2025 09:51:41 03/09/2025 10:46:12 Otorrhea of left ear [id number] 042631 H92.12 0066388 Otalgia of left ear 1010 787330 H92.02 2014499 Health Concerns Section Related Observation LastModified by Organization Detai ls LastModified Time None Recorded Concern Status LastModified by Organization Details LastModified Time None Recorded Payers Encounter Date Sequence Insurance Name Policy Number Policy Larson Covered Member ID Larson Member ID Guarantor Name 03/09/2025 1 [place] [facility] Irwin Mcnulty [id number] Irwin Mendoza Notes Date Note Type Note Provider Name and Address Organization Details Recorded Time 03/09/2025 text/html ROS as noted in the HPI 55 year old male, with a history [...] to concern for infection. TAYLOR WILKES MD [address] [place] [address], [place], [address], [facility] - [facility] 03/09/2025 12:55:32
--- OUTSIDE RECORDS SUMMARY | 2025-05-22 11:30 | XMS_ITS | Continuity of Care Document ---
Author Organization [place] - [facility], [facility] Address [address] [place] [address] Care Team Providers Care Camera Systems Engineer Name Role Phone VIRY, JASE Referring Provider Assessment Encounter Date Assessment Date Assessment LastModified by Organization Details LastModified Time 03/30/2025 03/30/2025 55 year old male, with [...] Flonase then we may consider allergy testing. [email or web address] Not available 03/30/2025 15:50:31 Plan of Treatment [...] Sensorine ural hearing loss of bilateral ears 192516950 Active 2020 Sensorine ural hearing loss, bilateral ; Note: Date Diagnosed : 06/21/2021 11:59 AM (H90.3) Not Available [facility] 4 02:32:25 Chronic sore throat 776365988 Active 2023 TAYLOR WILKES MD [address],[facility] [address], [place], [address] , [facility] - [facility] 4 11:05:42 Feeling of lump in throat 418799048 Active 2023 TAYLOR WILKES MD [address] [facility] [address] [address], [place], [address] , [facility] - [facility] 4 11:06:11 Hypertrop hy of tonsils 50960657 Active 2023 TAYLOR WILKES MD [address] [facility] [address] 100, [place], [address] , [facility] - [facility] [place] 4 11:16:13 Obstructi ve sleep apnea syndrome 05033138 Active 2023 TAYLOR WILKES MD [address], [place], [address] , [place] - [facility] 4 11:20:42 Impacted cerumen in left ear 12952243347 07210 Active 2023 TAYLOR WILKES MD [address], [place], [address] , [place] - [facility] 4 14:59:54 Asymmetri trevor sensorine ural hearing loss 506376518 Active 2023 TAYLOR WILKES MD [address] [facility] [address],[place] [address], [place], [address] , [place] - [facility] 4 15:40:45 Otorrhea of left ear 24128609094 51980 Active 2024 LUCRECIA ADAMS [address] [facility] [address],[place] [address], [facility] [place], [address] , [place] - [facility] 5 10:40:20 Otalgia of left ear 2408544299 Active 2024 LUCRECIA ADAMS 100 [facility],[place] [address], [facility] [place], [address] , [place] - [facility] 5 12:24:15 Dysfuncti on of bilateral eustachia n tubes 48999459538 Active 2024 LUCRECIA WREN [address] [facility] [address],[place] [address], [place], [address] , [place] - [facility] 5 15:20:32 Sensorine ural hearing loss of bilateral ears 836583422 Active 2024 LUCRECIA WREN [address] [facility] [address],[place] [address], [place], [address] , [place] - [facility] 5 15:22:19 Problem Notes None recorded. Procedures Surgical History Date Name Laterality Status Provider Name and Address Organization Details Recorded Time 4 Cerumen removal without microscope left completed TAYLOR WILKES MD [address],[place] [address], [place], [address], [place] - [facility] 05/04/2024 15:01:11 4 Air & Speech Audio with Tymps - 57692, [address] & 96894 completed HERBERT BYERS [address], [place], [address], [place] - [facility] 05/04/2024 15:19:51 4 FFL_RE completed TAYLOR WILKES MD [address] [place] [address], [place], [address], [facility] - [facility] 01/26/2024 11:06:27 Imaging Results None recorded. [...] Not Available No t Available amoxicillin 875 mg-hcuckieu m clavulanate 125 mg tablet TAKE 1 TABLET [...] Updated DateTime 03/30/2025 172.72 cm 30.1 kg/m2 91846.29 g Temitope Pearl [place] - [facility] 03/30/2025 14:41:47 Social History None recorded. Functional Status None recorded. Mental Status None recorded. Family History Nothing Reported. Medical History No medical history recorded. Past Encounters Encounter ID Performer Location Encounter Start Date Encounter Closed Date Diagnosis/Indication Diagnosis SNOMED-CT Code Diagnosis ICD10 Code Diagnosis IMO Codes Diagnosis Note [id number] LUCRECIA ADAMS [facility] [address] [place] [address] 03/09/2025 09:51:41 03/09/2025 10:46:12 Otorrhea of left ear [id number] 426175 H92.12 1886747 Otalgia of left ear 1010 607321 H92.02 [id number] LUCRECIA WREN [facility] [address] [place] [address] 03/30/2025 14:28:46 03/30/2025 15:07:55 Dysfunction of bilateral eustachian tubes 9112668193 701429 H69.93 87416423 Sensorineu ral hearing loss of bilateral ears 601554498 H90.3 17369567 Otorrhea of left ear 024 0742112 053924 H92.12 7461151 Health Concerns Section Related Observation LastModified by Organization Detai ls LastModified Time None Recorded Concern Status LastModified by Organization Details LastModified Time None Recorded Payers Encounter Date Sequence Insurance Name Policy Number Policy Larson Covered Member ID Larson Member ID Guarantor Name 03/30/2025 1 [place]: [facility] Irwin Mcnulty [id number] Irwin Mendoza Notes Date Note Type Note Provider Name and Address Organization Details Recorded Time 03/30/2025 text/html ROS as noted in the HPI [...] never had allergy testing. RASHEED CAMPOS MD [address] [place] [address], [place], [address], [facility] - [facility] 03/30/2025 17:42:04
[2025-05-22 12:18] VITALS: BP 150/75; PULSE 59; RESP 16; TEMP 36.8; O2SAT 95
[2025-05-22 12:39] LABS: Resp Syncy Virus RNA Qual PCR NEGATIVE (Negative); SARS COV2 PCR INHOUSE NEGATIVE (Negative)
[2025-05-22 13:00] VITALS: O2SAT 95
[2025-05-22 13:03] VITALS: BP 150/75; PULSE 59; RESP 16; TEMP 36.8; O2SAT 95
== END 2025-05-22 13:05 | disposition home or self-care (01) ==
PROVIDERS: Emergency Provider Emergency Medicine Emergency Medical Services; PCP Internal Medicine Geriatric Medicine
DX: J06.9 Acute upper respiratory infection, unspecified (principal); R05.9 Cough, unspecified; Z03.818 Encounter for observation for suspected exposure to other biological agents ruled out
CPT/HCPCS: 71046; 87637; 99283; 99284

== ENCOUNTER → 2025-05-22 10:53 | Outpatient (BNV) | payer MEDICAID, SELFPAY | PROVIDERS: Emergency Provider Emergency Medicine Emergency Medical Services; PCP Internal Medicine Geriatric Medicine; Visit Provider Student in an Organized Health Care Education/Training Program | DX: R05.9 Cough, unspecified (principal) | CPT/HCPCS: 71046 ==

== ENCOUNTER 2025-06-17 11:21 | Inpatient (IN) | payer MEDICAID, SELFPAY ==
[2025-06-17] VITALS (9 sets, daily range): BP systolic 112–144; BP diastolic 61–72; PULSE 76–97; RESP 16–26; TEMP 36.6–39.4; O2SAT 89–96; BMI 30.1
--- NOTE | 2025-06-17 | ECG_ITS ---
Test Reason : cp Blood Pressure : */* mmHG Vent. Rate : 90 BPM Atrial Rate : 90 BPM P-R Int : 128 ms QRS Dur : 86 ms QT Int : 324 ms P-R-T Axes : 30 -15 39 degrees QTcB Int : 396 ms Normal sinus rhythm Minimal voltage criteria for LVH, may be normal variant ( Noah product ) Borderline ECG When compared with ECG of 31-Jan-2025 19:38, No significant change was found Referred By: Generic ED Physician Electronically Signed By: RAFA PEARSON
--- NOTE | ~2025-06-17 | XR_ITS ---
EXAMINATION: XR CHEST CLINICAL INFORMATION: SOB. Fever. Reported history of cancer COMPARISON: 05/22/2025 TECHNIQUE: Frontal view of the chest was obtained. FINDINGS: Cardiac and mediastinal contours are unremarkable. No pneumothorax is demonstrated. Vague patchy density projects in the mid third left lung zone. Lungs are clear otherwise. XR/XR chest 1V IMPRESSION: Vague patchy density in the middle third left lung zone, atelectasis versus pneumonia. Electronically signed by: Jatinder Nixon MD 06/17/2025 12:41 PM EST
--- NOTE | 2025-06-17 11:35 | ED.GENADULT ---
HPI - General Adult General Chief complaint: Dyspnea Stated complaint: chest tightness, sob Time Seen by Provider: 06/17/25 11:23 Source: patient, RN notes reviewed and old records reviewed Mode of arrival: ambulatory History of Present Illness ED Provider: Karol Balderas PA-C HPI narrative: 55-year-old male with a past medical history CLL (currently on observation), bladder CA, kidney CA, BPH, HTN, presents to the ED complaining of increased SOB, nonproductive cough, chest tightness, chills, subjective fever x yesterday. Denies taking any medication today. Denies recent travel, sick contacts, abdominal pain, nausea/vomiting, pedal edema Related Data Home Medications ?Medication ?Instructions ?Recorded ?Confirmed ascorbic acid (vitamin C) 100 mg 100 mg PO DAILY 09/10/24 04/27/25 tablet cyanocobalamin (vitamin B-12) 50 50 mcg PO DAILY 09/10/24 04/27/25 mcg tablet magnesium 100 mg tablet 100 mg PO DAILY 09/10/24 04/27/25 multivit,Ca,min-iron 8 mg-folic 1 tab PO DAILY 09/10/24 04/27/25 acid 200 mcg-lycopene 600 mcg tablet (Centrum Men) zinc 50 mg tablet 50 mg PO DAILY 09/10/24 04/27/25 lisinopril 20 2 tab PO DAILY 04/27/25 04/27/25 mg-hydrochlorothiazide 12.5 mg tablet Previous Rx's ?Medication ?Instructions ?Recorded ascorbic acid (vitamin C) 1,000 mg 1,000 mg PO DAILY 90 days #90 tabs 01/25/25 tablet methenamine hippurate 1 gram tablet 1 g PO DAILY 90 days #90 tabs 01/25/25 tamsulosin 0.4 mg capsule (Flomax) 0.4 mg PO BEDTIME 30 days #30 tabs 01/25/25 ofloxacin 0.3 % ear drops 10 drp otic (ears) DAILY 7 days 01/30/25 #10 mL azithromycin 250 mg tablet See Rx Instructions PO .COMPLEX #6 02/01/25 (Zithromax Z-Tereso) tabs cefuroxime axetil 500 mg tablet 500 mg PO BID 7 days #14 tabs 02/01/25 codeine 10 mg-guaifenesin 100 mg/5 10 ml PO Q6H PRN cough #237 mL 02/01/25 mL oral liquid ofloxacin 0.3 % ear drops 10 drp otic (ears) BID 10 days #10 03/08/25 mL amoxicillin 875 mg-potassium 1 tab PO BID 7 days #14 tabs 05/22/25 clavulanate 125 mg tablet doxycycline hyclate 100 mg tablet 100 mg PO BID 7 days #14 tabs 05/22/25 Allergies Allergy/AdvReac Type Severity Reaction Status Date / Time No Known Allergies (No Known Allergy Verified 06/17/25 11:37 Allergies*) Review of Systems Review of Systems: Yes all other systems are reviewed and are negative Constitutional: Constitutional: Reports as per [facility] Past Medical History Attestation statement: The following information was validated with the patient. Source: old records reviewed Medical History Lymphadenopathy Elevated WBC count History of colon polyps HTN (hypertension) History of COVID-19 Bladder cancer RUQ pain Abdominal bloating Cancer of kidney Hx of bladder cancer Benign prostatic hyperplasia with lower urinary tract symptoms Obstructive sleep apnea (adult) (pediatric) Lesion of bladder Surgical History History of colonoscopy with polypectomy History of surgery H/O colonoscopy Hx of cystoscopy History of surgery Family History Family History Father Hypertension Diabetes Mother Lung cancer Sister Cancer Social History Social History Household Members: Family Housing: House Are you a primary long term care phlebotomist to a significant other at home: No Do you presently have visiting nurse or other home services: No Alcohol intake: never Patient Tobacco Use Status: Never used Tobacco Advance Directives: Yes Advance Directives on File: Yes Advance Directives Date on File: 10/15/24 Do you have a plan to hurt others: No Plan service: No Current occupational status: employed Physical Exam ED Vital Signs: Vital Signs - 24 hr 06/17/25 11:33 06/17/25 12:16 06/17/25 12:20 Temperature 102 F H Pulse Rate 91 Respiratory Rate 18 Blood Pressure 144/72 H Pulse Oximetry 94 89 L 93 Oxygen Delivery Method Room Air Room Air Nasal Cannula Oxygen Flow Rate 2 06/17/25 12:20 06/17/25 13:54 Temperature 102.9 F H Pulse Rate 80 97 Respiratory Rate 26 H 16 Blood Pressure 126/67 Pulse Oximetry 95 Oxygen Delivery Method Nasal Cannula Oxygen Flow Rate 2 BMI result Body Mass Index 30.1 Const General: cooperative, healthy appearing and no acute distress Orientation/consciousness: patient oriented x3 Limitations: no limitations HENMT Head: Yes normal to inspection and Yes atraumatic Ears: hearing grossly normal bilaterally General nose exam: Normal external nose present Face and sinus: Yes normal facial exam Eyes General: appearance normal, both eyes and all related structures EOM: EOMs intact bilaterally Neck Neck: Yes normal visual inspection and Yes no meningeal signs Resp Effort & Inspection: labored and no respiratory distress Auscultation: crackles diffuse Cardio Rate: regular rate Heart sounds: S1 normal heart sound present and S2 normal heart sound present GI Inspection: Yes normal to inspection Palpation (GI): Soft to palpation, nontender, no guarding and not rigid General: Yes no CVA tenderness Back/Spine/Pelvis Back: no CVA tenderness Skin Rashes: no rashes Wounds: no wounds Neuro General: patient oriented x3, tone normal and no meningeal signs Cranial nerves: Yes CN's II-XII intact bilaterally Gait exam (Neuro): Normal gait present Extrem General: Yes normal to inspection, Yes no pedal edema and Yes no calf tenderness Course Course Course Narrative: Rapid medical examination performed in triage by Aislinn Erwin PA-C: Patient is a 55 year old assigned male at presenting to the emergency department with shortness of breath and fever. Detailed physical exam and review of systems are deferred to the senior technical program manager. EKG, labs, imaging, swabs ordered. Patient placed back in the waiting room pending room availability and results. -leukocytosis of 121 (acute on chronically elevated, patient with known CLL) > although concern for infectious etiology -AST mildly elevated. Troponin 5.7 > will obtain repeat. CRP elevated to 10.99. ESR 48 XR chest 1V IMPRESSION: Vague patchy density in the middle third left lung zone, atelectasis versus pneumonia. > patient desatted to 89% on room air. 2 L nasal cannula applied. Empiric Rocephin and azithromycin ordered. Plan to admit for further management Medications Administered Discontinued Medications Generic Name Dose Route Start Last Admin Trade Name Freq PRN Reason Stop Dose Admin Albuterol Sulfate 2.5 mg/ 0 mg 06/17/25 12:14 06/17/25 12:19 Albuterol/Ipratropium 3 ml INHALE 06/17/25 12:15 5 dose ONCE ONE Administration Ceftriaxone Sodium 1 gm/ 50 mls @ 100 mls/hr 06/17/25 12:03 06/17/25 13:21 Sodium Chloride IV 06/17/25 12:32 Infused ONCE ONE Infusion Medical Decision Making Medical Decision Making MDM Narrative: 55-year-old male with a past medical history CLL (currently on observation), bladder CA, kidney CA, BPH, HTN, presents to the ED complaining of increased SOB, nonproductive cough, chest tightness, chills, subjective fever x yesterday. On exam febrile to 102, increased work of breathing appreciated, diffuse crackles noted. Talking in short sentences. Concern for pneumonia vs viral illness. Lower suspicion for PE as this time or CHF, ACS, or dissection Plan: EKG, labs, CXR, viral testing, ED bronch protocol, anticipated admission Please refer to course for remaining clinical decision making, interpretation of labs/imaging results, and discussions with consultants and/or family members. Differential Diagnosis Differential Diagnoses: The differential diagnosis associated with the presentation includes As above Admission/Observation Consideration of admission/observation: Escalation of care including admission/observation considered Lab Data [facility] Lab Attestation statement: I reviewed the patient's lab results. 06/17/25 11:47 06/17/25 11:47 Labs: Lab Results 06/17/25 06/17/25 Range/Units 11:47 14:03 WBC 121.7 H* (4.8-10.8) X10*3/uL RBC 3.75 L (4.60-5.80) X10*6/uL Hgb 10.9 L (14.0-18.0) g/dl Hct 35.7 L (42.0-52.0) % MCV 95.2 (80.0-98.0) fL MCH 29.1 (27.0-33.0) pg MCHC 30.5 L (31.0-36.0) g/dl RDW 17.5 H (11.0-16.0) % Plt Count 122 L D (160-400) X10*3/uL MPV 9.1 L (9.4-12.4) fL Immature Gran % (Auto) Cancelled Neut % (Auto) Cancelled Lymph % (Auto) Cancelled [place] % (Auto) Cancelled Eos % (Auto) Cancelled Baso % (Auto) Cancelled Lymph # (Auto) Cancelled [place] # (Auto) Cancelled Eos # (Auto) Cancelled Baso # (Auto) Cancelled Abs Immat Gran (auto) Cancelled Absolute Neuts (auto) Cancelled Absolute Nucleated RBC 0.060 H (0.0-0.012) X10*3/uL Nucleated RBC % (auto) 0.0 (0.0-0.2) /100WBC Neutrophils % (Manual) 1 L (45-73) % Band Neutrophils % 0 L (3-5) % Lymphocytes % (Manual) 92 H (20-40) % Atypical Lymphs % (Man) 6 (0-6) % Monocytes % (Manual) 1 L (2-11) % Abs Neuts (Manual) 1.2 L (2.0-8.3) X10*3/uL Lymphocytes # (Manual) 112.0 H (1.2-4.9) X10*3/uL Atyp Lymphs # (Manual) 7.3 x10*3/uL Monocytes # (Manual) 1.2 (0.1-1.2) X10*3/uL Smudge Cells PRESENT Platelet Estimate SLIGHTLY DECREASED (NORMAL) Plt Morphology Comment NORMAL RBC Morphology NOTED Polychromasia 2+ (3-5) /OIF ESR 48 H (0-15) MM/HR Sodium 134 L (135-145) mmol/L Potassium 4.8 (3.3-5.1) mmol/L Chloride 102 (96-108) mmol/L Carbon Dioxide 23 (22-29) mmol/L Anion Gap 14 (12-20) BUN 21 H (9-16) mg/dL Creatinine 0.88 (0.5-1.4) mg/dL Estim Creat Clear Calc 100.7 Estimated GFR > 60 Random Glucose 156 H (60-115) mg/dL Lactic Acid 1.0 (0.5-2.0) mmol/L Calcium 9.2 (8.4-10.2) mg/dL Magnesium 2.0 (1.6-2.6) mg/dL Total Bilirubin 0.7 (0.0-1.0) mg/dL AST 56 H (5-37) U/L ALT 20 (0-40) U/L Alkaline Phosphatase 101 (39-117) U/L Troponin I High Sens 5.7 5.2 (<3.5-35.0) ng/L C-Reactive Protein 10.99 H (< or = 0.50) mg/dL Total Protein 6.9 (6.5-8.0) g/dL Albumin 4.8 (3.5-5.0) g/dL Influenza Type A (PCR) NEGATIVE (Negative) Influenza Type B (PCR) NEGATIVE (Negative) RSV RNA Qual (PCR) NEGATIVE (Negative) SARS-CoV-2 RNA (RT-PCR) NEGATIVE (Negative) Independent Interpretation I performed an independent interpretation of an: EKG and Plain X-Ray Radiology Impression Discussion of test interpretation with radiology: I have reviewed the radiologist's reading. External Record Review External record reviewed: Inpatient record, Office record, Outpatient record, Prior outpatient labs, Prior outpatient radiology, Primary care record and Outside ED record Tests considered The following testing was considered but not selected: As above Prescription Management I considered prescription management with: Other Chronic Conditions Patient?s care impacted by: Cancer Social Determinants Patient?s care significantly limited by Social Determinants of Health including: Other Social Determinant of Health Critical Care Time Critical Care Time Critical Care Time: Yes Total Critical Care Time: 45 Attestation: I have personally provided critical care time exclusive of time spent on separately billable procedures. Time includes review of lab data, radiology results, discussion with consultants, and monitoring for potential decompensation. Intervention performed as documented. Discharge Plan Discharge Clinical Impression: Community acquired pneumonia, Leukocytosis, Hypoxia Patient Disposition: Admitted As Inpatient Print Language: Malagasy
[2025-06-17 11:59] LABS: Hematocrit 35.7 % (42.0-52.0); Hemoglobin 10.9 g/dl (14.0-18.0); Mean Corpuscular HGB Conc 30.5 g/dl (31.0-36.0); Mean Corpuscular Hemoglobin 29.1 pg (27.0-33.0); Mean Corpuscular Volume 95.2 fL (80.0-98.0); NRBC Abs Auto 0.060 X10*3/uL (0.0-0.012); NRBC Pct Auto 0.0 /100WBC (0.0-0.2); Platelet Count 122 X10*3/uL (160-400); Red Blood Count 3.75 X10*6/uL (4.60-5.80)
[2025-06-17 12:06] LABS: WBC ABN SCTR FOR CBC 1
[2025-06-17 12:12] LABS: Alanine Aminotransferase 20 U/L (0-40); Albumin Level 4.8 g/dL (3.5-5.0); Alkaline Phosphatase 101 U/L (39-117); Anion Gap 14 (12-20); Aspartate Amino Transferase 56 U/L (5-37); Blood Urea Nitrogen 21 mg/dL (9-16); Calcium 9.2 mg/dL (8.4-10.2); Carbon Dioxide 23 mmol/L (22-29); Chloride 102 mmol/L (96-108); Creatinine Clr Calc Pharmacy 100.7; Estimated Glomerular Filt Rate > 60; Magnesium 2.0 mg/dL (1.6-2.6); Potassium 4.8 mmol/L (3.3-5.1); Sodium 134 mmol/L (135-145); Total Protein 6.9 g/dL (6.5-8.0)
[2025-06-17 12:19] LABS: Troponin-I High Sensitivity 5.7 ng/L (<3.5-35.0)
[2025-06-17] MEDS: Albuterol Sulfate 2.5 MG, Albuterol/Iprat 2.5/0.5MG 3 ML 3 ML INHALE (12:19)
[2025-06-17 12:24] LABS: White Blood Count 121.7 X10*3/uL (4.8-10.8)
[2025-06-17 12:27] LABS: Atypical Lymph Absolute Manual 7.3 x10*3/uL; Atypical Lymphs Percent Manual 6 % (0-6); Lymphocytes Absolute Manual 112.0 X10*3/uL (1.2-4.9); Lymphocytes Percent Manual 92 % (20-40); Monocytes Absolute Manual 1.2 X10*3/uL (0.1-1.2); Monocytes Percent Manual 1 % (2-11); Neutrophils Percent Manual 1 % (45-73)
[2025-06-17 12:34] LABS: RBC Morphology NOTED; Resp Syncy Virus RNA Qual PCR NEGATIVE (Negative); SARS COV2 PCR INHOUSE NEGATIVE (Negative)
[2025-06-17 12:35] LABS: Polychromasia 2+ (3-5) /OIF; Smudge Cells PRESENT
[2025-06-17 12:36] LABS: Band Neutrophils Percent 0 % (3-5); Neutrophils Absolute Manual 1.2 X10*3/uL (2.0-8.3)
[2025-06-17 12:51] LABS: Erythrocyte Sedimentation Rate 48 MM/HR (0-15)
[2025-06-17 14:30] LABS: Troponin-I High Sensitivity 5.2 ng/L (<3.5-35.0)
--- NOTE | 2025-06-17 15:07 | PM.IMHP ---
History of Present Illness Date of Service: 06/17/25 Attending physician on admission: Dale Junior Chief Complaint: shortness of breath This is a 55-year-old male with history of CLL who presents to the emergency department with shortness of breath. Patient reports shortness of breath over the past 2 weeks although significantly worse yesterday. He reports associated dry cough. He has no known recent sick contacts. On arrival the patient was febrile, tachypneic, with a T-max of 102.9 degrees. Chest x-ray showed likely pneumonia. Patient was hypoxic with oxygen saturation of 89% on room air requiring supplemental oxygen. In the emergency department he was treated with IV antibiotics, breathing treatment, fluids and admission was requested. Review of Systems Review of Systems: Yes all other systems are reviewed and are negative Constitutional: Constitutional: Denies chills and Reports fever(s) Cardiovascular: Cardiovascular: Denies chest pain, Denies palpitations and Reports dyspnea Respiratory: Respiratory: Reports cough, Reports pain with cough and Reports dyspnea Endocrine: Endocrine: Denies palpitations PMFSH Medical History Lymphadenopathy Elevated WBC count History of colon polyps HTN (hypertension) History of COVID-19 Bladder cancer RUQ pain Abdominal bloating Cancer of kidney Hx of bladder cancer Benign prostatic hyperplasia with lower urinary tract symptoms Obstructive sleep apnea (adult) (pediatric) Lesion of bladder Family History Father Hypertension Diabetes Mother Lung cancer Sister Cancer Surgical History History of colonoscopy with polypectomy History of surgery H/O colonoscopy Hx of cystoscopy History of surgery Social History Household Members: Family Housing: House Are you a primary intensive care specialist to a significant other at home: No Do you presently have visiting nurse or other home services: No Alcohol intake: never Patient Tobacco Use Status: Never used Tobacco Advance Directives: Yes Advance Directives on File: Yes Advance Directives Date on File: 10/15/24 Do you have a plan to hurt others: No Plan service: No Current occupational status: employed Meds Allergies Allergy/AdvReac Type Severity Reaction Status Date / Time No Known Allergies (No Known Allergy Verified 06/17/25 11:37 Allergies*) Active Medications: Current Medications Azithromycin 500 mg/ Sodium (Chloride) 250 mls @ 125 mls/hr IV ONCE ONE Stop: 06/17/25 16:15 Sodium Chloride (Ns) 500 mls @ 999 mls/hr IV .Q31M PAULINO Stop: 06/17/25 15:15 Home Medications ?Medication ?Instructions ?Recorded ?Confirmed ?Last Taken ?Type multivit,Ca,min-iron 8 mg-folic 1 tab PO DAILY 09/10/24 06/17/25 06/16/25 History acid 200 mcg-lycopene 600 mcg tablet (Centrum Men) amlodipine 10 mg tablet 10 mg PO DAILY 06/17/25 06/17/25 06/16/25 History codeine 10 mg-guaifenesin 100 mg/5 10 ml PO DAILY PRN cough 06/17/25 06/17/25 Unknown History mL oral liquid lisinopril 40 mg tablet 40 mg PO DAILY 06/17/25 06/17/25 06/16/25 History tamsulosin 0.4 mg capsule 0.4 mg PO DAILY 06/17/25 06/17/25 06/16/25 History Physical Exam Vital Signs and Narrative: Vital Signs: Last Vital Signs Temp 102.9 F H 06/17/25 15:04 Pulse 89 06/17/25 15:04 Resp 22 H 06/17/25 15:04 BP 132/71 06/17/25 15:04 Pulse Ox 95 06/17/25 15:04 O2 Del Method Nasal Cannula 06/17/25 15:04 O2 Flow Rate 2 06/17/25 15:04 BMI result Body Mass Index 30.1 Const: General: cooperative, alert and awake Nutritional Appearance: average body habitus Orientation/consciousness: patient oriented x3 Resp: Other: tachypnea; left side crackles Cardio: Rate: regular rate GI: Inspection: No distended Palpation (GI): Soft to palpation Neuro: General: patient oriented x3, moves all extremities and CN's II-XI intact bilaterally Results Labs 06/17/25 11:47 06/17/25 11:47 Labs: Laboratory Results - last 24 hr 06/17/25 06/17/25 11:47 14:03 MCV 95.2 MCH 29.1 MCHC 30.5 L RDW 17.5 H Plt Count 122 L D MPV 9.1 L Immature Gran % (Auto) Cancelled Neut % (Auto) Cancelled Lymph % (Auto) Cancelled [place] % (Auto) Cancelled Eos % (Auto) Cancelled Baso % (Auto) Cancelled Lymph # (Auto) Cancelled [place] # (Auto) Cancelled Eos # (Auto) Cancelled Baso # (Auto) Cancelled Abs Immat Gran (auto) Cancelled Absolute Neuts (auto) Cancelled Absolute Nucleated RBC 0.060 H Nucleated RBC % (auto) 0.0 Neutrophils % (Manual) 1 L Band Neutrophils % 0 L Lymphocytes % (Manual) 92 H Atypical Lymphs % (Man) 6 Monocytes % (Manual) 1 L Abs Neuts (Manual) 1.2 L Lymphocytes # (Manual) 112.0 H Atyp Lymphs # (Manual) 7.3 Monocytes # (Manual) 1.2 Smudge Cells PRESENT Platelet Estimate SLIGHTLY DECREASED Plt Morphology Comment NORMAL RBC Morphology NOTED Polychromasia 2+ (3-5) ESR 48 H Anion Gap 14 Estim Creat Clear Calc 100.7 Estimated GFR > 60 Random Glucose 156 H Lactic Acid 1.0 Calcium 9.2 Magnesium 2.0 Total Bilirubin 0.7 AST 56 H ALT 20 Alkaline Phosphatase 101 Troponin I High Sens 5.7 5.2 C-Reactive Protein 10.99 H Total Protein 6.9 Albumin 4.8 Influenza Type A (PCR) NEGATIVE Influenza Type B (PCR) NEGATIVE RSV RNA Qual (PCR) NEGATIVE SARS-CoV-2 RNA (RT-PCR) NEGATIVE Imaging Radiologist's Impressions: Impressions Chest X-Ray 06/17/25 12:31 IMPRESSION: Vague patchy density in the middle third left lung zone, atelectasis versus pneumonia. Electronically signed by: Jatinder Nixon MD 06/17/2025 12:41 PM [facility] Assessment and Plan (1) CLL (chronic lymphocytic leukemia): Status: Acute (2) Hypoxia: Status: Acute (3) Community acquired pneumonia: Status: Acute Plan This is a 55-year-old male with history of CLL not currently undergoing treatment, hypertension who presents to the emergency department with shortness of breath found to have fever and imaging consistent with pneumonia acute respiratory failure with hypoxia and sepsis due to community-acquired pneumonia no severe features continue IV Ceftriaxone/Azithromycin, started 06/17 continue supplemental oxygen 2L NC, wean as tolerated antipyretics prn breathing treatments CLL not currently undergoing treatment wbc chronically elevated, but above baseline outpatient follow up with oncology HTN bp currently soft, give sepsis, will hold for now monitor bp closely and remains stable resume in am dvt ppx - lovenox patient requires ongoing inpatient stay for management of acute respiratory failure, sepsis due to community-acquired pneumonia requiring IV antibiotics and close monitoring to prevent decompensation Quality Stroke Does the patient have a stroke diagnosis?: No VTE Prior VTE?: No VTE Risk Level:: Medical - moderate - high VTE Device Contraindication: Treatment Not Indicated VTE Drug Contraindication: N/A - Med Ordered
--- NOTE | 2025-06-17 15:23 | HO.NURTONUR ---
Pt is a 55yo M with pmh CLL. Denies treatment for same. States onc is following his dx. Pt presented to ED today with inc SOB over last 2 weeks, worse yesterday. +crackles in gautam bases. Productive cough. Febrile. Bld cxs drawn. CXR shows pna. IVabx given. Pt received 500ml NS bolus. 20gLFA. Ambulates independently. VSS. Tylenol given for fever.
--- NOTE | 2025-06-17 15:57 | PHA.MEDREC ---
Pharmacy Consult ? Medication Reconciliation Pharmacy has completed the medication reconciliation. Spoke to patient to confirm medication list. Per patient, he is taking amlodipine 10 mg and lisinopril 40 mg daily (he has a suprlus of them at home). He is NOT taking lisinopril-HCTZ (because it makes him urinate too much) nor loratadine. He verified he takes methenamine hippurate and tamsulosin. He takes codeine-guaifenesin 10 ml daily prn cough. Last dose of medications was yesterday 06/16/25.
[2025-06-17] MEDS: Lactated Ringers 1,000 ML 100 ML IVCONT (17:14)
[2025-06-17] MEDS: 0.9 % Sodium Chloride Flush 3 ML SYRINGE IVFLUSH ×2 (17:19→21:15)
[2025-06-18] VITALS (9 sets, daily range): BP systolic 109–124; BP diastolic 62–68; PULSE 72–96; RESP 16–19; TEMP 36.3–37.7; O2SAT 91–95
[2025-06-18 05:57] LABS: Hematocrit 26.8 % (42.0-52.0); Hemoglobin 8.3 g/dl (14.0-18.0); Mean Corpuscular HGB Conc 31.0 g/dl (31.0-36.0); Mean Corpuscular Hemoglobin 28.6 pg (27.0-33.0); Mean Corpuscular Volume 92.4 fL (80.0-98.0); NRBC Abs Auto 0.020 X10*3/uL (0.0-0.012); NRBC Pct Auto 0.0 /100WBC (0.0-0.2); Red Blood Count 2.90 X10*6/uL (4.60-5.80); WBC ABN SCTR FOR CBC 1
[2025-06-18] MEDS: Albuterol/Iprat 2.5/0.5MG 3 ML AMPUL.NEB INHALE ×2 (05:59→16:52)
[2025-06-18 06:10] LABS: Platelet Count 88 X10*3/uL (160-400)
[2025-06-18 06:11] LABS: White Blood Count 80.5 X10*3/uL (4.8-10.8)
[2025-06-18 06:12] LABS: Anion Gap 13 (12-20); Blood Urea Nitrogen 19 mg/dL (9-16); Calcium 8.4 mg/dL (8.4-10.2); Carbon Dioxide 23 mmol/L (22-29); Chloride 107 mmol/L (96-108); Creatinine Clr Calc Pharmacy 105.5; Estimated Glomerular Filt Rate > 60; Potassium 4.2 mmol/L (3.3-5.1); Sodium 139 mmol/L (135-145)
[2025-06-18 06:50] LABS: Atypical Lymph Absolute Manual 2.4 x10*3/uL; Atypical Lymphs Percent Manual 3 % (0-6); Lymphocytes Absolute Manual 76.5 X10*3/uL (1.2-4.9); Lymphocytes Percent Manual 95 % (20-40); Monocytes Absolute Manual 0.8 X10*3/uL (0.1-1.2); Monocytes Percent Manual 1 % (2-11); Neutrophils Percent Manual 1 % (45-73)
[2025-06-18 06:53] LABS: Hypochromasia 1+ (5-14) /OIF; RBC Morphology NOTED; Smudge Cells PRESENT
[2025-06-18 06:56] LABS: Band Neutrophils Percent 0 % (3-5); Neutrophils Absolute Manual 0.8 X10*3/uL (2.0-8.3)
--- NOTE | 2025-06-18 07:46 | HO.PM.IMPN ---
Subjective Subjective Date of Service: 06/18/25 Interval History: F/u on PNA, hypoxia reporting a little sob but overall is feeling better Physical Exam Vital Signs: Vital Signs: Last Vital Signs Temp 98.4 F 06/18/25 07:42 Pulse 77 06/18/25 07:42 Resp 16 06/18/25 07:42 BP 119/65 06/18/25 07:42 Pulse Ox 91 L 06/18/25 07:42 O2 Del Method Room Air 06/18/25 07:42 O2 Flow Rate 2 06/17/25 16:00 BMI result Body Mass Index 30.1 General: AO X 3, no acute distress Resp: CTA bilateral CVS: S1,S2,RRR GI: +BS, NT, no distention Skin: No rash Neuro: motor grossly intact Psych: appropriate affect Const: Other: General: AO X 3, no acute distress Resp: CTA bilateral CVS: S1,S2,RRR GI: +BS, NT, no distention Skin: No rash Neuro: motor grossly intact Psych: appropriate affect Objective Data Active Medications Acetaminophen (Acetaminophen 325 Mg Tablet) 650 mg PO Q6H PRN PRN Reason: Pain, Mild 1-3,fever,headache Last Admin: 06/17/25 21:13 Dose: 650 mg Documented By: PHILIP Albuterol/Ipratropium (Albuterol/Iprat 2.5/0.5mg 3 Ml Ampul.Neb) 3 ml INHALE Q4H PRN PRN Reason: Shortness of Breath/Wheezing Last Admin: 06/18/25 05:59 Dose: 3 ml Documented By: AGUEDA Ascorbic Acid (Ascorbic Acid 500 Mg Tablet) 1,000 mg PO DAILY [facility] Benzonatate (Benzonatate 100 Mg Capsule) 100 mg PO TID PRN PRN Reason: Cough Calcium Carbonate (Calcium Carbonate 750 Mg Tab.Chew) 750 mg PO Q4H PRN PRN Reason: Heartburn Enoxaparin Sodium (Enoxaparin Sodium 40 Mg/0.4 Ml Syringe) 40 mg SUBCUT Q24H [facility] Last Admin: 06/17/25 17:15 Dose: 40 mg Documented By: ROLO Guaifenesin/Dextromethorphan (Guaifenesin Dm 100/10/5 Ml 5 Ml Syrup) 5 ml PO Q6H PRN PRN Reason: Cough Ceftriaxone Sodium 1 gm/ (Sodium Chloride) 50 mls @ 100 mls/hr IV Q24H [facility] Azithromycin 500 mg/ Sodium (Chloride) 250 mls @ 125 mls/hr IV Q24H [facility] Magnesium Hydroxide (Milk Of Magnesia 30 Ml Oral.Susp) 30 ml PO DAILY PRN PRN Reason: Constipation Melatonin (Melatonin 3 Mg Tablet) 6 mg PO BEDTIME PRN PRN Reason: Insomnia Ondansetron HCl (Ondansetron Hcl 4 Mg/2 Ml Vial) 4 mg IVPUSH Q8H PRN PRN Reason: Nausea and Vomiting Sodium Chloride (0.9 % Sodium Chloride Flush 3 Ml Syringe) 3 ml IVFLUSH QSHIFT [facility] Last Admin: 06/17/25 21:15 Dose: 3 ml Documented By: PHILIP Tamsulosin HCl (Tamsulosin Hcl 0.4 Mg Capsule) 0.4 mg PO DAILY [facility] Labs 06/18/25 05:30 06/18/25 05:30 Labs: Laboratory Results - last 24 hr 06/17/25 06/17/25 06/18/25 11:47 14:03 05:30 MCV 95.2 92.4 MCH 29.1 28.6 MCHC 30.5 L 31.0 RDW 17.5 H 17.7 H Plt Count 122 L D 88 L D MPV 9.1 L 9.1 L Immature Gran % (Auto) Cancelled Cancelled Neut % (Auto) Cancelled Cancelled Lymph % (Auto) Cancelled Cancelled Hayes % (Auto) Cancelled Cancelled Eos % (Auto) Cancelled Cancelled Baso % (Auto) Cancelled Cancelled Lymph # (Auto) Cancelled Cancelled Hayes # (Auto) Cancelled Cancelled Eos # (Auto) Cancelled Cancelled Baso # (Auto) Cancelled Cancelled Abs Immat Gran (auto) Cancelled Cancelled Absolute Neuts (auto) Cancelled Cancelled Absolute Nucleated RBC 0.060 H 0.020 H Nucleated RBC % (auto) 0.0 0.0 Neutrophils % (Manual) 1 L 1 L Band Neutrophils % 0 L 0 L Lymphocytes % (Manual) 92 H 95 H Atypical Lymphs % (Man) 6 3 Monocytes % (Manual) 1 L 1 L Abs Neuts (Manual) 1.2 L 0.8 L Lymphocytes # (Manual) 112.0 H 76.5 H Atyp Lymphs # (Manual) 7.3 2.4 Monocytes # (Manual) 1.2 0.8 Smudge Cells PRESENT PRESENT Platelet Estimate SLIGHTLY DECREASED DECREASED Plt Morphology Comment NORMAL NORMAL RBC Morphology NOTED NOTED Polychromasia 2+ (3-5) Hypochromasia 1+ (5-14) ESR 48 H Anion Gap 14 13 Estim Creat Clear Calc 100.7 105.5 Estimated GFR > 60 > 60 Random Glucose 156 H 111 Lactic Acid 1.0 Calcium 9.2 8.4 D Magnesium 2.0 Total Bilirubin 0.7 AST 56 H ALT 20 Alkaline Phosphatase 101 Troponin I High Sens 5.7 5.2 C-Reactive Protein 10.99 H Total Protein 6.9 Albumin 4.8 Influenza Type A (PCR) NEGATIVE Influenza Type B (PCR) NEGATIVE RSV RNA Qual (PCR) NEGATIVE SARS-CoV-2 RNA (RT-PCR) NEGATIVE Assessment and Plan (1) Community acquired pneumonia: Status: Acute (2) Hypoxia: Status: Acute (3) CLL (chronic lymphocytic leukemia): Status: Acute Plan This is a 55-year-old male with history of CLL not currently undergoing treatment, hypertension who presents to the emergency department with shortness of breath found to have fever and imaging consistent with pneumonia acute respiratory failure with hypoxia and sepsis due to community-acquired pneumonia no severe features continue IV Ceftriaxone/Azithromycin, started 06/17, continue for 1 more day then switch to po continue supplemental oxygen 2L NC, wean as tolerated antipyretics PRN for fever prn breathing treatments CLL not currently undergoing treatment wbc chronically elevated, but above baseline outpatient follow up with oncology HTN, BP wnl, can resume meds dvt ppx - lovenox patient requires ongoing inpatient stay for management of acute respiratory failure, sepsis due to community-acquired pneumonia requiring IV antibiotics and close monitoring to prevent decompensation Quality Stroke Does the patient have a stroke diagnosis?: No VTE Prior VTE?: No VTE Risk Level:: Medical - moderate - high VTE Device Contraindication: Treatment Not Indicated VTE Drug Contraindication: N/A - Med Ordered
[2025-06-18] MEDS: 0.9 % Sodium Chloride Flush 3 ML SYRINGE IVFLUSH ×3 (09:06→19:36)
[2025-06-19 03:25] VITALS: BP 117/56; PULSE 79; RESP 18; TEMP 37.2; O2SAT 95
[2025-06-19 07:43] VITALS: BP 122/73; PULSE 68; RESP 16; TEMP 36.9; O2SAT 94
[2025-06-19] MEDS: 0.9 % Sodium Chloride Flush 3 ML SYRINGE IVFLUSH (08:29)
--- NOTE | 2025-06-19 09:15 | HO.PM.IMPN ---
Subjective Subjective Date of Service: 06/19/25 Interval History: F/u on PNA, hypoxia feels better but still has some sob overall is feeling better Physical Exam Vital Signs: Vital Signs: Last Vital Signs Temp 98.5 F 06/19/25 07:43 Pulse 68 06/19/25 07:43 Resp 16 06/19/25 07:43 BP 122/73 06/19/25 07:43 Pulse Ox 94 06/19/25 07:43 O2 Del Method Room Air 06/19/25 07:43 O2 Flow Rate 2 06/17/25 16:00 BMI result Body Mass Index 30.1 General: AO X 3, no acute distress Resp: CTA bilateral CVS: S1,S2,RRR GI: +BS, NT, no distention Skin: No rash Neuro: motor grossly intact Psych: appropriate affect Const: Other: General: AO X 3, no acute distress Resp: CTA bilateral CVS: S1,S2,RRR GI: +BS, NT, no distention Skin: No rash Neuro: motor grossly intact Psych: appropriate affect Objective Data Active Medications Acetaminophen (Acetaminophen 325 Mg Tablet) 650 mg PO Q6H PRN PRN Reason: Pain, Mild 1-3,fever,headache Last Admin: 06/18/25 20:20 Dose: 650 mg Documented By: LEFEBDHARA Albuterol/Ipratropium (Albuterol/Iprat 2.5/0.5mg 3 Ml Ampul.Neb) 3 ml INHALE Q4H PRN PRN Reason: Shortness of Breath/Wheezing Last Admin: 06/18/25 16:52 Dose: 3 ml Documented By: BRAYAN Ascorbic Acid (Ascorbic Acid 500 Mg Tablet) 1,000 mg PO DAILY [facility] Last Admin: 06/19/25 08:26 Dose: 1,000 mg Documented By: LALA Benzonatate (Benzonatate 100 Mg Capsule) 100 mg PO TID PRN PRN Reason: Cough Calcium Carbonate (Calcium Carbonate 750 Mg Tab.Chew) 750 mg PO Q4H PRN PRN Reason: Heartburn Enoxaparin Sodium (Enoxaparin Sodium 40 Mg/0.4 Ml Syringe) 40 mg SUBCUT Q24H [facility] Last Admin: 06/18/25 16:24 Dose: 40 mg Documented By: ANSHUL Guaifenesin/Dextromethorphan (Guaifenesin Dm 100/10/5 Ml 5 Ml Syrup) 5 ml PO Q6H PRN PRN Reason: Cough Ceftriaxone Sodium 1 gm/ (Sodium Chloride) 50 mls @ 100 mls/hr IV Q24H [facility] Last Infusion: 06/18/25 12:30 Dose: Infused Documented By: ANSHUL Azithromycin 500 mg/ Sodium (Chloride) 250 mls @ 125 mls/hr IV Q24H [facility] Last Infusion: 06/18/25 18:38 Dose: Infused Documented By: ANSHUL Magnesium Hydroxide (Milk Of Magnesia 30 Ml Oral.Susp) 30 ml PO DAILY PRN PRN Reason: Constipation Melatonin (Melatonin 3 Mg Tablet) 6 mg PO BEDTIME PRN PRN Reason: Insomnia Ondansetron HCl (Ondansetron Hcl 4 Mg/2 Ml Vial) 4 mg IVPUSH Q8H PRN PRN Reason: Nausea and Vomiting Sodium Chloride (0.9 % Sodium Chloride Flush 3 Ml Syringe) 3 ml IVFLUSH QSHIFT [facility] Last Admin: 06/19/25 08:29 Dose: 3 ml Documented By: LALA Tamsulosin HCl (Tamsulosin Hcl 0.4 Mg Capsule) 0.4 mg PO DAILY [facility] Last Admin: 06/19/25 08:27 Dose: 0.4 mg Documented By: LALA Labs 06/18/25 05:30 06/18/25 05:30 Labs: Laboratory Results - last 24 hr 06/17/25 06/17/25 06/18/25 11:47 14:03 05:30 MCV 95.2 92.4 MCH 29.1 28.6 MCHC 30.5 L 31.0 RDW 17.5 H 17.7 H Plt Count 122 L D 88 L D MPV 9.1 L 9.1 L Immature Gran % (Auto) Cancelled Cancelled Neut % (Auto) Cancelled Cancelled Lymph % (Auto) Cancelled Cancelled Edwards % (Auto) Cancelled Cancelled Eos % (Auto) Cancelled Cancelled Baso % (Auto) Cancelled Cancelled Lymph # (Auto) Cancelled Cancelled Edwards # (Auto) Cancelled Cancelled Eos # (Auto) Cancelled Cancelled Baso # (Auto) Cancelled Cancelled Abs Immat Gran (auto) Cancelled Cancelled Absolute Neuts (auto) Cancelled Cancelled Absolute Nucleated RBC 0.060 H 0.020 H Nucleated RBC % (auto) 0.0 0.0 Neutrophils % (Manual) 1 L 1 L Band Neutrophils % 0 L 0 L Lymphocytes % (Manual) 92 H 95 H Atypical Lymphs % (Man) 6 3 Monocytes % (Manual) 1 L 1 L Abs Neuts (Manual) 1.2 L 0.8 L Lymphocytes # (Manual) 112.0 H 76.5 H Atyp Lymphs # (Manual) 7.3 2.4 Monocytes # (Manual) 1.2 0.8 Smudge Cells PRESENT PRESENT Platelet Estimate SLIGHTLY DECREASED DECREASED Plt Morphology Comment NORMAL NORMAL RBC Morphology NOTED NOTED Polychromasia 2+ (3-5) Hypochromasia 1+ (5-14) ESR 48 H Anion Gap 14 13 Estim Creat Clear Calc 100.7 105.5 Estimated GFR > 60 > 60 Random Glucose 156 H 111 Lactic Acid 1.0 Calcium 9.2 8.4 D Magnesium 2.0 Total Bilirubin 0.7 AST 56 H ALT 20 Alkaline Phosphatase 101 Troponin I High Sens 5.7 5.2 C-Reactive Protein 10.99 H Total Protein 6.9 Albumin 4.8 Influenza Type A (PCR) NEGATIVE Influenza Type B (PCR) NEGATIVE RSV RNA Qual (PCR) NEGATIVE SARS-CoV-2 RNA (RT-PCR) NEGATIVE Microbiology Microbiology Results: Microbiology 06/17/25 12:07 Blood Culture - Preliminary Blood - Venous No growth after 24 hours. 06/17/25 11:53 Blood Culture - Preliminary Blood - Venous No growth after 24 hours. Assessment and Plan (1) Community acquired pneumonia: Status: Acute (2) Hypoxia: Status: Acute (3) CLL (chronic lymphocytic leukemia): Status: Acute Plan This is a 55-year-old male with history of CLL not currently undergoing treatment, hypertension who presents to the emergency department with shortness of breath found to have fever and imaging consistent with pneumonia acute respiratory failure with hypoxia and sepsis due to community-acquired pneumonia with immunocompromised state from underlying CML continue IV Ceftriaxone/Azithromycin, started 06/17, consider swithcing to oral Augment and Doxy if WBC are trending dows Off O2 antipyretics PRN for fever prn breathing treatments CLL not currently undergoing treatment wbc chronically elevated, but above baseline outpatient follow up with oncology HTN, BP wnl, can resume meds dvt ppx - lovenox patient requires ongoing inpatient stay for management of acute respiratory failure, sepsis due to community-acquired pneumonia requiring IV antibiotics and close monitoring to prevent decompensation Quality Stroke Does the patient have a stroke diagnosis?: No VTE Prior VTE?: No VTE Risk Level:: Medical - moderate - high VTE Device Contraindication: Treatment Not Indicated VTE Drug Contraindication: N/A - Med Ordered
--- NOTE | 2025-06-19 09:21 | P.DS_ITS ---
DS: Providers Provider Date of Service: 06/19/25 Date of admission: 06/17/25 14:43 Date of discharge: 06/19/25 Primary care physician: Louis Valverde MD DS: Diagnosis Discharge Diagnosis (1) Community acquired pneumonia: Status: Acute (2) Hypoxia: Status: Acute (3) CLL (chronic lymphocytic leukemia): Status: Acute DS: Summary Hospital Course Hospital Course: Chief Complaint: shortness of breath This is a 55-year-old male with history of CLL who presents to the emergency department with shortness of breath. Patient reports shortness of breath over the past 2 weeks although significantly worse yesterday. He reports associated dry cough. He has no known recent sick contacts. On arrival the patient was febrile, tachypneic, with a T-max of 102.9 degrees. Chest x-ray showed likely pneumonia. Patient was hypoxic with oxygen saturation of 89% on room air requiring supplemental oxygen. In the emergency department he was treated with IV antibiotics, breathing treatment, fluids and admission was requested. Hospital coruse: Patient presented with sob and found to have CAP with associated marked high WBC d/t underlying CML, initially was hypoxic and was on oxygen. He was given IV Ceftriaxone and Zithro and by the next day was off oxygen, and presently 94 % on room air. He is afebrile, WBC has come down. Will transition to oral Augmentin and Doxycline for 10 more days Time Attestation Discharge Coordination Time (in mins): 45 Quality: Safe Use of Opioids Does Pt have an Active Cancer Diagnosis on the Problem List?: No Quality: Stroke Does the patient have a stroke diagnosis?: No Physical Exam Vital Signs: Vital Signs: Last Vital Signs Temp 98.5 F 06/19/25 07:43 Pulse 68 06/19/25 07:43 Resp 16 06/19/25 07:43 BP 122/73 06/19/25 07:43 Pulse Ox 94 06/19/25 07:43 O2 Del Method Room Air 06/19/25 07:43 O2 Flow Rate 2 06/17/25 16:00 BMI result Body Mass Index 30.1 DS: Data Data Completed and Pending Labs on day of discharge: Preliminary micro results at discharge 06/17/25 12:07 Blood Culture - Preliminary Blood - Venous No growth after 24 hours. 06/17/25 11:53 Blood Culture - Preliminary Blood - Venous No growth after 24 hours. Discharge Plan Discharge Anticipated Discharge Date/Time: 06/19/25 09:24 Patient Disposition: Home, Self-Care Discharge Diagnosis: community acquired pneumonia, hypoxia, CML Referrals: Name,MD Louis [Primary Care Provider, Internal Medicine] - 1 Week Discharge Medications: New amoxicillin-pot clavulanate 875-125 mg tablet 1 tab PO BID Qty: 20 0RF doxycycline monohydrate 100 mg capsule 100 mg PO BID Qty: 20 0RF Continued Centrum Men 8 mg iron- 200 mcg-600 mcg Tablet 1 tab PO DAILY tamsulosin 0.4 mg Capsule 0.4 mg PO DAILY amlodipine 10 mg tablet 10 mg PO DAILY lisinopril 40 mg tablet 40 mg PO DAILY codeine-guaifenesin 10-100 mg/5 mL liquid 10 ml PO DAILY PRN (Reason: cough) ascorbic acid (vitamin C) 1,000 mg tablet 1,000 mg PO DAILY 90 Days Qty: 90 1RF methenamine hippurate 1 gram tablet 1 g PO DAILY 90 Days Qty: 90 1RF Discharge Orders: Discharge Order (Routine); Ordered 06/19/25 Ordered By: Richmond Bowens Diet: Advance to usual diet Activity on Discharge: As tolerated Stand Alone Forms: Patient Portal Discharge page Print Language: Ukrainian Care Plan Goals: recovery from pneumonia Health Concerns: penumonia histofy of cml with chronic high CML Plan of Treatment: Take Augmentin and Doxycyline as recommended and follow up with your Doctor in a week, call for appointment follow up with Dr. Buenrostro for CML Assessment: see above
[2025-06-19 09:29] LABS: Hematocrit 28.4 % (42.0-52.0); Hemoglobin 8.7 g/dl (14.0-18.0); Mean Corpuscular HGB Conc 30.6 g/dl (31.0-36.0); Mean Corpuscular Hemoglobin 28.7 pg (27.0-33.0); Mean Corpuscular Volume 93.7 fL (80.0-98.0); NRBC Abs Auto 0.040 X10*3/uL (0.0-0.012); NRBC Pct Auto 0.1 /100WBC (0.0-0.2); PLT CLUMP 1; Red Blood Count 3.03 X10*6/uL (4.60-5.80)
[2025-06-19 09:41] LABS: Anion Gap 12 (12-20); Blood Urea Nitrogen 16 mg/dL (9-16); Calcium 9.1 mg/dL (8.4-10.2); Carbon Dioxide 24 mmol/L (22-29); Chloride 105 mmol/L (96-108); Creatinine Clr Calc Pharmacy 115.1; Estimated Glomerular Filt Rate > 60; Potassium 4.2 mmol/L (3.3-5.1); Sodium 137 mmol/L (135-145)
[2025-06-19 10:05] LABS: White Blood Count 79.8 X10*3/uL (4.8-10.8)
[2025-06-19 10:06] LABS: Platelet Count 110 X10*3/uL (160-400)
[2025-06-19 12:00] VITALS: BP 120/66; PULSE 70; RESP 18; TEMP 36.9; O2SAT 94
--- NOTE | 2025-06-19 12:36 | MHC.CM.PN ---
Addendum entered by Donna Stahl 06/19/25 12:37: HCP ON FILE Original Note: PT LIVES WITH FAMILY AND IS FUNCTIONALLY INDEPENDENT AND EMPLOYED P/T. HE USES A CPAP FROM [facility]. PCP: EMY HENRY DP: HOME TODAY, WITH NO SERVICES. [facility] WILL TRANSPORT.
== END 2025-06-19 13:38 | disposition home or self-care (01) | DRG 720 ==
LOC: HO.ED 14:34 → HO.EDOVER 14:44 → HO.S3 15:05
PROVIDERS: Physician Assistant; Physician Assistant Medical; Admitting Provider Physician Assistant Medical; Emergency Provider Emergency Medicine; PCP Internal Medicine Geriatric Medicine; Visit Provider Internal Medicine
DX: A41.9 Sepsis, unspecified organism (principal); J96.01 Acute respiratory failure with hypoxia; J18.9 Pneumonia, unspecified organism; I10 Essential (primary) hypertension; C91.10 Chronic lymphocytic 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; Z20.822 Contact with and (suspected) exposure to COVID-19; Z79.899 Other long term (current) drug therapy
CPT/HCPCS: 36415; 71045; 80048; 80053; 83605; 83735; 84484; 85007; 85025; 85027; 85652; 86140; 87040; 87637; 93005; 99285; J0131; J0456; J0696; J1650; J7120

== ENCOUNTER → 2025-06-17 11:29 | Outpatient (BNV) | payer MEDICAID, SELFPAY | PROVIDERS: Admitting Provider Physician Assistant Medical; Emergency Provider Emergency Medicine; PCP Internal Medicine Geriatric Medicine; Visit Provider Internal Medicine | DX: R07.9 Chest pain, unspecified (principal) | CPT/HCPCS: 93010 ==

== ENCOUNTER → 2025-06-17 11:59 | Outpatient (BNV) | payer MEDICAID, SELFPAY | PROVIDERS: Emergency Provider Emergency Medicine; PCP Internal Medicine Geriatric Medicine; Visit Provider Radiology Diagnostic Radiology | DX: R06.02 Shortness of breath (principal); R50.9 Fever, unspecified | CPT/HCPCS: 71045 ==

== ENCOUNTER → 2025-06-17 14:43 | Outpatient (BNV) | payer MEDICAID, SELFPAY | PROVIDERS: Admitting Provider Physician Assistant Medical; Emergency Provider Emergency Medicine; PCP Internal Medicine Geriatric Medicine; Visit Provider Internal Medicine | DX: J18.9 Pneumonia, unspecified organism (principal); R09.02 Hypoxemia; C91.10 Chronic lymphocytic 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 | CPT/HCPCS: 99223; 99232 ==